=== PATIENT | female | born 2000 | race Caucasian/White ===

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

== ENCOUNTER 2021-08-13 07:41 | Outpatient (CLI) | payer OTHER, SELFPAY ==
[2021-08-13 13:31] LABS: Chlamydia Trachomatis by PCR Negative (Negative); Neisserai gonorrhoeae by PCR Negative (Negative); Probe Check PASS; Sample Adequacy Control PASS; Specimen Processing Control PASS
== END 2021-08-13 23:59 | disposition home or self-care (01) ==
LOC: LABSPEC 08-14 07:42
PROVIDERS: PCP Family Medicine; Visit Provider Nurse Practitioner Women's Health
DX: Z11.3 Encounter for screening for infections with a predominantly sexual mode of transmission (principal)
CPT/HCPCS: 87491; 87591

== ENCOUNTER → 2021-09-17 | Outpatient (CLI) | payer OTHER, SELFPAY | END | disposition home or self-care (01) | LOC: LABSPEC 16:07 | PROVIDERS: PCP Family Medicine; Visit Provider Nurse Practitioner Women's Health | DX: N76.0 Acute vaginitis (principal) | CPT/HCPCS: 87070; 87205 ==

== ENCOUNTER → 2022-06-23 | Outpatient (CLI) | payer OTHER, SELFPAY ==
[2022-06-23 11:06] LABS: Thyroid Stim Hormone (TSH) 1.58 uIU/mL (0.358-3.74)
[2022-06-27 09:46] LABS: Testosterone Free 2.9 pg/mL (0.0-4.2)
== END | disposition home or self-care (01) ==
LOC: PAVLAB 10:31
PROVIDERS: PCP Family Medicine; Referring Provider Nurse Practitioner Women's Health; Visit Provider Nurse Practitioner Women's Health
DX: L68.0 Hirsutism (principal)
CPT/HCPCS: 36415; 82627; 84402; 84443; 82626

== ENCOUNTER → 2024-05-08 | Outpatient (CLI) | payer OTHER, SELFPAY ==
[2024-05-09 22:06] LABS: Chlamydia By Nucleic Acid AMP Negative (Negative); Gonococcus By Nucleic Acid AMP Negative (Negative)
[2024-05-15 11:34] LABS: HPV Reflexed? NOT INDICATED
== END | disposition home or self-care (01) ==
LOC: BWCLAB 10:38
PROVIDERS: PCP Family Medicine; Referring Provider Obstetrics & Gynecology; Visit Provider Obstetrics & Gynecology
DX: O99.719 Diseases of the skin and subcutaneous tissue complicating pregnancy, unspecified trimester (principal); L68.0 Hirsutism; Z12.4 Encounter for screening for malignant neoplasm of cervix; Z3A.00 Weeks of gestation of pregnancy not specified
CPT/HCPCS: 87086; 87491; 87591; 88175; G0145

== ENCOUNTER 2024-05-23 10:49 | Emergency (ER) | payer OTHER, SELFPAY ==
[2024-05-23 10:49] VITALS: BP 122/78; PULSE 95; RESP 14; TEMP 36.2; O2SAT 98; BMI 24.7
--- NOTE | 2024-05-23 11:23 | EDS_ITS ---
HPI HPI - Female History of Present Illness Chief Complaint: Vag Bleeding Pain Pain: Positive for Pelvic Pain Onset: Today Context: Gradual Onset Timing: Continuous Quality: Positive for Cramping Location: Suprapubic Worsened by: - (Nothing) Relieved by: Tylenol Bleeding Issue: Negative for Vaginal bleeding, Passing clots or Passing tissue Associated Symptoms Associated Symptoms: Negative for Dysuria, Frequency or Hematuria Test: Positive P: 0 Narrative Narrative: Patient presents with pelvic cramping that began today. Patient states she had an outpatient ultrasound yesterday by Dr. Church and could not see any movement or heart rate. Patient states she started having some lower abdominal cramping today. Patient states she took Tylenol which seemed to help. Patient states she is approximately 9 weeks . Patient is 1 para 0. Patient denies any vaginal bleeding or discharge. Patient admits to some nausea but denies any vomiting. Patient denies any urinary complaints. PFSH PFSH Medical History Seasonal allergies Menorrhagia with regular cycle Anxiety Home Medications ?Medication ?Instructions ?Recorded ?Last Taken ?Type multivitamin no.47-iron fum 27 cap PO 05/02/24 Unknown History mg-folate no.1 1 mg-dha 300 mg capsule (PNV-DHA) Allergy/AdvReac Type Severity Reaction Status Date / Time No Known Allergies Allergy Verified 05/23/24 14:36 Family History Grandfather Heart disease Leukemia Father Heart disease Grandmother Cancer, Onset Age: 62 Maternal- Skin cancer Mother Breast cancer, Onset Age: 46 genetic Surgical History History of oral surgery Social History adopted: No household members: significant other current occupational status: employed 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- [employer] pets and animals: Yes (Avoid litterbox) pets and animals: cat(s) history of recent travel: No sexually active: Yes Smoking Status: Never smoker alcohol intake: never substance use type: does not use diet: gluten free well-balanced diet: daily or most days caffeine: No eating out: rarely or never during the past year weight has: remained stable what type of physical activity do you participate in: walking frequency: 1-2 times per week duration: 30-45 minutes/day maryanne/confucianism: None seatbelt use: always do you feel safe at home: Yes 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 ROS ROS ED Constitutional Constitutional ED: Denies chills or fever(s) Eyes Eyes: Denies blurry vision or change in vision ENT ENT ED: Denies rhinorrhea or sore throat Cardiovascular Cardiovascular: Denies chest pain or palpitations Respiratory/Chest Respiratory/Chest: Denies cough or dyspnea Gastrointestinal Gastrointestinal: Reports abdominal pain and nausea; Denies vomiting Genitourinary Genitourinary ED: Denies dysuria or hematuria Musculoskeletal Musculoskeletal: Denies back pain or neck pain Integumentary Denies abscess or rash Neurologic Neurologic: Denies headache(s) or weakness Allergic/Immunologic Allergic/Immunologic ED: Denies mouth swelling or urticaria EXAM Physical Exam Const Vital Signs: 05/23/24 10:49 05/23/24 12:49 Temperature 97.2 F L Temperature Source Temporal Pulse Rate 95 Respiratory Rate 14 Blood Pressure 122/78 H 117/57 L Blood Pressure Mean 92 77 Pulse Ox 98 Oxygen Delivery Method Room Air Positive well nourished and well developed General Appearance ED: well developed and NAD HEENT Reports moist mucous membranes Neck supple and no JVD Resp normal respiratory effort and clear to auscultation bilaterally Cardio regular rate and regular rhythm GI non-tender and non-distended Palpation: tender suprapubic; Negative for guarding Neuro oriented x3, CN's II-XII intact bilaterally and no sensory deficits noted Sensorium / Orientation: alert Motor Exam: strength 5/5 throughout Psych mental status grossly normal MDM MDM MDM Narrative Medical decision making narrative: Differential diagnosis includes threatened miscarriage, incomplete miscarriage, ovarian cyst, urinary tract infection, and viral gastroenteritis. CBC will be obtained to assess for leukocytosis and anemia. Basic metabolic profile will be obtained to assess for electrolyte abnormality and renal function. Urinalysis will be obtained to assess for urinary tract infection and hematuria. Serum quantitative hCG will be obtained to assess for level. Type and Rh will be obtained to assess for blood type. Pelvic ultrasound will be obtained to assess for demise. Lab Data Attestation: I reviewed the patient's lab results. Lab results narrative: CBC was reviewed. There is a mild leukocytosis of 11.4. The remainder is within normal limits. Basic metabolic profile was reviewed and was within normal limits. Quantitative hCG was reviewed [place] [id number]. Urinalysis was reviewed. There is no evidence of urinary tract infection or hematuria. Patient's blood type was reviewed and was A positive. Labs: Laboratory Results - last 24 hr 05/23/24 05/23/24 11:45 12:47 WBC 11.4 H RBC 4.42 Hgb 13.4 Hct 39.3 MCV 88.9 MCH 30.3 MCHC 34.1 RDW Std Deviation 41.9 RDW Coeff of Lisandro 12.9 Plt Count 315 MPV 10.6 Immature Gran % (Auto) 0.800 Neut % (Auto) 78.0 H Lymph % (Auto) 12.4 L Wetzel % (Auto) 7.7 Eos % (Auto) 0.7 Baso % (Auto) 0.4 Absolute Neuts (auto) 8.9 H Absolute Lymphs (auto) 1.41 Nucleated RBC % 0 Sodium 138 Potassium 3.7 Chloride 106 Carbon Dioxide 25.0 Anion Gap 7 BUN 5 L Creatinine 0.57 Estim Creat Clear Calc 133.68 Est GFR (MDRD) Af Amer 171 Est GFR (MDRD) Non-Af 141 BUN/Creatinine Ratio 8.8 L Glucose 86 Calcium 9.4 HCG, Quant 66629 H Urine Color Yellow Urine Clarity Clear Urine pH 8.0 Ur Specific [place] 1.010 Urine Protein Negative Urine Glucose (UA) Normal Urine Ketones 5 H Urine Occult Blood 10 H Urine Nitrite Negative Urine Bilirubin Negative Urine Urobilinogen Normal Ur Leukocyte Esterase 100 H Urine RBC 0-5 SEEN Urine WBC 0-5 SEEN Ur Squamous Epith Cells 0-5 SEEN Urine Bacteria 0 SEEN Urine Mucus 0 SEEN Blood Type A POSITIVE Radiography Diagnostic Testing: Pelvic ultrasound was obtained. There is a intrauterine gestational sac containing a pole and yolk sac. There is no heart rate noted. [place]-rump length measures 8 weeks and 0 days. Findings are suggestive of demise. This was interpreted by the radiologist and was also independently reviewed by myself. Treatment and Re-Evaluation Narrative: Patient was given IV fluids. Patient was advised of her findings. Case was discussed with Dr. Church. She was in to evaluate the patient. Patient would prefer to go home. Patient was instructed to get plenty of rest. Patient was instructed to drink plenty of fluids. Patient was instructed to follow-up with Dr. Church in 3 to 5 days. Patient was instructed to return if worse in any way. Patient understood and was agreeable with the plan. All questions were answered. Discharge Plan Triage Chief Complaint: Vag Bleeding ED Provider: James Kerr Dx/Rx/DC Orders Clinical Impression: Incomplete miscarriage Instructions: ED MISCARRIAGE Incomplete Prescriptions: No Action PNV-DHA 27 mg iron-1 mg -300 mg capsule PO Primary Care Provider: Víctor Pete Referrals: Víctor Pete MD [Primary Care Provider] - Zuleyka Delgadillo DO [Med Staff - Active Staff] - 3-5 Days Print Language: Slovak Disposition Disposition: Home, Self Care
--- NOTE | 2024-05-23 11:27 | US_ITS ---
STUDY: FIRST TRIMESTER OBSTETRICAL ULTRASOUND REASON FOR EXAM: Female, 23 years old Pelvic pain LMP: 03/19/2024 TECHNIQUE: Transabdominal and Transvaginal TECHNICAL QUALITY: Adequate. PRIOR ULTRASOUND: None. FINDINGS: There is a normal-appearing intrauterine gestational sac. The mean sac diameter (MSD) measures 2.73 cm, indicating an estimated gestational age (EGA) of 7 weeks, 5 days. The gestational sac shape is within normal limits. There is a visualized yolk sac. The yolk sac measures 0.29 cm. The placenta is non-visualized. There is visualization of an embryo with NO cardiac activity, consistent with intrauterine demise. The crown-rump length (CRL) measures 1.65 cm, indicating an estimated gestational age (EGA) of 8 weeks, 0 days. The uterus measures 9.6 x 8.3 x 6.0 cm. There is no demonstrated uterine fibroid. The cervix is closed. The right ovary measures 2.1 x 1.6 x 2.1 cm. There is no right ovarian cyst. There is no visualized right adnexal mass or complex lesion. The left ovary measures 3.5 x 2.0 x 1.6 cm. There is no left ovarian cyst. There is no visualized left adnexal mass or complex lesion. There is minimal fluid in the cul de sac. US/Transvaginal w/Preg US IMPRESSION: There is a normal-appearing intrauterine gestational sac containing a pole, and yolk sac. However, there is no heart rate identified. [place]-rump length measures 1.65 cm for EGA is 8 weeks 0 days and a heart rate could be identified at this point. Findings are suggestive of demise. Follow-up ultrasound recommended to assure no retained POC No suspicious adnexal mass Small amount of free fluid in the cul-de-sac Electronically Signed: Mason Johnson MD at 13:04 EST ,
[2024-05-23] MEDS: 0.9% Normal Saline (1000mL) 1,000 ML 999 ML IV (12:00)
[2024-05-23 12:07] LABS: Absolute Lymphocyte Count 1.41 X10^3/uL (0.83-4.51); Absolute Neutrophil Count 8.9 X10^3/uL (2.0-7.7); Basophil# 0.05 X10^3/uL; Basophil% 0.4 % (0-1); Eosinophil# 0.08 X10^3/uL; Eosinophils% 0.7 % (0-5); Hematocrit 39.3 % (37-47); Hemoglobin 13.4 g/dL (12.0-15.0); Lymphocyte # 1.41 X10^3/ul (0.83-4.51); Lymphocyte % 12.4 % (19-41); Mean Corp Hgb Conc 34.1 g/dL (32-36); Mean Corpuscular Hgb 30.3 pg (27.0-32.0); Mean Corpuscular Volume 88.9 fL (81-99); Mean Platelet Vol. 10.6 fl (6.2-12.0); Monocyte# 0.88 X10^3/uL; Monocyte% 7.7 % (0-10); NRBC Flagged by Analyzer 0 % (0-5); Neutrophil # 8.86 X10^3/uL (2.7-7.7); Platelet Count 315 K/mm3 (150-450); RBC Distribution Width CV 12.9 % (11.6-14.6); RBC Distribution Width SD 41.9 fl (35.1-43.9); Red Blood Count 4.42 M/mm3 (4.2-5.4); White Blood Count 11.4 K/mm3 (4.4-11.0)
[2024-05-23 12:30] LABS: Anion Gap 7 (5-15); BUN 5 mg/dL (7-18); BUN/Creat Ratio 8.8 RATIO (10-20); Calcium,Total 9.4 mg/dL (8.5-10.1); Chloride 106 mmol/L (98-107); Creatinine, Serum 0.57 mg/dL (0.55-1.02); EST Glomerular Filtration Rate 141 mL/min (>60); Est Glom Filt Rate - Afr Amer 171 mL/min (>60); Estimated Creatinine Clearance 133.68 ml/min; Glucose 86 mg/dL (74-106); Potassium 3.7 mmol/L (3.5-5.1); Sodium Level 138 mmol/L (136-145)
[2024-05-23 12:42] LABS: hCG Titer Quant., Serum 63743 mIU/mL (1-3)
[2024-05-23 12:49] VITALS: BP 117/57
[2024-05-23 12:52] LABS: Bacteria 0 SEEN /hpf (None Seen); Mucous, Urine 0 SEEN /hpf (<or=2+)
[2024-05-23 12:57] LABS: Color, Urine Yellow (Yellow); Glucose, Dipstick Normal (Normal); Ketone-Dipstick 5 mg/dl (Negative); Leukocyte Esterase-Dipstick 100 /ul (Negative); Nitrite-Dipstick Negative (Negative); Occult Blood-Urine 10 /ul (Negative); Protein-Dipstick Negative (Negative); Urine Bilirubin Dipstick Negative (Negative); Urine Clarity Clear (Clear); Urine Urobilinogen Normal (Normal)
[2024-05-23 13:09] LABS: Red Blood Cells-Urine 0-5 SEEN /hpf (0-5); Squamous Epithelial Cells - UA 0-5 SEEN /hpf (5-10)
[2024-05-23 13:10] LABS: White Blood Cells 0-5 SEEN /hpf (0-5)
[2024-05-23 14:00] VITALS: BP 101/64; PULSE 83; RESP 16; O2SAT 98
== END 2024-05-23 15:24 | disposition home or self-care (01) ==
PROVIDERS: Emergency Provider Emergency Medicine; PCP Family Medicine; Visit Provider Emergency Medicine
DX: O03.4 Incomplete spontaneous abortion without complication (principal)
CPT/HCPCS: 76817; 80048; 81001; 84702; 85025; 86900; 86901; 96360; 99283

== ENCOUNTER 2024-05-25 10:31 | Day surgery (SDC) | payer OTHER, SELFPAY ==
[2024-05-25] VITALS (10 sets, daily range): BP systolic 93–114; BP diastolic 58–69; PULSE 81–108; RESP 16–18; TEMP 36.3–37.1; O2SAT 100; BMI 24.8
[2024-05-25] MEDS: Doxycycline 100 MG CAPSULE PO (11:36)
[2024-05-25 11:43] LABS: Hematocrit 37.8 % (37-47); Hemoglobin 12.8 g/dL (12.0-15.0); Mean Corp Hgb Conc 33.9 g/dL (32-36); Mean Corpuscular Hgb 30.5 pg (27.0-32.0); Mean Corpuscular Volume 90.2 fL (81-99); Mean Platelet Vol. 10.8 fl (6.2-12.0); Platelet Count 278 K/mm3 (150-450); RBC Distribution Width SD 42.3 fl (35.1-43.9); Red Blood Count 4.19 M/mm3 (4.2-5.4); White Blood Count 7.5 K/mm3 (4.4-11.0)
--- NOTE | 2024-05-25 12:02 | PCM.PRE.AN2 ---
ASA Classification* ASA Classification ASA Classification: 1 Assessment & Plan Anesthesia* Anesthesia Assessment Anesthesia Assessment: Discussed sedation and/or anesthesia options, risks, benefits, and alternatives with patient/parents/legal guardian/POA. Questions invited. The patient/parents/legal guardian/POA seems to understand and agrees to proceed with anesthesia plan. Reviewed the physical assessment, medical history, allergy history and patient home medications list prior to surgery/procedure/anesthetic and documented any changes. Performed airway and anesthesia risk assessments. Anesthesia Type Anesthesia Type: MAC History Source History Obtained from:: Patient and Chart Anesthesia Focused Assessment* Temperature: 98.7 F Pulse Rate: 108 Blood Pressure: 114/69 Respiratory Rate: 18 Pulse Ox: 100 Oxygen Delivery Method: Room Air Airway Assessment Mouth opens: >3 cm Mallampati Score: I Teeth Condition: Lower (Patient has a permanent retainer) and Upper (Patient has a permanent retainer) Neck Range of motion (ROM): Full ROM Focused Labs Anesthesia Preop lab: CBC WBC 7.5 K/mm3 (4.4-11.0) 05/25/24 11:20 RBC 4.19 M/mm3 (4.2-5.4) L 05/25/24 11:20 Hgb 12.8 g/dL (12.0-15.0) 05/25/24 11:20 Hct 37.8 % (37-47) 05/25/24 11:20 Plt Count 278 K/mm3 (150-450) 05/25/24 11:20 CHEMISTRY Potassium 3.7 mmol/L (3.5-5.1) 05/23/24 11:45 Sodium 138 mmol/L (136-145) 05/23/24 11:45 BUN 5 mg/dL (7-18) L 05/23/24 11:45 Creatinine 0.57 mg/dL (0.55-1.02) 05/23/24 11:45 Glucose 86 mg/dL (74-106) 05/23/24 11:45 TSH 1.58 uIU/mL (0.358-3.74) 06/23/22 10:35 COAG PT 14.5 SECONDS (11.7-14.9) 04/07/19 13:23 HCG, Quant 36693 mIU/mL (1-3) H 05/23/24 11:45 Pre-Assessment Diagnosis/Proposed Procedure Planned Operative Procedure(s): SUCTION DIALATION AND CURETTAGE Anesthesia History 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 When Was Last Pacemaker Check QUESTION #4 FULL TEXT: You/Your Family Experience fever (hyperthermia) with Anesthesia Last Oral Intake Last Oral intake: Last Oral Intake NPO since 21:30 05/25/24 11:32 Meds taken in AM with sips of No 05/25/24 11:32 water? Meds patient instructed to take am of surgery PONV PONV - fire equipment operator: PONV - fire equipment operator Female Yes 05/25/24 11:29 HX of Motion Sickness No 05/25/24 11:29 HX of N/V After Surgery No 05/25/24 11:29 Non-Smoker Yes 05/25/24 11:29 Duration of Surgery greater No 05/25/24 11:29 than 60 minutes Number of Risk Factors 2 05/25/24 11:29 PONV Score Moderate Risk 05/25/24 11:29 Height & Weight Height & Weight: Anesthesia: Height & Weight Height 5 ft 4 in 05/25/24 11:32 Weight: 65.7 kg 05/25/24 11:32 Body Mass Index (BMI) 24.8 05/25/24 11:32 Respiratory Assessment Respiratory Assessment - fire equipment operator: Respiratory Tract Infection Hx - fire equipment operator Hx Respiratory Tract Infection No 05/25/24 11:29 STOP Sleep Apnea STOP Sleep Apnea - fire equipment operator: STOP Sleep Apnea - fire equipment operator Hx Hypertension No 05/25/24 11:29 Hx Sleep Apnea No 05/25/24 11:29 CPAP BIPAP Do you snore loudly (louder No 05/25/24 11:29 than talking or can be heard Do you often feel tired/ No 05/25/24 11:29 fatigued/ sleepy during daytime? Has anyone observed you stop No 05/25/24 11:29 breathing during sleep? STOP Results Negative 05/25/24 11:29 QUESTION #5 FULL TEXT : Do you snore loudly (louder than talking or can be heard through closed doors)? Tobacco Use History Tobacco Use History - fire equipment operator: Tobacco Use History - fire equipment operator Tobacco Use Smoking Status Never smoker 05/25/24 11:29 Hx Tobacco Use No 05/25/24 11:29 Years Smoking Packs Smoked per Day Smoking Cessation Date was within the last 15 years Hx Smoking Cessation Date Hx Smoking Cessation Counseling Hematologic Medial History Hematologic Hx - fire equipment operator: Hematologic Medical Hx - hospice art therapist Hx of Blood Transfusion No 05/25/24 11:29 Hx of Transfusion in last 3 No 05/25/24 11:29 Months Date of Last Transfusion (if within last 3 months) Ever experience any problems No 05/25/24 11:29 with transfusion(s)? Specify any problems Hx of Preganancy in last 3 Yes 05/25/24 11:29 Months Nurse Filling Out Transfusion [id number] 05/25/24 11:29 & Questions: Date: 05/25/24 05/25/24 11:29 Time: 11:31 05/25/24 11:29 Patient unable to answer at this time (ie. confused, unrespo /Reproduction History /Reproductive History - fire equipment operator: /Reproductive Hx- fire equipment operator Hx Now Yes: HERE FOR SUCTION D&C 05/25/24 11:29 Gestational Age (in weeks): EDC: Hx Hx Para Hx Section SAB No 05/25/24 11:29 PFSH Medical History Seasonal allergies Menorrhagia with regular cycle Anxiety Home Medications ?Medication ?Instructions ?Recorded ?Last Taken ?Type multivitamin no.47-iron fum 27 1 cap PO 05/02/24 Unknown History mg-folate no.1 1 mg-dha 300 mg capsule (PNV-DHA) Allergy/AdvReac Type Severity Reaction Status Date / Time No Known Allergies Allergy Verified 05/25/24 11:26 Family History Grandfather Heart disease Leukemia Father Heart disease Grandmother Cancer, Onset Age: 62 Maternal- Skin cancer Mother Breast cancer, Onset Age: 46 genetic Surgical History History of oral surgery Social History adopted: No household members: significant other current occupational status: employed 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- [employer] pets and animals: Yes (Avoid litterbox) pets and animals: cat(s) history of recent travel: No sexually active: Yes Smoking Status: Never smoker alcohol intake: never substance use type: does not use diet: gluten free well-balanced diet: daily or most days caffeine: No eating out: rarely or never during the past year weight has: remained stable what type of physical activity do you participate in: walking frequency: 1-2 times per week duration: 30-45 minutes/day maryanne/mandaen: None seatbelt use: always do you feel safe at home: Yes 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
--- NOTE | 2024-05-25 12:30 | POC_PTH ---
PATIENT: RENEE SONG [place] [facility] [id number] AGE/SX: 23/F ROOM: RE05/25/[address]: Dr. Zuleyka Delgadillo DO : 2000 BED: DIS: 05/25/2024 SPEC #: [id number] RECD: 05/25/24 16:46 STATUS: ANAY HE #: [id number] JAZZY: 05/25/24 12:[address]: Zuleyka Delgadillo DEPT: SURGICAL PATHOLOGY RECD BY: Jacki Feng ENTERED: 05/26/24 09:42 SP TYPE: PROD CONC OTHR DR: Dr. Víctor Pete MD Tissues: Product of conception, NOS Procedures: Surgery Specimen Level IV HEADER OPERATION: D&C, suction PRE-OP DIAGNOSIS: Incomplete miscarriage TISSUE SUBMITTED: Products of conception MICROSCOPIC DIAGNOSIS Products of conception, dilation and curettage: [place], gestational endometrium and immature chorionic villi (products of conception), clinically incomplete miscarriage. LINA: 05/29/2024 MICROSCOPIC DESCRIPTION Slides are reviewed. GROSS DESCRIPTION Received in fixative is one container labeled with the patient's name and designated Products of conception. The specimen consists of multiple irregular fragments of pink soft tissue mixed with blood clot that in aggregate measure 7.0 x 7.0 x 2.0 cm. No tissue is identified. Candy Wrapping Machine Operator sections are submitted in three cassettes. LINA. 05/26/2024 TC:5 CPT:03175
--- NOTE | 2024-05-25 12:49 | HP.PCM_ITS ---
History and Physical Date of Admission: 05/25/24 Intake Vital Signs 05/08/2409:18 05/22/2411:44 05/22/2411:47 Height 5 ft 4 in 5 ft 4 in 5 ft 4 in Weight: 143 lb 4 oz BMI 24.5 BP 117/76 Intake Visit Reasons: 9 wk ob Buffer Nickel Required: No Is patient in pain?: No Allergies No Known Allergies Allergy (Verified 05/22/24 11:44) Medications ?Medication ?Instructions ?Recorded ?Confirmed ?Type multivitamin no.47-iron fum 27 cap PO 05/02/24 05/22/24 History mg-folate no.1 1 mg-dha 300 mg capsule (PNV-DHA) Last Menstrual Period: 03/19/24 Zika: Zika virus screening: Negative : No PFSH PFSH Medical History Seasonal allergies Menorrhagia with regular cycle Anxiety Surgical History History of oral surgery Family History Grandfather Heart disease LeukemiaFather Heart diseaseGrandmother Cancer, Onset Age: 62 Maternal- Skin cancerMother Breast cancer, Onset Age: 46 genetic Social History adopted: No household members: significant other current occupational status: employed 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 pets and animals: Yes (Avoid litterbox) pets and animals: cat(s) history of recent travel: No sexually active: Yes Smoking Status: Never smoker alcohol intake: never substance use type: does not use diet: gluten free well-balanced diet: daily or most days caffeine: No eating out: rarely or never during the past year weight has: remained stable what type of physical activity do you participate in: walking frequency: 1-2 times per week duration: 30-45 minutes/day maryanne/orthodoxy: None seatbelt use: always do you feel safe at home: Yes additional social history: 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 OB Visit NICHOL Calculator Estimated Delivery Date Method Current WG Current Estimate 12/24/24 LMP (Certain) 9w 1d Other Estimates 12/28/24 Ultrasound #1 8w 4d Initial Weight: Not Recorded Date -?-?-?-?-?-?-?-?-?-?-?-?- EGA Weight BP Urine Prot -?-?-?-?-?-?-?-?-?-?-?-?- Glucose FHR FuHt Pres Dilation -?-?-?-?-?-?--?-?-?-?-?-?- Effaced St Visit Note 05/08/24-?-?-?-?-?-?-?-?-?-?-?-?- 7w 1d 143 lb 4 oz 118/78 -?-?-?-?-?-?-?-?-?-?-?-?- 150 -?-?-?-?-?-?-?-?-?-?-?-?- SM- CRL 6-7 mm very early recommend repeat scan for dating to confirm NICHOL 05/22/24-?-?-?-?-?-?-?-?-?-?-?-?- 9w 1d 143 lb 4 oz 117/76 Negative -?-?-?-?-?-?-?-?-?-?-?-?- Negative -?-?-?-?-?-?-?-?-?-?-?-?- JV- CRL is measuring 8 weeks 5 days but only a slight flicker of heart beat and unable to get it to form a pulse wave. sending for formal scan. ROS: no chest pain, shortness of breath, fevers,chills, nausea, vomiting, or diarrhea, no suicidal ideations. Exam: general: A&C x , nad abdomen: soft, non-distended skin: no rashes or lesions psych: normal affect, appropriate for loss extremities: no edema or calf tenderness ACOG First Trimester First Trimester: Desire for , Alcohol, Tobacco Cessation, Illicit/Recreational Drug/Substance Use, Intimate Partner Violence, Barriers to care, Unstable Housing, Communication Barriers, Environmental/Work Hazards, Anticipated Course of Care, Toxoplasmosis Precations, Use of Any medications, Sexual activity, Exercise, Dental Care, Sauna/Hot tub use, Seat Belt use, Childbirth classes/Hospital facilities, Travel, Indications for Ultrasound and Screening for Aneuploidy; Discussed Results POC Urinalysis 2 Dip (Clinic) Office Urine Glucose Negative Last Edit by Candy Merritt on 05/22/24 11:55 Office Urine Protein Negative Last Edit by Candy Merritt on 05/22/24 11:55 Coding Level of Care Code OB Routine Diagnoses Family history of neural tube defect Z82.79 FH: breast cancer in first degree relative Z80.3 Supervision of normal first Z34.00 9 weeks gestation of Z3A.09 Weeks of gestation: 9 weeks Assessment and Plan Assessment and Plan (1) Family history of neural tube defect: Status: Acute (2) FH: breast cancer in first degree relative: Status: Acute Comment: Mother , had genetic testing will obtain results (3) Supervision of normal first : Status: Acute Comment: , NICHOL 12/24/24, Rich Perez (4) : Status: Acute Qualifiers: Weeks of gestation: 9 weeks Qualified Code(s): Z3A.09 - 9 weeks ges tation of Comment: discussed genetic & carrier testing- Undecided Orders: Orders 4. incomplete - documented on ultrasound x 2 and quants x 2. After discussing the patient's diagnosis and treatment plan options, patient wishes to proceed with surgical management. I have discussed with the patient the risks, benefits, and alternatives of the procedure which include but are not limited to risks of anesthesia, bleeding, infection, possible damage to bowel, bladder, or surrounding vasculature which could lead to additional surgery to evaluate any complications. Patient agrees to procedure and wishes to proceed. ACOG/uptodate references given for additional information regarding procedure. plan hysteroscopy D&C. patient declines anora testing. POC Urinalysis 2 Dip (Clinic) Today Pelvic w/ Transvaginal Today O20.0 - Threatened
--- NOTE | 2024-05-25 12:53 | DCINST_ITS ---
Discharge Instructions Diet Discharge Diet: No restrictions DC O2, CPAP, BIPAP needs Home O2 Discharge instructions: No Dressing / Incision Discharge Activity: Return to Normal Activity, May Shower and May Take a Tub Bath (after 1 week) May resume sexual activity in: 1-2 weeks Weight Bearing Status: Weight bearing as tolerated Lifting Restrictions: none Dressing / Incision Call your doctor if you observe: Fever of 101 or Higher, Using more than 1 pad per hour, Shortness of breath and Uncontrolled pain Follow Up Care Please Follow Up With: Zuleyka Delgadillo DO When: Call [phone] to schedule appointment. Test Results: Test results from this visit will be discussed in further detail at your follow- up appointment, if applicable. Discharge Plan Admission Primary Reason for Your Visit: dilation and curettage Attending Provider: Zuleyka Delgadillo Primary Care Provider: Víctor Pete Instructions Print Language: Korean Discharge Orders/Prescriptions Prescriptions: New ibuprofen 800 mg tablet 800 mg PO Q8H PRN (Reason: pain) Qty: 30 0RF oxycodone-acetaminophen [Percocet] 5-325 mg tablet 1 tab PO Q4H PRN (Reason: pain) 7 Days Qty: 20 0RF Rx Instructions: 1-2 tabs q 4 hrs as needed for pain No Action PNV-DHA 27 mg iron-1 mg -300 mg capsule 1 cap PO Referrals / Follow Up: Víctor Pete MD [Primary Care Provider] - Disposition Disposition (needs filled in before D/C Order can be placed): Home, Self Care
[2024-05-25] MEDS: Lidocaine 1% (30 ml sdv) 30 ML Vial (13:22)
--- NOTE | 2024-05-25 13:31 | PCM.POST.ANE ---
Anesthesia: Postop Eval I Current Vital Signs Temperature: 97.6 F Pulse Rate: 86 Blood Pressure: 100/65 Respiratory Rate: 16 Pulse Ox: 100 Oxygen Delivery Method: Room Air Assessment Airway patent: Yes Spontaneous unlabored respirations: Yes Mental status: Awake and Calm nausea: No Vomiting: No Anesthesia Complication: No Fluid Hydration Crystalloid volume administer (ml): 400 Total IV fluid infused: 400 Progress Note Anesthesia document: Postop Eval 1 completed: Yes
--- NOTE | 2024-05-25 13:40 | PCM.OPRPT ---
Problems Associated Problem List Diagnoses (1) Incomplete miscarriage: Multi Select Codes Urinary/Genital Urinary/Genital CPT Codes: 47343 Surg Trtmt missed Ab 1TM Operative Report (Standard) Operative Information Date of Procedure: 05/25/24 Pre-Operative Diagnosis: 8 week miscarriage Post-Operative Diagnosis: 8 week miscarriage Surgery/Procedure Performed: suction dilation and curettage ballistics tester: No Type of Anesthesia: MAC and Topical Anesth RN Documented Start/Stop Times: Operation Date: 05/25/24 12:30 Case Time Into Pre-Op 05/25/24 10:39 Out of Pre-Op 05/25/24 12:41 Anesthesia Start 05/25/24 12:58 Into Room 05/25/24 12:58 Procedure Start 05/25/24 13:15 Procedure End 05/25/24 13:21 Anesthesia End 05/25/24 13:29 Out of Room 05/25/24 13:29 Into Recovery 05/25/24 13:31 Into Phase II Recovery 05/25/24 14:08 Out of Recovery 05/25/24 14:08 Out of Phase II 05/25/24 15:21 Procedure Start Time: 13:15 Procedure Stop Time: 13:21 Select all DRAINS/GRAFTS/IMPLANTS that apply: None Estimated Blood Loss: 30cc Fluids Replaced: 1 liter Specimen collected: Yes Description of specimen(s) removed: products of conception Description of surgery: Patient was taken to the operating room and placed under MAC local anesthesia. She was prepped and draped in the normal sterile fashion the dorsal lithotomy position. Bladder was drained of clear urine and anterior lip of the cervix was grasped and the uterus sounded to 10cm. Cervix was progressively dilated to allow passage of a 9 suction curette. Progressive passes were made removing the retained products of conception without complication. Sharp curettage confirmed complete removal of the retained products. This procedure was performed under ultrasound guidance to confirm removal of all products of conception. All instruments were removed from the vagina and excellent hemostasis was noted and the patient was taken to recovery in stable condition. Surgical Findings: 8 week IUP, no heart tones. Normal cervix and vagina. Complications Complications: No Admit VTE Documentation VTE Present on Admission: No VTE Mechan Device Prophylaxis: SCD's VTE Pharm Prophylaxis ordered?: No
[2024-05-25] MEDS: HYDROcodone Bitartrate/Apap 5/325 Tablet PO (14:28)
--- NOTE | 2024-05-25 15:09 | POSTOPAN2_ITS ---
Anesthesia Postop Eval I Sum Postop Eval Completion status Anesthesia document: Postop Eval 1 completed: Yes Anesthesia Postop Eval I Summary Anesthesia Postop Eval I Summary: Anesthesia Postop Eval I: Assessment Summary Airway patent Yes 05/25/24 13:32 [email or web address] Spontaneous unlabored Yes 05/25/24 13:32 [email or web address] respirations Mental status Awake,Calm 05/25/24 13:32 [email or web address] nausea No 05/25/24 13:32 [email or web address] Vomiting No 05/25/24 13:32 [email or web address] Anesthesia Postop Eval I: Fluid Summary Crystalloid volume administer 400 05/25/24 13:32 [email or web address] (ml) Colloids volume administered ( ml) Blood Product volume administered (ml) Total IV fluid infused 400 05/25/24 13:32 [email or web address] Anesthesia Postop Eval I: Summary Notes Anesthesia Complication No 05/25/24 13:32 [email or web address] Anesthesia Complication Comment: Post-operative progress note Anesthesia: Postop Eval II Evaluation Mental status: Awake and Calm Pain Level: 1 nausea: No Vomiting: No Complications Anesthesia Complication: No
--- NOTE | 2024-05-25 15:09 | PCM.POSTANE2 ---
Anesthesia Postop Eval I Sum Postop Eval Completion status Anesthesia document: Postop Eval 1 completed: Yes Anesthesia Postop Eval I Summary Anesthesia Postop Eval I Summary: Anesthesia Postop Eval I: Assessment Summary Airway patent Yes 05/25/24 13:32 [email or web address] Spontaneous unlabored Yes 05/25/24 13:32 MOLDING PRESS [email or web address] respirations Mental status Awake,Calm 05/25/24 13:32 MOLDING PRESS [email or web address].[email or web address] nausea No 05/25/24 13:32 MOLDING PRESS [email or web address].[email or web address] Vomiting No 05/25/24 13:32 MOLDING PRESS [email or web address] Anesthesia Postop Eval I: Fluid Summary Crystalloid volume administer 400 05/25/24 13:32 MOLDING PRESS [email or web address] (ml) Colloids volume administered ( ml) Blood Product volume administered (ml) Total IV fluid infused 400 05/25/24 13:32 MOLDING PRESS [email or web address] Anesthesia Postop Eval I: Summary Notes Anesthesia Complication No 05/25/24 13:32 MOLDING [email or web address] Anesthesia Complication Comment: Post-operative progress note Anesthesia: Postop Eval II Evaluation Mental status: Awake and Calm Pain Level: 1 nausea: No Vomiting: No Complications Anesthesia Complication: No
== END 2024-05-25 15:21 | disposition home or self-care (01) ==
LOC: SDC 10:32 → AC 10:34
PROVIDERS: PCP Family Medicine; Referring Provider Obstetrics & Gynecology; Visit Provider Obstetrics & Gynecology
PROC: (CPT 59812; principal; 2024-05-25 12:15)
DX: O03.4 Incomplete spontaneous abortion without complication (principal)
CPT/HCPCS: 59812; 01965; 85027; 86850; 86900; 86901; 87086; 88305; A4216; J2405

== ENCOUNTER 2024-06-15 15:13 | Outpatient (CLI) | payer OTHER, SELFPAY ==
[2024-06-15 17:23] LABS: hCG Titer Quant., Serum 31 mIU/mL (1-3)
== END 2024-06-15 23:59 | disposition home or self-care (01) ==
LOC: BWCLAB 15:13
PROVIDERS: PCP Family Medicine; Referring Provider Obstetrics & Gynecology; Visit Provider Obstetrics & Gynecology
DX: Z09 Encounter for follow-up examination after completed treatment for conditions other than malignant neoplasm (principal); Z98.890 Other specified postprocedural states
CPT/HCPCS: 36415; 84702

== ENCOUNTER → 2024-06-22 | Outpatient (CLI) | payer OTHER, SELFPAY ==
[2024-06-22 10:44] LABS: hCG Titer Quant., Serum 11 mIU/mL (1-3)
== END | disposition home or self-care (01) ==
LOC: LAB 09:24
PROVIDERS: PCP Family Medicine; Referring Provider Obstetrics & Gynecology; Visit Provider Obstetrics & Gynecology
DX: Z98.890 Other specified postprocedural states (principal)
CPT/HCPCS: 36415; 84702

== ENCOUNTER → 2024-06-29 | Outpatient (CLI) | payer OTHER, SELFPAY ==
[2024-06-29 22:03] LABS: hCG Titer Quant., Serum 5 mIU/mL (1-3)
== END | disposition home or self-care (01) ==
PROVIDERS: PCP Family Medicine; Referring Provider Nurse Practitioner Women's Health; Visit Provider Nurse Practitioner Women's Health
DX: Z09 Encounter for follow-up examination after completed treatment for conditions other than malignant neoplasm (principal); Z98.890 Other specified postprocedural states
CPT/HCPCS: 36415; 84702

== ENCOUNTER → 2024-07-05 | Outpatient (CLI) | payer OTHER, SELFPAY ==
[2024-07-05 10:59] LABS: hCG Titer Quant., Serum 3 mIU/mL (1-3)
== END | disposition home or self-care (01) ==
PROVIDERS: PCP Family Medicine; Referring Provider Nurse Practitioner Women's Health; Visit Provider Nurse Practitioner Women's Health
DX: Z98.890 Other specified postprocedural states (principal)
CPT/HCPCS: 36415; 84702

== ENCOUNTER 2024-07-14 17:57 | Emergency (ER) | payer OTHER, SELFPAY ==
[2024-07-14 17:57] VITALS: BP 133/92; PULSE 82; RESP 16; TEMP 36.8; O2SAT 100; BMI 24.0
[2024-07-14 18:40] LABS: Absolute Lymphocyte Count 1.51 X10^3/uL (0.83-4.51); Absolute Neutrophil Count 4.1 X10^3/uL (2.0-7.7); Basophil# 0.06 X10^3/uL; Basophil% 0.9 % (0-1); Eosinophil# 0.16 X10^3/uL; Eosinophils% 2.5 % (0-5); Hematocrit 35.8 % (37-47); Hemoglobin 12.1 g/dL (12.0-15.0); Lymphocyte # 1.51 X10^3/ul (0.83-4.51); Lymphocyte % 23.1 % (19-41); Mean Corp Hgb Conc 33.8 g/dL (32-36); Mean Corpuscular Hgb 30.3 pg (27.0-32.0); Mean Corpuscular Volume 89.5 fL (81-99); Mean Platelet Vol. 10.3 fl (6.2-12.0); Monocyte# 0.65 X10^3/uL; NRBC Flagged by Analyzer 0 % (0-5); Neutrophil # 4.12 X10^3/uL (2.7-7.7); Platelet Count 348 K/mm3 (150-450); RBC Distribution Width CV 12.7 % (11.6-14.6); RBC Distribution Width SD 41.6 fl (35.1-43.9); White Blood Count 6.5 K/mm3 (4.4-11.0)
[2024-07-14 18:52] LABS: Internal QC Validated? YES +Cl - CLEAR BKGD; Pregnancy, Serum, hCG Quali. NEGATIVE Negative
[2024-07-14 19:01] LABS: ALB/GLOB Ratio 1.3 RATIO (0.9-2.4); AST(SGOT) 13 U/L (15-37); Alanine Aminotransfer ALT/SGPT 20 U/L (13-56); Albumin, Serum 4.2 g/dL (3.2-5.0); Alkaline Phosphatase 42 U/L (45-117); Anion Gap 5 (5-15); BUN 7 mg/dL (7-18); BUN/Creat Ratio 9.9 RATIO (10-20); Calcium,Total 9.3 mg/dL (8.5-10.1); Chloride 109 mmol/L (98-107); EST Glomerular Filtration Rate 110 mL/min (>60); Est Glom Filt Rate - Afr Amer 133 mL/min (>60); Estimated Creatinine Clearance 108.86 ml/min; Globulin 3.3 g/dL (2.2-4.2); Glucose 90 mg/dL (74-106); Potassium 3.6 mmol/L (3.5-5.1); Protein, Total 7.5 g/dL (6.4-8.2); Sodium Level 139 mmol/L (136-145)
[2024-07-14 19:33] LABS: Bacteria 0 SEEN /hpf (None Seen); Mucous, Urine 0 SEEN /hpf (<or=2+)
[2024-07-14 19:34] LABS: Glucose, Dipstick Normal (Normal); Ketone-Dipstick Negative (Negative); Leukocyte Esterase-Dipstick 25 /ul (Negative); Nitrite-Dipstick Negative (Negative); Occult Blood-Urine 250 /ul (Negative); Protein-Dipstick 100 mg/dl (Negative); Specific Gravity, Urine 1.015 (1.002-1.030); Urine Bilirubin Dipstick Negative (Negative); Urine Clarity Sl. Cloudy (Clear); Urine Urobilinogen Normal (Normal)
[2024-07-14 19:41] LABS: Color, Urine SEE COMMENT BELOW (Yellow)
[2024-07-14 19:57] LABS: Red Blood Cells-Urine > 100 SEEN /hpf (0-5)
[2024-07-14 19:58] LABS: Squamous Epithelial Cells - UA 0-5 SEEN /hpf (5-10); White Blood Cells 5-10 SEEN /hpf (0-5)
[2024-07-14 20:40] VITALS: BP 105/88; PULSE 88; RESP 18; O2SAT 98
[2024-07-14 20:50] VITALS: BP 116/78; BP 132/97; BP 143/98; PULSE 82; PULSE 88; PULSE 97
--- NOTE | 2024-07-14 21:35 | ED.VIS.FEGU ---
HPI HPI - Female History of Present Illness Chief Complaint: Vag Bleeding Detail of Chief Complaint: Vaginal bleeding started 4 days ago Informant: patient Pain Pain: Negative for Pelvic Pain, Vulvar Pain or Vaginal Pain Bleeding Issue: Positive for Vaginal bleeding; Negative for Passing clots or Passing tissue Onset: Days (Started 4 days ago heavier than last several hours) Timing: Continuous Current pads/hr: 2 Maximum Severity: Heavy Maximum pads/hr: 3 Associated Symptoms Associated Symptoms: Negative for Dysuria, Frequency, Urgency, Hematuria or Missed Period Last known menstrual period: February 2024. Test: - (Unknown) Sexually: Positive for Active Control: No control Narrative Narrative: Patient is a 23-year-old female. She recently had a miscarriage. She has been sexually active since the miscarriage in April. She does not use any form of control. She denies headache, visual, ocular auditory symptoms. She denies cardiac respiratory symptoms. She denies abdominal pain. She presents because of increased bleeding. She does report lightheadedness with standing. Prior similar symptoms: No Recent Illness/Hospitalization: Yes PFSH PFSH Medical History Seasonal allergies Menorrhagia with regular cycle Anxiety Home Medications ?Medication ?Instructions ?Recorded ?Last Taken ?Type multivitamin no.47-iron fum 27 1 cap PO 05/02/24 Unknown History mg-folate no.1 1 mg-dha 300 mg capsule (PNV-DHA) ibuprofen 800 mg tablet 800 mg PO Q8H PRN pain #30 tabs 05/25/24 Unknown Rx oxycodone-acetaminophen 5 mg-325 1 tab PO Q4H PRN pain 7 days #20 05/25/24 Unknown Rx mg tablet (Percocet) tabs misoprostol 200 mcg tablet 400 mcg (2 x 200 mcg) PO ONCE #2 06/01/24 Unknown Rx (Cytotec) tabs medroxyprogesterone 10 mg tablet 10 mg PO UD #42 tabs 07/14/24 Unknown Rx (Provera) Allergy/AdvReac Type Severity Reaction Status Date / Time No Known Allergies Allergy Verified 07/14/24 18:00 Family History Grandfather Heart disease Leukemia Father Heart disease Grandmother Cancer, Onset Age: 62 Maternal- Skin cancer Mother Breast cancer, Onset Age: 46 genetic Surgical History H/O dilation and curettage History of oral surgery Social History adopted: No household members: significant other current occupational status: employed 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 pets and animals: Yes (Avoid litterbox) pets and animals: cat(s) history of recent travel: No sexually active: Yes Smoking Status: Never smoker alcohol intake: never substance use type: does not use diet: gluten free well-balanced diet: daily or most days caffeine: No eating out: rarely or never during the past year weight has: remained stable what type of physical activity do you participate in: walking frequency: 1-2 times per week duration: 30-45 minutes/day maryanne/confucianism: None seatbelt use: always do you feel safe at home: Yes 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 [facility] ED Constitutional Constitutional ED: Denies chills, fever(s) or subjective Eyes Eyes: Denies blurry vision or change in vision Cardiovascular Cardiovascular: Denies chest pain or palpitations Respiratory/Chest Respiratory/Chest: Denies cough, dyspnea or dyspnea on exertion Gastrointestinal Gastrointestinal: Denies abdominal pain, nausea or vomiting Genitourinary Genitourinary ED: Denies dysuria, hematuria or urinary frequency Neurologic Neurologic: Denies paresthesias or weakness Hematologic/Lymphatic Hematologic/Lymphatic: Denies easy bleeding or easy bruising EXAM Physical Exam Const Vital Signs: 07/14/24 17:57 07/14/24 20:40 07/14/24 20:50 Temperature 98.2 F Temperature Source Oral Pulse Rate 82 88 Pulse Rate [Lying] 88 Pulse Rate [Sitting (for 1 minute prior to obtaining)] 82 Pulse Rate [Standing (for 1 minute prior to obtaining)] 97 Respiratory Rate 16 18 Blood Pressure 133/92 H 105/88 H Blood Pressure [Lying] 116/78 Blood Pressure [Sitting (for 1 minute prior to obtaining)] 132/97 H Blood Pressure [Standing (for 1 minute prior to obtaining)] 143/98 H Blood Pressure Mean 105 93 Blood Pressure Mean [Lying] 90 Blood Pressure Mean [Sitting (for 1 minute prior to obtaining)] 108 Blood Pressure Mean [Standing (for 1 minute prior to obtaining)] 113 Pulse Ox 100 98 Oxygen Delivery Method Room Air Room Air 07/14/24 22:00 07/14/24 22:54 Temperature 98.4 F Temperature Source Pulse Rate 90 88 Pulse Rate [Lying] Pulse Rate [Sitting (for 1 minute prior to obtaining)] Pulse Rate [Standing (for 1 minute prior to obtaining)] Respiratory Rate 13 18 Blood Pressure 106/73 109/78 Blood Pressure [Lying] Blood Pressure [Sitting (for 1 minute prior to obtaining)] Blood Pressure [Standing (for 1 minute prior to obtaining)] Blood Pressure Mean 84 88 Blood Pressure Mean [Lying] Blood Pressure Mean [Sitting (for 1 minute prior to obtaining)] Blood Pressure Mean [Standing (for 1 minute prior to obtaining)] Pulse Ox 100 98 Oxygen Delivery Method Room Air Positive well nourished and well developed Constitutional Narrative: Vital signs noted. Orthostatics are positive. General Appearance ED: well developed, NAD and pallor; Negative for odor of alcohol detected HEENT Reports moist mucous membranes Negative for trauma or tenderness Eyes PERRL and EOMs intact bilaterally General Eye ED: Negative for pale conjunctiva or scleral icterus Neck no lymphadenopathy, supple and no JVD Resp normal respiratory effort and clear to auscultation bilaterally Cardio regular rate, regular rhythm, S1 normal heart sound, no murmurs and no JVD GI normal to inspection, nondistended, normoactive bowel sounds, soft to palpation and non-distended; Negative for non-tender Auscultation: hypoactive bowel sounds Palpation: tender suprapubic Back/Spine no CVA tenderness Extremity normal to inspection and full ROM Neuro oriented x3 and CN's II-XII intact bilaterally Sensorium / Orientation: alert Psych mental status grossly normal Skin no rashes or lesions noted and no wounds General Skin Exam: pallor; Negative for jaundice MDM MDM MDM Narrative Medical decision making narrative: Will obtain CBC to assess H&H. Orthostatic vital signs because of lightheadedness. Also test and she is sexually active with no form of control. Patient's repeat blood pressure was low at 105. Orthostatics were ordered. Orthostatics were positive. She received 1 L of normal saline. Will repeat H&H and need to perform pelvic exam. Patient had a D&C performed by Dr. Zuleyka Church on May 25, 2024. She had follow-up with Dr. Church on June 01 and June 07. Lab Data Attestation: I reviewed the patient's lab results. Lab results narrative: H&H is at patient's baseline. White count is normal. Electrolyte panel is normal. UA is remarkable for RBCs. This is probably due to the fact she is vaginally bleeding. Will repeat H&H and she is orthostatic. Labs: Laboratory Results - last 24 hr 07/14/24 07/14/24 07/14/24 18:30 18:32 21:55 WBC 6.5 RBC 4.00 L Hgb 12.1 11.1 L Hct 35.8 L 33.1 L MCV 89.5 MCH 30.3 MCHC 33.8 RDW Std Deviation 41.6 RDW Coeff of Lisandro 12.7 Plt Count 348 MPV 10.3 Immature Gran % (Auto) 0.500 Neut % (Auto) 63.0 Lymph % (Auto) 23.1 Sibley % (Auto) 10.0 Eos % (Auto) 2.5 Baso % (Auto) 0.9 Absolute Neuts (auto) 4.1 Absolute Lymphs (auto) 1.51 Nucleated RBC % 0 Sodium 139 Potassium 3.6 Chloride 109 H Carbon Dioxide 26.0 Anion Gap 5 BUN 7 Creatinine 0.70 Estim Creat Clear Calc 108.86 Est GFR (MDRD) Af Amer 133 Est GFR (MDRD) Non-Af 110 BUN/Creatinine Ratio 9.9 L Glucose 90 Calcium 9.3 Total Bilirubin 0.40 AST 13 L ALT 20 Alkaline Phosphatase 42 L Total Protein 7.5 Albumin 4.2 Globulin 3.3 Albumin/Globulin Ratio 1.3 Serum , Qual NEGATIVE Urine Color SEE COMMENT BELOW Urine Clarity Sl. Cloudy Urine pH 8.0 Ur Specific [place] 1.015 Urine Protein 100 H Urine Glucose (UA) Normal Urine Ketones Negative Urine Occult Blood 250 H Urine Nitrite Negative Urine Bilirubin Negative Urine Urobilinogen Normal Ur Leukocyte Esterase 25 H Urine RBC > 100 SEEN Urine WBC 5-10 SEEN Ur Squamous Epith Cells 0-5 SEEN Urine Bacteria 0 SEEN Urine Mucus 0 SEEN Management Discussion w/another healthcare provider: Technical Specialist Cytology (Spoke with Dr. Yobani Maldonado on-call for Dr. Church. The medication he requested is not available. Provera was substituted. She received 10 mg of Provera in the emergency department and will receive a prescription for 4210 mg tablets of Provera.) Discharge Plan Triage Chief Complaint: Vag Bleeding ED Provider: Agustín Viramontes Dx/Rx/DC Orders Clinical Impression: Abnormal vaginal bleeding, Orthostatic hypotension, Anemia due to blood loss Instructions: ED Dysfunctional Uterine Bleeding Prescriptions: New medroxyprogesterone [Provera] 10 mg tablet 10 mg PO UD Qty: 42 0RF No Action PNV-DHA 27 mg iron-1 mg -300 mg capsule 1 cap PO misoprostol [Cytotec] 200 mcg tablet 400 mcg PO ONCE Qty: 2 0RF ibuprofen 800 mg tablet 800 mg PO Q8H PRN (Reason: pain) Qty: 30 0RF oxycodone-acetaminophen [Percocet] 5-325 mg tablet 1 tab PO Q4H PRN (Reason: pain) 7 Days Qty: 20 0RF Rx Instructions: 1-2 tabs q 4 hrs as needed for pain Primary Care Provider: Víctor Pete Referrals: Víctor Pete MD [Primary Care Provider] - Zuleyka Delgadillo DO [Med Staff - Active Staff] - As soon as possible Activity Restrictions/Additional Instructions: Take 1 pill every 2 hours until your bleeding slows down. You are to take no more than 6 tablets in 24 hours. Next day take 1 tablet every 4 hours with no more than 6 tablets. The following day take 1 tablet every [address] Church's office on Wednesday Print Language: Botswanan Disposition Disposition: Home, Self Care
[2024-07-14 22:00] VITALS: BP 106/73; PULSE 90; RESP 13; O2SAT 100
[2024-07-14 22:07] LABS: Hematocrit 33.1 % (37-47); Hemoglobin 11.1 g/dL (12.0-15.0)
[2024-07-14] MEDS: 0.9% Normal Saline (1000mL) 1,000 ML 999 ML IV (22:15)
[2024-07-14] MEDS: MEDROXYPROGESTERONE ACETATE 10 MG TABLET PO (22:40)
[2024-07-14 22:54] VITALS: BP 109/78; PULSE 88; RESP 18; TEMP 36.9; O2SAT 98
[2024-07-14] MEDS: MEDROXYPROGESTERONE ACETATE 10 MG TABLET 50 MG PO (23:52)
== END 2024-07-14 23:39 | disposition home or self-care (01) ==
PROVIDERS: Emergency Provider Emergency Medicine; PCP Family Medicine; Visit Provider Emergency Medicine
DX: N93.9 Abnormal uterine and vaginal bleeding, unspecified (principal); D50.0 Iron deficiency anemia secondary to blood loss (chronic); I95.1 Orthostatic hypotension
CPT/HCPCS: 80053; 81001; 84703; 85014; 85018; 85025; 96360; 96361; 99284; A4216

== ENCOUNTER → 2024-07-18 | Outpatient (CLI) | payer OTHER, SELFPAY ==
[2024-07-18 14:06] LABS: Absolute Lymphocyte Count 1.22 X10^3/uL (0.83-4.51); Absolute Neutrophil Count 2.7 X10^3/uL (2.0-7.7); Basophil# 0.04 X10^3/uL; Basophil% 0.9 % (0-1); Eosinophil# 0.19 X10^3/uL; Eosinophils% 4.1 % (0-5); Hematocrit 33.4 % (37-47); Hemoglobin 11.1 g/dL (12.0-15.0); Lymphocyte # 1.22 X10^3/ul (0.83-4.51); Lymphocyte % 26.5 % (19-41); Mean Corp Hgb Conc 33.2 g/dL (32-36); Mean Corpuscular Hgb 30.1 pg (27.0-32.0); Mean Corpuscular Volume 90.5 fL (81-99); Mean Platelet Vol. 10.6 fl (6.2-12.0); Monocyte# 0.46 X10^3/uL; NRBC Flagged by Analyzer 0 % (0-5); Neutrophil # 2.68 X10^3/uL (2.7-7.7); Neutrophil % 58.3 % (47-70); Platelet Count 306 K/mm3 (150-450); RBC Distribution Width CV 12.5 % (11.6-14.6); RBC Distribution Width SD 41.3 fl (35.1-43.9); Red Blood Count 3.69 M/mm3 (4.2-5.4); White Blood Count 4.6 K/mm3 (4.4-11.0)
[2024-07-18 20:33] LABS: Estradiol 42.3 pg/mL; Follicle Stimulating Hormone 7.2 mIU/mL
[2024-07-19 07:00] LABS: hCG Titer Quant., Serum 1 mIU/mL (<9 non-preg)
== END | disposition home or self-care (01) ==
LOC: LAB 13:39
PROVIDERS: PCP Family Medicine; Referring Provider Obstetrics & Gynecology; Visit Provider Obstetrics & Gynecology
DX: N93.8 Other specified abnormal uterine and vaginal bleeding (principal)
CPT/HCPCS: 36415; 82670; 83001; 84443; 84702; 85025

== ENCOUNTER → 2024-07-18 | Outpatient (CLI) | payer OTHER, SELFPAY ==
--- NOTE | 2024-07-18 16:40 | US_ITS ---
PROCEDURE: PELVIC W/ TRANSVAGINAL REASON FOR EXAM: 23-year-old female, dysfunctional uterine bleeding. History of D and C approximately 1 month ago, persistent heavy bleeding. TECHNIQUE: Transvaginal pelvic ultrasound COMPARISON: None. FINDINGS: Measurements: Uterus: 7.9 x 5.7 x 4.1 cm with a volume of 97.5 mL Endometrial Thickness: 0.7 cm Right Ovary: 3.0 x 1.6 x 1.7 cm with a volume of 4.2 mL. Left Ovary: 3.6 x 1.7 x 1.5 cm with a volume of 4.7 mL. Uterus: Retroverted. Normal contour and myometrial echotexture. Endometrium: Heterogeneous, with scattered anechoic areas. Additional tiny hyperechoic focus measuring 1.3 x 0.9 x 0.3 cm demonstrating hypervascularity is visualized within the endometrium. Right ovary: Normal size and echotexture. Left ovary: Normal size and echotexture. Other adnexal findings: None. Cul-de-sac: No free intraperitoneal fluid identified. No tenderness. US/Pelvic w/ Transvaginal IMPRESSION: Normal transvaginal pelvic ultrasound. Low index of suspicion for retained pro ducts of conception. Reading Location: [id number]
== END | disposition home or self-care (01) ==
LOC: US 16:37
PROVIDERS: PCP Family Medicine; Referring Provider Obstetrics & Gynecology; Visit Provider Obstetrics & Gynecology
DX: N93.8 Other specified abnormal uterine and vaginal bleeding (principal); D50.0 Iron deficiency anemia secondary to blood loss (chronic)
CPT/HCPCS: 76830; 76856

== ENCOUNTER 2024-08-08 12:54 | Day surgery (SDC) | payer OTHER, SELFPAY ==
[2024-08-08] VITALS (9 sets, daily range): BP systolic 98–119; BP diastolic 62–80; PULSE 83–106; RESP 16–20; TEMP 36.1–36.6; O2SAT 100; BMI 23.1
--- NOTE | 2024-08-08 07:25 | HP.PCM_ITS ---
History and Physical Date of Admission: 08/08/24 Intake Vital Signs 07/17/2513:23 07/19/2509:49 Height 5 ft 4 in 5 ft 4 in Weight: 138 lb 4 oz BMI 23.7 BP 122/77 H Intake Visit Reasons: fu abnormal bleeding Senior Project Manager Required: No Is patient in pain?: Yes (increased cramping) Allergies No Known Allergies Allergy (Verified 07/19/24 10:52) Medications ?Medication ?Instructions ?Recorded ?Confirmed ?Type multivitamin no.47-iron fum 27 1 cap PO 05/02/24 07/19/24 History mg-folate no.1 1 mg-dha 300 mg capsule (PNV-DHA) medroxyprogesterone 10 mg tablet 10 mg PO UD #42 tabs 07/17/24 07/19/24 R x (Provera) tranexamic acid 650 mg tablet 1,300 mg (2 x 650 mg) PO TID 5 07/17/24 07/19/24 Rx days #30 tabs PFSH Medical History Seasonal allergies Menorrhagia with regular cycle Anxiety Surgical History H/O dilation and curettage History of oral surgery Family History Grandfather Heart disease LeukemiaFather Heart diseaseGrandmother Cancer, Onset Age: 62 Maternal- Skin cancerMother Breast cancer, Onset Age: 46 genetic Social History adopted: No household members: significant other current occupational status: employed 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 [employer] pets and animals: Yes (Avoid litterbox) pets and animals: cat(s) history of recent travel: No sexually active: Yes Smoking Status: Never smoker alcohol intake: never substance use type: does not use diet: gluten free well-balanced diet: daily or most days caffeine: No eating out: rarely or never during the past year weight has: remained stable what type of physical activity do you participate in: walking frequency: 1-2 times per week duration: 30-45 minutes/day maryanne/voodoo: None seatbelt use: always do you feel safe at home: Yes additional social history: 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 she had the d and c the beginning of may and then had bleeding at the end of the month and then it restarted a few weeks later and hasn't stopped since. she was seen in the ER and did a trial of provera which initially slowed but then the bleeding persisted through. she is changing a pad 3 times daily at this point. she had an ultrasound and bloodwork yesterday showing a negative hcg, nl tsh and fsh estradiol, persistent anemia and then suspicion of area of hypervacularity 1cm possible endomterial polyp. History 1 Elective abortions Hx Para 0 Spontaneous abortions 1 Hx # Term Pregnancies Ectopic pregnancies Hx # Pregnancies Multiple births # of living children Past Pregnancies Del. Date Name GA/Weeks Outcome Route Bth Weight Gen Labor Lgth Anesthesia Del [facility] Provider FOB 05/25/24 9 spontaneous ROS Const Constitutional: Reports system reviewed and no additional complaints, except as documented GI GI: Reports system reviewed and no additional complaints, except as documented : Reports as per HPI Exam Const General: cooperative, healthy appearing, comfortable, no acute distress and well developed Orientation: alert HENMT Head: normal to inspection and normocephalic Ears: hearing grossly normal bilaterally and external ears normal Nose: external nose normal and nares normal Face and sinus: normal facial exam Neck Neck: normal visual inspection, no lymphadenopathy and trachea midline Thyroid: thyroid normal Resp Effort & Inspection: normal respiratory effort Musc Other: gross motor intact no deficits, full bilateral strength Skin General: no rashes or lesions noted Neuro Motor: muscle tone normal throughout Coding Level of Care Code Off vis,est,level 4 Diagnoses Dysfunctional uterine bleeding N93.8 Anemia due to blood loss D50.0 Assessment and Plan Assessment and Plan (1) Dysfunctional uterine bleeding: Status: Acute Comment: suspect endoemtrial polyp, recommend d and c hysteroscopy symphion. tx and provera ordered in meantime (2) Anemia due to blood loss: Status: Acute Plan Problem list updated and treatment plans were reviewed with the patient and relevant educational handouts given. See problem list details for specific plan information. After discussing the patient's diagnosis and treatment plan options, patient wishes to proceed with surgical management. I have discussed with the patient the risks, benefits, and alternatives of the procedure which include but are not limited to risks of anesthesia, bleeding, infection, possible damage to bowel, bladder, or surrounding vasculature which could lead to additional surgery to evaluate any complications. Patient agrees to procedure and wishes to proceed. ACOG/uptodate references given for additional information regarding procedure.
[2024-08-08 13:36] LABS: Internal QC Validated? YES +Cl - CLEAR BKGD; Pregnancy, Urine Negative Negative; Record Kit Lot#,Urine Preg 899023
[2024-08-08 13:56] LABS: Hematocrit 35.3 % (37-47); Hemoglobin 11.8 g/dL (12.0-15.0); Mean Corp Hgb Conc 33.4 g/dL (32-36); Mean Corpuscular Hgb 29.7 pg (27.0-32.0); Mean Corpuscular Volume 88.9 fL (81-99); Platelet Count 296 K/mm3 (150-450); RBC Distribution Width SD 39.4 fl (35.1-43.9); Red Blood Count 3.97 M/mm3 (4.2-5.4); White Blood Count 6.4 K/mm3 (4.4-11.0)
--- NOTE | 2024-08-08 14:00 | PRE.ANES_ITS ---
ASA Classification* ASA Classification ASA Classification: 1 Assessment & Plan Anesthesia* Anesthesia Assessment Anesthesia Assessment: Discussed sedation and/or anesthesia options, risks, benefits, and alternatives with patient/parents/legal guardian/POA. Questions invited. The patient/parents/legal guardian/POA seems to understand and agrees to proceed with anesthesia plan. Reviewed the physical assessment, medical history, allergy history and patient home medications list prior to surgery/procedure/anesthetic and documented any changes. Performed airway and anesthesia risk assessments. Anesthesia Type Anesthesia Type: MAC History Source History Obtained from:: Patient and Chart Anesthesia Focused Assessment* Temperature: 97.8 F Pulse Rate: 85 Blood Pressure: 101/63 Respiratory Rate: 16 Pulse Ox: 100 Oxygen Delivery Method: Room Air Airway Assessment Mouth opens: >3 cm Mallampati Score: I Teeth Condition: Intact Neck Range of motion (ROM): Full ROM Focused Labs Anesthesia Preop lab: CBC WBC 6.4 K/mm3 (4.4-11.0) 08/08/24 13:35 08/08/24 RBC 3.97 M/mm3 (4.2-5.4) L 08/08/24 13:35 08/08/24 Hgb 11.8 g/dL (12.0-15.0) L 08/08/24 13:35 5 Hct 35.3 % (37-47) L 08/08/24 13:35 08/08/24 Plt Count 296 K/mm3 (150-450) 08/08/24 13:35 08/08/24 CHEMISTRY Potassium 3.6 mmol/L (3.5-5.1) 07/14/24 18:30 07/14/24 Sodium 139 mmol/L (136-145) 07/14/24 18:30 07/14/24 Phosphorus 3.7 mg/dL (2.5-4.9) 06/22/24 09:32 06/22/24 BUN 7 mg/dL (7-18) 07/14/24 18:30 07/14/24 Creatinine 0.70 mg/dL (0.55-1.02) 07/14/24 18:30 07/14/24 Glucose 90 mg/dL (74-106) 07/14/24 18:30 07/14/24 TSH 1.490 uIU/mL (0.300-4.200) 07/18/24 13:47 /10/15 COAG PT 14.5 SECONDS (11.7-14.9) 04/07/19 13:23 HCG, Quant 1 mIU/mL (<9 non-preg) 07/18/24 13:47 07/18/24 Urine Test Negative Negative 08/08/24 13:15 08/08/24 Tst Clinic Negative 07/17/24 14:44 07/17/24 Pre-Assessment Diagnosis/Proposed Procedure Planned Operative Procedure(s): Hysteroscopy,D&C Symphion Anesthesia History Anesthesia History - certified pedorthotist: Anesthesia History - certified pedorthotist Hx Hospitalization No 07/27/24 10:12 Any Problems With Anesthesia No 07/27/24 10:12 Cholinesterase deficiency No 07/27/24 10:12 You/Your Family Experience No 07/27/24 10:12 fever (hyperthermia) with Relationship Recent Exposure to Contagious No 08/08/24 13:45 Disease Does patient have nerve No 07/27/24 10:12 stimulator Patient instructed to have device shut off --Does patient have Pacemaker No 08/08/24 13:45 or ICD? When Was Last Pacemaker Check QUESTION #4 FULL TEXT: You/Your Family Experience fever (hyperthermia) with Anesthesia Last Oral Intake Last Oral intake: Last Oral Intake NPO since 16:00 08/08/24 13:45 Meds taken in AM with sips of No 08/08/24 13:45 water? Meds patient instructed to take am of surgery PONV PONV - certified pedorthotist: PONV - certified pedorthotist Female Yes 07/27/24 10:12 HX of Motion Sickness No 07/27/24 10:12 HX of N/V After Surgery No 07/27/24 10:12 Non-Smoker Yes 07/27/24 10:12 Duration of Surgery greater No 07/27/24 10:12 than 60 minutes Number of Risk Factors 2 07/27/24 10:12 PONV Score Moderate Risk 07/27/24 10:12 Height & Weight Height & Weight: Anesthesia: Height & Weight Height 5 ft 4 in 08/08/24 13:45 Weight: 61.2 kg 08/08/24 13:45 Body Mass Index (BMI) 23.1 08/08/24 13:45 Respiratory Assessment Respiratory Assessment - certified pedorthotist: Respiratory Tract Infection Hx - certified pedorthotist Hx Respiratory Tract Infection No 07/27/24 10:12 STOP Sleep Apnea STOP Sleep Apnea - certified pedorthotist: STOP Sleep Apnea - certified pedorthotist Hx Hypertension No 07/27/24 10:12 Hx Sleep Apnea No 07/27/24 10:12 CPAP BIPAP Do you snore loudly (louder No 07/27/24 10:12 than talking or can be heard Do you often feel tired/ No 07/27/24 10:12 fatigued/ sleepy during daytime? Has anyone observed you stop No 07/27/24 10:12 breathing during sleep? STOP Results Negative 07/27/24 10:12 QUESTION #5 FULL TEXT : Do you snore loudly (louder than talking or can be heard through closed doors)? Tobacco Use History Tobacco Use History - certified pedorthotist: Tobacco Use History - certified pedorthotist Tobacco Use Smoking Status Never smoker 07/27/24 10:12 Hx Tobacco Use No 07/27/24 10:12 Years Smoking Packs Smoked per Day Smoking Cessation Date was within the last 15 years Hx Smoking Cessation Date Hx Smoking Cessation Counseling Hematologic Medial History Hematologic Hx - certified pedorthotist: Hematologic Medical Hx - churn driller Hx of Blood Transfusion No 07/27/24 10:12 Hx of Transfusion in last 3 No 07/27/24 10:12 Months Date of Last Transfusion (if within last 3 months) Ever experience any problems No 07/27/24 10:12 with transfusion(s)? Specify any problems Hx of Preganancy in last 3 Yes 07/27/24 10:12 Months Nurse Filling Out Transfusion VCHRISTIN 07/27/24 10:12 & Questions: Date: 07/27/24 07/27/24 10:12 Time: 10:13 07/27/24 10:12 Patient unable to answer at this time (ie. confused, unrespo /Reproduction History /Reproductive History - certified pedorthotist: /Reproductive Hx- certified pedorthotist Hx Now No 07/27/24 10:12 Gestational Age (in weeks): EDC: Hx Hx Para Hx Section SAB No 07/27/24 10:12 [facility] Medical History (Updated 07/27/24 @ 10:12 by Faith Roberson) Anemia Seasonal allergies Menorrhagia with regular cycle Anxiety Home Medications ?Medication ?Instructions ?Recorded ?Last Taken ?Type multivitamin no.47-iron fum 27 1 cap PO DAILY 05/02/24 08/06/24 History mg-folate no.1 1 mg-dha 300 mg capsule (PNV-DHA) Allergy/AdvReac Type Severity Reaction Status Date / Time No Known Allergies Allergy Verified 08/08/24 13:44 Family History Grandfather Heart disease Leukemia Father Heart disease Grandmother Cancer, Onset Age: 62 Maternal- Skin cancer Mother Breast cancer, Onset Age: 46 genetic Surgical History (Updated 07/27/24 @ 10:12 by Faith Roberson) H/O dilation and curettage History of oral surgery Social History adopted: No household members: significant other current occupational status: employed 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 pets and animals: Yes (Avoid litterbox) pets and animals: cat(s) history of recent travel: No sexually active: Yes Smoking Status: Never smoker alcohol intake: never substance use type: does not use diet: gluten free well-balanced diet: daily or most days caffeine: No eating out: rarely or never during the past year weight has: remained stable what type of physical activity do you participate in: walking frequency: 1-2 times per week duration: 30-45 minutes/day maryanne/jehovah's witness: None seatbelt use: always do you feel safe at home: Yes additional social history: 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 Physical Exam Const alert, oriented x3 and average body habitus Resp normal respiratory effort, normal air movement and clear to auscultation bilaterally Cardio regular rate, regular rhythm, no murmurs and diaphoretic
--- NOTE | 2024-08-08 14:25 | EMB_PTH ---
PATIENT: RENEE SONG LOC: [facility] [place] U#:[id number] AGE/SX: 23/F ROOM: RE08/08/[address]: Dr. Santa Reyes MD : 2000 BED: DIS: 08/08/2024 SPEC #: [id number] RECD: 08/09/24 10:25 STATUS: ANAY REMichaela #: [id number] JAZZY: 08/08/24 14:[address]: Santa Reyes DEPT: SURGICAL PATHOLOGY RECD BY: Earnest Cross ENTERED: 08/09/24 10:25 SP TYPE: ENDOM BX/C OT DR: Dr. Víctor Pete MD Tissues: A - Endometrium, NOS Procedures: Surgery Specimen Level IV HEADER OPERATION: Hysteroscopy, D&C PRE-OP DIAGNOSIS: Dysfunctional uterine bleeding TISSUE SUBMITTED: A- Endometrial curettings MICROSCOPIC DIAGNOSIS Endocervical curettage: EndometritisSecretory endometrium with areas of inactivity Yesenia Clemente MD, 08/14/2024 MICROSCOPIC DESCRIPTION Slides are reviewed. GROSS DESCRIPTION A. Received in fixative is one container labeled with the patient's name and designated Endometrial curettings. The specimen consists of multiple fragments of dark brown tissue measuring in aggregate 2.5 x 2.3 x 0.3 cm. The specimen is totally submitted in two cassettes. 08/09/2024 CPT:[id number]
[2024-08-08] MEDS: Lidocaine 1% (20 ml mdv) 20 ML Vial (18:22)
--- NOTE | 2024-08-08 18:53 | PCM.POST.ANE ---
Anesthesia: Postop Eval I Current Vital Signs Temperature: 97 F Pulse Rate: 87 Blood Pressure: 112/69 Respiratory Rate: 20 Pulse Ox: 100 Assessment Airway patent: Yes Spontaneous unlabored respirations: Yes nausea: No Vomiting: No Anesthesia Complication: No Fluid Hydration Crystalloid volume administer (ml): 10 Total IV fluid infused: 10 Progress Note Anesthesia document: Postop Eval 1 completed: Yes
--- NOTE | 2024-08-08 18:54 | OP.PCM_ITS ---
Problems Associated Problem List Diagnoses (1) Dysfunctional uterine bleeding: Multi Select Codes Urinary/Genital Urinary/Genital CPT Codes: 99805 Hysteroscopy,EMC, Polypectomy Operative Report (Standard) Operative Information Date of Procedure: 08/08/24 Pre-Operative Diagnosis: see problem list comments Post-Operative Diagnosis: same Surgery/Procedure Performed: dilation and curettage hysteroscopy cardiac cath technologist: No Type of Anesthesia: IV Sedation and Local RN Documented Start/Stop Times: Operation Date: 08/08/24 14:25 Case Time Into Pre-Op 08/08/24 13:02 Anesthesia Start 08/08/24 18:08 Into Room 08/08/24 18:08 Procedure Start 08/08/24 18:22 Procedure End 08/08/24 18:42 Anesthesia End 08/08/24 18:51 Out of Room 08/08/24 18:51 Procedure Start Time: 18:22 Procedure Stop Time: 18:42 Select all DRAINS/GRAFTS/IMPLANTS that apply: None Estimated Blood Loss: 25 Specimen collected: Yes Description of specimen(s) removed: endometrial curretings Description of surgery: Patient was prepped and draped in a normal sterile fashion under MAC anesthesia. A weighted speculum was placed in the vagina and the anterior lip of the cervix was grasped with a single-tooth tenaculum. A paracervical block was placed with 1% lidocaine. Cervix was progressively dilated to allow passage of a 7 mm hysteroscope. The lining was fully visualized and noted to have a thickened polypoid lining . Uterine sounded to 9 cm. Curettage was performed and significant amount of tissue removed , sent to pathology. All instruments were removed from the vagina and excellent hemostasis was noted. Patient was awoken and taken to recovery in stable condition. Surgical Findings: thickened polypoid endometrial lining Complications Complications: No
--- NOTE | 2024-08-08 18:56 | PCM.DC ---
Discharge Instructions Diet Discharge Diet: No restrictions DC O2, CPAP, BIPAP needs Home O2 Discharge instructions: No Dressing / Incision Discharge Activity: Return to Normal Activity, May Shower and May Take a Tub Bath (after 1 week) May resume sexual activity in: 1-2 weeks Weight Bearing Status: Weight bearing as tolerated Lifting Restrictions: none Dressing / Incision Call your doctor if you observe: Fever of 101 or Higher, Using more than 1 pad per hour, Shortness of breath and Uncontrolled pain Follow Up Care Please Follow Up With: Santa Reyes MD When: Call [phone] to schedule appointment. Test Results: Test results from this visit will be discussed in further detail at your follow-up appointment, if applicable. Discharge Plan Admission Attending Provider: Santa Reyes Primary Care Provider: Víctor Pete Instructions Print Language: Bulgarian Discharge Orders/Prescriptions Prescriptions: No Action PNV-DHA 27 mg iron-1 mg -300 mg capsule 1 cap PO DAILY Referrals / Follow Up: Víctor Pete MD [Primary Care Provider] - Disposition Disposition (needs filled in before D/C Order can be placed): Home, Self Care
--- NOTE | 2024-08-08 20:57 | POSTOPAN2_ITS ---
Anesthesia Postop Eval I Sum Postop Eval Completion status Anesthesia document: Postop Eval 1 completed: Yes Anesthesia Postop Eval I Summary Anesthesia Postop Eval I Summary: Anesthesia Postop Eval I: Assessment Summary Airway patent Yes 08/08/24 18:54 COMMUNITY HEALTH DIRECTOR.CSIR Spontaneous unlabored Yes 08/08/24 18:54 COMMUNITY HEALTH DIRECTOR.CSIR respirations Mental status nausea No 08/08/24 18:54 COMMUNITY HEALTH DIRECTOR.CSIR Vomiting No 08/08/24 18:54 COMMUNITY HEALTH DIRECTOR.CSIR Anesthesia Postop Eval I: Fluid Summary Crystalloid volume administer 10 08/08/24 18:54 COMMUNITY HEALTH DIRECTOR.CSIR (ml) Colloids volume administered ( ml) Blood Product volume administered (ml) Total IV fluid infused 10 08/08/24 18:54 COMMUNITY HEALTH DIRECTOR.CSIR Anesthesia Postop Eval I: Summary Notes Anesthesia Complication No 08/08/24 18:54 COMMUNITY HEALTH DIRECTOR.CSIR Anesthesia Complication Comment: Post-operative progress note Anesthesia: Postop Eval II Evaluation Mental status: Awake Pain Level: 0 nausea: No Vomiting: No Complications Anesthesia Complication: No
--- NOTE | 2024-08-08 20:57 | PCM.POSTANE2 ---
Anesthesia Postop Eval I Sum Postop Eval Completion status Anesthesia document: Postop Eval 1 completed: Yes Anesthesia Postop Eval I Summary Anesthesia Postop Eval I Summary: Anesthesia Postop Eval I: Assessment Summary Airway patent Yes 08/08/24 18:54 GUT CARRIER.CSIR Spontaneous unlabored Yes 08/08/24 18:54 GUT CARRIER.CSIR respirations Mental status nausea No 08/08/24 18:54 GUT CARRIER.CSIR Vomiting No 08/08/24 18:54 GUT CARRIER.CSIR Anesthesia Postop Eval I: Fluid Summary Crystalloid volume administer 10 08/08/24 18:54 GUT CARRIER.CSIR (ml) Colloids volume administered ( ml) Blood Product volume administered (ml) Total IV fluid infused 10 08/08/24 18:54 GUT CARRIER.CSIR Anesthesia Postop Eval I: Summary Notes Anesthesia Complication No 08/08/24 18:54 GUT CARRIER.CSIR Anesthesia Complication Comment: Post-operative progress note Anesthesia: Postop Eval II Evaluation Mental status: Awake Pain Level: 0 nausea: No Vomiting: No Complications Anesthesia Complication: No
== END 2024-08-08 20:02 | disposition home or self-care (01) ==
LOC: SDC 12:59 → AC 13:00
PROVIDERS: Anesthesiology; PCP Family Medicine; Referring Provider Obstetrics & Gynecology; Visit Provider Obstetrics & Gynecology
PROC: 0UB98ZZ Excision of Uterus, Via Natural or Artificial Opening Endoscopic (ICD-10-PCS; CPT 58558; principal; 2024-08-08 14:10)
DX: N93.8 Other specified abnormal uterine and vaginal bleeding (principal); D62 Acute posthemorrhagic anemia
CPT/HCPCS: 58558; 00952; 81025; 85027; 86850; 86900; 86901; 88305; A4216; J2405

== ENCOUNTER 2024-08-14 12:52 | Emergency (ER) | payer OTHER, SELFPAY ==
[2024-08-14] VITALS (12 sets, daily range): BP systolic 103–122; BP diastolic 69–80; PULSE 99–125; RESP 18–29; TEMP 36.6–39.6; O2SAT 98–100; BMI 23.7
[2024-08-14 13:26] LABS: Absolute Lymphocyte Count 0.54 X10^3/uL (0.83-4.51); Absolute Neutrophil Count 5.3 X10^3/uL (2.0-7.7); Basophil# 0.02 X10^3/uL; Basophil% 0.3 % (0-1); Hematocrit 33.5 % (37-47); Hemoglobin 11.2 g/dL (12.0-15.0); Lymphocyte # 0.54 X10^3/ul (0.83-4.51); Lymphocyte % 8.3 % (19-41); Mean Corp Hgb Conc 33.4 g/dL (32-36); Mean Corpuscular Hgb 29.8 pg (27.0-32.0); Mean Corpuscular Volume 89.1 fL (81-99); Mean Platelet Vol. 10.4 fl (6.2-12.0); Monocyte# 0.69 X10^3/uL; Monocyte% 10.6 % (0-10); NRBC Flagged by Analyzer 0 % (0-5); Neutrophil # 5.27 X10^3/uL (2.7-7.7); Neutrophil % 80.5 % (47-70); POSITIVE DIFFERENTIAL YES; Platelet Count 268 K/mm3 (150-450); RBC Distribution Width CV 12.2 % (11.6-14.6); RBC Distribution Width SD 39.6 fl (35.1-43.9); Red Blood Count 3.76 M/mm3 (4.2-5.4); White Blood Count 6.5 K/mm3 (4.4-11.0)
[2024-08-14 13:34] LABS: Internal QC Validated? YES +Cl - CLEAR BKGD; Pregnancy, Serum, hCG Quali. NEGATIVE Negative
--- NOTE | 2024-08-14 13:42 | US_ITS ---
EXAM: US Pelvis Transabdominal and Transvaginal, Complete CLINICAL INDICATION: PAIN, RECENT D C TECHNIQUE: Real-time complete transabdominal and transvaginal pelvic ultrasound with image documentation. Transvaginal imaging was used for better evaluation of the endometrium and adnexa. COMPARISON: No relevant prior studies available. FINDINGS: UTERUS/CERVIX: Apparent hyperechoic complex endometrium. Retained product of conception can not be excluded. No myometrial mass. The uterus measures 7.6 x 6.1 x 4.1 cm. RIGHT OVARY: Unremarkable. Normal blood flow. The right ovary measures 2.7 x 2.6 x 1.5 cm. LEFT OVARY: Unremarkable. Normal blood flow. The left ovary measures 4.0 x 2.4 x 1.6 cm. FREE FLUID: No free fluid. BLADDER: Unremarkable as visualized. Wall is normal thickness for degree of distention. VASCULATURE: Apparent increased vascularities concerning for pelvic congestion syndrome. Clinical correlation is recommended. US/Transvaginal Non- IMPRESSION: 1. Apparent hyperechoic complex endometrium. Retained product of conception c an not be excluded. 2. 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 Clinical correlation is recommended. Reading Location: [facility]
--- NOTE | 2024-08-14 13:42 | EX.ED.DYSGE1 ---
HPI History of Present Illness Chief Complaint: General Illness Narrative Narrative: Chief complaint and HPI: Fever, low back pain, vaginal bleeding. 23-year-old female presents for evaluation of fever, low back pain, and vaginal bleeding. History taken by patient as well as medical record. Patient states in April she had a D&C for a miscarriage. She states that 6 days ago she had a another D&C with Dr. Wade Morrell for a uterine polyp. Patient states for the past several days she has had high-grade fevers, low back pain, and vaginal bleeding. She states that she has been taking Tylenol for her fever. She states she called the [facility] office and was told to present to the emergency department. Triage note states that she is having abdominal pain. Patient denies abdominal pain. She denies URI symptoms, cough, shortness of breath, chest pain, emesis, diarrhea, constipation, dysuria. She denies any vaginal discharge. She does endorse some nausea. On chart review, patient had surgery on 08/08 for dysfunctional uterine bleeding. The lining was noted to have a thickened polypoid lining and D&C was performed. Review of systems: See HPI Medications: As listed on the chart Allergies: As listed on the chart PFSH: Per chart Vital signs: As listed on the chart. Reviewed. Physical exam: Gen: A&O x3, NAD Head: Normocephalic, atraumatic Eyes: No sclera icterus, conjunctiva clear ENT: Moist mucous membranes Neck: Trachea midline, No JVD CV: Tachycardic, regular rhythm, no murmurs, no peripheral edema Resp: Lungs CTA BL, no w/r/c GI: Abd soft, non-distended, non-tender, no r/r/g : No CVA tenderness Pelvic: Normal external genitalia. No lesions, masses, or rashes appreciated. No vaginal discharge. Mild vaginal bleeding from the cervix with closed cervical os. Cervix is non-friable. No cervical motion tenderness appreciated. No sign of PID on examination. Musc: Full ROM, no deformity Skin: Warm, dry Neuro: Alert, oriented, grossly intact, sensation intact Psych: Cooperative, appropriate mood and affect [facility] Medical History Anemia Seasonal allergies Menorrhagia with regular cycle Anxiety Home Medications ?Medication ?Instructions ?Recorded ?Last Taken ?Type multivitamin no.47-iron fum 27 1 cap PO DAILY 05/02/24 08/06/24 History mg-folate no.1 1 mg-dha 300 mg capsule (PNV-DHA) acetaminophen 500 mg tablet 1,000 mg PO Q8H PRN PRN fever or 08/14/24 Unknown History (Acetaminophen Extra Strength) pain doxycycline monohydrate 100 mg 100 mg PO BID 7 days #14 caps 08/14/24 Unknown Rx capsule ibuprofen 200 mg tablet 600 mg PO Q6H PRN fever or pain 08/14/24 Unknown History Allergy/AdvReac Type Severity Reaction Status Date / Time No Known Allergies Allergy Verified 08/14/24 12:53 Family History Grandfather Heart disease Leukemia Father Heart disease Grandmother Cancer, Onset Age: 62 Maternal- Skin cancer Mother Breast cancer, Onset Age: 46 genetic Surgical History H/O dilation and curettage History of oral surgery Social History adopted: No household members: significant other current occupational status: employed 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 [employer] pets and animals: Yes (Avoid litterbox) pets and animals: cat(s) history of recent travel: No sexually active: Yes Smoking Status: Never smoker alcohol intake: never substance use type: does not use diet: gluten free well-balanced diet: daily or most days caffeine: No eating out: rarely or never during the past year weight has: remained stable what type of physical activity do you participate in: walking frequency: 1-2 times per week duration: 30-45 minutes/day maryanne/pentecostalism: None seatbelt use: always do you feel safe at home: Yes 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 Physical Exam Const Vital Signs: 08/14/24 12:53 08/14/24 12:59 08/14/24 14:05 Temperature 98.1 F 98.1 F 98 F Temperature Source Oral Temporal Oral Pulse Rate 99 99 103 H Respiratory Rate 18 18 18 Respiratory Effort Respiratory Pattern Blood Pressure 116/75 116/75 116/74 Blood Pressure Mean 88 88 88 Pulse Ox 100 100 99 Oxygen Delivery Method Room Air Room Air Room Air 08/14/24 14:20 08/14/24 15:00 08/14/24 16:00 Temperature 98.1 F 100.2 F H Temperature Source Oral Oral Pulse Rate 118 H 122 H Respiratory Rate 29 H 18 Respiratory Effort Normal Non-Labored Respiratory Pattern Normal Blood Pressure 119/80 122/71 H Blood Pressure Mean 93 88 Pulse Ox 98 99 Oxygen Delivery Method Room Air Room Air 08/14/24 16:02 08/14/24 16:56 08/14/24 17:34 Temperature 102.1 F H 103.2 F H 103 F H Temperature Source Axillary Oral Oral Pulse Rate 125 H Respiratory Rate 18 Respiratory Effort Respiratory Pattern Blood Pressure 109/74 Blood Pressure Mean 85 Pulse Ox 100 Oxygen Delivery Method Room Air 08/14/24 17:55 08/14/24 18:06 08/14/24 18:23 Temperature 101.6 F H 101.6 F H 100.5 F H Temperature Source Oral Temporal Oral Pulse Rate 113 H Respiratory Rate 18 Respiratory Effort Respiratory Pattern Blood Pressure 106/69 Blood Pressure Mean 81 Pulse Ox 99 Oxygen Delivery Method Room Air 08/14/24 18:43 Temperature 100.5 F H Temperature Source Pulse Rate 110 H Respiratory Rate 18 Respiratory Effort Respiratory Pattern Blood Pressure 103/69 Blood Pressure Mean 80 Pulse Ox 100 Oxygen Delivery Method MDM MDM MDM Narrative Medical decision making narrative: 23-year-old female presents for evaluation of fever, low back pain, and vaginal bleeding. Patient had a D&C performed on 08/08 with [facility]. On presentation, vitals are stable other than some mild tachycardia. She is afebrile. Differential diagnosis includes but is not limited to endometritis, UTI, pyelonephritis. NS bolus, Zofran, morphine ordered for pain. Laboratory workup ordered including vaginal ultrasound. Pelvic exam was unremarkable except for for some mild vaginal bleeding. Shortly after patient's workup was ordered, nursing approached me asking if the patient told me about her tonsils. She did not. I went back into the room and spoke with the patient. Patient states that she has a history of tonsillitis. She states that she saw ENT in the past but not recently. She states a couple days ago she noticed white patches on the back of her throat. She states that she went to urgent care and was tested for influenza and COVID which was negative. She states she tested for strep which was negative as well. She currently is denying a sore throat. She is tolerating secretions and eating and drinking well. Again denies any URI symptoms. Denies any neck pain. On examination, patient's tonsils are +2. She has tonsillar exudates. Uvula midline. No peritonsillar abscess. Tolerating secretions. Normal phonation. No Román angina. No meningismus. Full range of motion. Mild anterior lymphadenopathy. Tympanic membranes clear bilaterally. Differential includes strep pharyngitis, tonsillitis, mono therefore strep PCR and monotest added. CBC without leukocytosis. Patient has baseline anemia. CMP relatively unremarkable. Lactic acid unremarkable. Lipase unremarkable. Serum negative. UA positive for ketones and blood but negative for UTI. Strep PCR negative. Parker spot negative. Transvaginal ultrasound shows apparent hyperechoic complex endometrium. Retained products of conception cannot be excluded. Patient was never for this D&C. Apparent increased vascularity is concerning for pelvic congestion syndrome. [facility] was consulted and I talked to Dr. Bolanos. Recommendations were to start doxycycline 100 mg twice daily x 1 week for possible endometritis. Patient's fever also may be secondary to tonsillitis which doxycycline will cover. They will workup the concern for possible pelvic congestion syndrome outpatient. On reevaluation, patient is tachycardic into the 120s and even the 130s. Temperature 102.1 ?F. Patient was ordered Tylenol. Patient not yet due for Tylenol therefore this was canceled and Motrin ordered. On reexamination, patient is still tachycardic into the 120s/130s. Her temperature is increased to 103.2 ?F. Will give NS bolus and reassess. On reevaluation, patient's temperature remains 103 ?F. Still tachycardic into the 120s/130s. I suspect her tachycardia is secondary to her fever as she denies pain. She states her back pain has improved. She is not hypoxic or short of breath. She is not yet due for Tylenol. Patient states she had a negative COVID/influenza at the urgent care. She is denying any URI type symptoms except for fever and tonsillitis. Will repeat COVID/influenza/RSV especially since mother now states that her herself and another family member recently had URI type symptoms. This was not originally relayed to me. I suspect patient's fever is secondary to tonsillitis however given that her fever is not improving and her main complaint was back pain and vaginal bleeding [facility] was recontacted and patient was discussed. They will evaluate the patient. Patient has no concerning signs for peritonsillar abscess or retropharyngeal abscess. She is not even endorsing a sore throat. No signs of PIH or uterine perforation per [facility]. Suspect possible endometritis but again they agree cannot rule out tonsillitis as a cause. Shortly after [facility] evaluated the patient her fever broke and improved to 100.5 ?F. Tachycardia improving. Patient was able to tolerate p.o. intake. Given improvement in her vital signs, patient is stable to discharge home. [facility] agrees. Patient will be discharged home on doxycycline x 1 week. She did receive her first dose here in the emergency department. Strict return precautions. Monitor temperature at home. Tylenol and Motrin as needed for fever. Follow-up with [facility] as well as PCP and ENT given recurrent tonsillitis. She confirmed understanding of the plan. Impression: 1. Fever 2. Possible endometritis 3. Tonsillitis 4. Vaginal bleeding status post recent D&C Lab Data Labs: Laboratory Results - last 24 hr 08/14/24 08/14/24 08/14/24 13:19 13:19 14:01 WBC 6.5 RBC 3.76 L Hgb 11.2 L Hct 33.5 L MCV 89.1 MCH 29.8 MCHC 33.4 RDW Std Deviation 39.6 RDW Coeff of Lisandro 12.2 Plt Count 268 MPV 10.4 Immature Gran % (Auto) 0.300 Neut % (Auto) 80.5 H Lymph % (Auto) 8.3 L Parker % (Auto) 10.6 H Eos % (Auto) 0.0 Baso % (Auto) 0.3 Absolute Neuts (auto) 5.3 Absolute Lymphs (auto) 0.54 L Nucleated RBC % 0 Sodium 139 Potassium 4.1 Chloride 105 Carbon Dioxide 23.3 Anion Gap 11 BUN 7 Creatinine 0.64 L Estim Creat Clear Calc 119.06 Est GFR (MDRD) Non-Af 128 BUN/Creatinine Ratio 11.2 Glucose 113 H Lactic Acid 1.2 Calcium 9.5 Total Bilirubin 0.37 AST 21 ALT 10 Alkaline Phosphatase 50 Total Protein 6.9 Albumin 4.2 Globulin 2.7 Albumin/Globulin Ratio 1.5 Lipase 15 15 Serum , Qual NEGATIVE Urine Color Urine Clarity Urine pH Ur Specific [place] Urine Protein Urine Glucose (UA) Urine Ketones Urine Occult Blood Urine Nitrite Urine Bilirubin Urine Urobilinogen Ur Leukocyte Esterase Urine RBC Urine WBC Ur Squamous Epith Cells Urine Bacteria Urine Mucus Monoscreen 08/14/24 08/14/24 14:23 14:55 WBC RBC Hgb Hct MCV MCH MCHC RDW Std Deviation RDW Coeff of Lisandro Plt Count MPV Immature Gran % (Auto) Neut % (Auto) Lymph % (Auto) Parker % (Auto) Eos % (Auto) Baso % (Auto) Absolute Neuts (auto) Absolute Lymphs (auto) Nucleated RBC % Sodium Potassium Chloride Carbon Dioxide Anion Gap BUN Creatinine Estim Creat Clear Calc Est GFR (MDRD) Non-Af BUN/Creatinine Ratio Glucose Lactic Acid Calcium Total Bilirubin AST ALT Alkaline Phosphatase Total Protein Albumin Globulin Albumin/Globulin Ratio Lipase Serum , Qual Urine Color Yellow Urine Clarity Clear Urine pH 6.5 Ur Specific [place] 1.010 Urine Protein 30 H Urine Glucose (UA) Normal Urine Ketones 15 H Urine Occult Blood 150 H Urine Nitrite Negative Urine Bilirubin Negative Urine Urobilinogen Normal Ur Leukocyte Esterase Negative Urine RBC 0 SEEN Urine WBC 0 SEEN Ur Squamous Epith Cells 0 SEEN Urine Bacteria 0 SEEN Urine Mucus 0 SEEN Monoscreen Negative Radiography Diagnostic Testing: Clinical Impression(s) from Imaging Studies Transvaginal US 08/14/24 13:42 IMPRESSION: 1. Apparent hyperechoic complex endometrium. Retained product of conception can not be excluded. 2. 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 Clinical correlation is recommended. Reading Location: [facility] Discharge Plan Triage Chief Complaint: General Illness ED Provider: Milton Mariscal Dx/Rx/DC Orders Clinical Impression: Tonsillitis, Fever, Vaginal bleeding Instructions: Tonsillitis in Adults, ED Fever Control (Adult) Prescriptions: New doxycycline monohydrate 100 mg capsule 100 mg PO BID 7 Days Qty: 14 0RF No Action PNV-DHA 27 mg iron-1 mg -300 mg capsule 1 cap PO DAILY acetaminophen [Acetaminophen Extra Strength] 500 mg tablet 1,000 mg PO Q8H PRN PRN (Reason: fever or pain) ibuprofen 200 mg tablet 600 mg PO Q6H PRN (Reason: fever or pain) Primary Care Provider: Víctor Pete Referrals: Víctor Pete MD [Primary Care Provider] - 3-5 Days Monty Reich MD [Med Staff - Active Staff] - 3-5 Days Santa Reyes MD [Med Staff - Active Staff] - 3-5 Days Activity Restrictions/Additional Instructions: Follow-up with [facility], PCP, ENT. Return back to the ED if symptoms change or worsen. Monitor your temperature at home. Take all of your antibiotics. Tylenol dosing as of 1000 mg every 6 hours, ibuprofen dosing is 800 mg or 600 mg every 4 hours. Print Language: Divehi Disposition Disposition: Home, Self Care Discharge Date/Time: 08/14/24 19:17
[2024-08-14 13:55] LABS: Lipase 15 U/L (13-75)
[2024-08-14 14:06] LABS: ALB/GLOB Ratio 1.5 RATIO (0.9-2.4); AST(SGOT) 21 U/L (<=31); Alanine Aminotransfer ALT/SGPT 10 U/L (<=34); Albumin, Serum 4.2 g/dL (3.5-5.0); Alkaline Phosphatase 50 U/L (35-104); Anion Gap 11 (5-15); BUN 7 mg/dL (4-19); BUN/Creat Ratio 11.2 RATIO (10-20); Calcium,Total 9.5 mg/dL (7.6-11.0); Carbon Dioxide 23.3 mmol/L (21.0-32.0); Chloride 105 mmol/L (98-108); Creatinine, Serum 0.64 mg/dL (0.70-1.20); EST Glomerular Filtration Rate 128 (>60); Estimated Creatinine Clearance 119.06 ml/min (50-250); Globulin 2.7 g/dL (2.2-4.2); Glucose 113 mg/dL (70-99); Potassium 4.1 mmol/L (3.3-5.1); Protein, Total 6.9 g/dL (5.9-8.4); Sodium Level 139 mmol/L (133-145); Total Bilirubin 0.37 mg/dL (0.00-1.30)
[2024-08-14] MEDS: 0.9% Normal Saline (1000mL) 1,000 ML 999 ML IV ×2 (14:14→16:50)
[2024-08-14] MEDS: Ondansetron 4 MG/2 ML Vial IV ×2 (14:15→16:16)
[2024-08-14] MEDS: Morphine 4 MG/ML Syringe IV (14:15)
[2024-08-14 14:27] LABS: Bacteria 0 SEEN /hpf (None Seen); Mucous, Urine 0 SEEN /hpf (<or=2+); Squamous Epithelial Cells - UA 0 SEEN /hpf (5-10); White Blood Cells 0 SEEN /hpf (0-5)
[2024-08-14 14:30] LABS: Color, Urine Yellow (Yellow); Glucose, Dipstick Normal (Normal); Ketone-Dipstick 15 mg/dl (Negative); Leukocyte Esterase-Dipstick Negative /ul (Negative); Nitrite-Dipstick Negative (Negative); Occult Blood-Urine 150 /ul (Negative); Protein-Dipstick 30 mg/dl (Negative); Urine Bilirubin Dipstick Negative (Negative); Urine Clarity Clear (Clear); Urine Urobilinogen Normal (Normal); Urine pH 6.5 (5.0 - 8.0)
[2024-08-14 14:36] LABS: Red Blood Cells-Urine 0 SEEN /hpf (0-5)
[2024-08-14 14:50] LABS: Lactic Acid 1.2 mmol/L (0.0-2.0)
[2024-08-14 15:32] LABS: Internal QC Validated? YES +Cl - CLEAR BKGD; Monotest Negative (Negative)
[2024-08-14 15:34] LABS: Record Kit Lot#, Mono 13241430
[2024-08-14] MEDS: Doxycycline 100 MG CAPSULE PO (16:08)
[2024-08-14] MEDS: Ibuprofen 600 MG Tablet PO (16:17)
[2024-08-14 17:06] LABS: Lipase 15 U/L (13-75)
--- NOTE | 2024-08-14 18:18 | CON.PCM.OB_ITS ---
Assessment & Plan (1) Status post dilation and curettage: (2) Fever of unknown origin: PLAN: Plan no signs of PIH or uterine perforation. Suspect possible endometritis, however with sore throat and fever and sick contacts (mom in room was sick with temps upwards of 103 late last week) viral illness should be considered fever now 101 and pulse is improved. OK to dc with doxycycline and follow up in office in a week. HPI Consult Data Date of Consult: 08/14/24 HPI Narrative HPI Narrative: RENEE SONG, is a 23 y/o who presents to [facility] with low back pain and fever. She is 6 days status post a dilation and curettage with Dr. daniels for abnormal uterine bleeding. In april she also had a D&C for a miscarriage. She was found to have a temperature of 103 and tachycardia. She was given 2 liters of fluids, tylenol, and was found to be negative for flu, covid, and strep. She denies heavy vaginal bleeding or vaginal odor since her D&C. Ultrasound shows some thickened endometrial tissue and pelvic congestion syndrome. The report reads retained producs of conception can not be ruled out however she was not at the time of her D&C. [facility] Medical History Anemia Seasonal allergies Menorrhagia with regular cycle Anxiety Home Medications ?Medication ?Instructions ?Recorded ?Last Taken ?Type multivitamin no.47-iron fum 27 1 cap PO DAILY 05/02/24 08/06/24 History mg-folate no.1 1 mg-dha 300 mg capsule (PNV-DHA) acetaminophen 500 mg tablet 1,000 mg PO Q8H PRN PRN fe payal or 08/14/24 Unknown History (Acetaminophen Extra Strength) pain ibuprofen 200 mg tablet 600 mg PO Q6H PRN fever or p ain 08/14/24 Unknown History Allergy/AdvReac Type Severity Reaction Status Date / Time No Known Allergies Allergy Verified 08/14/24 12:53 Family History Grandfather Heart disease Leukemia Father Heart disease Grandmother Cancer, Onset Age: 62 Maternal- Skin cancer Mother Breast cancer, Onset Age: 46 genetic Surgical History H/O dilation and curettage History of oral surgery Social History adopted: No household members: significant other current occupational status: employed 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 pets and animals: Yes (Avoid litterbox) pets and animals: cat(s) history of recent travel: No sexually active: Yes Smoking Status: Never smoker alcohol intake: never substance use type: does not use diet: gluten free well-balanced diet: daily or most days caffeine: No eating out: rarely or never during the past year weight has: remained stable what type of physical activity do you participate in: walking frequency: 1-2 times per week duration: 30-45 minutes/day maryanne/baptism: None seatbelt use: always do you feel safe at home: Yes 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 Vital Signs Vital Signs Vital Signs: 08/14/24 12:53 08/14/24 12:59 08/14/24 14:05 Temperature 98.1 F 98.1 F 98 F Temperature Source Oral Temporal Oral Pulse Rate 99 99 103 H Respiratory Rate 18 18 18 Respiratory Effort Respiratory Pattern Blood Pressure 116/75 116/75 116/74 Blood Pressure Mean 88 88 88 Pulse Ox 100 100 99 Oxygen Delivery Method Room Air Room Air Room Air 08/14/24 14:20 08/14/24 15:00 08/14/24 16:00 Temperature 98.1 F 100.2 F H Temperature Source Oral Oral Pulse Rate 118 H 122 H Respiratory Rate 29 H 18 Respiratory Effort Normal Non-Labored Respiratory Pattern Normal Blood Pressure 119/80 122/71 H Blood Pressure Mean 93 88 Pulse Ox 98 99 Oxygen Delivery Method Room Air Room Air 08/14/24 16:02 08/14/24 16:56 08/14/24 17:34 Temperature 102.1 F H 103.2 F H 103 F H Temperature Source Axillary Oral Oral Pulse Rate 125 H Respiratory Rate 18 Respiratory Effort Respiratory Pattern Blood Pressure 109/74 Blood Pressure Mean 85 Pulse Ox 100 Oxygen Delivery Method Room Air 08/14/24 17:55 08/14/24 18:06 Temperature 101.6 F H 101.6 F H Temperature Source Oral Temporal Pulse Rate 113 H Respiratory Rate 18 Respiratory Effort Respiratory Pattern Blood Pressure 106/69 Blood Pressure Mean 81 Pulse Ox 99 Oxygen Delivery Method Room Air Weight Weight: 138 lb 4.8 oz Body Mass Index (BMI) 23.7 ROS Constitutional Constitutional: Reports as per HPI, fatigue, fever(s) and malaise; Denies weakness Eyes Eyes: Denies change in vision ENT HEENT: Reports headache(s), neck pain and sore throat; Denies dizziness, loss taste/smell, nasal congestion or nasal discharge Cardiovascular Cardiovascular: Denies chest pain, dyspnea, lightheadedness, palpitations or syncope Respiratory/Chest Respiratory/Chest: Denies chest congestion, cough, dyspnea, hemoptysis, wheezing, breast mass, breast pain or nipple discharge Gastrointestinal Gastrointestinal: Denies abdominal pain, anorexia, bloating, constipation, cramping, diarrhea, heartburn, nausea or vomiting Genitourinary Genitourinary: Denies dysuria, flank pain, genital lesions, hematuria, urinary frequency, urinary hesitancy, urinary incontinence or urinary urgency Musculoskeletal Musculoskeletal: Reports back pain; Denies difficulty walking Integumentary Integumentary: Denies rash Neurologic Neurologic: Denies dizziness Physical Exam Const alert, oriented x3 and no apparent distress HEENT normocephalic Eyes PERRL Neck full ROM General: trachea midline and lymphadenopathy anterior cervical Resp normal respiratory effort and no retractions GI normal to inspection, nondistended, normoactive bowel sounds, soft to palpation, non-tender, non-distended and no masses Narrative: no external uterine tenderness on exam. pelvic exam deferred due to lack of symptoms Extremity normal to inspection Psych affect normal Lab / Micro Data 08/14/24 13:19 08/14/24 13:19 Labs: Laboratory Results - last 24 hr 08/14/24 13:19: WBC 6.5, RBC 3.76 L, Hgb 11.2 L, Hct 33.5 L, MCV 89.1, MCH 29.8, MCHC 33.4, RDW Std Deviation 39.6, RDW Coeff of Lisandro 12.2, Plt Count 268, MPV 10.4, Immature Gran % (Auto) 0.300, Neut % (Auto) 80.5 H, Lymph % (Auto) 8.3 L, [place] % (Auto) 10.6 H, Eos % (Auto) 0.0, Baso % (Auto) 0.3, Absolute Neuts (auto) 5.3, Absolute Lymphs (auto) 0.54 L, Nucleated RBC % 0, Sodium 139, Potassium 4.1, Chloride 105, Carbon Dioxide 23.3, Anion Gap 11, BUN 7, Creatinine 0.64 L, Estim Creat Clear Calc 119.06, Est GFR (MDRD) Non-Af 128, BUN/Creatinine Ratio 11.2, Glucose 113 H, Calcium 9.5, Total Bilirubin 0.37, AST 21, ALT 10, Alkaline Phosphatase 50, Total Protein 6.9, Albumin 4.2, Globulin 2.7, Albumin/Globulin Ratio 1.5, Lipase 15 08/14/24 13:19: Lipase 15, Serum , Qual NEGATIVE 08/14/24 14:01: Lactic Acid 1.2 08/14/24 14:23: Urine Color Yellow, Urine Clarity Clear, Urine pH 6.5, Ur Specific [place] 1.010, Urine Protein 30 H, Urine Glucose (UA) Normal, Urine Ketones 15 H, Urine Occult Blood 150 H, Urine Nitrite Negative, Urine Bilirubin Negative, Urine Urobilinogen Normal, Ur Leukocyte Esterase Negative, Urine RBC 0 SEEN, Urine WBC 0 SEEN, Ur Squamous Epith Cells 0 SEEN, Urine Bacteria 0 SEEN, Urine Mucus 0 SEEN 08/14/24 14:55: Monoscreen Negative Micro: Microbiology 08/14/24 14:55 Mucosa - Throat Streptococcus pyogenes (PCR) - Final Imaging Radiology Impression Transvaginal US 08/14/24 13:42 IMPRESSION: 1. Apparent hyperechoic complex endometrium. Retained product of conception can not be excluded. 2. 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 Clinical correlation is recommended. Reading Location: [facility] Charges/Coding Multi Select Codes Visit Charges Office Visit/Consults: 49836 ED Visit; Low/Mod Severity
== END 2024-08-14 19:17 | disposition home or self-care (01) ==
PROVIDERS: Emergency Provider Surgery; PCP Family Medicine; Visit Provider Surgery
DX: J03.90 Acute tonsillitis, unspecified (principal); N93.8 Other specified abnormal uterine and vaginal bleeding
CPT/HCPCS: 36415; 76830; 80053; 81001; 83605; 83690; 84703; 85025; 86308; 87631; 87651; 96361; 96374; 96375; 96376; 99284; A4216; J2405

== ENCOUNTER 2024-08-16 14:49 | Emergency (ER) | payer OTHER, SELFPAY ==
[2024-08-16] VITALS (15 sets, daily range): BP systolic 101–116; BP diastolic 64–76; PULSE 88–131; RESP 0–27; TEMP 36.8–38.2; O2SAT 98–100; BMI 24.0
--- NOTE | 2024-08-16 15:08 | EKG12_ITS ---
Test Reason : Blood Pressure : */* mmHG Vent. Rate : 101 BPM Atrial Rate : 101 BPM P-R Int : 126 ms QRS Dur : 78 ms QT Int : 312 ms P-R-T Axes : 31 59 7 degrees QTcB Int : 404 ms Sinus tachycardia Otherwise normal ECG Confirmed by ANANTH KHAN, BENJAMIN ([id number]), tape editor ALEC BATRES ([id number]) on 08/17/2024 8:04:36 AM Referred By: Rashad Collier Confirmed By: BENJAMIN WADSWORTH MD
--- NOTE | 2024-08-16 15:08 | RAD_ITS ---
PROCEDURE: CHEST PA AND LATERAL 08/16/2024 REASON FOR EXAM: FEVER TECHNIQUE: Frontal and lateral views of the chest. COMPARISON: None FINDINGS: Hardware: None Heart: The heart size is normal. Mediastinum: The mediastinal contour is unremarkable. Lungs: No focal consolidation. No pneumothorax. No pleural effusion. Bones: The bones are unremarkable. RAD/Chest PA and Lateral IMPRESSION: NO ACUTE FINDINGS. Reading Location: [facility]
--- NOTE | 2024-08-16 15:14 | EX.ED.DYSGE1 ---
HPI History of Present Illness Chief Complaint: Fever Narrative Narrative: Patient is a 23-year-old female with past medical history anxiety, anemia who presents to the emergency department the chief complaint of high fevers. Patient states that back in May she had a D&C for a miscarriage and then again recently she had been taken back to the operating room for a another D&C. She states that she was placed on doxycycline recently and has been taking that as well for concern of white spots on the back of her throat. She states that despite rotating Tylenol and ibuprofen [id number] she is still running high fevers. Patient overall has no other complaints at this point time. Patient denies any sick contacts. Patient denies any history of smoking, alcohol use, drug use. PFSH PFS Medical History Anemia Seasonal allergies Menorrhagia with regular cycle Anxiety Home Medications ?Medication ?Instructions ?Recorded ?Last Taken ?Type multivitamin no.47-iron fum 27 1 cap PO DAILY 05/02/24 08/15/24 History mg-folate no.1 1 mg-dha 300 mg capsule (PNV-DHA) acetaminophen 500 mg tablet 1,000 mg PO Q6H PRN fever or pain 08/14/24 08/16/24 History (Acetaminophen Extra Strength) doxycycline monohydrate 100 mg 100 mg PO BID 7 days #14 caps 08/14/24 08/16/24 Rx capsule ibuprofen 200 mg tablet 600 mg PO Q6H PRN fever or pain 08/14/24 08/16/24 History Allergy/AdvReac Type Severity Reaction Status Date / Time No Known Allergies Allergy Verified 08/14/24 12:53 Family History Grandfather Heart disease Leukemia Father Heart disease Grandmother Cancer, Onset Age: 62 Maternal- Skin cancer Mother Breast cancer, Onset Age: 46 genetic Surgical History H/O dilation and curettage History of oral surgery Social History adopted: No household members: significant other current occupational status: employed current occupation: [employer]- [employer] pets and animals: Yes (Avoid litterbox) pets and animals: cat(s) history of recent travel: No sexually active: Yes Smoking Status: Never smoker alcohol intake: never substance use type: does not use diet: gluten free well-balanced diet: daily or most days caffeine: No eating out: rarely or never during the past year weight has: remained stable what type of physical activity do you participate in: walking frequency: 1-2 times per week duration: 30-45 minutes/day maryanne/mosque: None seatbelt use: always do you feel safe at home: Yes 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 ROS ROS ED ROS Narrative Constitutional: Complains of fever as noted above denies headache, lightness, dizziness Eyes: She has resolved blurry vision Cardiovascular: Chest pain or palpitations Respiratory: Denies coughing wheezing shortness of breath Abdomen: Denies abdominal pain nausea vomit diarrhea : Denies urinary symptoms denies vaginal discharge denies any possibility of retained tampons Neurological: Denies numbness, weakness, tingling Skin: Denies rashes or lesions EXAM Physical Exam Narrative Exam Narrative: General: Patient is a 23-year-old female who presented to the emerged part with chief complaint of elevated fever despite rotating Tylenol and I Profen [id number] as well as on doxycycline Head: Atraumatic, normocephalic Eyes, ears, nose, throat: PERRL bilateral, EOMI bilateral, no conjunctival injection noted, uvula midline, patient does have some white dots on her tonsils posteriorly however no concern for peritonsillar abscess Neck: Soft, supple, trachea midline Cardiovascular: Regular rate and rhythm no murmurs gallops rubs noted Respiratory: Clear to auscultation bilaterally Abdomen: Soft, nondistended, nontender to palpation Musculoskeletal: No tenderness palpation the midline of the cervical, thoracolumbar spines Extremities: +5/5 strength noted the bilateral upper and lower extremities Neurological: Patient follow commands and that she was at [facility] year is 2024. Sensation grossly intact NIH of 0 GCS 15 Skin: Warm, dry, intact no rashes or lesions noted no petechia no purpura noted Const Vital Signs: 08/16/24 14:49 08/16/24 14:49 08/16/24 14:49 Temperature 100.8 F H Temperature Source Oral Pulse Rate 131 H 120 H Respiratory Rate 20 H Respiratory Effort Normal Non-Labored Respiratory Pattern Normal Blood Pressure 116/76 Blood Pressure Mean 89 Pulse Ox 98 Oxygen Delivery Method Room Air 08/16/24 15:37 08/16/24 15:37 08/16/24 16:00 Temperature 99.3 F H 98.7 F Temperature Source Oral Oral Pulse Rate 100 100 Respiratory Rate 19 H 19 H Respiratory Effort Respiratory Pattern Blood Pressure 107/71 107/67 Blood Pressure Mean 83 80 Pulse Ox 100 100 Oxygen Delivery Method Room Air Room Air Room Air 08/16/24 17:00 Temperature 98.3 F Temperature Source Oral Pulse Rate 91 Respiratory Rate 20 H Respiratory Effort Respiratory Pattern Blood Pressure 103/72 Blood Pressure Mean 82 Pulse Ox 100 Oxygen Delivery Method Room Air MDM MDM MDM Narrative Medical decision making narrative: Patient is a 23-year-old female who presented to the emerged part with chief complaint of being febrile despite rotating Tylenol and ibuprofen [id number] every 3 hours while on doxycycline with recent repeat D&C. On the differential diagnose includes but not limited to retained foreign body in the vagina however she denies any tampon use since her original D&C just using pads, peritonsillar abscess, retropharyngeal abscess although clinically have low suspicion for these, intra-abdominal abscess. Once workup is obtained reviewed she will be reevaluated. Patient be given 30 cc/kg bolus of IV fluids these were ordered at 1510. Patient CBC was reviewed and showed no evidence leukocytosis white blood count 4.7, hemoglobin 10.1, platelet count was noted be 277. Patient's INR 1.1, PT of 14.4. Patient sodium normal 137, potassium 3.5, creatinine normal at 0.57. Patient lactic acid was normal at 1.1, AST and ALT were 31 and 13 respectively. Patient's troponin was noted to be less than 6, EKG reviewed and showed sinus tachycardia the rate of 101 bpm with a MI interval of 126. Patient's urinalysis showed 150 occult blood, negative nitrites negative leukocyte esterase 0-5 white cells with 1+ bacteria drug screen is pending. Patient's chest x-ray today reviewed by myself by radiology showed no acute cardiopulmonary processes. Patient's CT soft tissue neck showed acute pharyngitis involving the lingual tonsils with mild narrowing of the oropharyngeal airway. No significant adenopathy noted. Patient's CT abdomen pelvis IV contrast showed no acute processes in the abdomen or pelvis findings consistent with pelvic congestion syndrome. I did add on a full respiratory panel at this point in time. Patient is nontoxic in appearance. I called and spoke with on-call WELDING ROB[employer] OPERATOR Dr. Church who states that from her standpoint she does not believe that this is related to her D&C and I agree as she has no abdominal pain whatsoever on exam. Her vital signs after treating her fever have normalized her heart rate improved to a rate of 91 bpm 100% on room air. Discussed results with the patient and mother at bedside. Mother now notes that she has presented 2 times in the past with very similar symptoms with viral pharyngitis and they state they have not followed up with the ears nose and throat. I advised them that I have low suspicion that her blood cultures will be positive however I notified them that if this is the case they will be called to return for IV antibiotics at this point time. At this point, I have very low suspicion for pulmonary embolism as she has no shortness of breath with exertion no history of blood clots either. She was encouraged to follow-up with her primary care physician in the outpatient setting as well as the ears nose and throat team. She is advised to continue supportive care with rotating Tylenol and ibuprofen [id number] and notified her that hopefully in approximately the next 3 to 4 days her symptoms will resolve. I notified her that sometimes viruses cause high fevers for a significant amount of time. She is agreeable this plan as well as mother at bedside all question concerns answered she was discharged home in stable condition. Lab Data Labs: Laboratory Results - last 24 hr 08/16/24 08/16/24 08/16/24 15:22 15:23 15:49 WBC 4.7 RBC 3.40 L Hgb 10.1 L Hct 30.1 L MCV 88.5 MCH 29.7 MCHC 33.6 RDW Std Deviation 39.3 RDW Coeff of Lisandro 12.2 Plt Count 277 MPV 10.4 Immature Gran % (Auto) 0.600 Neut % (Auto) 76.3 H Lymph % (Auto) 10.1 L [place] % (Auto) 12.4 H Eos % (Auto) 0.2 Baso % (Auto) 0.4 Absolute Neuts (auto) 3.6 Absolute Lymphs (auto) 0.47 L Nucleated RBC % 0 PT 14.4 INR 1.1 APTT 37.6 H Sodium 137 Potassium 3.5 Chloride 105 Carbon Dioxide 20.2 L Anion Gap 12 BUN 6 Creatinine 0.57 L Estim Creat Clear Calc 133.68 Est GFR (MDRD) Non-Af 132 BUN/Creatinine Ratio 10.1 Glucose 98 Lactic Acid 1.1 Calcium 8.9 Total Bilirubin 0.30 AST 31 ALT 13 Alkaline Phosphatase 58 Troponin T High Sens < 6 Total Protein 6.8 Albumin 3.8 Globulin 3.0 Albumin/Globulin Ratio 1.2 Urine Color Yellow Urine Clarity Clear Urine pH 7.0 Ur Specific [place] 1.010 Urine Protein 15 H Urine Glucose (UA) Normal Urine Ketones 15 H Urine Occult Blood 150 H Urine Nitrite Negative Urine Bilirubin Negative Urine Urobilinogen Normal Ur Leukocyte Esterase Negative Urine RBC 5-10 SEEN Urine WBC 0-5 SEEN Ur Squamous Epith Cells 0-5 SEEN Urine Bacteria 1+ Urine Mucus 0 SEEN Radiography Diagnostic Testing: Clinical Impression(s) from Imaging Studies Chest X-Ray 08/16/24 15:08 IMPRESSION: NO ACUTE FINDINGS. Reading Location: [facility] Abdomen/Pelvis CT 08/16/24 15:50 IMPRESSION: No acute process in the abdomen or pelvis. Findings concerning for pelvic congestion syndrome. Reading Location: [facility] Soft Tissue Neck CT 08/16/24 15:50 IMPRESSION: Acute pharyngitis involving the lingual tonsils with mild narrowing of the oropharyngeal airway. No significant adenopathy. Reading Location: [facility] Discharge Plan Triage Chief Complaint: Fever ED Provider: Rashad Collier Dx/Rx/DC Orders Clinical Impression: Fever, Acute viral pharyngitis Prescriptions: No Action PNV-DHA 27 mg iron-1 mg -300 mg capsule 1 cap PO DAILY acetaminophen [Acetaminophen Extra Strength] 500 mg tablet 1,000 mg PO Q6H PRN (Reason: fever or pain) Patient Comments: PT STATES SHE TAKES EVERY 3 HOURS. doxycycline monohydrate 100 mg capsule 100 mg PO BID 7 Days Qty: 14 0RF ibuprofen 200 mg tablet 600 mg PO Q6H PRN (Reason: fever or pain) Patient Comments: PT STATES SHE TAKES EVERY 3 HOURS. Primary Care Provider: Víctor Pete Referrals: Víctor Pete MD [Primary Care Provider] - Activity Restrictions/Additional Instructions: Follow-up on your respiratory panel with your family doctor. If your blood cultures are positive you will be called to return to the hospital for IV antibiotics however at this point time once again I have low suspicion for this as your blood work is normal here in the emergency department with normal CAT scans. Continue to rotate Tylenol and ibuprofen [id number] for fever control and continue supportive care. Return with any other concerns. Print Language: Tristanian Disposition Disposition: Home, Self Care
[2024-08-16] MEDS: Acetaminophen 500 MG Tablet 1000 MG PO (15:39)
[2024-08-16] MEDS: 0.9% Normal Saline (1000mL) 1,000 ML 999 ML IV ×2 (15:39→16:30)
[2024-08-16 15:43] LABS: Absolute Lymphocyte Count 0.47 X10^3/uL (0.83-4.51); Absolute Neutrophil Count 3.6 X10^3/uL (2.0-7.7); Basophil# 0.02 X10^3/uL; Basophil% 0.4 % (0-1); Eosinophil# 0.01 X10^3/uL; Eosinophils% 0.2 % (0-5); Hematocrit 30.1 % (37-47); Hemoglobin 10.1 g/dL (12.0-15.0); Lymphocyte # 0.47 X10^3/ul (0.83-4.51); Lymphocyte % 10.1 % (19-41); Mean Corp Hgb Conc 33.6 g/dL (32-36); Mean Corpuscular Hgb 29.7 pg (27.0-32.0); Mean Corpuscular Volume 88.5 fL (81-99); Mean Platelet Vol. 10.4 fl (6.2-12.0); Monocyte# 0.58 X10^3/uL; Monocyte% 12.4 % (0-10); NRBC Flagged by Analyzer 0 % (0-5); Neutrophil # 3.55 X10^3/uL (2.7-7.7); Neutrophil % 76.3 % (47-70); POSITIVE DIFFERENTIAL YES; Platelet Count 277 K/mm3 (150-450); RBC Distribution Width CV 12.2 % (11.6-14.6); RBC Distribution Width SD 39.3 fl (35.1-43.9); White Blood Count 4.7 K/mm3 (4.4-11.0)
[2024-08-16 15:48] LABS: International Normalized Ratio 1.1; Prothrombin Time (Protime)PT. 14.4 SECONDS (11.7-14.9)
[2024-08-16 15:49] LABS: Partial Thromboplast Time 37.6 Seconds (24.1-36.2)
--- NOTE | 2024-08-16 15:50 | CT_ITS ---
EXAM: CT soft tissue neck with IV contrast CLINICAL HISTORY: Fever COMPARISON: None TECHNIQUE: CT soft tissue of the neck with contrast. Sagittal and coronal reformats were completed. 100 cc IV Isovue 370 was administered. FINDINGS: Lymph nodes: No cervical lymphadenopathy by size, number or morphologic criteria. Small nonspecific lymph nodes are scattered throughout the neck. Aerodigestive tract: Edematous enlargement and striated enhancement of lingual tonsils, concerning for acute pharyngitis. No evidence of a tonsillar or peritonsillar abscess. There is mild narrowing of the oropharyngeal airway. Otherwise, the oral cavity is partially obscured by artifact from dental amalgam. The nasal cavities, naso-oropharynx, pharyngeal mucosal space, laryngeal structures and infraglottic trachea are within normal limits. Major salivary glands: Within normal limits. Thyroid gland: Within normal limits. Carotid space: Patent bilateral extracranial carotid and jugular systems. Intracranial contents: Imaged portions within normal limits. Paranasal sinuses, middle ears, mastoids: Clear. Orbits: Within normal limits. Bones: No suspicious osseous lesions in the imaged calvarium, skull base and spine. Normal cervicothoracic alignment. No significant spondylotic changes. Temporomandibular joints are maintained. Lungs: Imaged lungs are clear. CT/Soft Tissue Neck WITH Contrast IMPRESSION: Acute pharyngitis involving the lingual tonsils with mild narrowing of the orop haryngeal airway. No significant adenopathy. Reading [facility]
--- NOTE | 2024-08-16 15:50 | CT_ITS ---
EXAM: ABDOMEN/PELVIS W IV CONT ONLY CLINICAL HISTORY: HIGH FEVER, UNKNOWN ETIOLOGY COMPARISON: None. TECHNIQUE: Helical CT images of the abdomen and pelvis were performed utilizing routine protocol with IV contrastintravenous contrast material. Multiplanar reformations were obtained. IV Isovue 370 was administered. Dose reduction techniques were used including intermediate exposure control (AEC),iterative reconstruction technique, and/or mA and/or KV dose adjustments based on patient's size. FINDINGS: Lung bases: Liver: within normal limits. Bile ducts: No intrahepatic or extrahepatic bile duct dilation. Gallbladder: No calcified gallstones. No gallbladder wall thickening or pericholecystic fluid. Spleen: Within normal limits. Pancreas: Within normal limits Adrenal glands: Within normal limits Kidneys/Ureters: Symmetric bilateral renal enhancement. No hydronephrosis or renal calculi. No hydroureter. Bladder: Within normal limits Reproductive: Multiple dilated serpiginous vascular structures in the periuterine region. There is also variceal dilatation of the left ovarian vein. Findings concerning for pelvic congestion syndrome. Lymph nodes: No enlarged lymph nodes Bowel: Stomach is unremarkable. No bowel dilation or wall thickening. Moderate colonic stool. Appendix is not visualized. Peritoneum: No free air, ascites, or fluid collection. Retroperitoneum: Within normal limits. Abdominal wall: Within normal limits. Bones: No significant multilevel spondylosis. Maintained vertebral body heights. CT/Abdomen/Pelvis W IV Cont ONLY IMPRESSION: No acute process in the abdomen or pelvis. Findings concerning for pelvic congestion syndrome. Reading [facility]
[2024-08-16 15:56] LABS: Mucous, Urine 0 SEEN /hpf (<or=2+)
[2024-08-16 16:01] LABS: Color, Urine Yellow (Yellow); Glucose, Dipstick Normal (Normal); Ketone-Dipstick 15 mg/dl (Negative); Leukocyte Esterase-Dipstick Negative /ul (Negative); Nitrite-Dipstick Negative (Negative); Occult Blood-Urine 150 /ul (Negative); Protein-Dipstick 15 mg/dl (Negative); Urine Bilirubin Dipstick Negative (Negative); Urine Clarity Clear (Clear); Urine Urobilinogen Normal (Normal)
[2024-08-16 16:22] LABS: Troponin T High Sensitivity < 6 ng/L (<=14)
[2024-08-16 16:23] LABS: Lactic Acid 1.1 mmol/L (0.0-2.0)
[2024-08-16 16:27] LABS: ALB/GLOB Ratio 1.2 RATIO (0.9-2.4); AST(SGOT) 31 U/L (<=31); Alanine Aminotransfer ALT/SGPT 13 U/L (<=34); Albumin, Serum 3.8 g/dL (3.5-5.0); Alkaline Phosphatase 58 U/L (35-104); Anion Gap 12 (5-15); BUN 6 mg/dL (4-19); BUN/Creat Ratio 10.1 RATIO (10-20); Calcium,Total 8.9 mg/dL (7.6-11.0); Carbon Dioxide 20.2 mmol/L (21.0-32.0); Chloride 105 mmol/L (98-108); Creatinine, Serum 0.57 mg/dL (0.70-1.20); EST Glomerular Filtration Rate 132 (>60); Estimated Creatinine Clearance 133.68 ml/min (50-250); Glucose 98 mg/dL (70-99); Potassium 3.5 mmol/L (3.3-5.1); Protein, Total 6.8 g/dL (5.9-8.4); Sodium Level 137 mmol/L (133-145)
[2024-08-16 16:49] LABS: Bacteria 1+ /hpf (None Seen); Red Blood Cells-Urine 5-10 SEEN /hpf (0-5); Squamous Epithelial Cells - UA 0-5 SEEN /hpf (5-10); White Blood Cells 0-5 SEEN /hpf (0-5)
[2024-08-16 17:31] LABS: Amphetamine Urine NEGATIVE (<1000 ng/mL); Barbiturate Urine NEGATIVE (< 200 ng/mL); Benzodiazepine Urine NEGATIVE (< 200 ng/mL); Buprenorphine Urine NEGATIVE (< 200 ng/mL); Cocaine Urine NEGATIVE (< 300 ng/mL); Fentanyl, Urine NEGATIVE; Methadone Urine NEGATIVE (< 300 ng/mL); Opiates Urine NEGATIVE (< 300 ng/mL); Oxycodone, Urine NEGATIVE (< 100 ng/mL); PCP Urine NEGATIVE (< 25 ng/mL); THC Urine NEGATIVE (< 50 ng/mL)
== END 2024-08-16 17:33 | disposition home or self-care (01) ==
PROVIDERS: Emergency Provider Emergency Medicine; PCP Family Medicine; Referring Provider Emergency Medicine; Visit Provider Emergency Medicine
DX: J02.9 Acute pharyngitis, unspecified (principal)
CPT/HCPCS: 70491; 71046; 74177; 80053; 80307; 81001; 83605; 84484; 85025; 85610; 85730; 87040; 87086; 87633; 93005; 96360; 96361; 99285; Q9967

== ENCOUNTER 2024-11-25 22:44 | Emergency (ER) | payer OTHER, SELFPAY ==
[2024-11-25 22:44] VITALS: BP 113/77; PULSE 115; RESP 20; TEMP 36.6; O2SAT 100; BMI 21.3
[2024-11-25] MEDS: 0.9% Normal Saline (1000mL) 1,000 ML 1000 ML IV (23:29)
[2024-11-25] MEDS: Famotidine 200 MG/20 ML MDV 20 MG in 0.9% Normal Saline (Pres. free 8 ML 300 MG IV (23:34)
[2024-11-25 23:40] LABS: Hematocrit 32.4 % (37-47); Hemoglobin 10.4 g/dL (12.0-15.0); Immature Granulocytes Count 0.030 X10^3/uL (0.0-0.0); Mean Corp Hgb Conc 32.1 g/dL (32-36); Mean Corpuscular Volume 82.9 fL (81-99); Mean Platelet Vol. 11.1 fl (6.2-12.0); NRBC Flagged by Analyzer 0 % (0-5); POSITIVE DIFFERENTIAL YES; Platelet Count 312 K/mm3 (150-450); RBC Distribution Width CV 14.3 % (11.6-14.6); RBC Distribution Width SD 42.7 fl (35.1-43.9); Red Blood Count 3.91 M/mm3 (4.2-5.4); White Blood Count 6.3 K/mm3 (4.4-11.0)
[2024-11-26] LABS: AST(SGOT) 19 U/L (<=31); Alanine Aminotransfer ALT/SGPT 10 U/L (<=34); Albumin, Serum 4.2 g/dL (3.5-5.0); Alkaline Phosphatase 47 U/L (35-104); Anion Gap 13 (5-15); BUN 12 mg/dL (4-19); BUN/Creat Ratio 16.6 RATIO (10-20); Calcium,Total 8.7 mg/dL (7.6-11.0); Carbon Dioxide 19.7 mmol/L (21.0-32.0); Chloride 104 mmol/L (98-108); Estimated Creatinine Clearance 104.94 ml/min (50-250); Globulin 2.3 g/dL (2.2-4.2); Glucose 82 mg/dL (70-99); Lipase 11 U/L (13-75); Potassium 3.8 mmol/L (3.3-5.1)
[2024-11-26 00:05] LABS: Red Blood Cells-Urine 0 SEEN /hpf (0-5)
[2024-11-26 00:13] LABS: Color, Urine Yellow (Yellow); Glucose, Dipstick Normal (Normal); Leukocyte Esterase-Dipstick 25 /ul (Negative); Nitrite-Dipstick Negative (Negative); Occult Blood-Urine Negative /ul (Negative); Protein-Dipstick 30 mg/dl (Negative); Specific Gravity, Urine 1.025 (1.002-1.030); Urine Bilirubin Dipstick Negative (Negative)
[2024-11-26 00:26] LABS: Ketone-Dipstick 150 mg/dl (Negative)
[2024-11-26 00:34] LABS: Mucous, Urine 1+ /hpf (<or=2+); Squamous Epithelial Cells - UA 5-10 SEEN /hpf (5-10)
[2024-11-26 00:35] LABS: Internal QC Validated? YES +Cl - CLEAR BKGD; Pregnancy, Urine Negative Negative; Record Kit Lot#,Urine Preg 0000947241
[2024-11-26 01:00] VITALS: BP 104/72; PULSE 86; RESP 18; TEMP 36.8; O2SAT 99
== END 2024-11-26 01:53 | disposition home or self-care (01) ==
PROVIDERS: Emergency Provider Emergency Medicine; PCP Family Medicine; Visit Provider Emergency Medicine
DX: R11.2 Nausea with vomiting, unspecified (principal); E86.0 Dehydration
CPT/HCPCS: 80053; 81001; 81025; 83690; 85025; 93005; 96361; 96374; 96375; 99284; A4216; J2405

== ENCOUNTER → 2024-12-04 | Outpatient (CLI) | payer OTHER, SELFPAY | END | disposition home or self-care (01) | PROVIDERS: PCP Family Medicine; Referring Provider Nurse Practitioner Family; Visit Provider Nurse Practitioner Family | DX: Z31.9 Encounter for procreative management, unspecified (principal) | CPT/HCPCS: 36415 ==

== ENCOUNTER → 2024-12-22 | Outpatient (CLI) | payer OTHER, SELFPAY ==
--- OUTSIDE RECORDS SUMMARY | 2024-12-22 07:23 | XMS RPT_ITS | CCD ---
Author Organization [facility] CliniSyvt Care Team Providers Care Folder Gluer Operator Name Role Phone Dr. Amrit Pete Primary Care Provider Dr. Amrit Pete Referring Provider Bashir [facility] [employer]ES [employer] ASSISTANTS TEACHER, HOSPITAL AIDES AND ASSISTANTS TEACHER-C Margarita Attending Provider DAVIS KEYS DO Admitting Unavailable JUAN PETE MD Referring Unavailab JUAN Michelle MD Consulting Unavailab DAVIS Olvera DO Attending Unavailable DAVIS KEYS DO Primary Care Unavailable PROVIDER, UNKNOWN Consulting Unavailable Yanci KHAN, Juan Martinez Primary Care Provider JUAN PETE Primary Care Unavailevelina e JUAN PETE Primary Care Unavailevelina Pete MD, Dr. Renee Primary Care Provider Dr. Juan Pete MD Referring Provider Eric KHAN, Dr. Pratt Attending Provider Dr. Santa Daniels MD Referring Provider Dr. Zuleyka Delgadillo DO Attending Provider Dr. James Kerr DO Attending Provider Dr. James Kerr DO Emergency Provider Dr. Zuleyka Delgadillo DO Referring Provider Dr. Zuleyka Delgadillo DO Other Provider Assessment, Health Risk Attending Provider Unava ilable Assessment, Health Risk Referring Provider Unava ilable Health, Employee Attending Provider Bashir [facility]PITAL A[employer]ES AND ASSISTANTS TEACHER-CMargarita Attending Provider Bashir [facility] A[employer]ES AND ASSISTANTS TEACHER-CMargarita Referring Provider Wander KHAN, Dr. Randolph Attending Provider Wander KHAN, Dr. Randolph Emergency Provider Eric KHAN, Dr. Pratt [facility] Rose Emergency Provider Nando CONWAY, Dr. Solorzano Referring Provider Nando CONWAY, Dr. Solorzano Emergency Provider Yanci KHAN, Dr. Renee Primary Care Provider Bryn KHAN, Dr. Pope Attending Provider Bryn KHAN, Dr. Pope Referring Provider Eric KHAN, Dr. Pratt Attending Provider Eric KHAN, Dr. Pratt [facility]erring [facility], Dr. Gardiner Attending Provider [facility], Dr. Solorzano Attending Provider Yanci KHAN, Dr. Renee Referring Provider Jennifer HOSPITAL A[employer]ES AND ASSISTANTS TEACHER-C, Joanna Attending Provider Dr. Marck Galeana DO Emergency Provider Yanci KHAN, Dr. Renee Primary Care Provider Eric KHAN, Dr. Pratt Attending Provider Dr. Marck Galeana DO Attending Provider Jennifer HOSPITAL A[employer]ES AND ASSISTANTS TEACHER-CJoanna Referring Provider Bashir H[facility]PITAL [employer]ES AND ASSISTANTS TEACHER, Margarita Attending Unavailable Juan Pete Primary Care Unavailable Bashir HOSPITAL A[employer]ES AND ASSISTANTS TEACHER, Margarita Referring Unavailable Juan Pete Primary Care Unavailable Zuleyka Delgadillo Referring Unavailabl e Zuleyka Delgadillo Attending Unavailabl e Juan Pete Referring Unavailable Yanci, Juan Primary Care Unavailable Vande Zuleyka Corral Attending Unavailabl e Broe Zuleyka Corral Attending Unavailabl e [place], [place] Primary Care Unavailable Zuleyka Delgadillo Referring Unavailabl e [place], [place] Primary Care Unavailable Santa Daniels Attending Unavailable Santa Daniels Referring Unavailable [place]available Santa Daniels Referring Unavailable Santa Daniels Attending Unavailable Assessment, Health Risk Attending Unavaila ble Assessment, Health Risk Referring Unavaila ble [facility], [place] Primary Care Unavailable [place], [place] Primary Care Unavailable Santa Daniels Attending Unavailable Santa Daniels Referring Unavailable [place] Referring Unavailable [place], [place] Primary Care Unavailable VandZuleyka Olmstead Attending Unavailabl e [place], [place] Primary Care Unavailable Santa Daniels Attending Unavailable Santa Daniels Referring Unavailable [place], [place] Primary Care Unavailable Joanna Rodriguez Attending Unavailable Joanna Rodriguez Referring Unavailable [facility] Primary Care Unavailable Marck Galeana Attending Unavailable Rashad Collier Attending Unavailable CollierRashad davis Referring Unavailable [facility], [place] Primary Care Unavailable [facility], [place] Primary Care Unavailable Milton Mariscal Attending Unavailabl e [facility], [place] Primary Care Unavailable Agustín Viramontes Attending Unavailable [facility], [place] Primary Care Unavailable James Kerr Attending Unavailable [place], [place] Referring Unavailable [place], [place] Primary Care Unavailable Santa Daniels Attending Unavailable [place], [place] Referring Unavailable [facility], [place] Primary Care Unavailable VandZuleyka Olmstead Attending Unavailabl e [place], [place] Primary Care Unavailable [place], Christopher Referring Unavailable Santa Daniels Attending Unavailable [place], Christopher Referring Unavailable [place], [place] Primary Care Unavailable Santa Daniels Attending Unavailable Zuleyka Delgadillo Attending Unavailabl e [place], [place] Primary Care Unavailable Vande Zuleyka Corral Referring Unavailabl e [place], Christopher Referring Unavailable [place] Unavailable Zuleyka Delgadillo Attending Unavailabl e [place], [place] Primary Care Unavailable Vande Zuleyka Corral Referring Unavailabl e Vande Shayna, Zuleyka Attending Unavailabl [facility] Unavailable Ariana Corral, Zuleyka Attending Unavailabl e [facility] Unavailable Santa Daniels Attending Unavailable Santa Daniels Referring Unavailable Santa Daniels Consulting [facility] Referring Unavailable [facility] Unavailable Santa Dnaiels Attending [facility]available [facility] Unavailable Niko Clemente Attending Unavailable Niko Clemente Referring Unavailable [facility] Unavailable Ariana Corral, Zuleyka Referring Unavailabl e Vande Velde, Zuleyka Consulting Unavailabl e Vande Viralde, Zuleyka Attending [facility] Referring Unavailable [facility] Unavailable Robby Olivier Attending Unavailable [facility] Referring Unavailable [facility] Unavailable Joanna Rodriguez Attending Unavailable Bashir HOSPITAL A[employer]ES AND ASSISTANTS TEACHER, Margarita Attending Unavailable Bashir H[facility]PITAL [employer]ES [employer] ASSISTANTS TEACHER, Margarita Referring Unavailable [facility] Unavailable Medications Current Medications Medication Drug Class(es) Dates Sig (Normalized) Sig (Original) Multivit 24-Liao-Fmndsn 1-Dha (Pnv-Dha) 27 mg iron-1 mg -300 mg capsule (8 sources) Start: 05-02-2024 Multivit 39-Djxi-Hgskjx 1-Dha (Pnv-Dha) 27 mg iron-1 mg -300 mg capsule Active 1 NMA PO DAILY May 02, 2024 1:00am ondansetron 4 mg disintegrating oral tablet (2 sources) Serotonin-3 Receptor Antagonist Start: 11-26-2024 take 1 tablet by mouth every eight hours as needed for nausea Ondansetron 4 mg tablet,disintegra ting Active 4 mg PO EVERY 8 HOURS NEEDED as needed for Nausea 10 0 November 26, 2024 12:00am predniSONE 20 mg oral tablet (1 source) Start: 06-05-2024 End: 06-09-2024 take 2 tablets by mouth once daily at mealtime predniSONE (DELTASONE) 20 mg tablet Take 2 tablets by mouth once daily for 4 days. Take daily with food. 8 tablet 06/05/2024 06/09/2024 Active Completed/Discontinued Medications Medication Drug Class(es) Dates Sig (Normalized) Sig (Original) acetaminophen 500 mg oral tablet (10 sources) Start: 08-14-2024 End: 11-22-2024 take 2 tablets by mouth every six hours as needed for pain Acetaminophen (Acetaminophen Extra Strength) 500 mg tablet Discontinued 1000 mg PO EVERY 6 HOURS as needed for fever or pain August 14, 2024 12:00am November 22, 2024 2:21pm Start: 08-14-2024 take 2 tablets by mo uth every eight hours as needed for pain Acetaminophen (Acetaminophen Extra Strength) 500 mg tablet Active 1000 mg PO EVERY 8 HOURS NEEDED as needed for fever or pain August 14, 2024 12:00am Start: 08-14-2024 End: 08-14-2024 take 1 tablet by mouth every four hours as needed Acetaminophen (Tylenol) 325 mg tablet Discontinued 325 mg PO Q4H as needed August 14, 2024 12:00am August 14, 2024 5:37pm acetaminophen 325 mg / oxyCODONE hydrochloride 5 mg oral tablet (8 sources) Opioid Agonist Start: 05-25-2024 End: 07-17-2024 take 1-2 tablets by mouth every four hours as needed for pain Oxycodone-Acetaminophen (Percocet) 5-325 mg tablet Discontinued 1 {tbl} PO Q4H as needed for pain 20 7 0 May 25, 2024 July 17, 2024 3:30pm Status post dilation and curettage Other specified postprocedural states 1-2 tabs q 4 hrs as needed for pain Control (10 sources) Start: 02-04-2019 End: 08-13-2021 take 1 tablet by mouth once daily Control Discontinued 1 TABLET PO DAILY February 04, 2019 2:43pm August 13, 2021 9:57am Start: 02-04-2019 End: 08-13-2021 Control Discontinued 1 {tbl} PO DAILY February 04, 2019 12:00am August 13, 2021 9:57am Start: 02-04-2019 End: 08-13-2021 take 1 tablet by mouth once daily Control Discontinued 1 TABLET PO DAILY February 03, 2019 11:00pm August 13, 2021 8:57am doxycycline monohydrate 100 mg oral capsule (5 sources) Tetracycline-class Drug Start: 08-14-2024 End: 08-23-2024 take 1 capsule by mouth twice daily Doxycycline Monohydrate 100 mg capsule Discontinued 100 mg PO TWICE A DAY 14 7 0 August 14, 2024 12:00am August 23, 2024 9:07am Levonorgestrel-Et hinyl Estrad (19 sources) Progestin, Estrogen, Progestin-containing Intrauterine Device Start: 09-17-2021 End: 06-23-2022 Levonorgestrel-Et hinyl Estrad (Altavera (28)) 0.15-0.03 mg tablet Discontinued 1 {tbl} PO DAILY 84 4 September 17, 2021 1:26pm June 23, 2022 11:18am Start: 09-17-2021 End: 06-23-2022 Levonorgestrel-Ethinyl Estra d (Altavera (28)) 0.15-0.03 mg tablet Discontinued 1 {tbl} PO DAILY 84 September 17, 2021 1:26pm June 23, 2022 11:18am Start: 09-17-2021 End: 06-23-2022 Levonorgestrel-Ethinyl Estra d (Altavera (28)) 0.15-0.03 mg tablet Discontinued 1 TABLET PO DAILY 84 September 17, 2021 12:26pm June 23, 2022 10:18am Start: 08-13-2021 Levonorgestrel -Ethinyl Estrad (Altavera (28)) 0.15-0.03 mg tablet Active 1 TABLET PO DAILY 84 August 13, 2021 10:14am Start: 08-13-2021 End: 09-17-2021 Levonorgestrel-Ethinyl Estra d (Altavera (28)) 0.15-0.03 mg tablet Discontinued 1 {tbl} PO DAILY 84 August 13, 2021 12:00am September 17, 2021 1:27pm Start: 08-13-2021 End: 09-17-2021 Levonorgestrel-Ethinyl Estra d (Altavera (28)) 0.15-0.03 mg tablet Discontinued 1 {tbl} PO DAILY 84 August 13, 2021 12:00am September 17, 2021 1:27pm Start: 08-13-2021 End: 09-17-2021 Levonorgestrel-Ethinyl Estra d (Altavera (28)) 0.15-0.03 mg tablet Discontinued 1 TABLET PO DAILY 84 August 12, 2021 11:00pm September 17, 2021 12:27pm ibuprofen 200 mg oral tablet (13 sources) Nonsteroidal Anti-inflammatory Drug Start: 08-14-2024 End: 11-22-2024 take 3 tablets by mouth every six hours as needed for pain Ibuprofen 200 mg tablet Discontinued 600 mg PO EVERY 6 HOURS as needed for fever or pain August 14, 2024 12:00am November 22, 2024 2:21pm Start: 05-25-2024 End: 07-17-2024 take 1 tablet by mouth every eight hours as needed for pain Ibuprofen 800 mg tablet Discontinued 800 mg PO Q8H as needed for pain 30 0 May 25, 2024 1:00am July 17, 2024 3:30pm medroxyPROGESTERone acetate 10 mg oral tablet (16 sources) Progestin Start: 07-14-2024 End: 07-27-2024 Medroxyprogesterone (Provera) 10 mg tablet Discontinued 10 mg PO DIRECTED 42 0 July 17, 2024 4:05pm July 27, 2024 11:08am miSOPROStol 0.2 mg oral tablet (8 sources) Prostaglandin E1 Analog Start: 06-01-2024 End: 07-17-2024 take 1 tablet by mouth once Misoprostol (Cytotec) 200 mcg tablet Discontinued 400 ug PO ONCE 2 0 June 01, 2024 1:00am July 17, 2024 3:30pm tranexamic acid 650 mg oral tablet (17 sources) Antifibrinolytic Agent Start: 07-17-2024 End: 07-22-2024 take 2 tablets by mouth three times daily Tranexamic Acid 650 mg tablet Discontinued 1300 mg PO THREE TIMES A DAY 30 5 0 July 17, 2024 1:00am July 21, 2024 1:00am July 22, 2024 1:23am Start: 06-23-2022 End: 05-02-2024 Tranexamic Acid (Lysteda) 65 0 mg tablet Discontinued 1300 mg PO THREE TIMES A DAY 60 2 June 23, 2022 1:00am May 02, 2024 9:21am Problems Active Problems Problem Classification Problem Date Documented Da te Episodic/Chronic Acute and chronic tonsillitis (6 sources) Tonsillitis; Translations: [Acute tonsillitis, unspecified] 04-19-2024 Episodic Anxiety disorders (12 sources) Anxiety; Translations: [Anxiety disorder, unspecified] Chronic Comment on above: resolved with stoppi ng OCP Contraceptive and procreative management (7 sources) Patient encounter status; Translations: [Encounter for procreative management, unspecified] Onset: 12-07-2024 11-22-2024 Episodic Deficiency and other anemia (13 sources) Anemia due to blood loss; 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 Lymphadenitis (1 source) Cervical lymphadenopathy; Translations: [Localized enlarged lymph nodes] 06-05-2024 Episodic Menstrual disorders (20 sources) Menorrhagia; Translations: [Excessive and frequent menstruation with regular cycle] Onset: 11-02-2024 06-23-2022 Chronic Comment on above: lysteda Nausea and vomiting (1 source) Nausea with vomiting, unspecified; Translations: [Nausea with vomiting, unspecified] Onset: 12-01-2024 Episodic Other circulatory disease (8 sources) Orthostatic hypotension; Translations: [Orthostatic hypotension] 07-22-2024 Episodic Other female genital disorders (20 sources) Abnormal uterine bleeding; Translations: [Other specified abnormal uterine and vaginal bleeding] 07-19-2024 Chronic Comment on above: suspect endoemtrial polyp, recommend d and c hysteroscopy symphion. tx and provera ordered in meantime s/p d and c. 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, dyssynchrony, s/p doxycycline Other female genital disorders (8 sources) Abnormal vaginal bleeding; Translations: [Abnormal uterine and vaginal bleeding, unspecified] 07-22-2024 Chronic Other female genital disorders (5 sources) Vaginal bleeding; Translations: [Abnormal uterine and vaginal bleeding, unspecified] 08-14-2024 Chronic Other female genital disorders (1 source) Other specified abnormal uterine and vaginal bleeding; Translations: [Other specified abnormal uterine and vaginal bleeding] Onset: 11-02-2024 Chronic Other female genital disorders (1 source) Abnormal uterine and vaginal bleeding, unspecified; Translations: [Abnormal uterine and vaginal bleeding, unspecified] Onset: 07-27-2024 Chronic Other screening for suspected conditions (not mental disorders or infectious disease) (8 sources) Cancer cervix screening status; Translations: [Encounter for screening for malignant neoplasm of cervix] 05-08-2024 Episodic Other skin disorders (9 sources) Hirsutism; Translations: [Hirsutism] 06-23-2022 Episodic Other skin disorders (1 source) Hirsutism; Translations: [Hirsutism] 06-23-2022 Episodic Other upper respiratory disease (8 sources) Seasonal allergy; Translations: [Other seasonal allergic rhinitis] 05-02-2024 Chronic Other upper respiratory infections (5 sources) Sore throat symptom; Translations: [Acute pharyngitis, unspecified] 06-05-2024 Episodic Residual codes; unclassified (13 sources) Family history of neurological disorder; Translations: [Family history of other congenital malformations, deformations and chromosomal abnormalities] 05-08-2024 Episodic Residual codes; unclassified (18 sources) Family history of malignant neoplasm of breast in first degree relative; Translations: [Family history of malignant neoplasm of breast] 05-08-2024 Episodic Comment on above: Mother , had genetic testing will obtain results Past or Other Problems Problem Classification Problem Date Documented Date Episodic/Chronic Fever of unknown origin (16 sources) Fever; Translations: [Fever, unspecified] Onset: 08-21-2024 08-14-2024 Episodic Hemorrhage during ; abruptio placenta; placenta previa (10 sources) Threatened miscarriage; Translations: [Threatened ] Onset: 05-25-2024 05-22-2024 Episodic Other aftercare (1 source) Encounter for follow-up examination after completed treatment for conditions other than malignant neoplasm; Translations: [Encounter for follow-up examination after completed treatment for conditions other than malignant neoplasm] Onset: 07-13-2024 Episodic Other and delivery including normal (20 sources) Normal ; Translations: [Encounter for supervision of normal first , unspecified trimester] Onset: 06-08-2024 06-26-2024 Episodic Comment on above: , NICHOL 12/24/24Carissa discussed genetic & carrier testing- Undecided Residual codes; unclassified (2 sources) Other specified postprocedural states; Translations: [Other specified postprocedural states] Onset: 07-19-2024 Episodic Residual codes; unclassified (1 source) Family history of other congenital malformations, deformations and chromosomal abnormalities; Translations: [Family history of other congenital malformations, deformations and chromosomal abnormalities] Onset: 05-23-2024 Episodic Residual codes; unclassified (1 source) Family history of malignant neoplasm of breast; Translations: [Family history of malignant neoplasm of breast] Onset: 05-23-2024 Episodic Residual codes; unclassified (1 source) 9 weeks gestation of ; Translations: [9 weeks gestation of ] Onset: 05-23-2024 Episodic Spontaneous (14 sources) Incomplete miscarriage; Translations: [Incomplete spontaneous without complication] Onset: 06-20-2024 05-31-2024 Episodic Results Test Name Value Interpretation Reference Range Facility L900.0111on 12-04-2024 REPROSOURCE SEE SCANNED REPORT Normal [facility] Comment on above: Order Comment: Comme nts: day 3 labs Performed By: #### L 900.0111 ####[facility] [id number] [place], [address] No Panel InformationOrdered By: Joanna Rodriguez on 12-04-2024 Miscellaneous Test Comment SEE SCANNED REPORT [facility] Bilirubin Test strip Ql (U)O rdered By: Marck Galeana on 11-26-2024 Bilirubin Ql (U) Negative Negative [facility] Comprehensive Metabolic Prof ilon 11-26-2024 ALK PHOS 47 U/L Normal 35-104 [facility] Comment on above: Performed By: #### L 100.0100, L501.2450, L500.4050 ####[facility] [id number] [place], [address] BUN/CRE 16.6 RATIO Normal 10-20 [facility] Comment on above: Performed By: #### L 100.0100, L501.2450, L500.4050 ####[facility] [id number] [place], [address] ECRCL 104.94 ml/min Normal 50-250 [facility] Comment on above: Performed By: #### L 100.0100, L501.2450, L500.4050 ####[facility] [id number] [place], [address] GAP 13 Normal 5-15 [facility] Comment on above: Performed By: #### L 100.0100, L501.2450, L500.4050 ####[facility] [id number] [place], [address] Potassium [Moles/Vol] 3.8 mmol/L Normal 3.3-5.1 [facility] Comment on above: Performed By: #### L 100.0100, L501.2450, L500.4050 ####[facility] [id number] [place], [address] T PROT 6.5 g/dL Normal 5.9-8.4 [facility] Comment on above: Performed By: #### L 100.0100, L501.2450, L500.4050 ####[facility] [id number] [place], [address] Ketones Test strip Ql (U)Ord ered By: Marck Galeana on 11-26-2024 Ketones Ql (U) 150 mg/dl Abnormal Negative [facility] Comment on above: CRITICAL VALUE *HCRI TICAL VALUE CALLED TO [id number] No[address] Rankin.RESULTS READ BACK BY SAME. Microscopic analysis of urin e for red blood cells (RBC)Ordered By: Marck Galeana on 11-26-2024 Microscopic analysis of urine for red blood cells (RBC) 0 SEEN /hpf 0-5 [facility] Mucus LM Ql (Urine sed)Order ed By: Marck Galeana on 11-26-2024 Mucus Ql (Urine sed) 1+ /hpf [facility] Nitrite Test strip Ql (U)Ord ered By: Marck Galeana on 11-26-2024 Nitrite Ql (U) Negative Negative [facility] ,Urineon 11-26-2024 Beta HCG ( test) Ql (U) Negative Normal [facility] Comment on above: Result Comment: Very dilute urine specimens, as indicated by a low specificgravity, may not contain enrollment eligibility representative levels of hCG.If is still suspected, a first morning urinespecimen should be collected 48 hours later and tested. Performed By: #### L 400.7600, L400.0001 ####[facility] [id number] [place], [address] Protein Test strip Ql (U)Ord ered By: Marck Galeana on 11-26-2024 Protein Ql (U) 30 mg/dl High Negative [facility] Squamous epithelial cells de tection in urine sediment by light microscopyOrdered By: Marck Galeana on 11-26-2024 Epithelial cells.squamous LM Ql (Urine sed) 5-10 SEEN /hpf 5-10 [facility] Urinalysis, Completeon 11-26 BACTERIA 1+ /hpf Normal None Seen [facility] Comment on above: Order Comment: CLEAN CATCH Performed By: #### L 400.7600, L400.0001 ####[facility] [id number] [place], [address] EPI,SQUAMOUS 5-10 SEEN Normal 5-10 [facility] Comment on above: Order Comment: CLEAN CATCH Performed By: #### L 400.7600, L400.0001 ####[facility] [address] [place], [address] Mucus Ql (Urine sed) 1+ /hpf Normal [facility] Comment on above: Order Comment: CLEAN CATCH Performed By: #### L 400.7600, L400.0001 ####[facility] [id number] [place], [address] WBC 0-5 SEEN Normal 0-5 [facility] Comment on above: Order Comment: CLEAN CATCH Performed By: #### L 400.7600, L400.0001 ####[facility] [id number] [place], [address] RBC 0 SEEN Normal 0-5 [facility] Comment on above: Order Comment: CLEAN CATCH Performed By: #### L 400.7600, L400.0001 ####[facility] [id number] [place], [address] Urine clarityOrdered By: Kalyan Galeana on 11-26-2024 Clarity (U) Clear Clear [facility] Urine color determinationOrd ered By: Marck Galeana on 11-26-2024 Color (U) Yellow Yellow [facility] Urine glucose detectionOrder ed By: Marck Galeana on 11-26-2024 Glucose Ql (U) Normal mg/dl Normal [facility] Urine leukocyte esterase det ection by dipstickOrdered By: Marck Galeana on 11-26-2024 Leukocyte esterase Test strip Ql (U) 25 /ul High Negative [facility] Urine pHOrdered By: Marck mercedes on 11-26-2024 pH (U) 6.0 [pH] 5.0 - 8.0 [facility] Urine testOrdered By: Marck Galeana on 11-26-2024 HCG ( test) Ql (U) Negative [facility] Comment on above: Very dilute urine sp ecimens, as indicated by a low specificgravity, may not contain enrollment eligibility representative levels of hCG. If is still suspected, a first morning urinespecimen should be collected 48 hours later and tested. Urine sediment bacteria coun t by microscopy (number/high power field)Ordered By: Marck Galeana on 11-26-2024 Bacteria LM.HPF (Urine sed) [#/Area] 1 /[HPF] None Seen [facility] Urine specific gravity measu rementOrdered By: Marck Galeana on 11-26-2024 Specific gravity (U) [Rel density] 1.025 1.002-1.030 [facility] Urine urobilinogen measureme ntOrdered By: Marck Galeana on 11-26-2024 Urobilinogen Ql (U) Normal mg/dl Normal [facility] White blood cell countOrdere d By: Marck Galeana on 11-26-2024 White blood cell count 0-5 SEEN /hpf 0-5 [facility] 12 Lead EKGon 11-25-[address] [facility] Absolute lymphocyte countOrd ered By: Marck Galeana on 11-25-2024 Lymphocytes Auto (Unsp spec) [#/Vol] 0.52 10*3/uL Low 0.83-4.51 [facility] Absolute neutrophil countOrd ered By: Marck Galeana on 11-25-2024 Neutrophils (Bld) [#/Vol] 5.2 10*3/uL 2.0-7.7 [facility] Anion gap in Serum or Plasma Ordered By: Marck Galeana on 11-25-2024 Anion gap [Moles/Vol] 13 mmol/L 5-15 [facility] Automated lymphocyte count a s percentage of total leukocytesOrdered By: Marck Galeana on 11-25-2024 Lymphocytes/100 WBC Auto (Unsp spec) 8.3 % Low 19-41 [facility] BUN/creatinine ratioOrdered By: Marck Galeana on 11-25-2024 Urea nitrogen/Creatinine [Mass ratio] 16.6 mg/mg 10-20 [facility] Basophil percentageOrdered B y: Marck Galeana on 11-25-2024 Basophils/100 WBC (Bld) 0.2 % 0-1 [facility] Bilirubin, totalOrdered By: Marck Galeana on 11-25-2024 Bilirubin [Mass/Vol] 0.64 mg/dL Normal 0.00-1.30 [facility] Comment on above: Performed By: #### L 100.0100, L501.2450, L500.4050 ####[facility] [address] [place], [address] CBC W/Diff, Automatedon Absolute Lymph 0.52 X10 3/uL Low 0.83-4.51 [facility] Comment on above: Performed By: #### L 100.0100, L501.2450, L500.4050 ####[facility] [address] [place], [address] Absolute Neut 5.2 X10 3/uL Normal 2.0-7.7 [facility] Comment on above: Performed By: #### L 100.0100, L501.2450, L500.4050 ####[facility] [address] [place], [address] Basophils/100 WBC (Bld) 0.2 % Normal 0-1 [facility] Comment on above: Performed By: #### L 100.0100, L501.2450, L500.4050 ####[facility] [address] [place], [address] Eosinophils/100 WBC (Bld) 0.2 % Normal 0-5 [facility] Comment on above: Performed By: #### L 100.0100, L501.2450, L500.4050 ####[facility] [address] [place], [address] Erythrocyte distribution width (RBC) [Ratio] 14.3 % Normal 11.6-14.6 [facility] Comment on above: Performed By: #### L 100.0100, L501.2450, L500.4050 ####[facility] [address] [place], [address] Hematocrit (Bld) [Volume fraction] 32.4 % Low 37-47 [facility] Comment on above: Performed By: #### L 100.0100, L501.2450, L500.4050 ####[facility] [address] [place], [address] Hemoglobin (Bld) [Mass/Vol] 10.4 g/dL Low 12.0-15.0 [facility] Comment on above: Performed By: #### L 100.0100, L501.2450, L500.4050 ####[facility] [address] [place], [address] IG% 0.500 Normal 0.0-0.9 [facility] Comment on above: Result Comment: IG% - Immature Granulocytes (promyelocytes, myelocytes andmetamyelocytes) > 1% indicates that a LEFT SHIFT is Present. Performed By: #### L 100.0100, L501.2450, L500.4050 ####[facility] [address] [place], [address] Lymphocytes/100 WBC (Bld) 8.3 % Low 19-41 [facility] Comment on above: Performed By: #### L 100.0100, L501.2450, L500.4050 ####[facility] [address] [place], [address] MCH (RBC) [Entitic mass] 26.6 pg Low 27.0-32.0 [facility] Comment on above: Performed By: #### L 100.0100, L501.2450, L500.4050 ####[facility] [address] [place], [address] MCHC (RBC) [Mass/Vol] 32.1 g/dL Normal 32-36 [facility] Comment on above: Performed By: #### L 100.0100, L501.2450, L500.4050 ####[facility] [address] [place], [address] MCV (RBC) [Entitic vol] 82.9 fL Normal 81-99 [facility] Comment on above: Performed By: #### L 100.0100, L501.2450, L500.4050 ####[facility] [address] [place], [address] Monocytes/100 WBC (Bld) 7.8 % Normal 0-10 [facility] Comment on above: Performed By: #### L 100.0100, L501.2450, L500.4050 ####[facility] [address] [place], [address] Neutrophils/100 WBC (Bld) 83.0 % High 47-70 [facility] Comment on above: Performed By: #### L 100.0100, L501.2450, L500.4050 ####[facility] [address] [place], [address] Nucleated RBC (Bld) [#/Vol] 0 10*3/uL Normal 0-5 [facility] Comment on above: Performed By: #### L 100.0100, L501.2450, L500.4050 ####[facility] [address] [place], [address] Platelet mean volume (Bld) [Entitic vol] 11.1 fL Normal 6.2-12.0 [facility] Comment on above: Performed By: #### L 100.0100, L501.2450, L500.4050 ####[facility] [address] [place], [address] Platelets (Bld) [#/Vol] 312 10*3/uL Normal 150-450 [facility] Comment on above: Performed By: #### L 100.0100, L501.2450, L500.4050 ####[facility] [address] [place], [address] RBC (Bld) [#/Vol] 3.91 10*6/uL Low 4.2-5.4 [facility] Comment on above: Performed By: #### L 100.0100, L501.2450, L500.4050 ####[facility] [address] [place], [address] RDW SD 42.7 fl Normal 35.1-43.9 [facility] Comment on above: Performed By: #### L 100.0100, L501.2450, L500.4050 ####[facility] [address] [place], [address] WBC (Bld) [#/Vol] 6.3 10*3/uL Normal 4.4-11.0 [facility] Comment on above: Performed By: #### L 100.0100, L501.2450, L500.4050 ####[facility] [address] [place], [address] Carbon dioxide, total [Moles /volume] in Central venous bloodOrdered By: Marck Galeana on 11-25-2024 CO2 [Moles/Vol] 19.7 mmol/L Low 21.0-32.0 [facility] Comment on above: Performed By: #### L 100.0100, L501.2450, L500.4050 ####[facility] [address] [place], [address] Chloride assayOrdered By: Yoan Galeana on 11-25-2024 Chloride [Moles/Vol] 104 mmol/L Normal 98-108 [facility] Comment on above: Performed By: #### L 100.0100, L501.2450, L500.4050 ####[facility] [address] [place], [address] Comprehensive Metabolic Prof ilOrdered By: Marck Galeana on 11-25-2024 AST [Catalytic activity/Vol] 19 U/L Normal <=31 [facility] Comment on above: Performed By: #### L 100.0100, L501.2450, L500.4050 ####[facility] [address] [place], [address] Emergency Department Summary on 11-25-2024 [address] [facility] Eosinophil percentageOrdered By: Marck Galeana on 11-25-2024 Eosinophils/100 WBC (Bld) 0.2 % 0-5 [facility] Erythrocyte distribution wid th ratioOrdered By: Marck Galeana on 11-25-2024 Erythrocyte distribution width (RBC) [Ratio] 14.3 % 11.6-14.6 [facility] Erythrocyte distribution wid th standard deviationOrdered By: Marck Galeana on 11-25-2024 Erythrocyte distribution width (RBC) [Ratio] 42.7 fl 35.1-43.9 [facility] Glomerular filtration rate ( GFR) estimation/1.73 sq m using serum, plasma, or whole bOrdered By: Marck Galeana on 11-25-2024 GFR/1.73 sq M.predicted among non-blacks MDRD (S/P/Bld) [Vol rate/Area] 121 mL/min/{1.73_m2} Normal >60 [facility] Comment on above: mL/min/1.73m2 CKD-EP I Creatinine Equation (2020) Result Comment: mL/m in/1.73m2 CKD-EPI Creatinine Equation (2020) Performed By: #### L 100.0100, L501.2450, L500.4050 ####[facility] [address] [place], [address] Hematocrit Auto (Bld) [Volum e fraction]Ordered By: Marck Galeana on 11-25-2024 Hematocrit (Bld) [Volume fraction] 32.4 % Low 37-47 [facility] Hemoglobin measurementOrdere d By: Marck Galeana on 11-25-2024 Hemoglobin (Bld) [Mass/Vol] 10.4 g/dL Low 12.0-15.0 [facility] Immature granulocytes/100 WB C Auto (Bld)Ordered By: Marck Galeana on 11-25-2024 Immature granulocytes/100 WBC (Bld) 0.500 % 0.0-0.9 [facility] Comment on above: IG% - Immature Granu locytes (promyelocytes, myelocytes and metamyelocytes) > 1% indicates that a LEFT SHIFT is Present. Lipase measurementOrdered By : Marck Galeana on 11-25-2024 Lipase [Catalytic activity/Vol] 11 U/L Low 13-75 [facility] Comment on above: Please note:LIPASE r evised reference range effective 22. New Lipase methodology. Expected to produce lower values than the previous assay method. NEW Reference Range: 13 - 75 U/L Result Comment: Shira stanley note:LIPASE revised reference range effective 22.New Lipase methodology. Expected to produce lower valuesthan the previous assay method.NEW Reference Range: 13 - 75 U/L Performed By: #### L 100.0100, L501.2450, L500.4050 ####[facility] [address] [place], [address] MCV (mean corpuscular volume ) determinationOrdered By: Marck Galeana on 11-25-2024 MCV (RBC) [Entitic vol] 82.9 fL 81-99 [facility] Mean corpuscular hemoglobin (MCH) determinationOrdered By: Marck Galeana on 11-25-2024 MCH (RBC) [Entitic mass] 26.6 pg Low 27.0-32.0 [facility] Mean corpuscular hemoglobin concentration (MCHC) determinationOrdered By: Marck Galeana on 11-25-2024 MCHC (RBC) [Mass/Vol] 32.1 g/dL 32-36 [facility] Mean platelet volume determi nationOrdered By: Marck Galeana on 11-25-2024 Platelet mean volume (Bld) [Entitic vol] 11.1 fL 6.2-12.0 [facility] Monocyte percentageOrdered B y: Marck Galeana on 11-25-2024 Monocytes/100 WBC (Bld) 7.8 % 0-10 [facility] Neutrophil percentageOrdered By: Marck Galeana on 11-25-2024 Neutrophils/100 WBC (Bld) 83.0 % High 47-70 [facility] Nucleated red blood cell per centageOrdered By: Marck Galeana on 11-25-2024 Nucleated RBC/100 WBC (Bld) [Ratio] 0 % 0-5 [facility] Platelet countOrdered By: danial Galeana on 11-25-2024 Platelets (Bld) [#/Vol] 312 10*3/uL 150-450 [facility] Potassium measurement (mass/ volume)Ordered By: Marck Galeana on 11-25-2024 Potassium (Unsp spec) [Mass/Vol] 3.8 mmol/L 3.3-5.1 [facility] RBC Auto (Bld) [#/Vol]Ordere d By: Marck Galeana on 11-25-2024 RBC (Bld) [#/Vol] 3.91 10*6/uL Low 4.2-5.4 [facility] Serum creatinine measurement (mass/volume)Ordered By: Marck Galeana on 11-25-2024 Creatinine [Mass/Vol] 0.72 mg/dL Normal 0.70-1.20 [facility] Comment on above: Performed By: #### L 100.0100, L501.2450, L500.4050 ####[facility] [address] [place], [address] Serum globulin measurementOr dered By: Marck Galeana on 11-25-2024 Globulin (S) [Mass/Vol] 2.3 g/dL Normal 2.2-4.2 [facility] Comment on above: Performed By: #### L 100.0100, L501.2450, L500.4050 ####[facility] [address] [place], [address] Serum glucose measurement (m ass/volume)Ordered By: Marck Galeana on 11-25-2024 Glucose [Mass/Vol] 82 mg/dL Normal 70-99 [facility] Comment on above: Performed By: #### L 100.0100, L501.2450, L500.4050 ####[facility] [address] [place], [address] Serum or plasma alanine melo otransferase (ALT) measurementOrdered By: Marck Galeana on 11-25-2024 ALT [Catalytic activity/Vol] 10 U/L Normal <=34 [facility] Comment on above: Performed By: #### L 100.0100, L501.2450, L500.4050 ####[facility] [address] [place], [address] Serum or plasma albumin roseanne urement (mass/volume)Ordered By: Marck Galeana on 11-25-2024 Albumin [Mass/Vol] 4.2 g/dL Normal 3.5-5.0 [facility] Comment on above: Performed By: #### L 100.0100, L501.2450, L500.4050 ####[facility] [address] [place], [address] Serum or plasma albumin/glob ulin mass ratioOrdered By: Marck Galeana on 11-25-2024 Albumin/Globulin [Mass ratio] 1.8 {ratio} Normal 0.9-2.4 [facility] Comment on above: Performed By: #### L 100.0100, L501.2450, L500.4050 ####[facility] [address] [place], [address] Serum or plasma alkaline anahi sphatase measurementOrdered By: Marck Galeana on 11-25-2024 ALP [Catalytic activity/Vol] 47 U/L 35-104 [facility] Serum or plasma calcium roseanne urement (mass/volume)Ordered By: Marck Galeana on 11-25-2024 Calcium [Mass/Vol] 8.7 mg/dL Normal 7.6-11.0 [facility] Comment on above: Performed By: #### L 100.0100, L501.2450, L500.4050 ####[facility] [address] [place], [address] Serum or plasma urea nitroge n measurement (mass/volume)Ordered By: Marck Galeana on 11-25-2024 Urea nitrogen [Mass/Vol] 12 mg/dL Normal 4-19 [facility] Comment on above: Performed By: #### L 100.0100, L501.2450, L500.4050 ####[facility] [address] [place], [address] Sodium levelOrdered By: Gwen Galeana on 11-25-2024 Sodium [Moles/Vol] 137 mmol/L Normal 133-145 [facility] Comment on above: Performed By: #### L 100.0100, L501.2450, L500.4050 ####[facility] [address] [place], [place], [id number] Total proteinOrdered By: Robert plaza Lissett on 11-25-2024 Protein [Mass/Vol] 6.5 g/dL 5.9-8.4 [facility] White blood cell (WBC) count Ordered By: Marck Galeana on 11-25-2024 WBC (Bld) [#/Vol] 6.3 10*3/uL 4.4-11.0 [facility] Assessor Office Visit Reporton 11-22-2024 Assessor Office Visit Report Normal [facility] Assessor Office Visit Reporton 08-23-2024 Assessor Office Visit Report Normal [facility] Culture, Blood (WB)on 2024 CUB Blood cultures x2, from two different sites No growth in [address] [facility] Comment on above: Performed By: #### L 100.0100, L503.6005, L300.4310, M200.1000, L501.4021, L300.3900, L500.4050 ####[facility] [address] [place], [place], [id number] Urine Cultureon 08-17-2024 URC Culture exhibits no growth. Normal [facility] Comment on above: Performed By: #### M 100.2200 ####[facility] [address] [place], [place], [id number] 12 Lead EKGon 08-16-[address] [facility] Abdomen/Pelvis W IV Cont ONL Yon 08-16-2024 Abdomen/Pelvis W IV Cont ONLY Normal [facility] Absolute lymphocyte countOrd ered By: Rashad Collier on 08-16-2024 Lymphocytes Auto (Unsp spec) [#/Vol] 0.47 10*3/uL Low 0.83-4.51 [facility] Absolute neutrophil countOrd ered By: Rashad Collier on 03-26-2025 Neutrophils (Bld) [#/Vol] 3.6 10*3/uL 2.0-7.7 [facility] Activated partial thrombopla stin time (aPTT) in platelet poor plasma by coagulation aOrdered By: Rashad Coliler on 08-16-2024 aPTT Coag (PPP) [Time] 37.6 s High 24.1-36.2 [facility] Amphetamine detection with 1 000 ng/mL as cutoffOrdered By: Rashad Collier on 08-16-2024 Amphetamines Screen method >1000 ng/mL Ql (U) Negative < 200 ng/mL [facility] Amphetamines Screen method > 1000 ng/mL Ql (U)Ordered By: Rashad Collier on 08-16-2024 Amphetamines Ql (U) Negative <1000 ng/mL [facility] Urine Barbiturates Screen Negative < 200 ng/m L [facility] Anion gap in Serum or Plasma Ordered By: Rashad Collier on 08-16-2024 Anion gap [Moles/Vol] 12 mmol/L 5-15 [facility] Automated lymphocyte count a s percentage of total leukocytesOrdered By: Rashad Coliler on 08-16-2024 Lymphocytes/100 WBC Auto (Unsp spec) 10.1 % Low 19-41 [facility] BUN/creatinine ratioOrdered By: Rashad Collier on 08-16-2024 Urea nitrogen/Creatinine [Mass ratio] 10.1 mg/mg 10-20 [facility] Basophil percentageOrdered B y: Rashad Collier on 08-16-2024 Basophils/100 WBC (Bld) 0.4 % 0-1 [facility] Bilirubin Test strip Ql (U)O rdered By: Rashad Collier on 08-16-2024 Bilirubin Ql (U) Negative Negative [facility] Bilirubin, totalOrdered By: Rashad Collier on 08-16-2024 Bilirubin [Mass/Vol] 0.30 mg/dL 0.00-1.30 [facility] Blood cultureOrdered By: Corrie Collier on 08-16-2024 Bacteria identified Cx Nom (Bld) No growth in [address] [facility] Bacteria identified Cx Nom (Bld) No growth in [address] [facility] CBC W/Diff, Automatedon 07-23 Absolute Lymph 0.47 X10 3/uL Low 0.83-4.51 [facility] Comment on above: Performed By: #### L 100.0100, L503.6005, L300.4310, M200.1000, L501.4021, L300.3900, L500.4050 ####[facility] [address] [place], [address] Absolute Neut 3.6 X10 3/uL Normal 2.0-7.7 [facility] Comment on above: Performed By: #### L 100.0100, L503.6005, L300.4310, M200.1000, L501.4021, L300.3900, L500.4050 ####[facility] [address] [place], [address] Basophils/100 WBC (Bld) 0.4 % Normal 0-1 [facility] Comment on above: Performed By: #### L 100.0100, L503.6005, L300.4310, M200.1000, L501.4021, L300.3900, L500.4050 ####[facility] [address] [place], [address] Eosinophils/100 WBC (Bld) 0.2 % Normal 0-5 [facility] Comment on above: Performed By: #### L 100.0100, L503.6005, L300.4310, M200.1000, L501.4021, L300.3900, L500.4050 ####[facility] [address] [place], [address] Erythrocyte distribution width (RBC) [Ratio] 12.2 % Normal 11.6-14.6 [facility] Comment on above: Performed By: #### L 100.0100, L503.6005, L300.4310, M200.1000, L501.4021, L300.3900, L500.4050 ####[facility] [address] [place], [address] Hematocrit (Bld) [Volume fraction] 30.1 % Low 37-47 [facility] Comment on above: Performed By: #### L 100.0100, L503.6005, L300.4310, M200.1000, L501.4021, L300.3900, L500.4050 ####[facility] [address] [place], [address] Hemoglobin (Bld) [Mass/Vol] 10.1 g/dL Low 12.0-15.0 [facility] Comment on above: Performed By: #### L 100.0100, L503.6005, L300.4310, M200.1000, L501.4021, L300.3900, L500.4050 ####[facility] [address] [place], [address] IG% 0.600 Normal 0.0-0.9 [facility] Comment on above: Result Comment: IG% - Immature Granulocytes (promyelocytes, myelocytes andmetamyelocytes) > 1% indicates that a LEFT SHIFT is Present. Performed By: #### L 100.0100, L503.6005, L300.4310, M200.1000, L501.4021, L300.3900, L500.4050 ####[facility] [address] [place], [address] Lymphocytes/100 WBC (Bld) 10.1 % Low 19-41 [facility] Comment on above: Performed By: #### L 100.0100, L503.6005, L300.4310, M200.1000, L501.4021, L300.3900, L500.4050 ####[facility] [address] [place], [address] MCH (RBC) [Entitic mass] 29.7 pg Normal 27.0-32.0 [facility] Comment on above: Performed By: #### L 100.0100, L503.6005, L300.4310, M200.1000, L501.4021, L300.3900, L500.4050 ####[facility] [address] [place], [address] MCHC (RBC) [Mass/Vol] 33.6 g/dL Normal 32-36 [facility] Comment on above: Performed By: #### L 100.0100, L503.6005, L300.4310, M200.1000, L501.4021, L300.3900, L500.4050 ####[facility] [address] [place], [address] MCV (RBC) [Entitic vol] 88.5 fL Normal 81-99 [facility] Comment on above: Performed By: #### L 100.0100, L503.6005, L300.4310, M200.1000, L501.4021, L300.3900, L500.4050 ####[facility] [address] [place], [address] Monocytes/100 WBC (Bld) 12.4 % High 0-10 [facility] Comment on above: Performed By: #### L 100.0100, L503.6005, L300.4310, M200.1000, L501.4021, L300.3900, L500.4050 ####[facility] [address] [place], [address] Neutrophils/100 WBC (Bld) 76.3 % High 47-70 [facility] Comment on above: Performed By: #### L 100.0100, L503.6005, L300.4310, M200.1000, L501.4021, L300.3900, L500.4050 ####[facility] [address] [place], [address] Nucleated RBC (Bld) [#/Vol] 0 10*3/uL Normal 0-5 [facility] Comment on above: Performed By: #### L 100.0100, L503.6005, L300.4310, M200.1000, L501.4021, L300.3900, L500.4050 ####[facility] [address] [place], [address] Platelet mean volume (Bld) [Entitic vol] 10.4 fL Normal 6.2-12.0 [facility] Comment on above: Performed By: #### L 100.0100, L503.6005, L300.4310, M200.1000, L501.4021, L300.3900, L500.4050 ####[facility] [address] [place], [address] Platelets (Bld) [#/Vol] 277 10*3/uL Normal 150-450 [facility] Comment on above: Performed By: #### L 100.0100, L503.6005, L300.4310, M200.1000, L501.4021, L300.3900, L500.4050 ####[facility] [address] [place], [address] RBC (Bld) [#/Vol] 3.40 10*6/uL Low 4.2-5.4 [facility] Comment on above: Performed By: #### L 100.0100, L503.6005, L300.4310, M200.1000, L501.4021, L300.3900, L500.4050 ####[facility] [address] [place], [address] RDW SD 39.3 fl Normal 35.1-43.9 [facility] Comment on above: Performed By: #### L 100.0100, L503.6005, L300.4310, M200.1000, L501.4021, L300.3900, L500.4050 ####[facility] [address] [place], [address] WBC (Bld) [#/Vol] 4.7 10*3/uL Normal 4.4-11.0 [facility] Comment on above: Performed By: #### L 100.0100, L503.6005, L300.4310, M200.1000, L501.4021, L300.3900, L500.4050 ####[facility] [address] [place], [address] Carbon dioxide, total [Moles /volume] in Central venous bloodOrdered By: Rashad Collier on 08-16-2024 CO2 [Moles/Vol] 20.2 mmol/L Low 21.0-32.0 [facility] Chest PA and Lateralon 08-16 Chest PA and Lateral Normal [facility] Chloride assayOrdered By: Dylon Collier on 08-16-2024 Chloride [Moles/Vol] 105 mmol/L 98-108 [facility] Comprehensive Metabolic Prof ilon 08-16-2024 Albumin [Mass/Vol] 3.8 g/dL Normal 3.5-5.0 [facility] Comment on above: Performed By: #### L 100.0100, L503.6005, L300.4310, M200.1000, L501.4021, L300.3900, L500.4050 ####[facility] [address] [place], [address] Albumin/Globulin [Mass ratio] 1.2 {ratio} Normal 0.9-2.4 [facility] Comment on above: Performed By: #### L 100.0100, L503.6005, L300.4310, M200.1000, L501.4021, L300.3900, L500.4050 ####[facility] [id number] [place], [address] ALK PHOS 58 U/L Normal 35-104 [facility] Comment on above: Performed By: #### L 100.0100, L503.6005, L300.4310, M200.1000, L501.4021, L300.3900, L500.4050 ####[facility] [id number] [place], [address] ALT [Catalytic activity/Vol] 13 U/L Normal <=34 [facility] Comment on above: Performed By: #### L 100.0100, L503.6005, L300.4310, M200.1000, L501.4021, L300.3900, L500.4050 ####[facility] [address] [place], [address] AST [Catalytic activity/Vol] 31 U/L Normal <=31 [facility] Comment on above: Result Comment: Hemo lysis present, Results??could be affected.?? Performed By: #### L 100.0100, L503.6005, L300.4310, M200.1000, L501.4021, L300.3900, L500.4050 ####[facility] [id number] [place], [address] Bilirubin [Mass/Vol] 0.30 mg/dL Normal 0.00-1.30 [facility] Comment on above: Performed By: #### L 100.0100, L503.6005, L300.4310, M200.1000, L501.4021, L300.3900, L500.4050 ####[facility] [id number] [place], [address] BUN/CRE 10.1 RATIO Normal 10-20 [facility] Comment on above: Performed By: #### L 100.0100, L503.6005, L300.4310, M200.1000, L501.4021, L300.3900, L500.4050 ####[facility] [address] [place], [address] Calcium [Mass/Vol] 8.9 mg/dL Normal 7.6-11.0 [facility] Comment on above: Performed By: #### L 100.0100, L503.6005, L300.4310, M200.1000, L501.4021, L300.3900, L500.4050 ####[facility] [address] [place], [address] Chloride [Moles/Vol] 105 mmol/L Normal 98-108 [facility] Comment on above: Performed By: #### L 100.0100, L503.6005, L300.4310, M200.1000, L501.4021, L300.3900, L500.4050 ####[facility] [address] [place], [address] CO2 [Moles/Vol] 20.2 mmol/L Low 21.0-32.0 [facility] Comment on above: Performed By: #### L 100.0100, L503.6005, L300.4310, M200.1000, L501.4021, L300.3900, L500.4050 ####[facility] [address] [place], [address] Creatinine [Mass/Vol] 0.57 mg/dL Low 0.70-1.20 [facility] Comment on above: Performed By: #### L 100.0100, L503.6005, L300.4310, M200.1000, L501.4021, L300.3900, L500.4050 ####[facility] [address] [place], [address] ECRCL 133.68 ml/min Normal 50-250 [facility] Comment on above: Performed By: #### L 100.0100, L503.6005, L300.4310, M200.1000, L501.4021, L300.3900, L500.4050 ####[facility] [address] [place], [address] GAP 12 Normal 5-15 [facility] Comment on above: Performed By: #### L 100.0100, L503.6005, L300.4310, M200.1000, L501.4021, L300.3900, L500.4050 ####[facility] [address] [place], [address] GFR/1.73 sq M.predicted among non-blacks MDRD (S/P/Bld) [Vol rate/Area] 132 mL/min/{1.73_m2} Normal >60 [facility] Comment on above: Result Comment: mL/m in/1.73m2 CKD-EPI Creatinine Equation (2020) Performed By: #### L 100.0100, L503.6005, L300.4310, M200.1000, L501.4021, L300.3900, L500.4050 ####[facility] [address] [place], [address] Globulin (S) [Mass/Vol] 3.0 g/dL Normal 2.2-4.2 [facility] Comment on above: Performed By: #### L 100.0100, L503.6005, L300.4310, M200.1000, L501.4021, L300.3900, L500.4050 ####[facility] [address] [place], [address] Glucose [Mass/Vol] 98 mg/dL Normal 70-99 [facility] Comment on above: Performed By: #### L 100.0100, L503.6005, L300.4310, M200.1000, L501.4021, L300.3900, L500.4050 ####[facility] [address] [place], [address] Potassium [Moles/Vol] 3.5 mmol/L Normal 3.3-5.1 [facility] Comment on above: Result Comment: Hemo lysis present, Results??could be affected.?? Performed By: #### L 100.0100, L503.6005, L300.4310, M200.1000, L501.4021, L300.3900, L500.4050 ####[facility] [address] [place], [address] Sodium [Moles/Vol] 137 mmol/L Normal 133-145 [facility] Comment on above: Performed By: #### L 100.0100, L503.6005, L300.4310, M200.1000, L501.4021, L300.3900, L500.4050 ####[facility] [address] [place], [address] T PROT 6.8 g/dL Normal 5.9-8.4 [facility] Comment on above: Performed By: #### L 100.0100, L503.6005, L300.4310, M200.1000, L501.4021, L300.3900, L500.4050 ####[facility] [address] [place], [address] Urea nitrogen [Mass/Vol] 6 mg/dL Normal 4-19 [facility] Comment on above: Performed By: #### L 100.0100, L503.6005, L300.4310, M200.1000, L501.4021, L300.3900, L500.4050 ####[facility] [address] [place], [address] Emergency Department Summary on 08-16-2024 [address] [facility] Eosinophil percentageOrdered By: Rashad Collier on 08-16-2024 Eosinophils/100 WBC (Bld) 0.2 % 0-5 [facility] Epithelial cells.squamous LM Ql (Urine sed)Ordered By: Rashad Collier on 08-16-2024 Epithelial cells.squamous LM.HPF (Urine sed) [#/Area] 0 /[HPF] 5-10 [facility] Erythrocyte distribution wid th ratioOrdered By: Rashad Collier on 08-16-2024 Erythrocyte distribution width (RBC) [Ratio] 12.2 % 11.6-14.6 [facility] Erythrocyte distribution wid th standard deviationOrdered By: Rashad Collier on 08-16-2024 Erythrocyte distribution width (RBC) [Entitic vol] 39.3 fL 35.1-43.9 [facility] Erythrocyte distribution width (RBC) [Ratio] 39.3 fl 35.1-43.9 [facility] Estimation of creatinine jessica aranceOrdered By: Rashad Collier on 08-16-2024 Estimated Creatinine Clearance Calc 133.68 ml/min 50-250 [facility] GFR/1.73 sq M.predicted radha g non-blacks MDRD (S/P/Bld) [Vol rate/Area]Ordered By: Rashad Collier on 08-16-2024 Estimated GFR (MDRD) Non-Af Amer [address] >60 [facility] Comment on above: mL/min/1.73m2 CKD-EP I Creatinine Equation (2020) Glomerular filtration rate ( GFR) estimation/1.73 sq m using serum, plasma, or whole bOrdered By: Rashad Collier on 08-16-2024 GFR/1.73 sq M.predicted among non-blacks MDRD (S/P/Bld) [Vol rate/Area] 132 mL/min/{1.73_m2} >60 [facility] Comment on above: mL/min/1.73m2 CKD-EP I Creatinine Equation (2020) Glucose Ql (U)Ordered By: Dylon Collier on 08-16-2024 Urine Glucose (UA) Normal mg/dl Normal [facility] Hematocrit Auto (Bld) [Volum e fraction]Ordered By: Rashad Collier on 08-16-2024 Hematocrit (Bld) [Volume fraction] 30.1 % Low 37-47 [facility] Hemoglobin measurementOrdere d By: Rashad Collier on 08-16-2024 Hemoglobin (Bld) [Mass/Vol] 10.1 g/dL Low 12.0-15.0 [facility] Immature granulocytes/100 WB C Auto (Bld)Ordered By: Rashad Collier on 08-16-2024 Immature granulocytes/100 WBC (Bld) 0.600 % 0.0-0.9 [facility] Comment on above: IG% - Immature Granu locytes (promyelocytes, myelocytes and metamyelocytes) > 1% indicates that a LEFT SHIFT is Present. International normalized rat io (INR) calculationOrdered By: Rashad Collier on 08-16-2024 INR Coag (Bld) [Relative time] 1.1 {INR} [facility] Ketones Test strip Ql (U)Ord ered By: Rashad Morrisoner on 08-16-2024 Ketones Ql (U) 15 mg/dl High Negative [facility] L499.0042on 08-16-2024 Trop T High Sen Normal <=14 [facility] Comment on above: Result Comment: DISC HARGED FROM ED Performed By: #### L 499.0042 ####[facility] [address] [place], [address] L499.0043on 08-16-2024 Trop T High Sen Normal <=14 [facility] Comment on above: Result Comment: Canc elled via OM: Order cancelled - Patient discharged Performed By: #### L 499.0043 ####[facility] [address] [place], [address] L501.4021on 08-16-2024 Trop T High Sen < 6 Normal <=14 [facility] Comment on above: Performed By: #### L 100.0100, L503.6005, L300.4310, M200.1000, L501.4021, L300.3900, L500.4050 ####[facility] [address] [place], [place], [id number] Laboratory - Chemistry and C hemistry - challengeOrdered By: Rashadlucas Collier on 08-16-2024 AST [Catalytic activity/Vol] 31 U/L <32 [facility] Comment on above: Hemolysis present, R esults could be affected. Lactic Acidon 08-16-2024 Lactate [Moles/Vol] 1.1 mmol/L Normal 0.0-2.0 [facility] Comment on above: Order Comment: Y Performed By: #### L 100.0100, L503.6005, L300.4310, M200.1000, L501.4021, L300.3900, L500.4050 ####[facility] [address] [place], [place], [id number] Lactic acid measurementOrder ed By: Rashad Collier on 08-16-2024 Lactate [Moles/Vol] 1.1 mmol/L 0.0-2.0 [facility] Lymphocytes Auto (Unsp spec) [#/Vol]Ordered By: Rashad Collier on 08-16-2024 Lymphocytes (Bld) [#/Vol] 0.47 10*3/uL Low 0.83-4.[address] [facility] Lymphocytes/100 WBC Auto (Un sp spec)Ordered By: Rashad Collier on 08-16-2024 Lymphocytes/100 WBC (Bld) 10.1 % Low 19-41 [facility] MCV (mean corpuscular volume ) determinationOrdered By: Rashad Collier on 08-16-2024 MCV (RBC) [Entitic vol] 88.5 fL 81-99 [facility] Mean corpuscular hemoglobin (MCH) determinationOrdered By: Rashad Collier on 08-16-2024 MCH (RBC) [Entitic mass] 29.7 pg 27.0-32.0 [facility] Mean corpuscular hemoglobin concentration (MCHC) determinationOrdered By: Rashad Collier on 08-16-2024 MCHC (RBC) [Mass/Vol] 33.6 g/dL 32-36 [facility] Mean platelet volume determi nationOrdered By: Rashad Collier on 08-16-2024 Platelet mean volume (Bld) [Entitic vol] 10.4 fL 6.2-12.0 [facility] Methadone, urineOrdered By: Rashad Collier on 08-16-2024 Urine Methadone Screen Negative < 300 ng/mL [facility] Microscopic analysis of urin e for red blood cells (RBC)Ordered By: Rashad Collier on 08-16-2024 Microscopic analysis of urine for red blood cells (RBC) 5-10 SEEN /hpf 0-5 [facility] Urine RBC 5-10 SEEN /hpf 0-5 [facility] Monocyte percentageOrdered B y: Rashad Collier on 08-16-2024 Monocytes/100 WBC (Bld) 12.4 % High 0-10 [facility] Mucus LM Ql (Urine sed)Order ed By: Rashad Collier on 08-16-2024 Mucus Ql (Urine sed) 0 SEEN /hpf [facility] Neutrophil percentageOrdered By: Rashad Collier on 08-16-2024 Neutrophils/100 WBC (Bld) 76.3 % High 47-70 [facility] Nitrite Test strip Ql (U)Ord ered By: Rashad Collier on 08-16-2024 Nitrite Ql (U) Negative Negative [facility] No Panel InformationOrdered By: Rashad Collier on 08-16-2024 Urine Buprenorphine Qualitative Negative < 200 ng/mL [facility] Urine Oxycodone Screen Negative < 100 ng/mL [facility] Troponin T High Sensitivity < 6 ng/L <14 [facility] Nucleated red blood cell per centageOrdered By: Rashad Collier on 08-16-2024 Nucleated RBC/100 WBC (Bld) [Ratio] 0 % 0-5 [facility] Partial Thromboplast Timeon 08-16-2024 aPTT Coag (Bld) [Time] 37.6 s High 24.1-36.2 [facility] Comment on above: Performed By: #### L 100.0100, L503.6005, L300.4310, M200.1000, L501.4021, L300.3900, L500.4050 ####[facility] [address] [place], [address] Platelet countOrdered By: Dylon Collier on 08-16-2024 Platelets (Bld) [#/Vol] 277 10*3/uL 150-450 [facility] Potassium (Unsp spec) [Mass/ Vol]Ordered By: Rashad Collier on 08-16-2024 Potassium [Moles/Vol] 3.5 mmol/L 3.3-5.1 [facility] Comment on above: Hemolysis present, R esults could be affected. Potassium measurement (mass/ volume)Ordered By: Rashad Collier on 08-16-2024 Potassium (Unsp spec) [Mass/Vol] 3.5 mmol/L 3.3-5.1 [facility] Comment on above: Hemolysis present, R esults could be affected. Protein Test strip Ql (U)Ord ered By: Rashad Collier on 08-16-2024 Protein Ql (U) 15 mg/dl High Negative [facility] Prothrombin Time w/INRon INR Coag (PPP) [Relative time] 1.1 {INR} Normal [facility] Comment on above: Performed By: #### L 100.0100, L503.6005, L300.4310, M200.1000, L501.4021, L300.3900, L500.4050 ####[facility] [address] [place], [place], [phone] PT Coag (PPP) [Time] 14.4 s Normal 11.7-14.9 [facility] Comment on above: Performed By: #### L 100.0100, L503.6005, L300.4310, M200.1000, L501.4021, L300.3900, L500.4050 ####[facility] [address] [place], [place], [id number] Prothrombin timeOrdered By: Rashad Collier on 08-16-2024 PT Coag (PPP) [Time] 14.4 s 11.7-14.9 [facility] Quantitative urine opiates m easurementOrdered By: Rashad Collier on 08-16-2024 Opiates Ql (U) Negative < 300 ng/mL [facility] RBC Auto (Bld) [#/Vol]Ordere d By: Rashad Collier on 08-16-2024 RBC (Bld) [#/Vol] 3.40 10*6/uL Low 4.2-5.4 [facility] RESPIRATORY PANEL MOLECULARo n 08-16-[address] [facility] Comment on above: Performed By: #### M 100.638 ####[facility] [address] [place], [address] Respiratory pathogens detect ion panel by molecular detection methodOrdered By: Rashad Collier on 08-16-2024 Respiratory pathogens DNA and RNA panel JIMBO+probe (Resp) [facility] Screening urine fentanyl serafin surementOrdered By: Rashad Collier on 08-16-2024 fentaNYL Screen Ql (U) Negative [facility] Serum creatinine measurement (mass/volume)Ordered By: Rashad Collier on 08-16-2024 Creatinine [Mass/Vol] 0.57 mg/dL Low 0.70-1.20 [facility] Serum globulin measurementOr dered By: Rashad Collier on 08-16-2024 Globulin (S) [Mass/Vol] 3.0 g/dL 2.2-4.2 [facility] Serum glucose measurement (m ass/volume)Ordered By: Rashad Collier on 08-16-2024 Glucose [Mass/Vol] 98 mg/dL 70-99 [facility] Serum or plasma alanine melo otransferase (ALT) measurementOrdered By: Rashad Collier on 08-16-2024 ALT [Catalytic activity/Vol] 13 U/L <35 [facility] Serum or plasma albumin roseanne urement (mass/volume)Ordered By: Rashad Collier on 08-16-2024 Albumin [Mass/Vol] 3.8 g/dL 3.5-5.0 [facility] Serum or plasma albumin/glob ulin mass ratioOrdered By: Rashad Collier on 08-16-2024 Albumin/Globulin [Mass ratio] 1.2 {ratio} 0.9-2.4 [facility] Serum or plasma alkaline anahi sphatase measurementOrdered By: Rashad Collier on 08-16-2024 ALP [Catalytic activity/Vol] 58 U/L 35-104 [facility] Serum or plasma calcium roseanne urement (mass/volume)Ordered By: Rashad Collier on 08-16-2024 Calcium [Mass/Vol] 8.9 mg/dL 7.6-11.0 [facility] Serum or plasma urea nitroge n measurement (mass/volume)Ordered By: Rashad Collier on 08-16-2024 Urea nitrogen [Mass/Vol] 6 mg/dL 4-19 [facility] Sodium levelOrdered By: Corrieglen lopez Nando on 08-16-2024 Sodium [Moles/Vol] 137 mmol/L 133-145 [facility] Soft Tissue Neck WITH Contra ston 08-16-2024 Soft Tissue Neck WITH Contrast Normal [facility] Squamous epithelial cells de tection in urine sediment by light microscopyOrdered By: Rashad Collier on 08-16-2024 Epithelial cells.squamous LM Ql (Urine sed) 0-5 SEEN /hpf 5-10 [facility] Total proteinOrdered By: Corrie Collier on 08-16-2024 Protein [Mass/Vol] 6.8 g/dL 5.9-8.4 [facility] Urinalysis, Completeon 08-16 BACTERIA 1+ /hpf Normal None Seen [facility] Comment on above: Order Comment: CLEAN CATCH Performed By: #### L 400.0001 ####[facility] [address] [facility] [address] EPI,SQUAMOUS 0-5 SEEN Normal 5-10 [facility] Comment on above: Order Comment: CLEAN CATCH Performed By: #### L 400.0001 ####[facility] [address] [facility] [address] RBC 5-10 SEEN Normal 0-5 [facility] Comment on above: Order Comment: CLEAN CATCH Performed By: #### L 400.0001 ####[facility] [address] [facility] [address] WBC 0-5 SEEN Normal 0-5 [facility] Comment on above: Order Comment: CLEAN CATCH Performed By: #### L 400.0001 ####[facility] [address] [place], [address] Mucus Ql (Urine sed) 0 SEEN Normal [facility] Comment on above: Order Comment: CLEAN CATCH Performed By: #### L 400.0001 ####[facility] [address] [place], [address] Urine Drug Screen (VISTA)on 08-16-2024 AMPHETAMINES Negative Normal <1000 ng/mL [facility] Comment on above: Performed By: #### L 505.5000 ####[facility] [address] [place], [address] BARBITIURATES Negative Normal < 200 ng/mL [facility] Comment on above: Performed By: #### L 505.5000 ####[facility] [address] [facility] [address] BENZODIAZIPINE Negative Normal < 200 ng/mL [facility] Comment on above: Performed By: #### L 505.5000 ####[facility] [address] [facility] [address] BUP Ur Drug Scr Negative Normal < 200 ng/mL [facility] Comment on above: Performed By: #### L 505.5000 ####[facility] [address] [facility] [address] COCAINE Negative Normal < 300 ng/mL [facility] Comment on above: Performed By: #### L 505.5000 ####[facility] [address] [place], [address] [facility] Comment on above: Performed By: #### L 505.5000 ####[facility] [address] [place], [address] METHADONE Negative Normal < 300 ng/mL [facility] Comment on above: Performed By: #### L 505.5000 ####[facility] [address] [place] [address] OPIATES Negative Normal < 300 ng/mL [facility] Comment on above: Performed By: #### L 505.5000 ####[facility] [address] [facility] [address] OXYCODONE Negative Normal < 100 ng/mL [facility] Comment on above: Performed By: #### L 505.5000 ####[facility] [address] [place], [place], [id number] PCP Negative Normal < 25 ng/mL [facility] Comment on above: Performed By: #### L 505.5000 ####[facility] [address] [place], [place], [id number] THC Negative Normal < 50 ng/mL [facility] Comment on above: Performed By: #### L 505.5000 ####[facility] [address] [place], [place], [id number] Urine benzodiazepine levelOr dered By: Rashad Collier on 08-16-2024 Benzodiazepines Ql (U) Negative < 200 ng/mL [facility] Urine blood detectionOrdered By: Rashad Collier on 08-16-2024 Urine Occult Blood 150 /ul High Negative [facility] Urine clarityOrdered By: Corrie Collier on 08-16-2024 Clarity (U) Clear Clear [facility] Urine cocaine levelOrdered B y: Rashad Collier on 08-16-2024 Cocaine Ql (U) Negative < 300 ng/mL [facility] Urine color determinationOrd ered By: Rashad Collier on 08-16-2024 Color (U) Yellow Yellow [facility] Urine cultureOrdered By: Corrie Collier on 08-16-2024 Bacteria identified Cx Nom (U) Culture exhibits no growth. [facility] Urine mohtd-5-zpqlmsorxnhxcb abinol (THC) measurementOrdered By: Rashad Collier on 08-16-2024 Cannabinoids Screen Ql (U) Negative < 50 ng/mL [facility] Urine glucose detectionOrder ed By: Rashad Collier on 08-16-2024 Glucose Ql (U) Normal mg/dl Normal [facility] Urine leukocyte esterase det ection by dipstickOrdered By: Rashad Collier on 08-16-2024 Leukocyte esterase Test strip Ql (U) Negative Negative [facility] Urine pHOrdered By: Rashad francisco on 08-16-2024 pH (U) 7.0 [pH] 5.0 - 8.0 [facility] Urine phencyclidine (PCP) de tectionOrdered By: Rashad Collier on 08-16-2024 Phencyclidine Ql (U) Negative < 25 ng/mL [facility] Urine sediment bacteria coun t by microscopy (number/high power field)Ordered By: Rashad Collier on 08-16-2024 Bacteria LM.HPF (Urine sed) [#/Area] 1 /[HPF] None Seen [facility] Urine specific gravity measu rementOrdered By: Rashad Collier on 08-16-2024 Specific gravity (U) [Rel density] 1.010 1.002-1.030 [facility] Urine urobilinogen measureme ntOrdered By: Rashad Collier on 08-16-2024 Urobilinogen Ql (U) Normal mg/dl Normal [facility] Urobilinogen Ql (U)Ordered B y: Rashad Collier on 08-16-2024 Urine Urobilinogen Normal mg/dl Normal [facility] White blood cell (WBC) count Ordered By: Rashad Collier on 08-16-2024 WBC (Bld) [#/Vol] 4.7 10*3/uL 4.4-11.0 [facility] White blood cell countOrdere d By: Rashad Collier on 08-16-2024 Urine WBC 0-5 SEEN /hpf 0-5 [facility] White blood cell count 0-5 SEEN /hpf 0-5 [facility] aPTT Coag (PPP) [Time]Ordere d By: Rashad Collier on 08-16-2024 aPTT Coag (Bld) [Time] 37.6 s High 24.1-36.2 [facility] fentaNYL Screen Ql (U)Ordere d By: Rashad Collier on 08-16-2024 Urine Fentanyl Screen Negative [facility] Absolute lymphocyte countOrd ered By: Milton Mariscal on 08-14-2024 Lymphocytes Auto (Unsp spec) [#/Vol] 0.54 10*3/uL Low 0.83-4.51 [facility] Absolute neutrophil countOrd ered By: Milton Mariscal on 08-14-2024 Neutrophils (Bld) [#/Vol] 5.3 10*3/uL 2.0-7.7 [facility] Anion gap in Serum or Plasma Ordered By: Milton Mariscal on 08-14-2024 Anion gap [Moles/Vol] 11 mmol/L 5-15 [facility] Automated lymphocyte count a s percentage of total leukocytesOrdered By: Milton Mariscal on 08-14-2024 Lymphocytes/100 WBC Auto (Unsp spec) 8.3 % Low 19-41 [facility] BUN/creatinine ratioOrdered By: Van Buren Loida on 08-14-2024 Urea nitrogen/Creatinine [Mass ratio] 11.2 mg/mg 10-20 [facility] Basophil percentageOrdered B y: Milton Mariscal on 08-14-2024 Basophils/100 WBC (Bld) 0.3 % 0-1 [facility] Beta HCG ( test) Ql Ordered By: Milton Mariscal on 08-14-2024 Serum Test, Qualitative Negative [facility] Bilirubin Test strip Ql (U)O rdered By: Milton Mariscal on 08-14-2024 Bilirubin Ql (U) Negative Negative [facility] Bilirubin, totalOrdered By: Miltonrocky Mariscal on 08-14-2024 Bilirubin [Mass/Vol] 0.37 mg/dL 0.00-1.30 [facility] CBC W/Diff, Automatedon 07-23 Absolute Neut Normal 2.0-7.7 [facility] Comment on above: Result Comment: Alexsander lira via OM: Ordered Performed By: #### L 100.0100, L503.6005, L700.6800 ####[facility] [address] [place], [place], [id number] HCT Normal 37-47 [facility] Comment on above: Result Comment: Alexsander lira via OM: Ordered Performed By: #### L 100.0100, L503.6005, L700.6800 ####[facility] [address] [place], [address] HGB Normal 12.0-15.0 [facility] Comment on above: Result Comment: Canc elled via OM: MD Ordered Performed By: #### L 100.0100, L503.6005, L700.6800 ####[facility] [address] [place], [address] MCH Normal 27.0-32.0 [facility] Comment on above: Result Comment: Canc elled via OM: MD Ordered Performed By: #### L 100.0100, L503.6005, L700.6800 ####[facility] [address] [place], [address] MCHC Normal 32-36 [facility] Comment on above: Result Comment: Canc elled via OM: MD Ordered Performed By: #### L 100.0100, L503.6005, L700.6800 ####[facility] [address] [place], [address] MCV Normal 81-99 [facility] Comment on above: Result Comment: Canc elled via OM: MD Ordered Performed By: #### L 100.0100, L503.6005, L700.6800 ####[facility] [address] [place], [address] NEUT% Normal 47-70 [facility] Comment on above: Result Comment: Canc elled via OM: MD Ordered Performed By: #### L 100.0100, L503.6005, L700.6800 ####[facility] [address] [place], [address] PLT Normal 150-450 [facility] Comment on above: Result Comment: Canc elled via OM: MD Ordered Performed By: #### L 100.0100, L503.6005, L700.6800 ####[facility] [address] [place], [address] RBC Normal 4.2-5.4 [facility] Comment on above: Result Comment: Canc elled via OM: MD Ordered Performed By: #### L 100.0100, L503.6005, L700.6800 ####[facility] [address] [place], [address] RDW CV Normal 11.6-14.6 [facility] Comment on above: Result Comment: Canc elled via OM: MD Ordered Performed By: #### L 100.0100, L503.6005, L700.6800 ####[facility] [address] [place], [address] RDW SD Normal 35.1-43.9 [facility] [facility] Comment on above: Result Comment: Canc elled via OM: MD Ordered Performed By: #### L 100.0100, L503.6005, L700.6800 ####[facility] [address] [place], [address] WBC Normal 4.4-11.0 [facility] Comment on above: Result Comment: Canc elled via OM: MD Ordered Performed By: #### L 100.0100, L503.6005, L700.6800 ####[facility] [address] [place], [address] Absolute Lymph 0.54 X10 3/uL Low 0.83-4.51 [facility] Comment on above: Performed By: #### L 500.4050, L501.2450, L700.6800, L100.0100 ####[facility] [address] [place], [address] Absolute Neut 5.3 X10 3/uL Normal 2.0-7.7 [facility] Comment on above: Performed By: #### L 500.4050, L501.2450, L700.6800, L100.0100 ####[facility] [address] [place], [address] Basophils/100 WBC (Bld) 0.3 % Normal 0-1 [facility] Comment on above: Performed By: #### L 500.4050, L501.2450, L700.6800, L100.0100 ####[facility] [address] [place], [address] Eosinophils/100 WBC (Bld) 0.0 % Normal 0-5 [facility] Comment on above: Performed By: #### L 500.4050, L501.2450, L700.6800, L100.0100 ####[facility] [address] [place], [address] Erythrocyte distribution width (RBC) [Ratio] 12.2 % Normal 11.6-14.6 [facility] Comment on above: Performed By: #### L 500.4050, L501.2450, L700.6800, L100.0100 ####[facility] [address] [place], [address] Hematocrit (Bld) [Volume fraction] 33.5 % Low 37-47 [facility] Comment on above: Performed By: #### L 500.4050, L501.2450, L700.6800, L100.0100 ####[facility] [address] [place], [address] Hemoglobin (Bld) [Mass/Vol] 11.2 g/dL Low 12.0-15.0 [facility] Comment on above: Performed By: #### L 500.4050, L501.2450, L700.6800, L100.0100 ####[facility] [address] [place], [address] IG% 0.300 Normal 0.0-0.9 [facility] Comment on above: Result Comment: IG% - Immature Granulocytes (promyelocytes, myelocytes andmetamyelocytes) > 1% indicates that a LEFT SHIFT is Present. Performed By: #### L 500.4050, L501.2450, L700.6800, L100.0100 ####[facility] [address] [place], [address] Lymphocytes/100 WBC (Bld) 8.3 % Low 19-41 [facility] Comment on above: Performed By: #### L 500.4050, L501.2450, L700.6800, L100.0100 ####[facility] [address] [place], [address] MCH (RBC) [Entitic mass] 29.8 pg Normal 27.0-32.0 [facility] Comment on above: Performed By: #### L 500.4050, L501.2450, L700.6800, L100.0100 ####[facility] [address] [place], [address] MCHC (RBC) [Mass/Vol] 33.4 g/dL Normal 32-36 [facility] Comment on above: Performed By: #### L 500.4050, L501.2450, L700.6800, L100.0100 ####[facility] [address] [place], [address] MCV (RBC) [Entitic vol] 89.1 fL Normal 81-99 [facility] Comment on above: Performed By: #### L 500.4050, L501.2450, L700.6800, L100.0100 ####[facility] [address] [place], [address] Monocytes/100 WBC (Bld) 10.6 % High 0-10 [facility] Comment on above: Performed By: #### L 500.4050, L501.2450, L700.6800, L100.0100 ####[facility] [address] [place], [address] Neutrophils/100 WBC (Bld) 80.5 % High 47-70 [facility] Comment on above: Performed By: #### L 500.4050, L501.2450, L700.6800, L100.0100 ####[facility] [address] [place], [address] Nucleated RBC (Bld) [#/Vol] 0 10*3/uL Normal 0-5 [facility] Comment on above: Performed By: #### L 500.4050, L501.2450, L700.6800, L100.0100 ####[facility] [address] [place], [address] Platelet mean volume (Bld) [Entitic vol] 10.4 fL Normal 6.2-12.0 [facility] Comment on above: Performed By: #### L 500.4050, L501.2450, L700.6800, L100.0100 ####[facility] [address] [place], [address] Platelets (Bld) [#/Vol] 268 10*3/uL Normal 150-450 [facility] Comment on above: Performed By: #### L 500.4050, L501.2450, L700.6800, L100.0100 ####[facility] [address] [place], [address] RBC (Bld) [#/Vol] 3.76 10*6/uL Low 4.2-5.4 [facility] Comment on above: Performed By: #### L 500.4050, L501.2450, L700.6800, L100.0100 ####[facility] [address] [place], [address] RDW SD 39.6 fl Normal 35.1-43.9 [facility] Comment on above: Performed By: #### L 500.4050, L501.2450, L700.6800, L100.0100 ####[facility] [address] [place], [address] WBC (Bld) [#/Vol] 6.5 10*3/uL Normal 4.4-11.0 [facility] Comment on above: Performed By: #### L 500.4050, L501.2450, L700.6800, L100.0100 ####[facility] [address] [place], [address] Carbon dioxide, total [Moles /volume] in Central venous bloodOrdered By: Milton Mariscal on 08-14-2024 CO2 [Moles/Vol] 23.3 mmol/L 21.0-32.0 [facility] Chloride assayOrdered By: Glenn Mariscal on 08-14-2024 Chloride [Moles/Vol] 105 mmol/L 98-108 [facility] Comprehensive Metabolic Prof ilon 08-14-2024 Albumin [Mass/Vol] 4.2 g/dL Normal 3.5-5.0 [facility] Comment on above: Performed By: #### L 500.4050, L501.2450, L700.6800, L100.0100 ####[facility] [address] [place], [address] Albumin/Globulin [Mass ratio] 1.5 {ratio} Normal 0.9-2.4 [facility] Comment on above: Performed By: #### L 500.4050, L501.2450, L700.6800, L100.0100 ####[facility] [address] [place], [address] ALK PHOS 50 U/L Normal 35-104 [facility] Comment on above: Performed By: #### L 500.4050, L501.2450, L700.6800, L100.0100 ####[facility] [address] [place], [address] ALT [Catalytic activity/Vol] 10 U/L Normal <=34 [facility] Comment on above: Performed By: #### L 500.4050, L501.2450, L700.6800, L100.0100 ####[facility] [address] [place], [address] AST [Catalytic activity/Vol] 21 U/L Normal <=31 [facility] Comment on above: Performed By: #### L 500.4050, L501.2450, L700.6800, L100.0100 ####[facility] [address] [place], [address] Bilirubin [Mass/Vol] 0.37 mg/dL Normal 0.00-1.30 [facility] Comment on above: Performed By: #### L 500.4050, L501.2450, L700.6800, L100.0100 ####[facility] [address] [place], [address] BUN/CRE 11.2 RATIO Normal 10-20 [facility] Comment on above: Performed By: #### L 500.4050, L501.2450, L700.6800, L100.0100 ####[facility] [address] [place], [address] Calcium [Mass/Vol] 9.5 mg/dL Normal 7.6-11.0 [facility] Comment on above: Performed By: #### L 500.4050, L501.2450, L700.6800, L100.0100 ####[facility] [address] [place], [address] Chloride [Moles/Vol] 105 mmol/L Normal 98-108 [facility] Comment on above: Performed By: #### L 500.4050, L501.2450, L700.6800, L100.0100 ####[facility] [address] [place], [address] CO2 [Moles/Vol] 23.3 mmol/L Normal 21.0-32.0 [facility] Comment on above: Performed By: #### L 500.4050, L501.2450, L700.6800, L100.0100 ####[facility] [address] [place], [address] Creatinine [Mass/Vol] 0.64 mg/dL Low 0.70-1.20 [facility] Comment on above: Performed By: #### L 500.4050, L501.2450, L700.6800, L100.0100 ####[facility] [address] [place], [address] ECRCL 119.06 ml/min Normal 50-250 [facility] Comment on above: Performed By: #### L 500.4050, L501.2450, L700.6800, L100.0100 ####[facility] [address] [place], [address] GAP 11 Normal 5-15 [facility] Comment on above: Performed By: #### L 500.4050, L501.2450, L700.6800, L100.0100 ####[facility] [address] [place], [address] GFR/1.73 sq M.predicted among non-blacks MDRD (S/P/Bld) [Vol rate/Area] 128 mL/min/{1.73_m2} Normal >60 [facility] Comment on above: Result Comment: mL/m in/1.73m2 CKD-EPI Creatinine Equation (2020) Performed By: #### L 500.4050, L501.2450, L700.6800, L100.0100 ####[facility] [address] [place], [address] Globulin (S) [Mass/Vol] 2.7 g/dL Normal 2.2-4.2 [facility] Comment on above: Performed By: #### L 500.4050, L501.2450, L700.6800, L100.0100 ####[facility] [address] [place], [address] Glucose [Mass/Vol] 113 mg/dL High 70-99 [facility] Comment on above: Performed By: #### L 500.4050, L501.2450, L700.6800, L100.0100 ####[facility] [address] [place], [address] Potassium [Moles/Vol] 4.1 mmol/L Normal 3.3-5.1 [facility] Comment on above: Performed By: #### L 500.4050, L501.2450, L700.6800, L100.0100 ####[facility] [address] [place], [address] Sodium [Moles/Vol] 139 mmol/L Normal 133-145 [facility] Comment on above: Performed By: #### L 500.4050, L501.2450, L700.6800, L100.0100 ####[facility] [address] [place], [address] T PROT 6.9 g/dL Normal 5.9-8.4 [facility] Comment on above: Performed By: #### L 500.4050, L501.2450, L700.6800, L100.0100 ####[facility] [address] [place], [address] Urea nitrogen [Mass/Vol] 7 mg/dL Normal 4-19 [facility] Comment on above: Performed By: #### L 500.4050, L501.2450, L700.6800, L100.0100 ####[facility] [address] [place], [address] Consultation - OB/GYNon 07-23 Consultation - COMPUTER NETWORK AND SYSTEMS ENGINEER Normal [facility] Emergency Department Summary on 08-14-[address] [facility] Eosinophil percentageOrdered By: Milton Mariscal on 08-14-2024 Eosinophils/100 WBC (Bld) 0.0 % 0-5 [facility] Epithelial cells.squamous LM Ql (Urine sed)Ordered By: Milton Mariscal on 08-14-2024 Epithelial cells.squamous LM.HPF (Urine sed) [#/Area] 0 /[HPF] 5-10 [facility] Erythrocyte distribution wid th ratioOrdered By: Milton Mariscal on 08-14-2024 Erythrocyte distribution width (RBC) [Ratio] 12.2 % 11.6-14.6 [facility] Erythrocyte distribution wid th standard deviationOrdered By: Milton Lozada on 08-14-2024 Erythrocyte distribution width (RBC) [Entitic vol] 39.6 fL 35.1-43.9 [facility] Erythrocyte distribution width (RBC) [Ratio] 39.6 fl 35.1-43.9 [facility] Estimation of creatinine jessica aranceOrdered By: Milton Mariscal on 08-14-2024 Estimated Creatinine Clearance Calc 119.06 ml/min 50-250 [facility] GFR/1.73 sq M.predicted radha g non-blacks MDRD (S/P/Bld) [Vol rate/Area]Ordered By: Milton Mariscal on 08-14-2024 Estimated GFR (MDRD) Non-Af Amer [address] >60 [facility] Comment on above: mL/min/1.73m2 CKD-EP I Creatinine Equation (2020) Glomerular filtration rate ( GFR) estimation/1.73 sq m using serum, plasma, or whole bOrdered By: Milton Mariscal on 08-14-2024 GFR/1.73 sq M.predicted among non-blacks MDRD (S/P/Bld) [Vol rate/Area] 128 mL/min/{1.73_m2} >60 [facility] Comment on above: mL/min/1.73m2 CKD-EP I Creatinine Equation (2020) Glucose Ql (U)Ordered By: Glenn Mariscal on 08-14-2024 Urine Glucose (UA) Normal mg/dl Normal [facility] Hematocrit Auto (Bld) [Volum e fraction]Ordered By: Milton Mariscal on 08-14-2024 Hematocrit (Bld) [Volume fraction] 33.5 % Low 37-47 [facility] Hemoglobin measurementOrdere d By: Milton Mariscal on 08-14-2024 Hemoglobin (Bld) [Mass/Vol] 11.2 g/dL Low 12.0-15.0 [facility] Heterophile Ab Ql (S)Ordered By: Milton Mariscal on 08-14-[address] [facility] Immature granulocytes/100 WB C Auto (Bld)Ordered By: Milton Mariscal on 08-14-2024 Immature granulocytes/100 WBC (Bld) 0.300 % 0.0-0.9 [facility] Comment on above: IG% - Immature Granu locytes (promyelocytes, myelocytes and metamyelocytes) > 1% indicates that a LEFT SHIFT is Present. Influenza virus A and B and SARS-CoV-2 (COVID-19) and Respiratory syncytial virus RNAOrdered By: Milton Mariscal on 08-14-2024 SARS-CoV-2 (COVID-19) RNA JIMBO+probe Ql (Unsp spec) [facility] Ketones Test strip Ql (U)Ord ered By: Milton Mariscal on 08-14-2024 Ketones Ql (U) 15 mg/dl High Negative [facility] Laboratory - Chemistry and C hemistry - challengeOrdered By: Milton Mariscal on 08-14-2024 AST [Catalytic activity/Vol] 21 U/L <32 [facility] Lactic Acidon 08-14-2024 Lactate [Moles/Vol] 1.2 mmol/L Normal 0.0-2.0 [facility] Comment on above: Order Comment: Y Performed By: #### L 100.0100, L503.6005, L700.6800 ####[facility] [address] [place], [place], [address] Lactic acid measurementOrder ed By: [facility] on 08-14-2024 Lactate [Moles/Vol] 1.2 mmol/L 0.0-2.0 [facility] Lipaseon 08-14-2024 Lipase [Catalytic activity/Vol] 15 U/L Normal 13-75 [facility] Comment on above: Result Comment: Plea se note:LIPASE revised reference range effective 22.New Lipase methodology. Expected to produce lower valuesthan the previous assay method.NEW Reference Range: 13 - 75 U/L Performed By: #### L 501.2450 ####[facility] [address] [place], [place], [address] Lipase [Catalytic activity/Vol] 15 U/L Normal 13-75 [facility] Comment on above: Result Comment: Plea se note:LIPASE revised reference range effective 22.New Lipase methodology. Expected to produce lower valuesthan the previous assay method.NEW Reference Range: 13 - 75 U/L Performed By: #### L 500.4050, L501.2450, L700.6800, L100.0100 ####[facility] [address] [place], [address] Lipase measurementOrdered By : Milton NolenNeville on 08-14-2024 Lipase [Catalytic activity/Vol] 15 U/L 13-75 [facility] Comment on above: Please note:LIPASE r evised reference range effective 22. New Lipase methodology. Expected to produce lower values than the previous assay method. NEW Reference Range: 13 - 75 U/L Lymphocytes Auto (Unsp spec) [#/Vol]Ordered By: Milton Mariscal on 08-14-2024 Lymphocytes (Bld) [#/Vol] 0.54 10*3/uL Low 0.83-4.[address] [facility] Lymphocytes/100 WBC Auto (Un sp spec)Ordered By: Milton Mariscal on 08-14-2024 Lymphocytes/100 WBC (Bld) 8.3 % Low 19-41 [facility] M100.677on 08-14-[address] [facility] Comment on above: Performed By: #### M 100.677 ####[facility] [address] [place], [place], [address] M100.678on 08-14-2024 M100.678 Pending SARS-CoV-2 (COVID 19) Negative INFLUENZA A Negative INFLUENZA B Negative RSV PCR Negative Normal [facility] Comment on above: Performed By: #### M 100.678 ####[facility] [address] [facility] [place], [place], [address] MCV (mean corpuscular volume ) determinationOrdered By: Milton Mariscal on 08-14-2024 MCV (RBC) [Entitic vol] 89.1 fL 81-99 [facility] Mean corpuscular hemoglobin (MCH) determinationOrdered By: Milton Mariscal on 08-14-2024 MCH (RBC) [Entitic mass] 29.8 pg 27.0-32.0 [facility] Mean corpuscular hemoglobin concentration (MCHC) determinationOrdered By: Milton Mariscal on 08-14-2024 MCHC (RBC) [Mass/Vol] 33.4 g/dL 32-36 [facility] Mean platelet volume determi nationOrdered By: Milton Mariscal on 08-14-2024 Platelet mean volume (Bld) [Entitic vol] 10.4 fL 6.2-12.0 [facility] Microscopic analysis of urin e for red blood cells (RBC)Ordered By: Milton Mariscal on 08-14-2024 Microscopic analysis of urine for red blood cells (RBC) 0 SEEN /hpf 0-5 [facility] Urine RBC 0 SEEN /hpf 0-5 [facility] Monocyte percentageOrdered B y: Milton Mariscal on 08-14-2024 Monocytes/100 WBC (Bld) 10.6 % High 0-10 [facility] Monoteston 08-14-2024 Monocytes (Bld) [#/Vol] Negative Normal Negative [facility] Comment on above: Performed By: #### L 700.5500 ####[facility] [address] [place], [place], [id number] Mucus LM Ql (Urine sed)Order ed By: Milton Mariscal on 08-14-2024 Mucus Ql (Urine sed) 0 SEEN /hpf [facility] Neutrophil percentageOrdered By: Milton Mariscal on 08-14-2024 Neutrophils/100 WBC (Bld) 80.5 % High 47-70 [facility] Nitrite Test strip Ql (U)Ord ered By: Milton Mariscal on 08-14-2024 Nitrite Ql (U) Negative Negative [facility] Nucleated red blood cell per centageOrdered By: Milton Mariscal on 08-14-2024 Nucleated RBC/100 WBC (Bld) [Ratio] 0 % 0-5 [facility] Platelet countOrdered By: Glenn Mariscal on 08-14-2024 Platelets (Bld) [#/Vol] 268 10*3/uL 150-450 [facility] Potassium (Unsp spec) [Mass/ Vol]Ordered By: Milton Mariscal on 08-14-2024 Potassium [Moles/Vol] 4.1 mmol/L 3.3-5.1 [facility] Potassium measurement (mass/ volume)Ordered By: Milton Mariscal on 08-14-2024 Potassium (Unsp spec) [Mass/Vol] 4.1 mmol/L 3.3-5.1 [facility] [place] [facility] ,Serum,hCG Quali.on 08-14-2024 HCG, SERUM QUAL Normal [facility] Comment on above: Result Comment: Canc elled via OM: MD Ordered Performed By: #### L 100.0100, L503.6005, L700.6800 ####[facility] [address] [place], [address] INTERNAL QC OK? Normal [facility] Comment on above: Result Comment: Canc elled via OM: MD Ordered Performed By: #### L 100.0100, L503.6005, L700.6800 ####[facility] [address] [place], [address] RECORD KIT LOT# Normal [facility] Comment on above: Result Comment: Canc elled via OM: MD Ordered Performed By: #### L 100.0100, L503.6005, L700.6800 ####[facility] [address] [place], [address] HCG, SERUM QUAL Negative Normal [facility] Comment on above: Performed By: #### L 500.4050, L501.2450, L700.6800, L100.0100 ####[facility] [address] [place], [address] Protein Test strip Ql (U)Ord ered By: Milton Mariscal on 08-14-2024 Protein Ql (U) 30 mg/dl High Negative [facility] RBC Auto (Bld) [#/Vol]Ordere d By: Milton Mariscal on 08-14-2024 RBC (Bld) [#/Vol] 3.76 10*6/uL Low 4.2-5.4 [facility] S. pyogenes rRNA Probe Ql (T hroat)Ordered By: Milton Mariscal on 08-14-2024 Streptococcus pyogenes (PCR) [facility] Serum beta-hCG test, qualita tiveOrdered By: Milton Mariscal on 08-14-2024 Beta HCG ( test) Ql Negative [facility] Serum creatinine measurement (mass/volume)Ordered By: Milton Mariscal on 08-14-2024 Creatinine [Mass/Vol] 0.64 mg/dL Low 0.70-1.20 [facility] Serum globulin measurementOr dered By: Milton Mariscal on 08-14-2024 Globulin (S) [Mass/Vol] 2.7 g/dL 2.2-4.2 [facility] Serum glucose measurement (m ass/volume)Ordered By: Milton Mariscal on 08-14-2024 Glucose [Mass/Vol] 113 mg/dL High 70-99 [facility] Serum heterophile antibody d etectionOrdered By: Milton Mariscal on 08-14-2024 Heterophile Ab Ql (S) Negative Negative [facility] Serum or plasma alanine melo otransferase (ALT) measurementOrdered By: Milton Mariscal on 08-14-2024 ALT [Catalytic activity/Vol] 10 U/L <35 [facility] Serum or plasma albumin roseanne urement (mass/volume)Ordered By: Milton Lozada on 08-14-2024 Albumin [Mass/Vol] 4.2 g/dL 3.5-5.0 [facility] Serum or plasma albumin/glob ulin mass ratioOrdered By: Milton Mariscal on 08-14-2024 Albumin/Globulin [Mass ratio] 1.5 {ratio} 0.9-2.4 [facility] Serum or plasma alkaline anahi sphatase measurementOrdered By: Milton Mariscal on 08-14-2024 ALP [Catalytic activity/Vol] 50 U/L 35-104 [facility] Serum or plasma calcium roseanne urement (mass/volume)Ordered By: Milton Lozada on 08-14-2024 Calcium [Mass/Vol] 9.5 mg/dL 7.6-11.0 [facility] Serum or plasma urea nitroge n measurement (mass/volume)Ordered By: Milton Mariscal on 08-14-2024 Urea nitrogen [Mass/Vol] 7 mg/dL 4-19 [facility] Sodium levelOrdered By: Kelton Mariscal on 08-14-2024 Sodium [Moles/Vol] 139 mmol/L 133-145 [facility] Squamous epithelial cells de tection in urine sediment by light microscopyOrdered By: Milton Mariscal on 08-14-2024 Epithelial cells.squamous LM Ql (Urine sed) 0 SEEN /hpf 5-10 [facility] Streptococcus pyogenes rRNA detection in throat by DNA probeOrdered By: Milton Mariscal on 08-14-2024 S. pyogenes rRNA Probe Ql (Throat) [facility] Total proteinOrdered By: Arcadio Mariscal on 08-14-2024 Protein [Mass/Vol] 6.9 g/dL 5.9-8.4 [facility] Transvaginal Non-on 08-14-2024 Transvaginal Non- Normal [facility] Urinalysis, Completeon 08-14 RBC 0 SEEN Normal 0-5 [facility] Comment on above: Order Comment: CLEAN CATCH Performed By: #### L 400.0001 ####[facility] [address] [place], [address] BACTERIA 0 SEEN Normal None Seen [facility] Comment on above: Order Comment: CLEAN CATCH Performed By: #### L 400.0001 ####[facility] [address] [place], [address] EPI,SQUAMOUS 0 SEEN Normal 5-10 [facility] Comment on above: Order Comment: CLEAN CATCH Performed By: #### L 400.0001 ####[facility] [address] [place], [address] Mucus Ql (Urine sed) 0 SEEN Normal [facility] Comment on above: Order Comment: CLEAN CATCH Performed By: #### L 400.0001 ####[facility] [address] [place], [address] WBC 0 SEEN Normal 0-5 [facility] Comment on above: Order Comment: CLEAN CATCH Performed By: #### L 400.0001 ####[facility] [address] [place], [address] Urine blood detectionOrdered By: Milton Mariscal on 08-14-2024 Urine Occult Blood 150 /ul High Negative [facility] Urine clarityOrdered By: Arcadio Mariscal on 08-14-2024 Clarity (U) Clear Clear [facility] Urine color determinationOrd ered By: Milton Mariscal on 08-14-2024 Color (U) Yellow Yellow [facility] Urine glucose detectionOrder ed By: Milton Mariscal on 08-14-2024 Glucose Ql (U) Normal mg/dl Normal [facility] Urine leukocyte esterase det ection by dipstickOrdered By: Milton Mariscal on 08-14-2024 Leukocyte esterase Test strip Ql (U) Negative Negative [facility] Urine pHOrdered By: Milton Lechuga on 08-14-2024 pH (U) 6.5 [pH] 5.0 - 8.0 [facility] Urine sediment bacteria coun t by microscopy (number/high power field)Ordered By: Milton Mariscal on 08-14-2024 Bacteria LM.HPF (Urine sed) [#/Area] 0 /[HPF] None Seen [facility] Urine specific gravity measu rementOrdered By: Milton Mariscal on 08-14-2024 Specific gravity (U) [Rel density] 1.010 1.002-1.030 [facility] Urine urobilinogen measureme ntOrdered By: Milton Mariscal on 08-14-2024 Urobilinogen Ql (U) Normal mg/dl Normal [facility] Urobilinogen Ql (U)Ordered B y: Milton Mariscal on 08-14-2024 Urine Urobilinogen Normal mg/dl Normal [facility] [facility] White blood cell (WBC) count Ordered By: Milton Mariscal on 08-14-2024 WBC (Bld) [#/Vol] 6.5 10*3/uL 4.4-11.0 [facility] White blood cell countOrdere d By: Milton Mariscal on 08-14-2024 Urine WBC 0 SEEN /hpf 0-5 [facility] White blood cell count 0 SEEN /hpf 0-5 [facility] CBC-Complete Blood Cnt No Di ffon 08-08-2024 Erythrocyte distribution width (RBC) [Ratio] 12.0 % Normal 11.6-14.6 [facility] Comment on above: Performed By: #### L 100.0500, BTSPAT ####[facility] [address] [place], [address] Hematocrit (Bld) [Volume fraction] 35.3 % Low 37-47 [facility] Comment on above: Performed By: #### L 100.0500, BTSPAT ####[facility] [address] [place], [address] Hemoglobin (Bld) [Mass/Vol] 11.8 g/dL Low 12.0-15.0 [facility] Comment on above: Performed By: #### L 100.0500, BTSPAT ####[facility] [address] [place], [address] MCH (RBC) [Entitic mass] 29.7 pg Normal 27.0-32.0 [facility] Comment on above: Performed By: #### L 100.0500, BTSPAT ####[facility] [address] [place], [address] MCHC (RBC) [Mass/Vol] 33.4 g/dL Normal 32-36 [facility] Comment on above: Performed By: #### L 100.0500, BTSPAT ####[facility] [address] [place], [address] MCV (RBC) [Entitic vol] 88.9 fL Normal 81-99 [facility] Comment on above: Performed By: #### L 100.0500, BTSPAT ####[facility] [address] [place], [address] Platelet mean volume (Bld) [Entitic vol] 11.0 fL Normal 6.2-12.0 [facility] Comment on above: Performed By: #### L 100.0500, BTSPAT ####[facility] [address] [place], [address] Platelets (Bld) [#/Vol] 296 10*3/uL Normal 150-450 [facility] Comment on above: Performed By: #### L 100.0500, BTSPAT ####[facility] [address] [place], [address] RBC (Bld) [#/Vol] 3.97 10*6/uL Low 4.2-5.4 [facility] Comment on above: Performed By: #### L 100.0500, BTSPAT ####[facility] [address] [place], [address] RDW SD 39.4 fl Normal 35.1-43.9 [facility] Comment on above: Performed By: #### L 100.0500, BTSPAT ####[facility] [address] [place], [address] WBC (Bld) [#/Vol] 6.4 10*3/uL Normal 4.4-11.0 [facility] Comment on above: Performed By: #### L 100.0500, BTSPAT ####[facility] [address] [place], [address] Discharge Instructionon 07-22 Discharge Instruction Normal [facility] Erythrocyte distribution wid th ratioOrdered By: Santa Daniels on 08-08-2024 Erythrocyte distribution width (RBC) [Ratio] 12.0 % 11.6-14.6 [facility] Erythrocyte distribution wid th standard deviationOrdered By: Santa Daniels on 08-08-2024 Erythrocyte distribution width (RBC) [Entitic vol] 39.4 fL 35.1-43.9 [facility] Erythrocyte distribution width (RBC) [Ratio] 39.4 fl 35.1-43.9 [facility] Hematocrit Auto (Bld) [Volum e fraction]Ordered By: Santa Daniels on 08-08-2024 Hematocrit (Bld) [Volume fraction] 35.3 % Low 37-47 [facility] Hemoglobin measurementOrdere d By: Santa Daniels on 08-08-2024 Hemoglobin (Bld) [Mass/Vol] 11.8 g/dL Low 12.0-15.0 [facility] MCV (mean corpuscular volume ) determinationOrdered By: Santa Daniels on 08-08-2024 MCV (RBC) [Entitic vol] 88.9 fL 81-99 [facility] MR/POSTOP.ANEon 08-08-2024 MR/POSTOP.ANE Normal [facility] MR/[id number] 08-08-2024 MR/POSTOPAN2 Normal [facility] Mean corpuscular hemoglobin (MCH) determinationOrdered By: Santa Daniels on 08-08-2024 MCH (RBC) [Entitic mass] 29.7 pg 27.0-32.0 [facility] Mean corpuscular hemoglobin concentration (MCHC) determinationOrdered By: Santa Daniels on 08-08-2024 MCHC (RBC) [Mass/Vol] 33.4 g/dL 32-36 [facility] Mean platelet volume determi nationOrdered By: Santa Daniels on 08-08-2024 Platelet mean volume (Bld) [Entitic vol] 11.0 fL 6.2-12.0 [facility] Operative Reporton Operative Report Normal [facility] Platelet countOrdered By: Dima Daniels on 08-08-2024 Platelets (Bld) [#/Vol] 296 10*3/uL 150-450 [facility] ,Urineon 08-08-2024 Beta HCG ( test) Ql (U) Negative Normal [facility] Comment on above: Result Comment: Very dilute urine specimens, as indicated by a low specificgravity, may not contain enrollment eligibility representative levels of hCG.If is still suspected, a first morning urinespecimen should be collected 48 hours later and tested. Performed By: #### L 400.7600 ####[facility] [address] [place], [place], [id number] RBC Auto (Bld) [#/Vol]Ordere d By: Santa Daniels on 08-08-2024 RBC (Bld) [#/Vol] 3.97 10*6/uL Low 4.2-5.4 [facility] Surgery Specimen Level Richar 08-08-2024 Surgery Specimen Level IV Normal [facility] Comment on above: Performed By: #### P SUIV ####[facility] [address] [place], [place], [id number] Type AND Screen - PAT ONLYon 08-08-2024 Ab SCREEN GEL Negative Normal [facility] Comment on above: Order Comment: Surge ry Date: 08/08/24Reason for Laboratory Test [id number] C Performed By: #### L 100.0500, BTSPAT ####[facility] [address] [facility] [address] [place], [place], [address] Urine testOrdered By: Al Darden on 08-08-2024 HCG ( test) Ql (U) Negative [facility] Comment on above: Very dilute urine sp ecimens, as indicated by a low specificgravity, may not contain enrollment eligibility representative levels of hCG. If is still suspected, a first morning urinespecimen should be collected 48 hours later and tested. White blood cell (WBC) count Ordered By: Santa Daniels on 08-08-2024 WBC (Bld) [#/Vol] 6.4 10*3/uL 4.4-11.0 [facility] Assessor Office Visit Reporton 07-19-2024 Assessor Office Visit Report Normal [facility] hCG Titer Quant., Serumon HCG QUANT. 1 mIU/mL Normal <9 non-preg [facility] Comment on above: Result Comment: Gest ational Age0.2-1 Week: 5-50 mIU/mL1-2 Weeks: 50-500 mIU/mL2-3 Weeks: 100-5000 mIU/mL3-4 Weeks: 500-10,000 mIU/mL4-5 Weeks:1000-50,000 mIU/mL5-6 Weeks: 10,000-100,000 mIU/mL6-8 Weeks: 15,000-200,000 mIU/mL2-3 Months:10,000-100,000 mIU/mL Performed By: #### L 501.9520, L100.0100, L700.8000, L3100.5125, L3300.1750 ####[facility] [address] [place], [address] Absolute neutrophil countOrd ered By: Santa Daniels on 07-18-2024 Neutrophils (Bld) [#/Vol] 2.7 10*3/uL 2.0-7.7 [facility] Basophil percentageOrdered B y: Santa Daniels on 07-18-2024 Basophils/100 WBC (Bld) 0.9 % 0-1 [facility] CBC W/Diff, Automatedon 06-25 Absolute Lymph 1.22 X10 3/uL Normal 0.83-4.51 [facility] Comment on above: Performed By: #### L 501.9520, L100.0100, L700.8000, L3100.5125, L3300.1750 ####[facility] [address] [place], [address] Absolute Neut 2.7 X10 3/uL Normal 2.0-7.7 [facility] Comment on above: Performed By: #### L 501.9520, L100.0100, L700.8000, L3100.5125, L3300.1750 ####[facility] [address] [place], [address] Basophils/100 WBC (Bld) 0.9 % Normal 0-1 [facility] Comment on above: Performed By: #### L 501.9520, L100.0100, L700.8000, L3100.5125, L3300.1750 ####[facility] [address] [place], [address] Eosinophils/100 WBC (Bld) 4.1 % Normal 0-5 [facility] Comment on above: Performed By: #### L 501.9520, L100.0100, L700.8000, L3100.5125, L3300.1750 ####[facility] [address] [place], [address] Erythrocyte distribution width (RBC) [Ratio] 12.5 % Normal 11.6-14.6 [facility] Comment on above: Performed By: #### L 501.9520, L100.0100, L700.8000, L3100.5125, L3300.1750 ####[facility] [address] [place], [address] Hematocrit (Bld) [Volume fraction] 33.4 % Low 37-47 [facility] Comment on above: Performed By: #### L 501.9520, L100.0100, L700.8000, L3100.5125, L3300.1750 ####[facility] [address] [place], [address] Hemoglobin (Bld) [Mass/Vol] 11.1 g/dL Low 12.0-15.0 [facility] Comment on above: Performed By: #### L 501.9520, L100.0100, L700.8000, L3100.5125, L3300.1750 ####[facility] [address] [place], [address] IG% 0.200 Normal 0.0-0.9 [facility] Comment on above: Result Comment: IG% - Immature Granulocytes (promyelocytes, myelocytes andmetamyelocytes) > 1% indicates that a LEFT SHIFT is Present. Performed By: #### L 501.9520, L100.0100, L700.8000, L3100.5125, L3300.1750 ####[facility] [address] [place], [address] Lymphocytes/100 WBC (Bld) 26.5 % Normal 19-41 [facility] Comment on above: Performed By: #### L 501.9520, L100.0100, L700.8000, L3100.5125, L3300.1750 ####[facility] [address] [place], [address] MCH (RBC) [Entitic mass] 30.1 pg Normal 27.0-32.0 [facility] Comment on above: Performed By: #### L 501.9520, L100.0100, L700.8000, L3100.5125, L3300.1750 ####[facility] [address] [place], [address] MCHC (RBC) [Mass/Vol] 33.2 g/dL Normal 32-36 [facility] Comment on above: Performed By: #### L 501.9520, L100.0100, L700.8000, L3100.5125, L3300.1750 ####[facility] [address] [place], [address] MCV (RBC) [Entitic vol] 90.5 fL Normal 81-99 [facility] Comment on above: Performed By: #### L 501.9520, L100.0100, L700.8000, L3100.5125, L3300.1750 ####[facility] [address] [place], [address] Monocytes/100 WBC (Bld) 10.0 % Normal 0-10 [facility] Comment on above: Performed By: #### L 501.9520, L100.0100, L700.8000, L3100.5125, L3300.1750 ####[facility] [address] [place], [address] Neutrophils/100 WBC (Bld) 58.3 % Normal 47-70 [facility] Comment on above: Performed By: #### L 501.9520, L100.0100, L700.8000, L3100.5125, L3300.1750 ####[facility] [address] [place], [address] Nucleated RBC (Bld) [#/Vol] 0 10*3/uL Normal 0-5 [facility] Comment on above: Performed By: #### L 501.9520, L100.0100, L700.8000, L3100.5125, L3300.1750 ####[facility] [address] [place], [address] Platelet mean volume (Bld) [Entitic vol] 10.6 fL Normal 6.2-12.0 [facility] Comment on above: Performed By: #### L 501.9520, L100.0100, L700.8000, L3100.5125, L3300.1750 ####[facility] [address] [place], [address] Platelets (Bld) [#/Vol] 306 10*3/uL Normal 150-450 [facility] Comment on above: Performed By: #### L 501.9520, L100.0100, L700.8000, L3100.5125, L3300.1750 ####[facility] [address] [place], [address] RBC (Bld) [#/Vol] 3.69 10*6/uL Low 4.2-5.4 [facility] Comment on above: Performed By: #### L 501.9520, L100.0100, L700.8000, L3100.5125, L3300.1750 ####[facility] [address] [place], [address] RDW SD 41.3 fl Normal 35.1-43.9 [facility] Comment on above: Performed By: #### L 501.9520, L100.0100, L700.8000, L3100.5125, L3300.1750 ####[facility] [address] [place], [address] WBC (Bld) [#/Vol] 4.6 10*3/uL Normal 4.4-11.0 [facility] Comment on above: Performed By: #### L 501.9520, L100.0100, L700.8000, L3100.5125, L3300.1750 ####[facility] [address] [place], [address] E2 post dose follitropin [Ma ss/Vol]Ordered By: Santa Daniels on 07-18-2024 Estradiol (E2) Level 42.3 pg/mL [facility] Comment on above: FEMALES ADULT FEMALE : Premenopausal: 15-350 pg/mL(E2 levels vary widely through the menstrual cycle) Postmenopausal: <10 pg/mL BRYANT STAGES MEAN AGE REFERENCE RANGES Stage I(>14 days and prepubertal) 7.1 years Undetectable-20 pg/mLL Stage II 10.5 years Undetectable-24 pg/mL Stage III 11.6 years Undetectable-60 pg/mL Stage IV 12.3 years 15-85 pg/mL Stage V 14.5 years 15-350 pg/mL Puberty onset (transition from Bryant stage I to Bryant stage II) occurs for girls at a median age of 10.5 (/- 2) years. There is evidence that it may occur up to 1 year earlier in obese girls and in girls.Progression through Bryant stages is variable. Bryant stage V (adult) should be reached by age 18. Eosinophil percentageOrdered By: Santa Daniels on 07-18-2024 Eosinophils/100 WBC (Bld) 4.1 % 0-5 [facility] Erythrocyte distribution wid th ratioOrdered By: Santa Daniels on 07-18-2024 Erythrocyte distribution width (RBC) [Ratio] 12.5 % 11.6-14.6 [facility] Erythrocyte distribution wid th standard deviationOrdered By: Santa Daniels on 07-18-2024 Erythrocyte distribution width (RBC) [Entitic vol] 41.3 fL 35.1-43.9 [facility] Estradiolon 07-18-2024 ESTRADIOL 42.3 pg/mL Normal [facility] Comment on above: Result Comment: FEMA LES ADULT FEMALE: Premenopausal: 15-350 pg/mL(E2 levels vary widely through the menstrual cycle) Postmenopausal: <10 pg/mL BRYANT STAGES MEAN AGE REFERENCE RANGES Stage I(>14 days and prepubertal) 7.1 years Undetectable-20 pg/mLL Stage II 10.5 years Undetectable-24 pg/mL Stage III 11.6 years Undetectable-60 pg/mL Stage IV 12.3 years 15-85 pg/mL Stage V 14.5 years 15-350 pg/mLPuberty onset (transition from Bryant stage I to Tannerstage II) occurs for girls at a median age of 10.5 (/- 2)years. There is evidence that it may occur up to 1 yearearlier in obese girls and in girls.Progression through Bryant stages is variable. Bryant stageV (adult) should be reached by age 18. Performed By: #### L 501.9520, L100.0100, L700.8000, L3100.5125, L3300.1750 ####[facility] [address] [place], [place], [address] Follicle Stimulating Hormone on 07-18-2024 FSH 7.2 mIU/mL Normal [facility] Comment on above: Result Comment: FEMA LE:Follicular: 1.4 - 18.1 mIU/mLMidcycle: 3.4 - 33.4 mIU/mLLuteal: 1.5 - 9.1 mIU/mLPost Menopause: 23.0 - 116.3 mIU/mLMALE: 1.4 - 18.1 mIU/mL NORMAL REFERENCE RANGES FEMALE FOLLICULAR 2.3 - 12.6 mIU/mL MID-CYCLE PEAK 5.2 - 17.5 mIU/mL LUTEAL 1.7 - 12.9 mIU/mL POST-MENOPAUSAL ON MHT 5.9 - 72.8 mIU/mL NOT ON MHT 12.7 - 132.2 mlU/mL MALE 0.7 - 10.8 mIU/mL Performed By: #### L 501.9520, L100.0100, L700.8000, L3100.6217, L3300.1201 ####[facility] [address] [place], [address] Follicle stimulating hormone (FSH) levelOrdered By: Santa Daniels on 07-18-2024 Follicle Stimulating Hormone 7.2 mIU/mL [facility] Comment on above: FEMALE:Follicular: 1 .4 - 18.1 mIU/mLMidcycle: 3.4 - 33.4 mIU/mLLuteal: 1.5 - 9.1 mIU/mLPost Menopause: 23.0 - 116.3 mIU/mLMALE: 1.4 - 18.1 mIU/mL NORMAL REFERENCE RANGES FEMALE FOLLICULAR 2.3 - 12.6 mIU/mL MID-CYCLE PEAK 5.2 - 17.5 mIU/mL LUTEAL 1.7 - 12.9 mIU/mL POST-MENOPAUSAL ON MHT 5.9 - 72.8 mIU/mL NOT ON MHT 12.7 - 132.2 mlU/mL MALE 0.7 - 10.8 mIU/mL HCG ( test) QlOrder ed By: Santa Daniels on 07-18-2024 Human Chorionic Gonadotropin, Quant 1 mIU/mL <9 [facility] Comment on above: Gestational Age0.2-1 Week: 5-50 mIU/mL1-2 Weeks: 50-500 mIU/mL2-3 Weeks: 100-5000 mIU/mL3-4 Weeks: 500-10,000 mIU/mL4-5 Weeks:1000-50,000 mIU/mL5-6 Weeks: 10,000-100,000 mIU/mL6-8 Weeks: 15,000-200,000 mIU/mL2-3 Months:10,000-100,000 mIU/mL Hematocrit Auto (Bld) [Volum e fraction]Ordered By: Santa Daniels on 07-18-2024 Hematocrit (Bld) [Volume fraction] 33.4 % Low 37-47 [facility] Hemoglobin measurementOrdere d By: Santa Daniels on 07-18-2024 Hemoglobin (Bld) [Mass/Vol] 11.1 g/dL Low 12.0-15.0 [facility] Immature granulocytes/100 WB C Auto (Bld)Ordered By: Santa Daniels on 07-18-2024 Immature granulocytes/100 WBC (Bld) 0.200 % 0.0-0.9 [facility] Comment on above: IG% - Immature Granu locytes (promyelocytes, myelocytes and metamyelocytes) > 1% indicates that a LEFT SHIFT is Present. Lymphocytes Auto (Unsp spec) [#/Vol]Ordered By: Santa Daniels on 07-18-2024 Lymphocytes (Bld) [#/Vol] 1.22 10*3/uL 0.83-4.[address] [facility] Lymphocytes/100 WBC Auto (Un sp spec)Ordered By: Santa Daniels on 07-18-2024 Lymphocytes/100 WBC (Bld) 26.5 % 19-41 [facility] MCV (mean corpuscular volume ) determinationOrdered By: Santa Daniels on 07-18-2024 MCV (RBC) [Entitic vol] 90.5 fL 81-99 [facility] Mean corpuscular hemoglobin (MCH) determinationOrdered By: Santa Daniels on 07-18-2024 MCH (RBC) [Entitic mass] 30.1 pg 27.0-32.0 [facility] Mean corpuscular hemoglobin concentration (MCHC) determinationOrdered By: Santa Daniels on 07-18-2024 MCHC (RBC) [Mass/Vol] 33.2 g/dL 32-36 [facility] Mean platelet volume determi nationOrdered By: Santa Daniels on 07-18-2024 Platelet mean volume (Bld) [Entitic vol] 10.6 fL 6.2-12.0 [facility] Monocyte percentageOrdered B y: Santa Daniels on 07-18-2024 Monocytes/100 WBC (Bld) 10.0 % 0-10 [facility] Neutrophil percentageOrdered By: Santa Daniels on 07-18-2024 Neutrophils/100 WBC (Bld) 58.3 % 47-70 [facility] Nucleated red blood cell per centageOrdered By: Santa Daniels on 07-18-2024 Nucleated RBC/100 WBC (Bld) [Ratio] 0 % 0-5 [facility] Pelvic w/ Transvaginalon Pelvic w/ Transvaginal Normal [facility] Platelet countOrdered By: Dima Daniels on 07-18-2024 Platelets (Bld) [#/Vol] 306 10*3/uL 150-450 [facility] RBC Auto (Bld) [#/Vol]Ordere d By: Santa Daniels on 07-18-2024 RBC (Bld) [#/Vol] 3.69 10*6/uL Low 4.2-5.4 [facility] TSH DL <= 0.005 mIU/L QnOrde red By: Santa Daniels on 07-18-2024 Thyroid Stimulating Hormone (TSH) 1.490 uIU/mL 0.300-4.200 [facility] Thyroid Stim Hormone (TSH)on 07-18-2024 TSH 1.490 uIU/mL Normal 0.300-4.200 [facility] Comment on above: Performed By: #### L 501.9520, L100.0100, L700.8000, L3100.5125, L3300.1750 ####[facility] [address] [place], [place], [id number] White blood cell (WBC) count Ordered By: Santa Daniels on 07-18-2024 WBC (Bld) [#/Vol] 4.6 10*3/uL 4.4-11.0 [facility] Laboratory - Chemistry and C hemistry - challengeOrdered By: Zuleyka Corral on 07-17-2024 HCG ( test) Ql (U) Negative [facility] Assessor Office Visit Reporton 07-17-2024 Assessor Office Visit Report Normal [facility] Absolute neutrophil countOrd ered By: ED PROVIDER on 07-14-2024 Neutrophils (Bld) [#/Vol] 4.1 10*3/uL 2.0-7.7 [facility] Albumin to globulin ratioOrd ered By: ED PROVIDER on 07-14-2024 Albumin/Globulin [Mass ratio] 1.3 {ratio} 0.9-2.4 [facility] Basophil percentageOrdered B y: ED PROVIDER on 07-14-2024 Basophils/100 WBC (Bld) 0.9 % 0-1 [facility] Beta HCG ( test) Ql Ordered By: ED PROVIDER on 07-14-2024 Serum Test, Qualitative Negative [facility] Bilirubin Test strip Ql (U)O rdered By: ED PROVIDER on 07-14-2024 Bilirubin Ql (U) Negative Negative [facility] Bilirubin, totalOrdered By: ED PROVIDER on 07-14-2024 Bilirubin [Mass/Vol] 0.40 mg/dL 0.20-1.00 [facility] Comment on above: For patients on eltr ombopag therapy, use of Dimension [place] TBIL is not recommended. Blood urea nitrogen (BUN)/cr eatinine ratioOrdered By: ED PROVIDER on 07-14-2024 Urea nitrogen/Creatinine [Mass ratio] 9.9 mg/mg Low 10-20 [facility] CBC W/Diff, Automatedon 06-25 Absolute Lymph 1.51 X10 3/uL Normal 0.83-4.51 [facility] Comment on above: Performed By: #### L 500.4050, L100.0100, L700.6800 ####[facility] [address] [place], [address] Absolute Neut 4.1 X10 3/uL Normal 2.0-7.7 [facility] Comment on above: Performed By: #### L 500.4050, L100.0100, L700.6800 ####[facility] [address] [place], [address] Basophils/100 WBC (Bld) 0.9 % Normal 0-1 [facility] Comment on above: Performed By: #### L 500.4050, L100.0100, L700.6800 ####[facility] [address] [place], [address] Eosinophils/100 WBC (Bld) 2.5 % Normal 0-5 [facility] Comment on above: Performed By: #### L 500.4050, L100.0100, L700.6800 ####[facility] [address] [place], [address] Erythrocyte distribution width (RBC) [Ratio] 12.7 % Normal 11.6-14.6 [facility] Comment on above: Performed By: #### L 500.4050, L100.0100, L700.6800 ####[facility] [address] [place], [address] Hematocrit (Bld) [Volume fraction] 35.8 % Low 37-47 [facility] Comment on above: Performed By: #### L 500.4050, L100.0100, L700.6800 ####[facility] [address] [place], [address] Hemoglobin (Bld) [Mass/Vol] 12.1 g/dL Normal 12.0-15.0 [facility] Comment on above: Performed By: #### L 500.4050, L100.0100, L700.6800 ####[facility] [address] [place], [address] IG% 0.500 Normal 0.0-0.9 [facility] Comment on above: Result Comment: IG% - Immature Granulocytes (promyelocytes, myelocytes andmetamyelocytes) > 1% indicates that a LEFT SHIFT is Present. Performed By: #### L 500.4050, L100.0100, L700.6800 ####[facility] [address] [place], [address] Lymphocytes/100 WBC (Bld) 23.1 % Normal 19-41 [facility] Comment on above: Performed By: #### L 500.4050, L100.0100, L700.6800 ####[facility] [address] [place], [address] MCH (RBC) [Entitic mass] 30.3 pg Normal 27.0-32.0 [facility] Comment on above: Performed By: #### L 500.4050, L100.0100, L700.6800 ####[facility] [address] [place], [address] MCHC (RBC) [Mass/Vol] 33.8 g/dL Normal 32-36 [facility] Comment on above: Performed By: #### L 500.4050, L100.0100, L700.6800 ####[facility] [address] [place], [address] MCV (RBC) [Entitic vol] 89.5 fL Normal 81-99 [facility] Comment on above: Performed By: #### L 500.4050, L100.0100, L700.6800 ####[facility] [id number] [place], [address] Monocytes/100 WBC (Bld) 10.0 % Normal 0-10 [facility] Comment on above: Performed By: #### L 500.4050, L100.0100, L700.6800 ####[facility] [id number] [place], [address] Neutrophils/100 WBC (Bld) 63.0 % Normal 47-70 [facility] Comment on above: Performed By: #### L 500.4050, L100.0100, L700.6800 ####[facility] [id number] [place], [address] Nucleated RBC (Bld) [#/Vol] 0 10*3/uL Normal 0-5 [facility] Comment on above: Performed By: #### L 500.4050, L100.0100, L700.6800 ####[facility] [id number] [place], [address] Platelet mean volume (Bld) [Entitic vol] 10.3 fL Normal 6.2-12.0 [facility] Comment on above: Performed By: #### L 500.4050, L100.0100, L700.6800 ####[facility] [id number] [place], [address] Platelets (Bld) [#/Vol] 348 10*3/uL Normal 150-450 [facility] Comment on above: Performed By: #### L 500.4050, L100.0100, L700.6800 ####[facility] [id number] [place], [address] RBC (Bld) [#/Vol] 4.00 10*6/uL Low 4.2-5.4 [facility] Comment on above: Performed By: #### L 500.4050, L100.0100, L700.6800 ####[facility] [address] [place], [address] RDW SD 41.6 fl Normal 35.1-43.9 [facility] Comment on above: Performed By: #### L 500.4050, L100.0100, L700.6800 ####[facility] [address] [place], [address] WBC (Bld) [#/Vol] 6.5 10*3/uL Normal 4.4-11.0 [facility] Comment on above: Performed By: #### L 500.4050, L100.0100, L700.6800 ####[facility] [address] [place], [address] Carbon dioxide measurementOr dered By: ED PROVIDER on 07-14-2024 CO2 [Moles/Vol] 26.0 mmol/L 21.0-32.0 [facility] Chloride measurementOrdered By: ED PROVIDER on 07-14-2024 Chloride [Moles/Vol] 109 mmol/L High 98-107 [facility] Comprehensive Metabolic Prof ilon 07-14-2024 Albumin [Mass/Vol] 4.2 g/dL Normal 3.2-5.0 [facility] Comment on above: Performed By: #### L 500.4050, L100.0100, L700.6800 ####[facility] [address] [place], [address] Albumin/Globulin [Mass ratio] 1.3 {ratio} Normal 0.9-2.4 [facility] Comment on above: Performed By: #### L 500.4050, L100.0100, L700.6800 ####[facility] [address] [place], [address] ALK P 42 U/L Low 45-117 [facility] Comment on above: Performed By: #### L 500.4050, L100.0100, L700.6800 ####[facility] [address] [place], [address] ALT [Catalytic activity/Vol] 20 U/L Normal 13-56 [facility] Comment on above: Performed By: #### L 500.4050, L100.0100, L700.6800 ####[facility] [address] [place], [address] AST [Catalytic activity/Vol] 13 U/L Low 15-37 [facility] Comment on above: Performed By: #### L 500.4050, L100.0100, L700.6800 ####[facility] [address] [place], [address] Bilirubin [Mass/Vol] 0.40 mg/dL Normal 0.20-1.00 [facility] Comment on above: Result Comment: For patients on eltrombopag therapy, use of Dimension [place] TBIL is not recommended. Performed By: #### L 500.4050, L100.0100, L700.6800 ####[facility] [address] [place], [address] BUN/CRE 9.9 RATIO Low 10-20 [facility] Comment on above: Performed By: #### L 500.4050, L100.0100, L700.6800 ####[facility] [address] [place], [address] CA,Total 9.3 mg/dL Normal 8.5-10.1 [facility] Comment on above: Performed By: #### L 500.4050, L100.0100, L700.6800 ####[facility] [address] [place], [address] Chloride [Moles/Vol] 109 mmol/L High 98-107 [facility] Comment on above: Performed By: #### L 500.4050, L100.0100, L700.6800 ####[facility] [address] [place], [address] CO2 [Moles/Vol] 26.0 mmol/L Normal 21.0-32.0 [facility] Comment on above: Performed By: #### L 500.4050, L100.0100, L700.6800 ####[facility] [address] [place], [address] Creatinine [Mass/Vol] 0.70 mg/dL Normal 0.55-1.02 [facility] Comment on above: Result Comment: The validity of the calculated GFR GFRAA in patients over70 years has not been determined. Clinical correlation isessential. Performed By: #### L 500.4050, L100.0100, L700.6800 ####[facility] [address] [place], [address] ECRCL 108.86 ml/min Normal [facility] Comment on above: Performed By: #### L 500.4050, L100.0100, L700.6800 ####[facility] [address] [place], [address] EST GFR - AA 133 mL/min Normal >60 [facility] Comment on above: Result Comment: Afri can Liberian GFR Calc Performed By: #### L 500.4050, L100.0100, L700.6800 ####[facility] [address] [place], [address] GAP 5 Normal 5-15 [facility] Comment on above: Performed By: #### L 500.4050, L100.0100, L700.6800 ####[facility] [address] [place], [address] GFR/1.73 sq M.predicted among non-blacks MDRD (S/P/Bld) [Vol rate/Area] 110 mL/min/{1.73_m2} Normal >60 [facility] Comment on above: Result Comment: Non- GFR Calc Performed By: #### L 500.4050, L100.0100, L700.6800 ####[facility] [address] [place], [address] Globulin (S) [Mass/Vol] 3.3 g/dL Normal 2.2-4.2 [facility] Comment on above: Performed By: #### L 500.4050, L100.0100, L700.6800 ####[facility] [address] [place], [address] Glucose [Mass/Vol] 90 mg/dL Normal 74-106 [facility] Comment on above: Performed By: #### L 500.4050, L100.0100, L700.6800 ####[facility] [address] [place], [address] Potassium [Moles/Vol] 3.6 mmol/L Normal 3.5-5.1 [facility] Comment on above: Performed By: #### L 500.4050, L100.0100, L700.6800 ####[facility] [address] [place], [address] Sodium [Moles/Vol] 139 mmol/L Normal 136-145 [facility] Comment on above: Performed By: #### L 500.4050, L100.0100, L700.6800 ####[facility] [address] [place], [address] T PROT 7.5 g/dL Normal 6.4-8.2 [facility] Comment on above: Performed By: #### L 500.4050, L100.0100, L700.6800 ####[facility] [address] [place], [address] Urea nitrogen [Mass/Vol] 7 mg/dL Normal 7-18 [facility] Comment on above: Performed By: #### L 500.4050, L100.0100, L700.6800 ####[facility] [address] [place], [address] Emergency Department Summary on 07-14-20[address] [facility] Eosinophil percentageOrdered By: ED PROVIDER on 07-14-2024 Eosinophils/100 WBC (Bld) 2.5 % 0-5 [facility] Epithelial cells.squamous LM Ql (Urine sed)Ordered By: ED PROVIDER on 07-14-2024 Epithelial cells.squamous LM.HPF (Urine sed) [#/Area] 0 /[HPF] 5-10 [facility] Erythrocyte distribution wid th ratioOrdered By: ED PROVIDER on 07-14-2024 Erythrocyte distribution width (RBC) [Ratio] 12.7 % 11.6-14.6 [facility] Erythrocyte distribution wid th standard deviationOrdered By: ED PROVIDER on 07-14-2024 Erythrocyte distribution width (RBC) [Entitic vol] 41.6 fL 35.1-43.9 [facility] Estimated glomerular filtrat ion rate (GFR) AmericanOrdered By: ED PROVIDER on 07-14-2024 Estimated GFR (MDRD) Amer 133 mL/min >60 [facility] Comment on above: GFR Calc Estimation of creatinine jessica aranceOrdered By: ED PROVIDER on 07-14-2024 Estimated Creatinine Clearance Calc 108.86 ml/min [facility] Glomerular filtration rate ( GFR) estimationOrdered By: ED PROVIDER on 07-14-2024 Estimated GFR (MDRD) Non-Af Amer 110 mL/min >60 [facility] Comment on above: Non- GFR Calc Glucose Ql (U)Ordered By: ED PROVIDER on 07-14-2024 Urine Glucose (UA) Normal mg/dl Normal [facility] Glucose measurementOrdered B y: ED PROVIDER on 07-14-2024 Glucose [Mass/Vol] 90 mg/dL 74-106 [facility] HH, Hemoglobin AND Hematocri ton 07-14-2024 Hematocrit (Bld) [Volume fraction] 33.1 % Low 37-47 [facility] Comment on above: Performed By: #### L 100.0600 ####[facility] [address] [place], [address] Hemoglobin (Bld) [Mass/Vol] 11.1 g/dL Low 12.0-15.0 [facility] Comment on above: Performed By: #### L 100.0600 ####[facility] [address] [place], [address] HCT Normal 37-47 [facility] Comment on above: Result Comment: Alexsander lira via OM: Ordered Performed By: #### L 700.6800, L100.0600 ####[facility] [address] [place], [address] HGB Normal 12.0-15.0 [facility] Comment on above: Result Comment: Canheather elled via OM: MD Ordered Performed By: #### L 700.6800, L100.0600 ####[facility] [address] [place], [address] Hematocrit Auto (Bld) [Volum e fraction]Ordered By: Agustín Viramontes on 07-14-2024 Hematocrit (Bld) [Volume fraction] 33.1 % Low 37-47 [facility] Hemoglobin measurementOrdere d By: Agustín Viramontes on 07-14-2024 Hemoglobin (Bld) [Mass/Vol] 11.1 g/dL Low 12.0-15.0 [facility] Immature granulocytes/100 WB C Auto (Bld)Ordered By: ED PROVIDER on 07-14-2024 Immature granulocytes/100 WBC (Bld) 0.500 % 0.0-0.9 [facility] Comment on above: IG% - Immature Granu locytes (promyelocytes, myelocytes and metamyelocytes) > 1% indicates that a LEFT SHIFT is Present. Ketones Test strip Ql (U)Ord ered By: ED PROVIDER on 07-14-2024 Ketones Ql (U) Negative Negative [facility] Laboratory - Chemistry and C hemistry - challengeOrdered By: ED PROVIDER on 07-14-2024 AST [Catalytic activity/Vol] 13 U/L Low 15-37 [facility] Lymphocytes Auto (Unsp spec) [#/Vol]Ordered By: ED PROVIDER on 07-14-2024 Lymphocytes (Bld) [#/Vol] 1.51 10*3/uL 0.83-4.[address] [facility] Lymphocytes/100 WBC Auto (Un sp spec)Ordered By: ED PROVIDER on 07-14-2024 Lymphocytes/100 WBC (Bld) 23.1 % 19-41 [facility] MCV (mean corpuscular volume ) determinationOrdered By: ED PROVIDER on 07-14-2024 MCV (RBC) [Entitic vol] 89.5 fL 81-99 [facility] Mean corpuscular hemoglobin (MCH) determinationOrdered By: ED PROVIDER on 07-14-2024 MCH (RBC) [Entitic mass] 30.3 pg 27.0-32.0 [facility] Mean corpuscular hemoglobin concentration (MCHC) determinationOrdered By: ED PROVIDER on 07-14-2024 MCHC (RBC) [Mass/Vol] 33.8 g/dL 32-36 [facility] Mean platelet volume determi nationOrdered By: ED PROVIDER on 07-14-2024 Platelet mean volume (Bld) [Entitic vol] 10.3 fL 6.2-12.0 [facility] Microscopic analysis of urin e for red blood cells (RBC)Ordered By: ED PROVIDER on 07-14-2024 Urine RBC > 100 SEEN /hpf 0-5 [facility] Monocyte percentageOrdered B y: ED PROVIDER on 07-14-2024 Monocytes/100 WBC (Bld) 10.0 % 0-10 [facility] Mucus LM Ql (Urine sed)Order ed By: ED PROVIDER on 07-14-2024 Mucus Ql (Urine sed) 0 SEEN /hpf [facility] Neutrophil percentageOrdered By: ED PROVIDER on 07-14-2024 Neutrophils/100 WBC (Bld) 63.0 % 47-70 [facility] Nitrite Test strip Ql (U)Ord ered By: ED PROVIDER on 07-14-2024 Nitrite Ql (U) Negative Negative [facility] Nucleated red blood cell per centageOrdered By: ED PROVIDER on 07-14-2024 Nucleated RBC/100 WBC (Bld) [Ratio] 0 % 0-5 [facility] Platelet countOrdered By: ED PROVIDER on 07-14-2024 Platelets (Bld) [#/Vol] 348 10*3/uL 150-450 [facility] Potassium measurementOrdered By: ED PROVIDER on 07-14-2024 Potassium [Moles/Vol] 3.6 mmol/L 3.5-5.1 [facility] ,Serum,hCG Quali.on 07-14-2024 HCG, SERUM QUAL Normal [facility] Comment on above: Result Comment: Canc elled via OM: Ordered Performed By: #### L 700.6800, L100.0600 ####[facility] [address] [place], [place], [id number] INTERNAL QC OK? Normal [facility] Comment on above: Result Comment: Canc elled via OM: MD Ordered Performed By: #### L 700.6800, L100.0600 ####[facility] [address] [place], [address] RECORD KIT LOT# Normal [facility] Comment on above: Result Comment: Canc elled via OM: MD Ordered Performed By: #### L 700.6800, L100.0600 ####[facility] [address] [place], [address] HCG, SERUM QUAL Negative Normal [facility] Comment on above: Performed By: #### L 500.4050, L100.0100, L700.6800 ####[facility] [address] [place], [address] Protein Test strip Ql (U)Ord ered By: ED PROVIDER on 07-14-2024 Protein Ql (U) 100 mg/dl High Negative [facility] RBC Auto (Bld) [#/Vol]Ordere d By: ED PROVIDER on 07-14-2024 RBC (Bld) [#/Vol] 4.00 10*6/uL Low 4.2-5.4 [facility] Serum anion gap measurementO rdered By: ED PROVIDER on 07-14-2024 Anion gap [Moles/Vol] 5 mmol/L 5-15 [facility] Serum globulin measurementOr dered By: ED PROVIDER on 07-14-2024 Globulin (S) [Mass/Vol] 3.3 g/dL 2.2-4.2 [facility] Serum or plasma alanine melo otransferase (ALT) measurementOrdered By: ED PROVIDER on 07-14-2024 ALT [Catalytic activity/Vol] 20 U/L 13-56 [facility] Serum or plasma albumin roseanne urement (mass/volume)Ordered By: ED PROVIDER on 07-14-2024 Albumin [Mass/Vol] 4.2 g/dL 3.2-5.0 [facility] Serum or plasma alkaline anahi sphatase measurementOrdered By: ED PROVIDER on 07-14-2024 ALP [Catalytic activity/Vol] 42 U/L Low 45-117 [facility] Serum or plasma calcium roseanne urement (mass/volume)Ordered By: ED PROVIDER on 07-14-2024 Calcium [Mass/Vol] 9.3 mg/dL 8.5-10.1 [facility] Serum or plasma creatinine m easurement (mass/volume)Ordered By: ED PROVIDER on 07-14-2024 Creatinine [Mass/Vol] 0.70 mg/dL 0.55-1.02 [facility] Comment on above: The validity of the calculated GFR & GFRAA in patients over 70 years has not been determined. Clinical correlation is essential. Serum or plasma urea nitroge n measurement (mass/volume)Ordered By: ED PROVIDER on 07-14-2024 Urea nitrogen [Mass/Vol] 7 mg/dL 7-18 [facility] Sodium levelOrdered By: ED P ROVIDER on 07-14-2024 Sodium [Moles/Vol] 139 mmol/L 136-145 [facility] Total proteinOrdered By: ED PROVIDER on 07-14-2024 Protein [Mass/Vol] 7.5 g/dL 6.4-8.2 [facility] Urinalysis, Completeon 07-14 EPI,SQUAMOUS 0-5 SEEN Normal 5-10 [facility] Comment on above: Order Comment: CLEAN CATCH Performed By: #### L 400.0001 ####[facility] [address] [facility] [address] WBC 5-10 SEEN Normal 0-5 [facility] Comment on above: Order Comment: CLEAN CATCH Performed By: #### L 400.0001 ####[facility] [address] [facility] [address] RBC > 100 SEEN Normal 0-5 [facility] Comment on above: Order Comment: CLEAN CATCH Performed By: #### L 400.0001 ####[facility] [address] [place], [address] BACTERIA 0 SEEN Normal None Seen [facility] Comment on above: Order Comment: CLEAN CATCH Performed By: #### L 400.0001 ####[facility] [address] [place], [address] Mucus Ql (Urine sed) 0 SEEN Normal [facility] Comment on above: Order Comment: CLEAN CATCH Performed By: #### L 400.0001 ####[facility] [address] [place], [address] Urine blood detectionOrdered By: ED PROVIDER on 07-14-2024 Urine Occult Blood 250 /ul High Negative [facility] Urine clarityOrdered By: ED PROVIDER on 07-14-2024 Clarity (U) Sl. Cloudy Clear [facility] Urine color determinationOrd ered By: ED PROVIDER on 07-14-2024 Color (U) SEE COMMENT BELOW Yellow [facility] Comment on above: Visual Urine Color: PINK Urine leukocyte esterase det ection by dipstickOrdered By: ED PROVIDER on 07-14-2024 Leukocyte esterase Test strip Ql (U) 25 /ul High Negative [facility] Urine pHOrdered By: ED PROVI LUCIANO on 07-14-2024 pH (U) 8.0 [pH] 5.0 - 8.0 [facility] Urine sediment bacteria coun t by microscopy (number/high power field)Ordered By: ED PROVIDER on 07-14-2024 Bacteria LM.HPF (Urine sed) [#/Area] 0 /[HPF] None Seen [facility] Urine specific gravity measu rementOrdered By: ED PROVIDER on 07-14-2024 Specific gravity (U) [Rel density] 1.015 1.002-1.030 [facility] Urobilinogen Ql (U)Ordered B y: ED PROVIDER on 07-14-2024 Urine Urobilinogen Normal mg/dl Normal [facility] White blood cell (WBC) count Ordered By: ED PROVIDER on 07-14-2024 WBC (Bld) [#/Vol] 6.5 10*3/uL 4.4-11.0 [facility] White blood cell countOrdere d By: ED PROVIDER on 07-14-2024 Urine WBC 5-10 SEEN /hpf 0-5 [facility] HCG ( test) QlOrder ed By: Margarita Camejo on 07-05-2024 Human Chorionic Gonadotropin, Quant 3 mIU/mL <4 [facility] Comment on above: hCG levels with Gest ational AgeGestational Age hCG mIU/mL (IU/L)0.2 - 1 week 5 - 501-2 weeks 50 - 5002-3 weeks 100 - 51810-2 weeks 500 - 965210-3 weeks 1000 - 650319-6 weeks 82754 - 100,0006-8 weeks 24271 - 200,0002-3 months 96777 - 100,000 hCG Titer Quant., Serumon HCG QUANT. 3 mIU/mL Normal 1-3 [facility] Comment on above: Result Comment: hCG levels with Gestational AgeGestational Age hCG mIU/mL (IU/L)0.2 - 1 week 5 - 501-2 weeks 50 - 5002-3 weeks 100 - 23010-5 weeks 500 - 264686-8 weeks 1000 - 748264-8 weeks 94832 - 100,0006-8 weeks 33255 - 200,0002-3 months 97840 - 100,000 Performed By: #### L 700.8000 ####[facility] [address] [place], [address] HCG ( test) QlOrder ed By: Margarita Camejo on 06-29-2024 Human Chorionic Gonadotropin, Quant 5 mIU/mL High <4 [facility] hCG Titer Quant., Serumon HCG QUANT. 5 mIU/mL High 1-3 [facility] Comment on above: Performed By: #### L 700.8000 ####[facility] [address] [facility] [place], [place], [id number] Absolute neutrophil countOrd ered By: HEALTH ASSESSMENT on 06-22-2024 Neutrophils (Bld) [#/Vol] 3.6 10*3/uL 2.0-7.7 [facility] Absolute nucleated red blood cell countOrdered By: HEALTH ASSESSMENT on 06-22-2024 Nucleated RBC (Bld) [#/Vol] 0.00 10*3/uL 0-5 [facility] Albumin to globulin ratioOrd ered By: HEALTH ASSESSMENT on 06-22-2024 Albumin/Globulin [Mass ratio] 1.2 {ratio} 0.9-2.4 [facility] Band form neutrophils/100 WB C (Bld)Ordered By: HEALTH ASSESSMENT on 06-22-2024 Neutrophils/100 WBC (Bld) 68.4 % 47-70 [facility] Bilirubin Test strip Ql (U)O rdered By: HEALTH ASSESSMENT on 06-22-2024 Bilirubin Ql (U) Negative Negative [facility] Bilirubin directOrdered By: HEALTH ASSESSMENT on 06-22-2024 Bilirubin.direct [Mass/Vol] 0.12 mg/dL 0.00-0.30 [facility] Bilirubin, totalOrdered By: HEALTH ASSESSMENT on 06-22-2024 Bilirubin [Mass/Vol] 0.50 mg/dL 0.20-1.00 [facility] Comment on above: For patients on eltr ombopag therapy, use of Dimension [place] TBIL is not recommended. Blood urea nitrogen (BUN)/cr eatinine ratioOrdered By: HEALTH ASSESSMENT on 06-22-2024 Urea nitrogen/Creatinine [Mass ratio] 10.1 mg/mg 10-20 [facility] CBC, Employeeon 06-22-2024 Absolute Lymph 0.86 X10 3/uL Normal 0.83-4.51 [facility] Comment on above: Performed By: #### L 100.0200, L500.2900, L400.0100 ####[facility] [address] [place], [address] Absolute Neut 3.6 X10 3/uL Normal 2.0-7.7 [facility] Comment on above: Performed By: #### L 100.0200, L500.2900, L400.0100 ####[facility] [address] [place], [address] Basophils/100 WBC (Bld) 0.8 % Normal 0-1 [facility] Comment on above: Performed By: #### L 100.0200, L500.2900, L400.0100 ####[facility] [address] [place], [address] Eosinophils/100 WBC (Bld) 4.8 % Normal 0-5 [facility] Comment on above: Performed By: #### L 100.0200, L500.2900, L400.0100 ####[facility] [address] [place], [address] Erythrocyte distribution width (RBC) [Ratio] 12.8 % Normal 11.6-14.6 [facility] Comment on above: Performed By: #### L 100.0200, L500.2900, L400.0100 ####[facility] [address] [place], [address] Hematocrit (Bld) [Volume fraction] 37.8 % Normal 37-47 [facility] Comment on above: Performed By: #### L 100.0200, L500.2900, L400.0100 ####[facility] [address] [place], [address] Hemoglobin (Bld) [Mass/Vol] 12.3 g/dL Normal 12.0-15.0 [facility] Comment on above: Performed By: #### L 100.0200, L500.2900, L400.0100 ####[facility] [address] [place], [address] Lymphocytes/100 WBC (Bld) 16.4 % Low 19-41 [facility] Comment on above: Performed By: #### L 100.0200, L500.2900, L400.0100 ####[facility] [address] [place], [address] MCH (RBC) [Entitic mass] 29.3 pg Normal 27.0-32.0 [facility] Comment on above: Performed By: #### L 100.0200, L500.2900, L400.0100 ####[facility] [address] [place], [address] MCHC (RBC) [Mass/Vol] 32.5 g/dL Normal 32-36 [facility] Comment on above: Performed By: #### L 100.0200, L500.2900, L400.0100 ####[facility] [address] [place], [address] MCV (RBC) [Entitic vol] 90.0 fL Normal 81-99 [facility] Comment on above: Performed By: #### L 100.0200, L500.2900, L400.0100 ####[facility] [address] [place], [address] Monocytes/100 WBC (Bld) 9.0 % Normal 0-10 [facility] Comment on above: Performed By: #### L 100.0200, L500.2900, L400.0100 ####[facility] [address] [place], [address] Neutrophils/100 WBC (Bld) 68.4 % Normal 47-70 [facility] Comment on above: Performed By: #### L 100.0200, L500.2900, L400.0100 ####[facility] [address] [place], [address] NRBC # 0.00 10 3/uL Normal 0-5 [facility] Comment on above: Performed By: #### L 100.0200, L500.2900, L400.0100 ####[facility] [address] [place], [address] Nucleated RBC (Bld) [#/Vol] 0 10*3/uL Normal 0-5 [facility] Comment on above: Performed By: #### L 100.0200, L500.2900, L400.0100 ####[facility] [address] [place], [address] Platelet mean volume (Bld) [Entitic vol] 10.3 fL Normal 6.2-12.0 [facility] Comment on above: Performed By: #### L 100.0200, L500.2900, L400.0100 ####[facility] [address] [place], [address] Platelets (Bld) [#/Vol] 323 10*3/uL Normal 150-450 [facility] Comment on above: Performed By: #### L 100.0200, L500.2900, L400.0100 ####[facility] [address] [place], [address] RBC (Bld) [#/Vol] 4.20 10*6/uL Normal 4.2-5.4 [facility] Comment on above: Performed By: #### L 100.0200, L500.2900, L400.0100 ####[facility] [address] [place], [address] RDW SD 41.7 fl Normal 35.1-43.9 [facility] Comment on above: Performed By: #### L 100.0200, L500.2900, L400.0100 ####[facility] [address] [place], [address] WBC (Bld) [#/Vol] 5.3 10*3/uL Normal 4.4-11.0 [facility] Comment on above: Performed By: #### L 100.0200, L500.2900, L400.0100 ####[facility] [address] [place], [address] Carbon dioxide measurementOr dered By: HEALTH ASSESSMENT on 06-22-2024 CO2 [Moles/Vol] 26.0 mmol/L 21.0-32.0 [facility] Chloride measurementOrdered By: HEALTH ASSESSMENT on 06-22-2024 Chloride [Moles/Vol] 106 mmol/L 98-107 [facility] Cholesterol/HDL ratioOrdered By: HEALTH ASSESSMENT on 06-22-2024 Cholesterol.total/Cholest tray in HDL [Mass ratio] 3.90 {ratio} [facility] Employee Profileon [id number] 5 Albumin [Mass/Vol] 3.9 g/dL Normal 3.2-5.0 [facility] Comment on above: Performed By: #### L 100.0200, L500.2900, L400.0100 ####[facility] [id number] [place], [address] Albumin/Globulin [Mass ratio] 1.2 {ratio} Normal 0.9-2.4 [facility] Comment on above: Performed By: #### L 100.0200, L500.2900, L400.0100 ####[facility] [id number] [place], [address] ALK P 47 U/L Normal 45-117 [facility] Comment on above: Performed By: #### L 100.0200, L500.2900, L400.0100 ####[facility] [address] [place], [address] ALT [Catalytic activity/Vol] 117 U/L High 13-56 [facility] Comment on above: Performed By: #### L 100.0200, L500.2900, L400.0100 ####[facility] [address] [place], [address] AST [Catalytic activity/Vol] 16 U/L Normal 15-37 [facility] Comment on above: Performed By: #### L 100.0200, L500.2900, L400.0100 ####[facility] [address] [place], [address] Bilirubin [Mass/Vol] 0.50 mg/dL Normal 0.20-1.00 [facility] Comment on above: Result Comment: For patients on eltrombopag therapy, use of Dimension [place] TBIL is not recommended. Performed By: #### L 100.0200, L500.2900, L400.0100 ####[facility] [address] [place], [address] Bilirubin.direct [Mass/Vol] 0.12 mg/dL Normal 0.00-0.30 [facility] Comment on above: Performed By: #### L 100.0200, L500.2900, L400.0100 ####[facility] [address] [place], [address] BUN/CRE 10.1 RATIO Normal 10-20 [facility] Comment on above: Performed By: #### L 100.0200, L500.2900, L400.0100 ####[facility] [address] [place], [address] CA,Total 9.7 mg/dL Normal 8.5-10.1 [facility] Comment on above: Performed By: #### L 100.0200, L500.2900, L400.0100 ####[facility] [address] [place], [address] Chloride [Moles/Vol] 106 mmol/L Normal 98-107 [facility] Comment on above: Performed By: #### L 100.0200, L500.2900, L400.0100 ####[facility] [address] [place], [address] CHOL:HDL 3.[address] [facility] Comment on above: Performed By: #### L 100.0200, L500.2900, L400.0100 ####[facility] [address] [place], [address] Cholesterol [Mass/Vol] 185 mg/dL Normal 200 [facility] Comment on above: Result Comment: <200 mg/dL Desirable 200-240 mg/dL Borderline >240 mg/dL High Risk Performed By: #### L 100.0200, L500.2900, L400.0100 ####[facility] [address] [place], [address] Cholesterol in HDL [Mass/Vol] 47 mg/dL Normal [facility] Comment on above: Result Comment: The drugs N-Acetylcysteine and Metamizole may falselydepress this assay. Reference Range HDL <40 mg/dL Low HDL Cholesterol HDL >or= 60 mg/dL High HDL Cholesterol Performed By: #### L 100.0200, L500.2900, L400.0100 ####[facility] [address] [place], [address] Cholesterol in LDL [Mass/Vol] 125 mg/dL Normal 0-130 [facility] Comment on above: Performed By: #### L 100.0200, L500.2900, L400.0100 ####[facility] [address] [place], [address] Cholesterol in VLDL [Mass/Vol] 13 mg/dL Normal 5-40 [facility] Comment on above: Performed By: #### L 100.0200, L500.2900, L400.0100 ####[facility] [address] [place], [address] CO2 [Moles/Vol] 26.0 mmol/L Normal 21.0-32.0 [facility] Comment on above: Performed By: #### L 100.0200, L500.2900, L400.0100 ####[facility] [address] [place], [address] Creatinine [Mass/Vol] 0.79 mg/dL Normal 0.55-1.02 [facility] Comment on above: Result Comment: The validity of the calculated GFR GFRAA in patients over70 years has not been determined. Clinical correlation isessential. Performed By: #### L 100.0200, L500.2900, L400.0100 ####[facility] [address] [place], [address] EST GFR - AA 116 mL/min Normal >60 [facility] Comment on above: Result Comment: Afri can Liberian GFR Calc Performed By: #### L 100.0200, L500.2900, L400.0100 ####[facility] [address] [place], [address] GAP 7 Normal 5-15 [facility] Comment on above: Performed By: #### L 100.0200, L500.2900, L400.0100 ####[facility] [address] [place], [address] GFR/1.73 sq M.predicted among non-blacks MDRD (S/P/Bld) [Vol rate/Area] 96 mL/min/{1.73_m2} Normal >60 [facility] Comment on above: Result Comment: Non- GFR Calc Performed By: #### L 100.0200, L500.2900, L400.0100 ####[facility] [address] [place], [address] Globulin (S) [Mass/Vol] 3.2 g/dL Normal 2.2-4.2 [facility] Comment on above: Performed By: #### L 100.0200, L500.2900, L400.0100 ####[facility] [address] [place], [address] Glucose [Mass/Vol] 98 mg/dL Normal 74-106 [facility] Comment on above: Performed By: #### L 100.0200, L500.2900, L400.0100 ####[facility] [address] [place], [address] LDH 150 U/L Normal 84-246 [facility] Comment on above: Performed By: #### L 100.0200, L500.2900, L400.0100 ####[facility] [address] [place], [address] Phosphate [Mass/Vol] 3.7 mg/dL Normal 2.5-4.9 [facility] Comment on above: Performed By: #### L 100.0200, L500.2900, L400.0100 ####[facility] [address] [place], [address] Potassium [Moles/Vol] 3.9 mmol/L Normal 3.5-5.1 [facility] Comment on above: Performed By: #### L 100.0200, L500.2900, L400.0100 ####[facility] [address] [place], [address] Sodium [Moles/Vol] 139 mmol/L Normal 136-145 [facility] Comment on above: Performed By: #### L 100.0200, L500.2900, L400.0100 ####[facility] [address] [place], [address] T PROT 7.1 g/dL Normal 6.4-8.2 [facility] Comment on above: Performed By: #### L 100.0200, L500.2900, L400.0100 ####[facility] [address] [place], [address] Triglyceride [Mass/Vol] 64 mg/dL Normal [facility] Comment on above: Result Comment: The drugs N-Acetylcysteine and Metamizole may falselydepress this assay.Serum Triglycerides Reference Interval Normal <150 mg/dL Borderline high 150 - 199 mg/dL High 200 - 499 mg/dL Very High > or = 500 mg/dL Performed By: #### L 100.0200, L500.2900, L400.0100 ####[facility] [address] [place], [address] Urea nitrogen [Mass/Vol] 8 mg/dL Normal 7-18 [facility] Comment on above: Performed By: #### L 100.0200, L500.2900, L400.0100 ####[facility] [address] [place], [place], [id number] URIC 3.5 mg/dL Normal 2.6-6.0 [facility] Comment on above: Result Comment: The drugs N-Acetylcysteine and Metamizole may falselydepress this assay. Performed By: #### L 100.0200, L500.2900, L400.0100 ####[facility] [address] [place], [place], [id number] Erythrocyte distribution wid th ratioOrdered By: HEALTH ASSESSMENT on 06-22-2024 Erythrocyte distribution width (RBC) [Ratio] 12.8 % 11.6-14.6 [facility] Erythrocyte distribution wid th standard deviationOrdered By: HEALTH ASSESSMENT on 06-22-2024 Erythrocyte distribution width (RBC) [Entitic vol] 41.7 fL 35.1-43.9 [facility] Estimated glomerular filtrat ion rate (GFR) AmericanOrdered By: HEALTH ASSESSMENT on 06-22-2024 Estimated GFR (MDRD) Amer 116 mL/min >60 [facility] Comment on above: GFR Calc Glomerular filtration rate ( GFR) estimationOrdered By: HEALTH ASSESSMENT on 06-22-2024 Estimated GFR (MDRD) Non-Af Amer 96 mL/min >60 [facility] Comment on above: Non- GFR Calc Glucose Ql (U)Ordered By: HE ALTH ASSESSMENT on 06-22-2024 Urine Glucose (UA) Normal mg/dl Normal [facility] Glucose measurementOrdered B y: HEALTH ASSESSMENT on 06-22-2024 Glucose [Mass/Vol] 98 mg/dL 74-106 [facility] HCG ( test) QlOrder ed By: Zuleyka Corral on 06-22-2024 Human Chorionic Gonadotropin, Quant 11 mIU/mL High <4 [facility] Comment on above: hCG levels with Gest ational AgeGestational Age hCG mIU/mL (IU/L)0.2 - 1 week 5 - 501-2 weeks 50 - 5002-3 weeks 100 - 12758-3 weeks 500 - 909491-6 weeks 1000 - 728398-2 weeks 71742 - 100,0006-8 weeks 92357 - 200,0002-3 months 98950 - 100,000 Hematocrit Auto (Bld) [Volum e fraction]Ordered By: HEALTH ASSESSMENT on 06-22-2024 Hematocrit (Bld) [Volume fraction] 37.8 % 37-47 [facility] Hemoglobin measurementOrdere d By: HEALTH ASSESSMENT on 06-22-2024 Hemoglobin (Bld) [Mass/Vol] 12.3 g/dL 12.0-15.0 [facility] Hepatitis B Surf AB - EMPon 06-22-2024 HEP B Surf Ab Reactive Normal [facility] Comment on above: Result Comment: Non Reactive: Inconsistent with immunity less than <10 mIU/mL Reactive: Consistent with immunity greater than or equal to 10 mIU/mL Performed By: #### L 3100.0539 ####[facility] [address] [place], [address] High density lipoprotein (HD L) measurementOrdered By: HEALTH ASSESSMENT on 06-22-2024 Cholesterol in HDL [Mass/Vol] 47 mg/dL >40 [facility] Comment on above: The drugs N-Acetylcy steine and Metamizole may falsely depress this assay. Reference Range HDL <40 mg/dL Low HDL Cholesterol HDL >or= 60 mg/dL High HDL Cholesterol Ketones Test strip Ql (U)Ord ered By: HEALTH ASSESSMENT on 06-22-2024 Ketones Ql (U) Negative Negative [facility] Laboratory - Chemistry and C hemistry - challengeOrdered By: HEALTH ASSESSMENT on 06-22-2024 AST [Catalytic activity/Vol] 16 U/L 15-37 [facility] Lactate dehydrogenase (LDH) measurementOrdered By: HEALTH ASSESSMENT on 06-22-2024 LDH [Catalytic activity/Vol] 150 U/L 84-246 [facility] Low density lipoprotein (LDL ) cholesterol measurementOrdered By: HEALTH ASSESSMENT on 06-22-2024 Cholesterol in LDL [Mass/Vol] 125 mg/dL 0-130 [facility] Lymphocytes Auto (Unsp spec) [#/Vol]Ordered By: HEALTH ASSESSMENT on 06-22-2024 Lymphocytes (Bld) [#/Vol] 0.86 10*3/uL 0.83-4.[address] [facility] MCV (mean corpuscular volume ) determinationOrdered By: HEALTH ASSESSMENT on 06-22-2024 MCV (RBC) [Entitic vol] 90.0 fL 81-99 [facility] Mean corpuscular hemoglobin (MCH) determinationOrdered By: HEALTH ASSESSMENT on 06-22-2024 MCH (RBC) [Entitic mass] 29.3 pg 27.0-32.0 [facility] Mean corpuscular hemoglobin concentration (MCHC) determinationOrdered By: HEALTH ASSESSMENT on 06-22-2024 MCHC (RBC) [Mass/Vol] 32.5 g/dL 32-36 [facility] Mean platelet volume determi nationOrdered By: HEALTH ASSESSMENT on 06-22-2024 Platelet mean volume (Bld) [Entitic vol] 10.3 fL 6.2-12.0 [facility] Nitrite Test strip Ql (U)Ord ered By: HEALTH ASSESSMENT on 06-22-2024 Nitrite Ql (U) Negative Negative [facility] No Panel InformationOrdered By: EMPLOYEE HEALTH on 06-22-2024 Hepatitis B Surface Antibody Reactive [facility] Comment on above: Non Reactive: Incons istent with immunity less than <10 mIU/mL Reactive: Consistent with immunity greater than or equal to 10 mIU/mL Nucleated red blood cell per centageOrdered By: HEALTH ASSESSMENT on 06-22-2024 Nucleated RBC/100 WBC (Bld) [Ratio] 0 % 0-5 [facility] Phosphorus measurementOrdere d By: HEALTH ASSESSMENT on 06-22-2024 Phosphorus Level 3.7 mg/dL 2.5-4.9 [facility] Platelet countOrdered By: HE ALTH ASSESSMENT on 06-22-2024 Platelets (Bld) [#/Vol] 323 10*3/uL 150-450 [facility] Potassium measurementOrdered By: HEALTH ASSESSMENT on 06-22-2024 Potassium [Moles/Vol] 3.9 mmol/L 3.5-5.1 [facility] Protein Test strip Ql (U)Ord ered By: HEALTH ASSESSMENT on 06-22-2024 Protein Ql (U) Negative Negative [facility] RBC Auto (Bld) [#/Vol]Ordere d By: HEALTH ASSESSMENT on 06-22-2024 RBC (Bld) [#/Vol] 4.20 10*6/uL 4.2-5.4 [facility] Serum anion gap measurementO rdered By: HEALTH ASSESSMENT on 06-22-2024 Anion gap [Moles/Vol] 7 mmol/L 5-15 [facility] Serum globulin measurementOr dered By: HEALTH ASSESSMENT on 06-22-2024 Globulin (S) [Mass/Vol] 3.2 g/dL 2.2-4.2 [facility] Serum or plasma alanine melo otransferase (ALT) measurementOrdered By: HEALTH ASSESSMENT on 06-22-2024 ALT [Catalytic activity/Vol] 117 U/L High 13-56 [facility] Serum or plasma albumin roseanne urement (mass/volume)Ordered By: HEALTH ASSESSMENT on 06-22-2024 Albumin [Mass/Vol] 3.9 g/dL 3.2-5.0 [facility] Serum or plasma alkaline anahi sphatase measurementOrdered By: HEALTH ASSESSMENT on 06-22-2024 ALP [Catalytic activity/Vol] 47 U/L 45-117 [facility] Serum or plasma calcium roseanne urement (mass/volume)Ordered By: HEALTH ASSESSMENT on 06-22-2024 Calcium [Mass/Vol] 9.7 mg/dL 8.5-10.1 [facility] Serum or plasma cholesterol measurement (mass/volume)Ordered By: HEALTH ASSESSMENT on 06-22-2024 Cholesterol [Mass/Vol] 185 mg/dL <200 [facility] Comment on above: <200 mg/dL Desirable 200-240 mg/dL Borderline >240 mg/dL High Risk Serum or plasma creatinine m easurement (mass/volume)Ordered By: HEALTH ASSESSMENT on 06-22-2024 Creatinine [Mass/Vol] 0.79 mg/dL 0.55-1.02 [facility] Comment on above: The validity of the calculated GFR & GFRAA in patients over 70 years has not been determined. Clinical correlation is essential. Serum or plasma urea nitroge n measurement (mass/volume)Ordered By: HEALTH ASSESSMENT on 06-22-2024 Urea nitrogen [Mass/Vol] 8 mg/dL 7-18 [facility] Serum or plasma uric acid me asurement (mass/volume)Ordered By: HEALTH ASSESSMENT on 06-22-2024 Urate [Mass/Vol] 3.5 mg/dL 2.6-6.0 [facility] Comment on above: The drugs N-Acetylcy steine and Metamizole may falsely depress this assay. Sodium levelOrdered By: HEAL ASSESSMENT on 06-22-2024 Sodium [Moles/Vol] 139 mmol/L 136-145 [facility] Total proteinOrdered By: HEDavid LTH ASSESSMENT on 06-22-2024 Protein [Mass/Vol] 7.1 g/dL 6.4-8.2 [facility] Triglycerides measurementOrd ered By: HEALTH ASSESSMENT on 06-22-2024 Triglyceride [Mass/Vol] 64 mg/dL <199 [facility] Comment on above: The drugs N-Acetylcy steine and Metamizole may falsely depress this assay.Serum Triglycerides Reference Interval Normal <150 mg/dL Borderline high 150 - 199 mg/dL High 200 - 499 mg/dL Very High > or = 500 mg/dL Urinalysis, Employeeon 06-22 BILIRUBIN URINE Negative Normal Negative [facility] Comment on above: Order Comment: Urine , Random Performed By: #### L 100.0200, L500.2900, L400.0100 ####[facility] [address] [place], [address] Clarity (U) Clear Normal Clear [facility] Comment on above: Order Comment: Urine , Random Performed By: #### L 100.0200, L500.2900, L400.0100 ####[facility] [address] [place], [address] Color (U) Yellow Normal Yellow [facility] Comment on above: Order Comment: Urine , Random Performed By: #### L 100.0200, L500.2900, L400.0100 ####[facility] [address] [place], [address] GLUCOSE, UR Normal Normal Normal [facility] Comment on above: Order Comment: Urine , Random Performed By: #### L 100.0200, L500.2900, L400.0100 ####[facility] [address] [place], [address] KETONE UR Negative Normal Negative [facility] Comment on above: Order Comment: Urine , Random Performed By: #### L 100.0200, L500.2900, L400.0100 ####[facility] [address] [place], [address] LEUK ESTERASE 25 /ul Abnormal Negative [facility] Comment on above: Order Comment: Urine , Random Performed By: #### L 100.0200, L500.2900, L400.0100 ####[facility] [address] [place], [address] Nitrite Ql (U) Negative Normal Negative [facility] Comment on above: Order Comment: Urine , Random Performed By: #### L 100.0200, L500.2900, L400.0100 ####[facility] [address] [place], [address] OCCULT BLOOD-UR 250 /ul Abnormal Negative [facility] Comment on above: Order Comment: Urine , Random Performed By: #### L 100.0200, L500.2900, L400.0100 ####[facility] [address] [place], [address] pH UR 6.5 Normal 5.0 - 8.0 [facility] Comment on above: Order Comment: Urine , Random Performed By: #### L 100.0200, L500.2900, L400.0100 ####[facility] [address] [place], [address] PROT DIPSTX Negative Normal Negative [facility] Comment on above: Order Comment: Urine , Random Performed By: #### L 100.0200, L500.2900, L400.0100 ####[facility] [address] [place], [address] SP.GR. DIPSTX 1.010 Normal 1.002-1.030 [facility] Comment on above: Order Comment: Urine , Random Performed By: #### L 100.0200, L500.2900, L400.0100 ####[facility] [address] [place], [place], [address] UROBILI Normal Normal Normal [facility] Comment on above: Order Comment: Urine , Random Performed By: #### L 100.0200, L500.2900, L400.0100 ####[facility] [address] [place], [address] Urine blood detectionOrdered By: HEALTH ASSESSMENT on 06-22-2024 Urine Occult Blood 250 /ul High Negative [facility] Urine clarityOrdered By: A [facility] ASSESSMENT on 06-22-2024 Clarity (U) Clear Clear [facility] Urine color determinationOrd ered By: HEALTH ASSESSMENT on 06-22-2024 Color (U) Yellow Yellow [facility] Urine leukocyte esterase det ection by dipstickOrdered By: HEALTH ASSESSMENT on 06-22-2024 Leukocyte esterase Test strip Ql (U) 25 /ul High Negative [facility] Urine pHOrdered By: HEALTH A SSESSMENT on 06-22-2024 pH (U) 6.5 [pH] 5.0 - 8.0 [facility] Urine specific gravity measu rementOrdered By: HEALTH ASSESSMENT on 06-22-2024 Specific gravity (U) [Rel density] 1.010 1.002-1.030 [facility] Urobilinogen Ql (U)Ordered B y: HEALTH ASSESSMENT on 06-22-2024 Urine Urobilinogen Normal mg/dl Normal [facility] Very low density lipoprotein (VLDL) cholesterol measurementOrdered By: HEALTH ASSESSMENT on 06-22-2024 VLDL Cholesterol 13 mg/dL 5-40 [facility] White blood cell (WBC) count Ordered By: HEALTH ASSESSMENT on 06-22-2024 WBC (Bld) [#/Vol] 5.3 10*3/uL 4.4-11.0 [facility] hCG Titer Quant., Serumon HCG QUANT. 11 mIU/mL High 1-3 [facility] Comment on above: Order Comment: repea t 1 week Result Comment: hCG levels with Gestational AgeGestational Age hCG mIU/mL (IU/L)0.2 - 1 week 5 - 501-2 weeks 50 - 5002-3 weeks 100 - 67306-3 weeks 500 - 908301-5 weeks 1000 - 857028-7 weeks 55850 - 100,0006-8 weeks 05141 - 200,0002-3 months 46349 - 100,000 Performed By: #### L 700.8000 ####[facility] [address] [place], [address] HCG ( test) QlOrder ed By: Zuleyka Corral on 06-15-2024 Human Chorionic Gonadotropin, Quant 31 mIU/mL High <4 [facility] Comment on above: hCG levels with Gest ational AgeGestational Age hCG mIU/mL (IU/L)0.2 - 1 week 5 - 501-2 weeks 50 - 5002-3 weeks 100 - 11415-0 weeks 500 - 889591-3 weeks 1000 - 860334-6 weeks 83728 - 100,0006-8 weeks 74364 - 200,0002-3 months 52851 - 100,000 hCG Titer Quant., Serumon HCG QUANT. 31 mIU/mL High 1-3 [facility] Comment on above: Result Comment: hCG levels with Gestational AgeGestational Age hCG mIU/mL (IU/L)0.2 - 1 week 5 - 501-2 weeks 50 - 5002-3 weeks 100 - 36050-6 weeks 500 - 977057-6 weeks 1000 - 701673-4 weeks 46761 - 100,0006-8 weeks 63875 - 200,0002-3 months 73965 - 100,000 Performed By: #### L 700.8000 ####[facility] [address] [place], [place], [id number] Assessor Office Visit Reporton 06-07-2024 Assessor Office Visit Report Normal [facility] CNOVon 06-05-2024 CNOV Office Visit (UCWSTR ) SMITA HUIZAR ([id number]) 2 F Date Time Provider Department 06/05/24 3:00 PM RBENDA PAULINO [facility] During your visit today, we recorded the following information about you: Temperature Pulse Respiration Blood pressure 99 degrees 99/minute 18/minute 118/78 Weight 65.5 kg Brenda Paulino PA 06/05/2024 2:13 PM Signed This note was created using dondeEsta™riter. Subjective Smita Huizar is a 23 year old female. HPI 23-year-old female presents for sore throat, fever since yesterday. Patient states she started getting sore throat yesterday. Her tonsils are swollen. She had a fever yesterday. She took Tylenol which did not really help with symptoms. No cough or congestion. Still able to eat and drink, but painful to swallow. No known exposure to strep. Not or breast-feeding. History reviewed. No pertinent past medical history. No past surgical history on file. ALLERGIES Patient has no known allergies. MEDICATIONS No prescriptions on file. No family history on file. Social History Tobacco Use Smoking status: Never Smokeless tobacco: Never Review of Systems Constitutional: Positive for fever. Negative for chills. HENT: Positive for sore throat. Negative for congestion and ear pain. Respiratory: Negative for cough and shortness of breath. Cardiovascular: Negative for chest pain. Gastrointestinal: Negative for diarrhea and vomiting. Objective BP 118/78 Pulse 99 Temp 37.2 ?C (99 ?F) (Tympanic) Resp 18 Wt 65.5 kg (144 lb 6.4 oz) SpO2 100% Physical Exam Vitals and nursing note reviewed. Constitutional: General: She is not in acute distress. Appearance: Normal appearance. She is not toxic-appearing. HENT: Right Ear: Tympanic membrane and ear canal normal. Left Ear: Tympanic membrane and ear canal normal. Nose: Nose normal. Mouth/Throat: Mouth: Mucous membranes are moist. Pharynx: Uvula midline. Posterior oropharyngeal erythema present. Tonsils: Tonsillar exudate present. 2+ on the right. 2+ on the left. Eyes: Conjunctiva/sclera: Conjunctivae normal. Cardiovascular: Rate and Rhythm: Normal rate and regular rhythm. Pulmonary: Effort: Pulmonary effort is normal. Breath sounds: Normal breath sounds. Lymphadenopathy: Cervical: Cervical adenopathy present. Right cervical: Superficial cervical adenopathy present. Left cervical: Superficial cervical adenopathy present. Skin: General: Skin is warm and dry. Neurological: Mental Status: She is alert. Assessment and Plan ASSESSMENT/PLAN: 1. Sore throat - ICD9: 462, ICD10: J02.9 (primary diagnosis) - suspect viral - Group A strep molecular testing negative - Discussed supportive care treatment with fluids, rest and analgesia. - The patient may also use warm salt water gargles, throat lozenges and/or OTC throat spray as needed. - STREP A MOLECULAR (POC) - MONOTEST, INFECTIOUS MONO-to be completed in 1 week if symptoms persistent -Rx for prednisone to help with throat inflammation/pain 2. Lymphadenopathy, cervical - ICD9: 785.6, ICD10: R59.0 - MONOTEST, INFECTIOUS MONO Diagnosis and treatment plan were discussed and questions were answered to the patient's satisfaction. Pt acknowledged understanding of concepts and follow up plan. Specific signs and symptoms that would indicate the need for higher level of care were discussed in detail warranting prompt ER evaluation. 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 #:[id number] MONOTEST, INFECTIOUS MONO [SQMONOLX] Order #: [id number] FUTURE predniSONE (DELTASONE) 20 mg tabletTake 2 tablets by mouth once daily for 4 days. Take daily with food.Disp: 8 tabletRfl: 0 Prescriptions as of 06/05/2024 - predniSONE (DELTASONE) 20 mg tablet Take 2 tablets by mouth once daily for 4 days. Take daily with food. Problem List As Of Date: 06/05/2024 (None) Prescriptions ordered this encounter Disp Refills Start End PREDNISONE 20 MG TABLET 8 ta* 0 06/05/2024 06/09/2024 Route: ORAL Sig: Take 2 tablets by mouth once daily for 4 days. Take daily with food. Encounter Status:Closed by BRENDA PAULINO on 06/05/24 Normal [facility] STREP A MOLECULAR (POC)on Procedural Control Valid [facility] Strep A (POCT) Negative Negative [facility] Assessor Office Visit Reporton 06-01-2024 Assessor Office Visit Report Normal [facility] Urine Cultureon 05-26-2024 URC Culture exhibits no growth. Normal [facility] Comment on above: Performed By: #### M 100.2200 ####[facility] [address] [place], [place], [id number]) CBC-Complete Blood Cnt No Di ffon 05-25-2024 Erythrocyte distribution width (RBC) [Ratio] 13.0 % Normal 11.6-14.6 [facility] Comment on above: Performed By: #### L 100.0500 ####[facility] [address] [place], [address] Hematocrit (Bld) [Volume fraction] 37.8 % Normal 37-47 [facility] Comment on above: Performed By: #### L 100.0500 ####[facility] [address] [place], [address] Hemoglobin (Bld) [Mass/Vol] 12.8 g/dL Normal 12.0-15.0 [facility] Comment on above: Performed By: #### L 100.0500 ####[facility] [address] [place], [address] MCH (RBC) [Entitic mass] 30.5 pg Normal 27.0-32.0 [facility] Comment on above: Performed By: #### L 100.0500 ####[facility] [address] [place], [address] MCHC (RBC) [Mass/Vol] 33.9 g/dL Normal 32-36 [facility] Comment on above: Performed By: #### L 100.0500 ####[facility] [address] [place], [address] MCV (RBC) [Entitic vol] 90.2 fL Normal 81-99 [facility] Comment on above: Performed By: #### L 100.0500 ####[facility] [address] [place], [address] Platelet mean volume (Bld) [Entitic vol] 10.8 fL Normal 6.2-12.0 [facility] Comment on above: Performed By: #### L 100.0500 ####[facility] [address] [place], [address] Platelets (Bld) [#/Vol] 278 10*3/uL Normal 150-450 [facility] Comment on above: Performed By: #### L 100.0500 ####[facility] [address] [place], [address] RBC (Bld) [#/Vol] 4.19 10*6/uL Low 4.2-5.4 [facility] Comment on above: Performed By: #### L 100.0500 ####[facility] [address] [place], [address] RDW SD 42.3 fl Normal 35.1-43.9 [facility] Comment on above: Performed By: #### L 100.0500 ####[facility] [address] [place], [address] WBC (Bld) [#/Vol] 7.5 10*3/uL Normal 4.4-11.0 [facility] Comment on above: Performed By: #### L 100.0500 ####[facility] [address] [place], [address] Discharge Instructionon Discharge Instruction Normal [facility] Erythrocyte distribution wid th ratioOrdered By: Zuleyka Corral on 05-25-2024 Erythrocyte distribution width (RBC) [Ratio] 13.0 % 11.6-14.6 [facility] Erythrocyte distribution wid th standard deviationOrdered By: Zuleyka Corral on 05-25-2024 Erythrocyte distribution width (RBC) [Entitic vol] 42.3 fL 35.1-43.9 [facility] Hematocrit Auto (Bld) [Volum e fraction]Ordered By: Zuleyka Corral on 05-25-2024 Hematocrit (Bld) [Volume fraction] 37.8 % 37-47 [facility] Hemoglobin measurementOrdere d By: Zuleyka Corral on 05-25-2024 Hemoglobin (Bld) [Mass/Vol] 12.8 g/dL 12.0-15.0 [facility] MCV (mean corpuscular volume ) determinationOrdered By: Zuleyka Corral on 05-25-2024 MCV (RBC) [Entitic vol] 90.2 fL 81-99 [facility] MR/POSTOP.ANEon 05-25-2024 MR/POSTOP.ANE Normal [facility] MR/[id number] 05-25-2024 MR/POSTOPAN2 Normal [facility] Mean corpuscular hemoglobin (MCH) determinationOrdered By: Zuleyka Corral on 05-25-2024 MCH (RBC) [Entitic mass] 30.5 pg 27.0-32.0 [facility] Mean corpuscular hemoglobin concentration (MCHC) determinationOrdered By: Zuleyka Corral on 05-25-2024 MCHC (RBC) [Mass/Vol] 33.9 g/dL 32-36 [facility] Mean platelet volume determi nationOrdered By: Zuleyka Corral on 05-25-2024 Platelet mean volume (Bld) [Entitic vol] 10.8 fL 6.2-12.0 [facility] Operative Reporton Operative Report Normal [facility] Platelet countOrdered By: Onesimo Corral on 05-25-2024 Platelets (Bld) [#/Vol] 278 10*3/uL 150-450 [facility] RBC Auto (Bld) [#/Vol]Ordere d By: Zuleyka Corral on 05-25-2024 RBC (Bld) [#/Vol] 4.19 10*6/uL Low 4.2-5.4 [facility] Surgery Specimen Level Richar 05-25-2024 Surgery Specimen Level IV Normal [facility] Comment on above: Performed By: #### P SUIV ####[facility] [address] [place], [place], [id number] Type AND Screenon 05-25-2024 Ab SCREEN GEL Negative Normal [facility] Comment on above: Order Comment: S Performed By: #### B TS ####[facility] [address] [place], [place], [id number] ABO and Rh group Nom (Bld) Blood group A Rh(D) positive Normal [facility] Comment on above: Order Comment: S Performed By: #### B TS ####[facility] [address] [place], [place], [id number] Urine cultureOrdered By: oPornima Corral on 05-25-2024 Bacteria identified Cx Nom (U) Culture exhibits no growth. [facility] White blood cell (WBC) count Ordered By: Zuleyka Corral on 05-25-2024 WBC (Bld) [#/Vol] 7.5 10*3/uL 4.4-11.0 [facility] Absolute neutrophil countOrd ered By: James Kerr on 05-23-2024 Neutrophils (Bld) [#/Vol] 8.9 10*3/uL High 2.0-7.7 [facility] [id number] 05-23-2024 ABO and Rh group Nom (Bld) Blood group A Rh(D) positive [facility] Comment on above: Performed By: #### L 100.0100, L700.8000, L500.2500, B882-1 ####[facility] [address] [place], [address] Basic Metabolic Profile (BMP )on 05-23-2024 BUN/CRE 8.8 RATIO Low 10-20 [facility] Comment on above: Performed By: #### L 100.0100, L700.8000, L500.2500, B882-1 ####[facility] [address] [place], [address] CA,Total 9.4 mg/dL Normal 8.5-10.1 [facility] Comment on above: Performed By: #### L 100.0100, L700.8000, L500.2500, B882-1 ####[facility] [address] [place], [address] Chloride [Moles/Vol] 106 mmol/L Normal 98-107 [facility] Comment on above: Performed By: #### L 100.0100, L700.8000, L500.2500, B882-1 ####[facility] [address] [place], [address] CO2 [Moles/Vol] 25.0 mmol/L Normal 21.0-32.0 [facility] Comment on above: Performed By: #### L 100.0100, L700.8000, L500.2500, B882-1 ####[facility] [address] [place], [address] Creatinine [Mass/Vol] 0.57 mg/dL Normal 0.55-1.02 [facility] Comment on above: Result Comment: The validity of the calculated GFR GFRAA in patients over70 years has not been determined. Clinical correlation isessential. Performed By: #### L 100.0100, L700.8000, L500.2500, B882-1 ####[facility] [address] [place], [address] ECRCL 133.68 ml/min Normal [facility] Comment on above: Performed By: #### L 100.0100, L700.8000, L500.2500, B882-1 ####[facility] [address] [place], [address] EST GFR - AA 171 mL/min Normal >60 [facility] Comment on above: Result Comment: Afri can [place] GFR Calc Performed By: #### L 100.0100, L700.8000, L500.2500, B882-1 ####[facility] [address] [place], [address] GAP 7 Normal 5-15 [facility] Comment on above: Performed By: #### L 100.0100, L700.8000, L500.2500, B882-1 ####[facility] [address] [place], [address] GFR/1.73 sq M.predicted among non-blacks MDRD (S/P/Bld) [Vol rate/Area] 141 mL/min/{1.73_m2} Normal >60 [facility] Comment on above: Result Comment: Non- GFR Calc Performed By: #### L 100.0100, L700.8000, L500.2500, B882-1 ####[facility] [address] [place], [address] Glucose [Mass/Vol] 86 mg/dL Normal 74-106 [facility] Comment on above: Performed By: #### L 100.0100, L700.8000, L500.2500, B882-1 ####[facility] [address] [place], [address] Potassium [Moles/Vol] 3.7 mmol/L Normal 3.5-5.1 [facility] Comment on above: Performed By: #### L 100.0100, L700.8000, L500.2500, B882-1 ####[facility] [address] [place], [address] Sodium [Moles/Vol] 138 mmol/L Normal 136-145 [facility] Comment on above: Performed By: #### L 100.0100, L700.8000, L500.2500, B882-1 ####[facility] [address] [place], [address] Urea nitrogen [Mass/Vol] 5 mg/dL Low 7-18 [facility] Comment on above: Performed By: #### L 100.0100, L700.8000, L500.2500, B882-1 ####[facility] [address] [place], [address] Basophil percentageOrdered B y: James Kerr on 05-23-2024 Basophils/100 WBC (Bld) 0.4 % 0-1 [facility] Bilirubin Test strip Ql (U)O rdered By: James Kerr on 05-23-2024 Bilirubin Ql (U) Negative Negative [facility] Blood urea nitrogen (BUN)/cr eatinine ratioOrdered By: James Kerr on 05-23-2024 Urea nitrogen/Creatinine [Mass ratio] 8.8 mg/mg Low 10-20 [facility] CBC W/Diff, Automatedon 12- Absolute Lymph 1.41 X10 3/uL Normal 0.83-4.51 [facility] Comment on above: Performed By: #### L 100.0100, L700.8000, L500.2500, B882-1 ####[facility] [address] [place], [address] Absolute Neut 8.9 X10 3/uL High 2.0-7.7 [facility] Comment on above: Performed By: #### L 100.0100, L700.8000, L500.2500, B882-1 ####[facility] [address] [place], [address] Basophils/100 WBC (Bld) 0.4 % Normal 0-1 [facility] Comment on above: Performed By: #### L 100.0100, L700.8000, L500.2500, B882-1 ####[facility] [address] [place], [address] Eosinophils/100 WBC (Bld) 0.7 % Normal 0-5 [facility] Comment on above: Performed By: #### L 100.0100, L700.8000, L500.2500, B882-1 ####[facility] [address] [place], [address] Erythrocyte distribution width (RBC) [Ratio] 12.9 % Normal 11.6-14.6 [facility] Comment on above: Performed By: #### L 100.0100, L700.8000, L500.2500, B882-1 ####[facility] [address] [place], [address] Hematocrit (Bld) [Volume fraction] 39.3 % Normal 37-47 [facility] Comment on above: Performed By: #### L 100.0100, L700.8000, L500.2500, B882-1 ####[facility] [address] [place], [address] Hemoglobin (Bld) [Mass/Vol] 13.4 g/dL Normal 12.0-15.0 [facility] Comment on above: Performed By: #### L 100.0100, L700.8000, L500.2500, B882-1 ####[facility] [address] [place], [address] IG% 0.800 Normal 0.0-0.9 [facility] Comment on above: Result Comment: IG% - Immature Granulocytes (promyelocytes, myelocytes andmetamyelocytes) > 1% indicates that a LEFT SHIFT is Present. Performed By: #### L 100.0100, L700.8000, L500.2500, B882-1 ####[facility] [address] [place], [address] Lymphocytes/100 WBC (Bld) 12.4 % Low 19-41 [facility] Comment on above: Performed By: #### L 100.0100, L700.8000, L500.2500, B882-1 ####[facility] [address] [place], [address] MCH (RBC) [Entitic mass] 30.3 pg Normal 27.0-32.0 [facility] Comment on above: Performed By: #### L 100.0100, L700.8000, L500.2500, B882-1 ####[facility] [address] [place], [address] MCHC (RBC) [Mass/Vol] 34.1 g/dL Normal 32-36 [facility] Comment on above: Performed By: #### L 100.0100, L700.8000, L500.2500, B882-1 ####[facility] [address] [place], [address] MCV (RBC) [Entitic vol] 88.9 fL Normal 81-99 [facility] Comment on above: Performed By: #### L 100.0100, L700.8000, L500.2500, B882-1 ####[facility] [address] [place], [address] Monocytes/100 WBC (Bld) 7.7 % Normal 0-10 [facility] Comment on above: Performed By: #### L 100.0100, L700.8000, L500.2500, B882-1 ####[facility] [address] [place], [address] Neutrophils/100 WBC (Bld) 78.0 % High 47-70 [facility] Comment on above: Performed By: #### L 100.0100, L700.8000, L500.2500, B882-1 ####[facility] [address] [place], [address] Nucleated RBC (Bld) [#/Vol] 0 10*3/uL Normal 0-5 [facility] Comment on above: Performed By: #### L 100.0100, L700.8000, L500.2500, B882-1 ####[facility] [address] [place], [address] Platelet mean volume (Bld) [Entitic vol] 10.6 fL Normal 6.2-12.0 [facility] Comment on above: Performed By: #### L 100.0100, L700.8000, L500.2500, B882-1 ####[facility] [address] [place], [address] Platelets (Bld) [#/Vol] 315 10*3/uL Normal 150-450 [facility] Comment on above: Performed By: #### L 100.0100, L700.8000, L500.2500, B882-1 ####[facility] [address] [place], [address] RBC (Bld) [#/Vol] 4.42 10*6/uL Normal 4.2-5.4 [facility] Comment on above: Performed By: #### L 100.0100, L700.8000, L500.2500, B882-1 ####[facility] [address] [place], [address] RDW SD 41.9 fl Normal 35.1-43.9 [facility] Comment on above: Performed By: #### L 100.0100, L700.8000, L500.2500, B882-1 ####[facility] [address] [place], [address] WBC (Bld) [#/Vol] 11.4 10*3/uL High 4.4-11.0 [facility] Comment on above: Performed By: #### L 100.0100, L700.8000, L500.2500, B882-1 ####[facility] [address] [place], [place], [address] Carbon dioxide measurementOr dered By: James Kerr on 05-23-2024 CO2 [Moles/Vol] 25.0 mmol/L 21.0-32.0 [facility] Chloride measurementOrdered By: James Kerr on 05-23-2024 Chloride [Moles/Vol] 106 mmol/L 98-107 [facility] Emergency Department Summary on 05-23-[address] [facility] Eosinophil percentageOrdered By: James Kerr on 05-23-2024 Eosinophils/100 WBC (Bld) 0.7 % 0-5 [facility] Epithelial cells.squamous LM Ql (Urine sed)Ordered By: James Kerr on 05-23-2024 Epithelial cells.squamous LM.HPF (Urine sed) [#/Area] 0 /[HPF] 5-10 [facility] Erythrocyte distribution wid th ratioOrdered By: James Kerr on 05-23-2024 Erythrocyte distribution width (RBC) [Ratio] 12.9 % 11.6-14.6 [facility] Erythrocyte distribution wid th standard deviationOrdered By: James Kerr on 05-23-2024 Erythrocyte distribution width (RBC) [Entitic vol] 41.9 fL 35.1-43.9 [facility] Estimated glomerular filtrat ion rate (GFR) AmericanOrdered By: James Kerr on 05-23-2024 Estimated GFR (MDRD) Amer 171 mL/min >60 [facility] Comment on above: GFR Calc Estimation of creatinine jessica aranceOrdered By: James Kerr on 05-23-2024 Estimated Creatinine Clearance Calc 133.68 ml/min [facility] Glomerular filtration rate ( GFR) estimationOrdered By: James Kerr on 05-23-2024 Estimated GFR (MDRD) Non-Af Amer 141 mL/min >60 [facility] Comment on above: Non- GFR Calc Glucose Ql (U)Ordered By: Lucas Kerr on 05-23-2024 Urine Glucose (UA) Normal mg/dl Normal [facility] Glucose measurementOrdered B y: James Kerr on 05-23-2024 Glucose [Mass/Vol] 86 mg/dL 74-106 [facility] HCG ( test) QlOrder ed By: James Kerr on 05-23-2024 Human Chorionic Gonadotropin, Quant 83514 mIU/mL High <4 [facility] Comment on above: hCG levels with Gest ational AgeGestational Age hCG mIU/mL (IU/L)0.2 - 1 week 5 - 501-2 weeks 50 - 5002-3 weeks 100 - 66007-4 weeks 500 - 109659-7 weeks 1000 - 244597-9 weeks 01582 - 100,0006-8 weeks 40805 - 200,0002-3 months 609[address] - 100,000 Hematocrit Auto (Bld) [Volum e fraction]Ordered By: James Kerr on 05-23-2024 Hematocrit (Bld) [Volume fraction] 39.3 % 37-47 [facility] Hemoglobin measurementOrdere d By: James Kerr on 05-23-2024 Hemoglobin (Bld) [Mass/Vol] 13.4 g/dL 12.0-15.0 [facility] Immature granulocytes/100 WB C Auto (Bld)Ordered By: James Kerr on 05-23-2024 Immature granulocytes/100 WBC (Bld) 0.800 % 0.0-0.9 [facility] Comment on above: IG% - Immature Granu locytes (promyelocytes, myelocytes and metamyelocytes) > 1% indicates that a LEFT SHIFT is Present. Ketones Test strip Ql (U)Ord ered By: James Kerr on 05-23-2024 Ketones Ql (U) 5 mg/dl High Negative [facility] Lymphocytes Auto (Unsp spec) [#/Vol]Ordered By: James Kerr on 05-23-2024 Lymphocytes (Bld) [#/Vol] 1.41 10*3/uL 0.83-4.[address] [facility] Lymphocytes/100 WBC Auto (Un sp spec)Ordered By: James Kerr on 05-23-2024 Lymphocytes/100 WBC (Bld) 12.4 % Low 19-41 [facility] MCV (mean corpuscular volume ) determinationOrdered By: James Kerr on 05-23-2024 MCV (RBC) [Entitic vol] 88.9 fL 81-99 [facility] Mean corpuscular hemoglobin (MCH) determinationOrdered By: James Kerr on 05-23-2024 MCH (RBC) [Entitic mass] 30.3 pg 27.0-32.0 [facility] Mean corpuscular hemoglobin concentration (MCHC) determinationOrdered By: James Kerr on 05-23-2024 MCHC (RBC) [Mass/Vol] 34.1 g/dL 32-36 [facility] Mean platelet volume determi nationOrdered By: James Kerr on 05-23-2024 Platelet mean volume (Bld) [Entitic vol] 10.6 fL 6.2-12.0 [facility] Microscopic analysis of urin e for red blood cells (RBC)Ordered By: James Kerr on 05-23-2024 Urine RBC 0-5 SEEN /hpf 0-5 [facility] Monocyte percentageOrdered B y: James Kerr on 05-23-2024 Monocytes/100 WBC (Bld) 7.7 % 0-10 [facility] Mucus LM Ql (Urine sed)Order ed By: James Kerr on 05-23-2024 Mucus Ql (Urine sed) 0 SEEN /hpf [facility] Neutrophil percentageOrdered By: James Kerr on 05-23-2024 Neutrophils/100 WBC (Bld) 78.0 % High 47-70 [facility] Nitrite Test strip Ql (U)Ord ered By: James Kerr on 05-23-2024 Nitrite Ql (U) Negative Negative [facility] Nucleated red blood cell per centageOrdered By: James Kerr on 05-23-2024 Nucleated RBC/100 WBC (Bld) [Ratio] 0 % 0-5 [facility] Platelet countOrdered By: Lucas Kerr on 05-23-2024 Platelets (Bld) [#/Vol] 315 10*3/uL 150-450 [facility] Potassium measurementOrdered By: James Kerr on 05-23-2024 Potassium [Moles/Vol] 3.7 mmol/L 3.5-5.1 [facility] Protein Test strip Ql (U)Ord ered By: James Kerr on 05-23-2024 Protein Ql (U) Negative Negative [facility] RBC Auto (Bld) [#/Vol]Ordere d By: James Kerr on 05-23-2024 RBC (Bld) [#/Vol] 4.42 10*6/uL 4.2-5.4 [facility] Serum anion gap measurementO rdered By: James Kerr on 05-23-2024 Anion gap [Moles/Vol] 7 mmol/L 5-15 [facility] Serum or plasma calcium roseanne urement (mass/volume)Ordered By: James Kerr on 05-23-2024 Calcium [Mass/Vol] 9.4 mg/dL 8.5-10.1 [facility] Serum or plasma creatinine m easurement (mass/volume)Ordered By: James Kerr on 05-23-2024 Creatinine [Mass/Vol] 0.57 mg/dL 0.55-1.02 [facility] Comment on above: The validity of the calculated GFR & GFRAA in patients over 70 years has not been determined. Clinical correlation is essential. Serum or plasma urea nitroge n measurement (mass/volume)Ordered By: James Kerr on 05-23-2024 Urea nitrogen [Mass/Vol] 5 mg/dL Low 7-18 [facility] Sodium levelOrdered By: James Kerr on 05-23-2024 Sodium [Moles/Vol] 138 mmol/L 136-145 [facility] Transvaginal w/Preg USon Transvaginal w/Preg US Normal [facility] Urinalysis, Completeon 05-23 WBC 0-5 SEEN Normal 0-5 [facility] Comment on above: Order Comment: COLLE CTOR TO SPECIFY Performed By: #### L 400.0001 ####[facility] [address] [place], [address] EPI,SQUAMOUS 0-5 SEEN Normal 5-10 [facility] Comment on above: Order Comment: PAMELA CTOR TO SPECIFY Performed By: #### L 400.0001 ####[facility] [address] [place], [address] RBC 0-5 SEEN Normal 0-5 [facility] Comment on above: Order Comment: PAMELA CTOR TO SPECIFY Performed By: #### L 400.0001 ####[facility] [address] [place], [address] BACTERIA 0 SEEN Normal None Seen [facility] Comment on above: Order Comment: PAMELA CTOR TO SPECIFY Performed By: #### L 400.0001 ####[facility] [address] [place], [address] Mucus Ql (Urine sed) 0 SEEN Normal [facility] Comment on above: Order Comment: PAMELA CTOR TO SPECIFY Performed By: #### L 400.0001 ####[facility] [address] [place], [address] Urine blood detectionOrdered By: James Kerr on 05-23-2024 Urine Occult Blood 10 /ul High Negative [facility] Urine clarityOrdered By: Leslie Kerr on 05-23-2024 Clarity (U) Clear Clear [facility] Urine color determinationOrd ered By: James Kerr on 05-23-2024 Color (U) Yellow Yellow [facility] Urine leukocyte esterase det ection by dipstickOrdered By: James Kerr on 05-23-2024 Leukocyte esterase Test strip Ql (U) 100 /ul High Negative [facility] Urine pHOrdered By: James carter on 05-23-2024 pH (U) 8.0 [pH] 5.0 - 8.0 [facility] Urine sediment bacteria coun t by microscopy (number/high power field)Ordered By: James Kerr on 05-23-2024 Bacteria LM.HPF (Urine sed) [#/Area] 0 /[HPF] None Seen [facility] Urine specific gravity measu rementOrdered By: James Kerr on 05-23-2024 Specific gravity (U) [Rel density] 1.010 1.002-1.030 [facility] Urobilinogen Ql (U)Ordered B y: James Kerr on 05-23-2024 Urine Urobilinogen Normal mg/dl Normal [facility] White blood cell (WBC) count Ordered By: James Kerr on 05-23-2024 WBC (Bld) [#/Vol] 11.4 10*3/uL High 4.4-11.0 [facility] White blood cell countOrdere d By: James Kerr on 05-23-2024 Urine WBC 0-5 SEEN /hpf 0-5 [facility] hCG Titer Quant., Serumon HCG QUANT. 93679 mIU/mL High 1-3 [facility] Comment on above: Result Comment: hCG levels with Gestational AgeGestational Age hCG mIU/mL (IU/L)0.2 - 1 week 5 - 501-2 weeks 50 - 5002-3 weeks 100 - 24178-1 weeks 500 - 391090-4 weeks 1000 - 046630-0 weeks 36565 - 100,0006-8 weeks 10446 - 200,0002-3 months 72648 - 100,000 Performed By: #### L 100.0100, L700.8000, L500.2500, B882-1 ####[facility] [id number] [place], [address] Laboratory - Chemistry and C hemistry - challengeon 05-22-2024 Glucose Ql (U) Negative [facility] Laboratory - Urinalysison Protein Ql (U) Negative [facility] Assessor Office Visit Reporton 05-22-2024 Assessor Office Visit Report Normal [facility] [facility] PAP I-G w/rfx hrHPV-Aptimaon 05-15-2024 ADEQ Comment Normal . [facility] Comment on above: Order Comment: Speci men Comment: [id number] Comment: Source.............CervixSpecimen Comment: LMP / Prev Treat...[id number] Comment: Other..............Specimen Comment: No. of containers..01 ThinPrep Vial Result Comment: Sati sfactory for evaluation. Endocervical and/or squamous metaplasticcells (endocervical component) are present. Performed By: #### M 100.2200, L7000.1800, L7400.0353 ####[facility] [address] [place], [place], [id number] COMM . Normal . [facility] Comment on above: Order Comment: Speci men Comment: [id number] Comment: Source.............CervixSpecimen Comment: LMP / Prev Treat...[id number] Comment: Other..............Specimen Comment: No. of containers..01 ThinPrep Vial Performed By: #### M 100.2200, L7000.1800, L7400.0353 ####[facility] [address] [place], [place], [id number] COMMENT Comment Normal . [facility] Comment on above: Order Comment: Speci men Comment: [id number] Comment: Source.............CervixSpecimen Comment: LMP / Prev Treat...[id number] Comment: Other..............Specimen Comment: No. of containers..01 ThinPrep Vial Result Comment: This liquid based ThinPrep(R) pap test was screened withthe use of an image guided system. Performed By: #### M 100.2200, L7000.1800, L7400.0353 ####[facility] [address] [place], [place], [address] DIAG Comment Normal . [facility] Comment on above: Order Comment: Speci men Comment: [id number] Comment: Source.............CervixSpecimen Comment: LMP / Prev Treat...[id number] Comment: Other..............Specimen Comment: No. of containers..01 ThinPrep Vial Result Comment: NEGA TIVE FOR INTRAEPITHELIAL LESION OR MALIGNANCY. Performed By: #### M 100.2200, L7000.1800, L7400.0353 ####[facility] [address] [place], [place], [address] HPV RFLX Comment Normal . [facility] Comment on above: Order Comment: Speci men Comment: [id number] Comment: Source.............CervixSpecimen Comment: LMP / Prev Treat...[id number] Comment: Other..............Specimen Comment: No. of containers..01 ThinPrep Vial Result Comment: The HPV DNA reflex criteria were not met with this specimenresult therefore, no HPV testing was performed.Performed at: [facility] [address] [place], [place] [id number] Director: Juan Miguel Mata MD, Phone: [phone] at: [facility] [address] [id number] Director: Camilla Cordero MD, Phone: [phone] Performed By: #### M 100.2200, L7000.1800, L7400.0353 ####[facility] [address] [place], [place], [address] PAPSMR Comment Normal . [facility] Comment on above: Order Comment: Speci men Comment: [id number] Comment: Source.............CervixSpecimen Comment: LMP / Prev Treat...[id number] Comment: Other..............Specimen Comment: No. of containers..01 ThinPrep Vial Result Comment: The Pap smear is a screening test designed to aid in thedetection of premalignant and malignant conditions of theuterine cervix. It is not a diagnostic procedure andshould not be used as the sole means of detecting cervicalcancer. Both false-positive and false-negative reports dooccur. Performed By: #### M 100.2200, L7000.1800, L7400.0353 ####[facility] [address] [place], [address] PERFORM Comment Normal . [facility] Comment on above: Order Comment: Speci men Comment: [id number] Comment: Source.............CervixSpecimen Comment: LMP / Prev Treat...[id number] Comment: Other..............Specimen Comment: No. of containers..01 ThinPrep Vial Result Comment: Leandra Raymond, Assistant City Attorney (ASCP) Performed By: #### M 100.2200, L7000.1800, L7400.0353 ####[facility] [address] [place], [address] Chlamydia/GC JIMBO aptimaon CHLAMY,NUC ACID Negative Normal Negative [facility] Comment on above: Performed By: #### M 100.2200, L7000.1800, L7400.0353 ####[facility] [address] [place], [address] GC BY NUC ACID Negative Normal Negative [facility] Comment on above: Result Comment: Perf ormed at: =G - [facility] [address] [place] [id number] Director: Camilla Cordero MD, Phone: [phone] Performed By: #### M 100.2200, L7000.1800, L7400.0353 ####[facility] [address] [place], [address] Urine Cultureon 05-09-2024 URC Culture exhibits no growth. Normal [facility] Comment on above: Performed By: #### M 100.2200, L7000.1800, L7400.0353 ####[facility] [address] [place], [address] C. trachomatis rRNA JIMBO+prob e Ql (Unsp spec)Ordered By: Santa Daniels on 05-08-2024 Chlamydia DNA (JIMBO) Negative Negative [facility] Information And Referral Director Cyto stain Nom (C vx/Vag) [ID]Ordered By: Santa Daniels on 05-08-2024 Pap Smear Performed By Comment . [facility] Comment on above: Rosalva Riverate chnologist (ASCP) Cytology report Cyto stain D oc (Cvx/Vag)Ordered By: Santa Daniels on 05-08-2024 Thin Prep Pap Smear Comment . [facility] Comment on above: The Pap smear is a s creening test designed to aid in thedetection of premalignant and malignant conditions of theuterine cervix. It is not a diagnostic procedure andshould not be used as the sole means of detecting cervicalcancer. Both false-positive and false-negative reports dooccur. Image-guided ThinPrep PapOrd ered By: Santa Daniels on 05-08-2024 Pap Smear Note Comment . [facility] Comment on above: This liquid based Th inPrep(R) pap test was screened withthe use of an image guided system. Image-guided liquid-based Pa pOrdered By: Santa Daniels on 05-08-2024 Pap Smear Diagnosis Comment . [facility] Comment on above: NEGATIVE FOR INTRAEP ITHELIAL LESION OR MALIGNANCY. Image-guided liquid-based ce rvical Pap w high-risk HPV+reflex to HPV 16+18Ordered By: Santa Daniels on 05-08-2024 Human Papillomavirus Screen Comment . [facility] Comment on above: The HPV DNA reflex c shashank were not met with this specimenresult therefore, no HPV testing was performed.Performed at: [facility] [address] [place], [place] [id number] Director: Juan Miguel Mata MD, Phone: [phone] at: [facility] - [facility] [address] [id number] Director: Camilla Cordero MD, Phone: [phone] Neisseria gonorrhoeae nuclei c acid detection by amplified probe techniqueOrdered By: Santa Daniels on 05-08-2024 N. gonorrhoeae DNA JIMBO+probe Ql (Unsp spec) Negative Negative [facility] Comment on above: Performed at: =G - [facility] [address] [id number] Director: Camilla Cordero MD, Phone: [phone] Assessor Office Visit Reporton 05-08-2024 Assessor Office Visit Report Normal [facility] Service comment (Unsp spec) [Interp]Ordered By: Santa Daniels on 05-08-2024 Pap Smear Comment (3) . . [facility] Urine cultureOrdered By: Myles Daniels on 05-08-2024 Bacteria identified Cx Nom (U) Culture exhibits no growth. [facility] CNOVon 04-19-2024 CNOV Office Visit (UCWSTR ) SMITA HUIZAR ([id number]) 2 F Date Time Provider Department 04/19/24 9:45 AM MONTY SALAZAR WSTR During your visit today, we recorded the following information about you: Temperature Pulse Respiration Blood pressure 98.4 degrees 98/minute 16/minute 106/60 Weight 62.7 kg Monty Salazar MD 04/19/2024 10:48 AM Signed Patient presents with: Swollen Glands: right side x 2-3 days, denies sore throat HPI: Feeling tender neck lymph nodes for 3 days. Initially left was worse, now the right. Positive symptoms: Fever, sweats, Body Aches, tender lymph nodes, Negative symptoms: Cough, Sore throat, Nasal Congestion, Rhinorrhea, Nausea, Vomiting, Diarrhea, Earache, Sinus pressure, Headache, OTC: Ibuprofen, Tylenol. Stopped OCP last month. Her fiance is not ill. MEDICATIONS: No current outpatient medications on file. No current facility-administered medications for this visit. ALLERGIES: ALLERGIES No Known Allergies VITALS: BP 106/60 Pulse 98 Temp 36.9 ?C (98.4 ?F) Resp 16 Wt 62.7 kg (138 lb 3.7 oz) SpO2 99% PHYSICAL EXAM: GEN: alert, pleasant, has sweats HEENT: PERRL, EOMI, conjunctiva clear Ears: canals clear. TMs without erythema, bulge, or effusion Sinuses: non-tender frontal sinus, non-tender maxillary sinuses Throat: moist mucous membranes; tonsillar erythema, edema, and large exudate Neck: supple, no thyromegaly, tender anterior lymphadenopathy HEART: regular rate and rhythm, no murmurs LUNGS: clear to auscultation, no wheezes or crackles, no increased WOB ASSESSMENT/PLAN: 1. Tonsillitis - ICD9: 463, ICD10: J03.90 - STREP A MOLECULAR (POC) - negative. - suspect viral pharyngitis. Possible mononucleosis. - Discussed supportive care treatment with rest, cold medicine, and analgesia. Mononucleosis discussed. [place] is viral illness without curative treatment. Treatment is supportive care with rest, adequate hydration, and symptom relief. Symptoms may last for several weeks. Testing for mono is not sensitive early in the illness. She may follow up for re-evaluation and possible testing if symptoms are worsening or not improving. Monty Salazar MD Allergies As of Date: 04/19/2024 (No Known Allergies) Date Reviewed: 04/19/2024 Reviewed by: Rosa Wei MA - Fully Assessed Reason for Visit: Swollen Glands [458] Cmt: right side x 2-3 days, denies sore throat Primary Visit Diagnosis:Tonsillitis [J03.90] Order(s):STREP A MOLECULAR (POC) [0514298] Order #: [id number]. #:[id number] Problem List As Of Date: 04/19/2024 (None) LOS History for Encounter --- Level of Service: OFFICE/OUTPATIENT NEW LOW MDM 30 MINUTES[[id number]] Date AND Time: 04-19-2024 10:47 AM Recorded by User: MONTY SALAZAR Encounter Status:Closed by MARTIN MONTY on 04/19/24 Normal [facility] STREP A MOLECULAR (POC)on Procedural Control Valid [facility] Strep A (POCT) Negative Negative [facility] LYME DISEASE BY PCR [CCL]on 07-10-2023 B. burgdorferi PCR Not detected Normal [facility] Comment on above: Result Comment: NOT DETECTED - A negative result does not rule out the presence of PCR inhibitors in the patient specimen or assay specific nucleic acid in concentrations below the level of detection by the assay. Blood and CSF specimens have poor clinical sensitivity for detection of Borrelia burgdorferi by PCR. INTERPRETIVE INFORMATION: Borrelia Species DNA Detection by PCR This test was developed and its performance characteristics determined by [facility] [facility]. It has not been cleared or approved by the [place] Food and Drug Administration. This test was performed in a CLIA certified laboratory and is intended for clinical purposes. Performed By: [facility] [address] [place] [address] Line Service Supervisor: Jayesh Christensen MD, PhD IA Number: [id number] [place] [address] Lonnie Dobbins III, M.D. [id number] Performed By: #### 2 [address] #### [facility],[address] [place] [address] LYME DISEASE BY PCRon 2023 BORRELIA SP. PCR Not detected Normal [facility] Comment on above: Order Comment: Speci men Type: BLOOD SPECIMEN [facility] Address: [address] [place] [address] Result Comment: NOT DETECTED - A negative result does not rule out the presence of PCR inhibitors in the patient specimen or assay specific nucleic acid in concentrations below the level of detection by the assay. Blood and CSF specimens have poor clinical sensitivity for detection of Borrelia burgdorferi by PCR. INTERPRETIVE INFORMATION: Borrelia Species DNA Detection by PCR This test was developed and its performance characteristics determined by [facility] [facility]. It has not been cleared or approved by the US Food and Drug Administration. This test was performed in a CLIA certified laboratory and is intended for clinical purposes. Performed By: [facility] [address] [place] [address] Line Service Supervisor: Jayesh Christensen MD, PhD CLIA Number: [id number] Performed By: #### L YPCR #### [facility] CLIA [id number] [address] [place] [address] Specimen source Nom (Unsp spec) Venous - Serum Normal [facility] Comment on above: Order Comment: Speci men Type: BLOOD SPECIMEN Ordering Facility[facility] Address: [address] [place] [address] Performed By: #### L YPCR #### [facility] CLIA [id number] [address] [place] [address] No Panel InformationOrdered By: Margarita Camejo on 06-23-2022 Dehydroepiandrosterone Sulfate 385.0 ug/dL 110.0-431.7 [facility] Thyroid Stimulating Hormone (TSH) 1.58 uIU/mL 0.358-3.74 [facility] Serum or plasma testosterone free measurement (mass/volume)Ordered By: Margarita Camejo on 06-23-2022 Testosterone Free [Mass/Vol] 2.9 pg/mL 0.0-4.2 [facility] Comment on above: Performed at: [address] [id number] Director: Judd Coronado PhD, Phone: [phone] at: [address] [id number] Director: Pete Zelaya MD, Phone: [phone] Basophil percentageon 2021 C. trachomatis DNA JIMBO+probe Ql (Unsp spec) Negative Negative [facility] Work Phone: Neisseria gonorrhoeae detect ion by PCRon 08-13-2021 N. gonorrhoeae DNA JIMBO+probe Ql (Cervical mucus) Negative Negative [facility] Work Phone: HepB SurfaceAb,Quanton 06-06 HepB SurfaceAb,Quant 156.88 mIU/mL High <8.00 C [facility] Comment on above: Performed By: #### A HBSQ, MEASLG, RUBIGG, MUMPSG #### [facility] Routine Lab [address] [address] Measles IgG Antibodyon 06-06 Measles IgG Ab, Qual Abnormal Negative [facility] Comment on above: Result Comment: Posi tive Presence of detectable measles virus IgG antibodies. A positive result generally indicates exposure to measles virus or previous vaccination. Performed By: #### A HBSQ, MEASLG, RUBIGG, MUMPSG #### [facility] Routine Lab [address] [address] Measles IgG Antibody Normal [facility] Comment on above: Result Comment: >300 .0 AU/mL Negative Specimens <13.5 Equivocal Specimens >=13.5 to <16.5 Positive Specimens >=16.5 The magnitude of the measured result, above the cutoff, is not indicative of the amount of antibody present. Value Negative Specimens <13.5 Equivocal Specimens >=13.5 to <16.5 Positive Specimens >=16.5 The magnitude of the measured result, above the cutoff, is not indicative of the amount of antibody present. interpreted as Negative Specimens <13.5 Equivocal Specimens >=13.5 to <16.5 Positive Specimens >=16.5 The magnitude of the measured result, above the cutoff, is not indicative of the amount of antibody present. follows: Negative Specimens <13.5 Equivocal Specimens >=13.5 to <16.5 Positive Specimens >=16.5 The magnitude of the measured result, above the cutoff, is not indicative of the amount of antibody present. Performed By: #### A HBSQ, MEASLG, RUBIGG, MUMPSG #### [facility] Routine Lab [address] [address] Mumps IgG Abon 06-06-2020 Mumps IgG Ab >300.0 Normal [facility] Reference Lab Comment on above: Performed By: #### A HBSQ, MEASLG, RUBIGG, MUMPSG #### [facility] Routine Lab [address] [place], [place] [address] Mumps IgG, Qual Positive Abnormal Negative [facility] Comment on above: Performed By: #### A HBSQ, MEASLG, RUBIGG, MUMPSG #### [facility] Routine Lab [address] [address] Rubella IgG Antibodyon 06-06 Rubella IgG Ab 12.10 Index Value Normal [facility] Reference Lab Comment on above: Performed By: #### A HBSQ, MEASLG, RUBIGG, MUMPSG #### [facility] Routine Lab [address] [address] Rubella IgG Ab, Qual Positive Abnormal Negative [facility] Comment on above: Performed By: #### A HBSQ, MEASLG, RUBIGG, MUMPSG #### [facility] Routine Lab [address] [address] CNOVon 08-16-2017 CNOV Office Visit (UCWSTR) SMITA HUIZAR ([id number]) 2 FDate Time Provider Department08/16/17 9:45 AM ENOCH ARREDONDO (GIRISH) [facility] During your visit today, we recorded the following information about you: Temperature Pulse Respiration Blood pressure 98.7 degrees 70/minute 16/minute 102/60 Weight Height 57.8 kg 1.689 mInchris Arredondo APRN.CNP, APRN.CNP 08/16/2017 1:32 PM SignedSubjectiveHPI Patient is a 16 year old female here today for sports physical. OHSAA formreviewed. Denies family history of congenital heart defects or cardiac eventsat a young age.Review of SystemsConstitutional: Negative.HENT: Negative.Eyes: Negative.Respiratory: Negative.Cardiovascula r: Negative.Gastrointesti nal: Negative.Genitourinary : Negative.Musculoskelet al: Negative.Skin: Negative.Neurological: Negative.Endo/Heme/All ergies: Negative.All other systems reviewed and are negative.ObjectivePhys ical ExamConstitutional: She is oriented to person, place, and time and well-developed,well-no urished, and in no distress.HENT:Head: Normocephalic and atraumatic.Neck: Neck supple.Cardiovascular: Normal rate, regular rhythm, normal heart sounds and intactdistal pulses. Exam reveals no gallop and no friction rub.No murmur heard.Pulmonary/Chest: Effort normal and breath sounds normal.Abdominal: Soft. Bowel sounds are normal.Neurological: She is alert and oriented to person, place, and time.Skin: Skin is warm and dry.Psychiatric: Affect normal.Nursing note and vitals reviewed. See [facility] physical formASSESSMENT/PLAN:1. Sports physical - ICD9: V70.3, ICD10: Z02.5- cleared for sports without restriction.Enoch Arredondo APRN.CNPReferring Provider: SELF [200]Allergies As of Date: 08/16/2017(No Known Allergies)Date Reviewed: 08/16/2017Reviewed by: Rosa Wei Ma - Fully AssessedReason for Visit: Sports Physical [101]Primary Visit Diagnosis:Sports physical [Z02.5]Prescriptions as of 08/16/2017 Sig: CHEWABLE MULTI VITAMIN TABLET once daily APOLONIA-DAC 1 MG CHEWABLE TABLET once dailyProblem List As Of Date: 08/16/2017(None)Encoun ter Number: [id number] Status:Closed by ENOCH ARREDONDO CNP on 08/16/17 Normal [facility] PROGRESSon 08-16-2017 PROGRESS HNO ID: [id number]: Enoch (Girish) FOX Arredondo.CNPService: (none)Author Type: Nurse PractitionerType: Progress NotesFiled: 08/16/2017 1:32 PMNote Text:SubjectiveHPI Patient is a 16 year old female here today for sports physical. OHSAAform reviewed. Denies family history of congenital heart defects orcardiac events at a young age.Review of SystemsConstitutional: Negative.HENT: Negative.Eyes: Negative.Respiratory: Negative.Cardiovascula r: Negative.Gastrointesti nal: Negative.Genitourinary : Negative.Musculoskelet al: Negative.Skin: Negative.Neurological: Negative.Endo/Heme/All ergies: Negative.All other systems reviewed and are negative.ObjectivePhys ical ExamConstitutional: She is oriented to person, place, and time andwell-developed, well-nourished, and in no distress.HENT:Head: Normocephalic and atraumatic.Neck: Neck supple.Cardiovascular: Normal rate, regular rhythm, normal heart sounds andintact distal pulses. Exam reveals no gallop and no friction rub.No murmur heard.Pulmonary/Chest: Effort normal and breath sounds normal.Abdominal: Soft. Bowel sounds are normal.Neurological: She is alert and oriented to person, place, and time.Skin: Skin is warm and dry.Psychiatric: Affect normal.Nursing note and vitals reviewed. See [employer] physical formASSESSMENT/PLAN:1. Sports physical - ICD9: V70.3, ICD10: Z02.5- cleared for sports without restriction.Enoch Arredondo APRN.GIRISH Normal [facility] Vital Signs Date Time Vital Sign Value Performing Clinician Flex tavarez 11-26-2024 01:00-0400 Body temperature 98.2 [degF] Dr. Juan Pete MD Work Phone: [facility] 11-26-2024 01:00-0400 Diastolic blood pressure 72 mm[Hg] Dr. Juan Pete MD Work Phone: [facility] 11-26-2024 01:00-0400 Heart rate 86 /min Dr. Juan Pete MD Work Phone: 6(295)891-316226 [place] [address] 11-26-2024 01:00-0400 Respiratory rate 18 /min Dr. Juan Pete MD Work Phone: 5(806)110-393637 [place] [address] 11-26-2024 01:00-0400 SaO2% (BldA) [Mass fraction] 99 % Dr. Juan Pete MD Work Phone: 7(931)732-003900 [place] [address] 11-26-2024 01:00-0400 Systolic blood pressure 104 mm[Hg] Dr. Juan Pete MD Work Phone: 9(210)793-562500 [place] [address] 11-25-2024 22:44-0400 Body height 162.[address] Juan Pete MD Work Phone: 0(621)514-732300 [place] [address] 11-25-2024 22:44-0400 Body mass index (BMI) [Ratio] 21.3 kg/m2 Dr. Juan Pete MD Work Phone: 1(701)927-531300 [place] [address] 11-25-2024 22:44-0400 Body weight 56.[address] Juan Pete MD Work Phone: 7(953)759-122900 [place] [address] 11-22-2024 14:23-0400 Body height 162.[address] Juan Pete MD Work Phone: 8(182)915-401500 [place] [address] 11-22-2024 14:22-0400 Body mass index (BMI) [Ratio] 21.8 kg/m2 Dr. Juan Pete MD Work Phone: 5(492)520-555500 [place] [address] 11-22-2024 14:22-0400 Body weight 57.[address] Juan Pete MD Work Phone: 9(353)742-279800 [place] [address] 11-22-2024 14:22-0400 Diastolic blood pressure 75 mm[Hg] Dr. Juan Pete MD Work Phone: 6(209)780-937200 [place] [address] 11-22-2024 14:22-0400 Systolic blood pressure 111 mm[Hg] Dr. Juan Pete MD Work Phone: 6(846)636-439200 [place] [address] 08-16-2024 17:31-0400 Body temperature 98.4 [degF] Dr. Juan Pete MD Work Phone: [facility] 08-16-2024 17:31-0400 Diastolic blood pressure 69 mm[Hg] Dr. Juan Pete MD Work Phone: 1(535)861-317700 [place] [address] 08-16-2024 17:31-0400 Heart rate 100 /min Dr. Juan Pete MD Work Phone: 4(431)165-160800 [place] [address] 08-16-2024 17:31-0400 Respiratory rate 18 /min Dr. Juan Pete MD Work Phone: 6(341)299-55[address] [place] [address] 08-16-2024 17:31-0400 SaO2% (BldA) [Mass fraction] 99 % Dr. Juan Pete MD Work Phone: 7(349)047-526800 [place] [address] 08-16-2024 17:31-0400 Systolic blood pressure 101 mm[Hg] Dr. Juan Pete MD Work Phone: 3(203)851-745100 [place] [address] 08-16-2024 14:51-0400 Body mass index (BMI) [Ratio] 24 kg/m2 Dr. Juan Pete MD Work Phone: 6(012)089-871700 [place] [address] 08-16-2024 14:51-0400 Body weight 63.[address] Juan Pete MD Work Phone: 7(764)736-201000 [place] [address] 08-16-2024 14:49-0400 Body height 162.[address] Juan Pete MD Work Phone: 6(686)599-066937 [place] [address] 08-14-2024 18:43-0400 Body temperature 100.5 [degF] Dr. Juan Pete MD Work Phone: 2(216)205-759000 [place] [address] 08-14-2024 18:43-0400 Diastolic blood pressure 69 mm[Hg] Dr. Juan Pete MD Work Phone: 6(803)170-556700 [place] [address] 08-14-2024 18:43-0400 Heart rate 110 /min Dr. Juan Pete MD Work Phone: 4(069)578-493737 [place] [address] 08-14-2024 18:43-0400 Respiratory rate 18 /min Dr. Juan Pete MD Work Phone: [facility] 08-14-2024 18:43-0400 SaO2% (BldA) [Mass fraction] 100 % Dr. Juan Pete MD Work Phone: 3(084)839-163737 [place] [address] 08-14-2024 18:43-0400 Systolic blood pressure 103 mm[Hg] Dr. uJan Pete MD Work Phone: 7(443)984-968937 [place] [address] 08-14-2024 12:53-0400 Body height [address] Juan Pete MD Work Phone: 5(943)441-283300 [place] [address] 08-14-2024 12:53-0400 Body mass index (BMI) [Ratio] 23.7 kg/m2 Dr. Juan Pete MD Work Phone: 4(558)882-017900 [place] [address] 08-14-2024 12:53-0400 Body weight 62.[address] Juan Pete MD Work Phone: 9(501)327-422637 [place] [address] 08-08-2024 19:20-0400 Body temperature 97.3 [degF] Dr. Juan Pete MD Work Phone: 2(021)707-983800 [place] [address] 08-08-2024 19:20-0400 Diastolic blood pressure 62 mm[Hg] Dr. Juan Pete MD Work Phone: 5(585)906-144237 [place] [address] 08-08-2024 19:20-0400 Heart rate 83 /min Dr. Juan Pete MD Work Phone: 8(195)417-767137 [place] [address] 08-08-2024 19:20-0400 Respiratory rate 16 /min Dr. Juan Pete MD Work Phone: 8(599)212-406737 [place] [address] 08-08-2024 19:20-0400 SaO2% (BldA) [Mass fraction] 100 % Dr. Juan Pete MD Work Phone: 0(820)201-675637 [place] [address] 08-08-2024 19:20-0400 Systolic blood pressure 98 mm[Hg] Dr. Juan ePte MD Work Phone: [facility] 08-08-2024 13:45-0400 Body height 162.[address] Juan Pete MD Work Phone: [facility] 08-08-2024 13:45-0400 Body mass index (BMI) [Ratio] 23.1 kg/m2 Dr. Juan Pete MD Work Phone: [facility] 08-08-2024 13:45-0400 Body weight 61.[address] Juan Pete MD Work Phone: 7(221)922-961737 [place] [address] 07-19-2024 10:49-0500 Body height 162.[address] Juna Pete MD Work Phone: 6(720)439-603800 [place] [address] 07-19-2024 10:49-0500 Body mass index (BMI) [Ratio] 23.7 kg/m2 Dr. Juan Pete MD Work Phone: 8(886)237-698762 [address] 07-19-2024 10:49-0500 Body weight 62.[address] Juan Pete MD Work Phone: 6(122)643-835262 [address] 07-19-2024 10:49-0500 Diastolic blood pressure 77 mm[Hg] Dr. Juan Pete MD Work Phone: 8(303)772-957462 [address] 07-19-2024 10:49-0500 Systolic blood pressure 122 mm[Hg] Dr. Juan Pete MD Work Phone: 1(295)765-631237 [place] [address] 07-17-2024 14:23-0500 Body mass index (BMI) [Ratio] 23.3 kg/m2 Dr. Juan Pete MD Work Phone: 6(309)701-948437 [place] [address] 07-17-2024 14:23-0500 Body weight 61.[address] Juan Pete MD Work Phone: 0(017)183-056937 [place] [address] 07-17-2024 14:23-0500 Diastolic blood pressure 80 mm[Hg] Dr. Juan Pete MD Work Phone: 4(606)180-400237 [place] [address] 07-17-2024 14:23-0500 Systolic blood pressure 124 mm[Hg] Dr. Juan Pete MD Work Phone: 8(651)920-508837 [place] [address] 07-14-2024 22:54-0500 Body temperature 98.4 [degF] Dr. Juan Pete MD Work Phone: 8(201)117-921200 [place] [address] 07-14-2024 22:54-0500 Diastolic blood pressure 78 mm[Hg] Dr. Juan Pete MD Work Phone: 8(473)256-571700 [place] [address] 07-14-2024 22:54-0500 Heart rate 88 /min Dr. Juan Pete MD Work Phone: 6(297)134-887800 [place] [address] 07-14-2024 22:54-0500 Respiratory rate 18 /min Dr. Juan Pete MD Work Phone: 1(658)654-647100 [place] [address] 07-14-2024 22:54-0500 SaO2% (BldA) [Mass fraction] 98 % Dr. Juan Pete MD Work Phone: 1(012)826-382037 [place] [address] 07-14-2024 22:54-0500 Systolic blood pressure 109 mm[Hg] Dr. Juan Pete MD Work Phone: 3(122)929-954300 [place] [address] 07-14-2024 17:57-0500 Body mass index (BMI) [Ratio] 24 kg/m2 Dr. Juan Pete MD Work Phone: 6(354)861-631037 [place] [address] 07-14-2024 17:57-0500 Body weight 63.[address] Juan Pete MD Work Phone: 9(604)901-326700 [place] [address] 06-07-2024 08:41-0500 Body mass index (BMI) [Ratio] 24.7 kg/m2 Dr. Juan Pete MD Work Phone: 2(644)979-088700 [place] [address] 06-07-2024 08:41-0500 Body weight 65.[address] Juan Pete MD Work Phone: 3(194)860-489862 [address] 06-07-2024 08:41-0500 Diastolic blood pressure 68 mm[Hg] Dr. Juan Pete MD Work Phone: [facility] 06-07-2024 08:41-0500 Systolic blood pressure 111 mm[Hg] Dr. Juan ePte MD Work Phone: [facility] 06-05-2024 13:56-0500 Body temperature 99 [degF] Krislyn Aberegg PA Work Phone: [facility] 06-05-2024 13:56-0500 Body weight 65.5 kg Krislyn Aberegg PA Work Phone: [facility] 06-05-2024 13:56-0500 Diastolic blood pressure 78 mm[Hg] Krislyn Aberegg PA Work Phone: [facility] 06-05-2024 13:56-0500 Heart rate 99 /min Krislyn Aberegg PA Work Phone: [facility] 06-05-2024 13:56-0500 Respiratory rate 18 /min Krislyn Aberegg PA Work Phone: [facility] 06-05-2024 13:56-0500 SaO2% (BldA) [Mass fraction] 100 % Krislyn Aberegg PA Work Phone: [facility] 06-05-2024 13:56-0500 Systolic blood pressure 118 mm[Hg] Krislyn Aberegg PA Work Phone: [facility] 06-01-2024 10:54-0500 Body mass index (BMI) [Ratio] 24.3 kg/m2 Dr. Juan Pete MD Work Phone: [facility] 06-01-2024 10:54-0500 Body weight 64.[address] Juan Pete MD Work Phone: [facility] 06-01-2024 10:54-0500 Diastolic blood pressure 69 mm[Hg] Dr. Juan Pete MD Work Phone: [facility] 06-01-2024 10:54-0500 Systolic blood pressure 131 mm[Hg] Dr. Juan Pete MD Work Phone: [facility] 05-25-2024 14:05-0500 Body temperature 97.3 [degF] Dr. Juan Pete MD Work Phone: [facility] 05-25-2024 14:05-0500 Diastolic blood pressure 65 mm[Hg] Dr. Juan Pete MD Work Phone: [facility] 05-25-2024 14:05-0500 Heart rate 81 /min Dr. Juan Pete MD Work Phone: 8(339)434-912137 [place] [address] 05-25-2024 14:05-0500 Respiratory rate 16 /min Dr. Juan Pete MD Work Phone: 4(687)642-139062 [address] 05-25-2024 14:05-0500 SaO2% (BldA) [Mass fraction] 100 % Dr. Juan Pete MD Work Phone: [facility] 05-25-2024 14:05-0500 Systolic blood pressure 101 mm[Hg] Dr. Juan Pete MD Work Phone: [facility] 05-25-2024 11:32-0500 Body mass index (BMI) [Ratio] 24.8 kg/m2 Dr. Juan Pete MD Work Phone: [facility] 05-25-2024 11:32-0500 Body weight 65.[address] Juan Pete MD Work Phone: [facility] 05-23-2024 14:00-0500 Diastolic blood pressure 64 mm[Hg] Dr. Juan Pete MD Work Phone: [facility] 05-23-2024 14:00-0500 Heart rate 83 /min Dr. Juan Pete MD Work Phone: [facility] 05-23-2024 14:00-0500 Respiratory rate 16 /min Dr. Juan Pete MD Work Phone: [facility] 05-23-2024 14:00-0500 SaO2% (BldA) [Mass fraction] 98 % Dr. Juan Pete MD Work Phone: [facility] 05-23-2024 14:00-0500 Systolic blood pressure 101 mm[Hg] Dr. Juan Pete MD Work Phone: 0(883)661-503362 [address] 05-23-2024 10:49-0500 Body mass index (BMI) [Ratio] 24.7 kg/m2 Dr. Juan Pete MD Work Phone: 2(019)019-313662 [address] 05-23-2024 10:49-0500 Body temperature 97.2 [degF] Dr. Juan Pete MD Work Phone: 8(810)044-672300 [place] [address] 05-23-2024 10:49-0500 Body weight 65.[address] Juan Pete MD Work Phone: 7(301)307-638162 [address] 05-22-2024 11:44-0500 Body mass index (BMI) [Ratio] 24.5 kg/m2 Dr. Juan Pete MD Work Phone: 4(570)039-895262 [address] 05-22-2024 11:44-0500 Body weight 64.[address] Juan Pete MD Work Phone: 1(560)463-452262 [address] 05-22-2024 11:44-0500 Diastolic blood pressure 76 mm[Hg] Dr. Juan Pete MD Work Phone: 9(927)465-192162 [address] 05-22-2024 11:44-0500 Systolic blood pressure 117 mm[Hg] Dr. Juan Pete MD Work Phone: 8(858)417-696262 [address] 05-08-2024 08:28-0500 Body mass index (BMI) [Ratio] 24.5 kg/m2 Dr. Juan Pete MD Work Phone: 7(874)260-379062 [address] 05-08-2024 08:28-0500 Body weight 64.[address] Juan Pete MD Work Phone: 4(676)244-230237 [place] [address] 05-08-2024 08:28-0500 Diastolic blood pressure 78 mm[Hg] Dr. Juan Pete MD Work Phone: [facility] 05-08-2024 08:28-0500 Systolic blood pressure 118 mm[Hg] Dr. Juan Pete MD Work Phone: [facility] 04-19-2024 10:08-0500 Body temperature 98.4 [degF] Monty Salazar MD Work Phone: [facility] 04-19-2024 10:08-0500 Body weight 62.7 kg Monty Salazar MD Work Phone: [facility] 04-19-2024 10:08-0500 Diastolic blood pressure 60 mm[Hg] Monty Salazar MD Work Phone: [facility] 04-19-2024 10:08-0500 Heart rate 98 /min Monty Salazar MD Work Phone: [facility] 04-19-2024 10:08-0500 Respiratory rate 16 /min Monty Salazar MD Work Phone: [facility] 04-19-2024 10:08-0500 SaO2% (BldA) [Mass fraction] 99 % Monty Salazar MD Work Phone: [facility] 04-19-2024 10:08-0500 Systolic blood pressure 106 mm[Hg] Monty Salazar MD Work Phone: [facility] 06-23-2022 10:14-0500 Body height 162.[address] Amrit Pete Work Phone: [facility] 06-23-2022 10:04-0500 Body mass index (BMI) [Ratio] 23 kg/m2 Dr. Amrit Pete Work Phone: [facility] 06-23-2022 10:04-0500 Body weight 60.[address] Amrit Pete Work Phone: [facility] 06-23-2022 10:04-0500 Diastolic blood pressure 68 mm[Hg] Dr. Amrit Pete Work Phone: [facility] 06-23-2022 10:04-0500 Systolic blood pressure 100 mm[Hg] Dr. Amrit Pete Work Phone: [facility] 08-13-2021 10:00-0400 Body height 162.[address] Amrit Pete Work Phone: [facility] Work Phone: 08-13-2021 10:00-0400 Body mass index (BMI) [Ratio] 23.3 kg/m2 Dr. Amrit Pete Work Phone: [facility] Work Phone: 08-13-2021 10:00-0400 Body weight 61.[address] Amrit Pete Work Phone: [facility] Work Phone: 08-13-2021 10:00-0400 Diastolic blood pressure 76 mm[Hg] Dr. Amrit Pete Work Phone: [facility] Work Phone: 08-13-2021 10:00-0400 Systolic blood pressure 110 mm[Hg] Dr. Amrit Pete Work Phone: [facility] Work Phone: Encounters Encounter Date Encounter Type Care Provider Facility Start: 12-04-2024 End: 12-04-[address] Juan Pete MD Work Phone: -[facility] Start: 12-04-2024 End: 12-04-2024 Patient encounter procedure Joanna LEWIS -[facility] Start: 12-04-2024 End: 12-04-2024 ambulatory Juan Pete Facility:[facility] Start: 11-25-2024 End: 11-26-2024 Emergency department patient visit Dr. Juan Pete MD Work Phone: -Emergency Department Work Phone: Start: 11-22-2024 End: 11-22-2024 Patient encounter procedure Joanna LEWIS -[facility] Work Phone: Start: 11-22-2024 End: 11-22-[address] Juan Pete MD Work Phone: -[facility] Start: 08-23-2024 End: 08-23-[address] Santa Dainels MD -[facility] Work Phone: Start: 08-23-2024 End: 08-23-2024 ambulatory Juan Pete Facility:[facility] Start: 08-16-2024 End: 08-16-2024 Emergency department patient visit Dr. Juan Pete MD Work Phone: -Emergency Department Work Phone: Start: 08-16-2024 Encounter for other preprocedural examination Santa Daniels [facility] Start: 08-14-2024 ambulatory Juan Mccord lity:[facility] Start: 08-14-2024 Non-patient / Non-visit Dr. Onesimo Delgadillo DO -[facility] Start: 08-14-2024 End: 08-14-2024 Emergency department patient visit Dr. Juan Pete MD Work Phone: -Emergency Department Work Phone: Start: 08-14-2024 ambulatory Juan Mccord lity:[facility] Start: 08-08-2024 End: 08-08-2024 Admission to same day surgery center Dr. Santa Daniels MD -[facility] Start: 08-08-2024 End: 08-08-[address] Juan Pete MD Work Phone: [facility] Work Phone: Start: 08-08-2024 ambulatory Juan Mccord lity:[facility] Start: 08-08-2024 Non-patient / Non-visit Dr. Dima Daniels MD -[facility] Start: 08-02-2024 ambulatory Juan Pete Faci lity:[facility] Start: 07-19-2024 End: 07-19-[address] Santa Daniels MD -[facility] Work Phone: Start: 07-19-2024 End: 07-19-2024 ambulatory Juan Pete Facility:[facility] Start: 07-18-2024 End: 07-18-[address] Juan Pete MD Work Phone: [facility] Work Phone: Start: 07-18-2024 End: 07-18-[address] Santa Daniels MD -[facility] [place], [facility] Work Phone: Start: 07-18-2024 End: 07-18-[address] Juan Pete MD Work Phone: [facility] Work Phone: Start: 07-18-2024 End: 07-18-[address] Santa Daniels MD -Laboratory Work Phone: Start: 07-17-2024 End: 07-17-[address] Zuleyka Delgadillo DO -[facility] Work Phone: Start: 07-17-2024 End: 07-18-2024 ambulatory Juan Pete Facility:[facility] Start: 07-14-2024 End: 07-14-2024 Emergency department patient visit Dr. Agustín Viramontes MD -Emergency Department Work Phone: Start: 07-05-2024 End: 07-05-2024 Patient encounter procedure Margarita Camejo [employer] -Laboratory Work Phone: Start: 07-05-2024 End: 07-05-2024 ambulatory Margarita Camejo [employer] TE[employer]ER Facility:[facility] Start: 06-29-2024 End: 06-29-2024 Patient encounter procedure Margarita Camejo [employer] TE[employer] -Laboratory Work Phone: Start: 06-29-2024 End: 06-29-2024 ambulatory Margarita Camejo [employer] TE[employer]ER Facility:[facility] Start: 06-22-2024 Registered [employer] -Employee Health Start: 06-22-2024 Registered Referred [employer] RISK ASSE [employer] -Employee Health Start: 06-22-2024 ambulatory Health Risk Assessment Facility:[facility] Start: 06-22-2024 End: 06-22-[address] Zuleyka Jackson Work Phone: Start: 06-22-2024 End: 06-22-2024 ambulatory [facility] Facility:[facility] Start: 06-15-2024 End: 06-15-[address] Zuleyka Cooley, [facility] Start: 06-15-2024 End: 06-15-2024 ambulatory [facility] Facility:[facility] Start: 06-07-2024 End: 06-07-[address] Zuleyka Delgadillo DO -[facility] Work Phone: Start: 06-07-2024 End: 06-07-2024 ambulatory [facility] Facility:[facility] Start: 06-05-2024 End: 06-05-2024 Patient encounter procedure Brenda MCCALL Work Phone: [facility] Comment on above: Sore throat (Primary Dx); Lymphadenopathy, cervical Start: 06-05-2024 End: 06-05-2024 ambulatory JUAN PETE Facility:[facility] Start: 06-01-2024 End: 06-01-[address] Zuleyka Delgadillo DO [facility] Work Phone: Start: 06-01-2024 End: 06-01-2024 ambulatory Juan Pete Facility:[facility] Start: 05-25-2024 ambulatory [place] Yanci Faci lity:[facility] Start: 05-25-2024 Non-patient / Non-visit Dr. Onesimo Delgadillo DO [facility] Start: 05-25-2024 End: 05-25-2024 Admission to same day surgery center Dr. Zuleyka Delgadillo DO -[facility] Start: 05-25-2024 End: 05-25-2024 ambulatory Zuleyka Delgadillo Facility:[facility] Start: 05-23-2024 End: 05-23-2024 Emergency department patient visit Dr. James Kerr DO -Emergency Department Work Phone: Start: 05-22-2024 End: 05-22-[address] Zuleyka Delgadillo DO -[facility] Work Phone: Start: 05-22-2024 End: 05-22-2024 ambulatory Juan Pete Facility:[facility] Start: 05-08-2024 End: 05-08-[address] Santa Daniels MD -[facility] Start: 05-08-2024 End: 05-08-[address] Santa Daniels MD -[facility] Work Phone: Start: 05-08-2024 End: 05-08-2024 ambulatory Juan Pete Facility:[facility] Start: 05-08-2024 End: 05-08-2024 ambulatory Juan Pete Facility:[facility] Start: 04-19-2024 End: 04-19-2024 ambulatory JUAN PETE Facility:[facility] Start: 04-19-2024 End: 04-19-2024 Patient encounter procedure Monty Salazar MD Work Phone: [facility] Comment on above: Tonsillitis (Primary Dx) Start: 07-07-2023 End: 07-07-2023 Emergency department patient visit DAVIS REBOLLEDO [facility] Start: 06-23-2022 End: 06-23-[address] Amrit Pete Work Phone: [facility] Work Phone: Start: 06-23-2022 End: 06-23-[address] Amrit Pete Work Phone: [facility] Start: 08-13-2021 End: 08-13-[address] Amrit Pete Work Phone: [facility] Start: 08-13-2021 End: 08-13-[address] Amrit Pete Work Phone: [facility]-Laboratory, Specimen Start: 08-16-2017 End: 08-17-2017 Ambulatory [facility] [place] Procedures Date Procedure Procedure Detail Performing Clinician Start: 11-26-2024 Urnls dip stick/tablet reagent auto microscopy Dr. Juan Pete MD Work Phone: Start: 11-25-[address] Juan Pete MD Work Phone: Start: 08-16-2024 Computed tomography of abdomen and pelvis with intravenous contrast Dr. Juan Pete MD Work Phone: Start: 08-16-2024 CT of soft tissues of neck with contrast Dr. Juan Pete MD Work Phone: Start: 08-16-2024 Methadone measurement, urine Dr. Juan Pete MD Work Phone: Start: 08-16-2024 Urnls dip stick/tablet reagent auto microscopy Dr. Juan Pete MD Work Phone: Start: 08-16-[address] Juan Pete MD Work Phone: Start: 08-16-2024 X-ray of chest, PA and lateral views Dr. Juan Pete MD Work Phone: Start: 08-16-[address] Juan nichole MD Work Phone: Start: 08-16-[address] Juan nichole MD Work Phone: Start: 08-16-[address] Juan nichole MD Work Phone: Start: 08-14-2024 Urnls dip stick/tablet reagent auto microscopy Dr. Juan Pete MD Work Phone: Start: 08-14-2024 SARS-CoV-2, Influenza & RSV (PCR) Dr. Juan Pete MD Work Phone: Start: 08-14-2024 Streptococcus pyogenes rRNA assay Dr. Juan Pete MD Work Phone: Start: 08-14-[address] Juan Pete MD Work Phone: Start: 08-14-[address] Juan Pete MD Work Phone: Start: 08-08-[address] Juan nichole MD Work Phone: Start: 07-18-[address] Juan nichole MD Work Phone: Start: 06-05-2024 STREP A MOLECULAR (POC) Aliya RIDDLE RN.FRAME SAMPLE AND PATTERN SUPERVISOR Work Phone: Start: 05-25-[address] Juan nichole MD Work Phone: Start: 05-23-[address] Juan Pete MD Work Phone: Start: 05-08-[address] Juan nichole MD Work Phone: Start: 04-19-2024 STREP A MOLECULAR (POC) Monty Salazar MD Work Phone: H/O: surgery Status post dila tion and curettage Dr. Juan Pete MD Work Phone: H/O: surgery Status post dila tion and curettage Dr. Zuleyka Delgadillo DO H/O: surgery Status post dila tion and curettage Dr. Zuleyka Delgadillo DO H/O: surgery Status post dila tion and curettage Joanna Rodriguez [employer]ER[employer] Plan of Treatment Date Care Activity Detail Author Start: 11-26-2024 [facility] Start: 08-16-2024 End: 08-16-2024 [facility] Start: 08-16-2024 Taking nasal swab [facility] Start: 08-16-2024 End: 08-16-2024 [facility] Start: 08-16-2024 Bacteria identified in Blood by Culture Blood Culture [facility] Start: 08-16-2024 Bacteria identified in Urine by Culture Urine Culture [facility] Start: 08-16-2024 Respiratory Panel (PCR) Respiratory Panel (PCR) [facility] Start: 08-14-2024 End: 08-14-2024 [facility] Start: 08-14-2024 SARS-CoV-2, Influenz a & RSV (PCR) SARS-CoV-2, Influenza & RSV (PCR) [facility] Start: 08-08-[address] [facility] Start: 08-08-2024 Medical regimen orde rs management [facility] Start: 08-08-2024 Medication education [facility] Start: 08-08-2024 Patient discharge [facility] Start: 08-08-[address] [facility] Start: 08-08-2024 Taking patient vital signs [facility] Start: 08-08-[address] [facility] Start: 08-08-2024 [facility] Start: 08-08-2024 Anes hysteroscopy&/hysterosal pingography w/bx ANESTH HYSTEROSCOPE/GRAPH [facility] Start: 08-08-2024 Hysteroscopy bx endometrium&/polypc w/wo d&c HYSTEROSCOPY BIOPSY [facility] Start: 07-14-2024 [facility] Start: 06-05-2024 End: 09-04-2024 Heterophile Ab [Presence] in Serum by Latex agglutination MONOTEST, INFECTIOUS MONO Lab Routine Sore throat Lymphadenopathy, cervical Expected: 06/05/2024, Expires: 09/04/2024 [facility] Work Phone: Comment on above: Expected: 06/05/2024 , Expires: 09/04/2024 Start: 05-25-2024 Anesthesia incomplete/missed ANES INCOMPL/MISSED AB PX [facility] Start: 05-25-2024 Tx incomplete aborti on any trimester surgical TREATMENT OF MISCARRIAGE [facility] Start: 05-25-[address] [facility] Start: 05-25-2024 Medical regimen orde rs management [facility] Start: 05-25-2024 Medication education [facility] Start: 05-25-2024 Patient discharge [facility] Start: 05-25-[address] [facility] Start: 05-25-[address] vital signs [facility] Start: 05-25-[address] [facility] Start: 05-25-2024 [facility] Start: 05-23-2024 [facility] Start: 01-23-2024 Covid-19 Vaccine ( season) Covid-19 Vaccine () [facility] Start: 01-23-2024 Influenza vaccination Influenza Vacc ine (#1) [facility] Start: 2022 Screening for malign ant neoplasm of cervix Cervical Cancer Screening [facility] Start: 2020 Hepatitis B Vaccine (1 of 3 - 19+ 3-dose series) Hepatitis B Vaccine (1 of 3 - 19+ 3-dose series) [facility] Start: 2020 Urine microalbumin profile DTaP,Tdap,Td Vaccine (1 - Tdap) [facility] Start: 09-08-2019 Anxiety Screening Anxiety Screening [facility] Start: 09-08-2019 Depression Screening Depression Scre ening [facility] Start: 09-08-2019 GC (Gonorrhea) Scree skye (18-24) GC (Gonorrhea) Screening (18-) [facility] Start: 09-08-2019 Screening for Chlamy april trachomatis Chlamydia Screening (18) [facility] Start: 2017 Meningococcal B Vacc ine: Consider Based On Risk (1 of 2 - Patient Seeks Protection) Meningococcal B Vaccine: Consider Based On Risk (1 of 2 - Patient Seeks Protection) [facility] Start: 2016 HPV Vaccine (1 - 3-d ose series) HPV Vaccine (1 - 3-dose series) [facility] Start: 09-08-2015 Peds To Adult Transi tion Annual Assessment Peds To Adult Transition Annual Assessment [facility] Start: 2013 Peds To Adult Transi tion Initial Discussion Peds To Adult Transition Initial Discussion [facility] Patient Education [facility] Work Phone: Patient referral [facility] Work Phone: Respiratory pathogen s DNA and RNA panel - Respiratory specimen by JIMBO with probe detection [facility] Serum progesterone measurement [facility] Troponin T.cardiac [Mass/volume] in Serum or Plasma by High sensitivity method [facility] Urine culture [facility] Immunizations Immunization Date Immunization Notes Care Provider Fa cility 06-22-2024 influenza, seasonal, injectable, preservative free Dr. Juan Pete MD Work Phone: [facility] 01-11-2014 tetanus toxoid, reduced diphtheria toxoid, and acellular pertussis vaccine, adsorbed Dr. Juan Pete MD Work Phone: [facility] 01-11-[address] Juan Pete MD Work Phone: [facility] 12-20-2006 hepatitis B vaccine, pediatric or pediatric/adolescent dosage Dr. Juan Pete MD Work Phone: [facility] 12-20-2006 measles, mumps and rubella virus vaccine Dr. Juan Pete MD Work Phone: [facility] 11-07-2002 measles, mumps and rubella virus vaccine Dr. Juan Pete MD Work Phone: [facility] 11-07-[address] Juan Pete MD Work Phone: [facility] 03-16-2002 hepatitis B vaccine, pediatric or pediatric/adolescent dosage Dr. Juan Pete MD Work Phone: [facility] 2001 hepatitis B vaccine, pediatric or pediatric/adolescent dosage Dr. Juan Pete MD Work Phone: [facility] 2001 hepatitis B vaccine, pediatric or pediatric/adolescent dosage Dr. Juan Pete MD Work Phone: [facility] Payers Date Payer Category Payer Unknown [id number] 2024 Self-pay [id number] 2024 Unknown [employer] PPO [id number] 2024-Present [phone] [address] [place] [address] PPO [id number] 2024 Unknown [id number] 2011 Unknown [id number] 2001 Unknown [id number] 2.16.840.1.247945.3.579.2.651 Unknown [id number] Unknown [id number] Unknown [id number] 2.16.840.1.184973.3.579.2.462 Unknown [id number] 2.16.840.1.233337.3.579.2.462 Unknown [id number] 2.16.840.1.783707.3.579.2.462 Unknown [id number] 2.16.840.1.901211.3.579.2.462 Unknown [id number] 2.16.840.1.160353.3.579.2.462 Unknown [id number] 2.16.840.1.563907.3.579.2.462 Unknown [id number] 2.16.840.1.554840.3.579.2.462 Unknown [id number] 2.16.840.1.168150.3.579.2.462 Unknown [id number] 2.16.840.1.699721.3.579.2.462 Unknown [id number] 2.16.840.1.844941.3.579.2.462 Unknown [id number] 2.16.840.1.914128.3.579.2.462 Unknown [id number] 2.16.840.1.029219.3.579.2.462 Unknown [id number] 2.16.840.1.429343.3.579.2.462 Unknown [id number] 2.16.840.1.940035.3.579.2.462 Unknown [id number] 2.16.840.1.522400.3.579.2.462 Unknown [id number] 2.16840.1.370491.3.579.2.462 Unknown [id number] 2.840.1.620877.3.579.2.462 Unknown [id number] 2.16.840.1.269726.3.579.2.462 Unknown [id number] 2.840.1.975029.3.579.2.462 Unknown [id number] 2.16840.1.347794.3.579.2.462 Unknown [id number] 2.840.1.101107.3.579.2.462 Unknown [id number] 2.16.840.1.096362.3.579.2.462 Unknown [id number] 2.16.840.1.891649.3.579.2.462 Unknown [id number] 2.16.840.1.381949.3.579.2.462 Unknown [id number] 2.16.840.1.605870.3.579.2.462 Unknown [id number] 2.16.840.1.240780.3.579.2.462 Unknown [id number] 2.16.840.1.905942.3.579.2.462 Unknown [id number] 2.16.840.1.518481.3.579.2.462 Unknown [id number] 2.16.840.1.011563.3.579.2.462 Unknown [id number] 2.16.840.1.588584.3.579.2.462 Unknown [id number] 2.840.1.108913.3.579.2.462 Social History Date Type Detail Facility Start: 08-13-2021 End: 06-23-2022 Tobacco smoking status SCIS Unknown if ever smoked [facility] Start: 2001 Sex Assigned At Female [facility] Start: 2001 Sex assigned at Not on file [facility] Start: 06-05-2024 Gender identity Not on file [facility] Start: 06-05-2024 End: 11-25-2024 Tobacco smoking status NHIS Never smoked tobacco [facility] Start: 06-05-2024 Tobacco use and exposure Smokeless tobacco non-user [facility] Start: 06-05-2024 History of Social function [facility] Start: 07-30-2024 End: 08-16-2024 Sex Female (finding) [facility] NEGATED: Highlighted row Not [facility] Goals Date Patient Goal Desired Activity /State Functional Status Date Assessment Result Facility 05-25-2024 Functional status Patient Activity Ambula lang [facility] Work Phone: Mental Status Date Assessment Result Facility 08-14-2024 Cognitive function Level Of Cons ciousness Awake;Alert;Appropriate;Follow s Commands [facility] Work Phone: 08-08-2024 Cognitive function Level Of Cons ciousness Follows Commands;Drowsy [facility] Work Phone: 08-08-2024 Cognitive function Voice/Name [facility] Work Phone: 05-25-2024 Cognitive function Level Of Cons ciousness Awake;Alert;Appropriate [facility] Work Phone: 05-25-2024 Cognitive function Voice/Name [facility] Work Phone: Clinical Notes 04-19-2024 to 11-26-2024 Note Date & Type Note Facility 11-26-[address] [facility] 11-25-2024 Discharge summary Note Date/Time November 26, 2024 1:36am [facility] Medical Records Department [address] [place] [address] Emergency Department Summary 11/25/24 MR#: [id number] Acct: [id number] Name: SMITA SRINIVASAN Rep #:[id number] : 2000 24 From: Marck Soria PCP: Dr. Juan Pete MD Status :REG ER Location: ED HPI History of Present Illness Chief Complaint: Nausea/Vomiting PFSH PFSH Medical History Anemia Seasonal allergies Menorrhagia with regular cycle Anxiety Home Medications ?Medication ?Instructions ?Recorded ?Last Taken ?Type multivitamin no.47-iron fum 27 1 cap PO DAILY 05/02/24 08/15/24 History mg-folate no.1 1 mg-dha 300 mg capsule (PNV-DHA) ondansetron 4 mg disintegrating 4 mg PO Q8H PRN PRN Na usea #10 tabs 11/26/24 Unknown Rx tablet Allergy/AdvReac Type Severity Reaction Status Date / Time No Known Allergies Allergy Verified 11/25/24 22:46 Family History Grandfather Heart disease Leukemia Father Heart disease Grandmother Cancer, Onset Age: 62 Maternal- Skin cancer Mother Breast cancer, Onset Age: 46 genetic Surgical History H/O dilation and curettage History of oral surgery Social History adopted: No household members: significant other current occupational status: employed 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 pets and animals: Yes (Avoid litterbox) pets and animals: cat(s) history of recent travel: No sexually active: Yes Smoking Status: Never smoker alcohol intake: never substance use type: does not use diet: gluten free well-balanced diet: daily or most days caffeine: No eating out: rarely or never during the past year weight has: remained stable what type of physical activity do you participate in: walking frequency: 1-2 times per week duration: 30-45 minutes/day maryanne/zoroastrian: None seatbelt use: always do you feel safe at home: Yes additional social history: Jennifer- Chris Srinivasan- tufter hand EXAM Physical Exam Const Vital Signs: 11/25/24 22:44 11/26/24 01:00 11/26/24 01:00 Temperature 98 F 98.2 F Temperature Source Oral Pulse Rate 115 H 86 86 Respiratory Rate 20 H 18 18 Blood Pressure 113/77 104/72 104/72 Blood Pressure Mean 89 82 82 Pulse Ox 100 99 99 Oxygen Delivery Method Room Air Room Air [facility] Narrative Medical decision making narrative: HISTORY OF PRESENT ILLNESS: Chief complaint: Nausea vomiting 24-year-old female presents with 24 hours of nausea vomiting. She thinks it could be from the flu or potentially from a piece of moldy Congolese bread that she ate. REVIEW OF SYSTEMS: Pertinent positives: Nausea, vomiting, dysuria, diarrhea Pertinent negatives: Melena, hematochezia, abdominal pain, palpitations PHYSICAL EXAM: Nursing triage notes reviewed, Vital signs reviewed Constitutional: please see [facility] HENT: MMM Eyes: Pupils equal round and reactive to light, Extraocular muscles intact Neck: No stridor, no JVD, full neck ROM Lungs: Clear to auscultation, No wheezing or rales. No increased work of breathing, no conversational dyspnea, no accessory muscle use, no nasal flaring. No respiratory distress noted Heart: Regular rate and rhythm, No murmurs, No rubs and No gallops, 2+ distal pulses (radial, femoral, posterior tibial) in all extremities Abdomen: Soft, there is no tenderness, rigidity, rebound or guarding, no obviousperitoneal signs, no palpable pulsatile abdominal masses, no auscultated abdominal bruit : No CVAT Extremities: No edema Neuro: No new focal neurological deficits, cranial nerves II through XII intact,5/5 strength in all present extremities. Intact sensation to light touch in all present extremities, 2+ reflexes bilateral patella tendons. Skin: No rash or lesions noted MEDICAL DECISION MAKING: Chief Complaint: please see [facility] External records reviewed: Reviewed prior imaging studies: Reviewed CT scan abdomen pelvis from 2024 which showed no acute process Factors affecting care: Fever of unknown origin Social determinants of health: n denies drug use History obtained from others: Consults: none [facility] Narrative: The patient was initially tachycardic with heart rate 115 otherwise afebrile andnontoxic-appearing. Abdominal exam was benign. I considered the following differential diagnosis: [Foodborne illness, dehydration, electrolyte disturbance, acute kidney injury I obtained a broad lab evaluation to further determine if the patient was suffering from a life-threatening etiology. Initially resuscitated patient with 1 L normal saline and Zofran. ALL IMAGES (IF OBTAINED) HAVE BEEN PERSONALLY REVIEWED AND INTERPRETED BY MYSELF. CBC with no leukocytosis, mild anemia, no thrombocytopenia CMP with no significant Orla abnormalities, there is noted to be mild decrease in bicarb consistent metabolic acidosis likely secondary to NAGMA from nausea and vomiting. No anion gap to suggest endorgan hypoperfusion LFTs show no evidence of hepatobiliary pathology. Lipase is wnl indicating no pancreatic inflammation. Urine shows signs of dehydration and poor glucose equalization with ketonuria but no UTI Urine test Patient was tolerating p.o. Vital signs improved heart rate improved to 86. She is appropriate discharge home with Zofran likely foodborne illness. Strict return precautions discussed. The patient and/or family, caregivers express understanding. The patient and/or family, caregivers agrees with the plan. Shared decision making: I will have a discussion with the patient and or visitors regarding risk/benefits of further testing or admission. They will be made aware of of the risk/benefits inherent in this decision they will be given the opportunity to voice understanding. Total critical care time today provided was at least 0 minutes. This excludes separately billable procedures. Critical care time (if documented) is secondary to the patient having high probability of clinically significant/life threatening deterioration in the patient's condition which required my urgent intervention. Impression: 1. Nausea vomiting 2. Dehydration Dispo: Discharge home This note was generated with Stealth[employer] software. It may contain incorrect words, spelling, and punctuation that were not noted in review of the chart prior to signing. Lab Data Labs: Laboratory Results - last 24 hr 11/25/24 11/26/24 23:26 00:00 WBC 6.3 RBC 3.91 L Hgb 10.4 L Hct 32.4 L MCV 82.9 MCH 26.6 L MCHC 32.1 RDW Std Deviation 42.7 RDW Coeff of Lisandro 14.3 Plt Count 312 MPV 11.1 Immature Gran % (Auto) 0.500 Neut % (Auto) 83.0 H Lymph % (Auto) 8.3 L [place] % (Auto) 7.8 Eos % (Auto) 0.2 Baso % (Auto) 0.2 Absolute Neuts (auto) 5.2 Absolute Lymphs (auto) 0.52 L Nucleated RBC % 0 Sodium 137 Potassium 3.8 Chloride 104 Carbon Dioxide 19.7 L Anion Gap 13 BUN 12 Creatinine 0.72 Estim Creat Clear Calc 104.94 Est GFR (MDRD) Non-Af 121 BUN/Creatinine Ratio 16.6 Glucose 82 Calcium 8.7 Total Bilirubin 0.64 AST 19 ALT 10 Alkaline Phosphatase 47 Total Protein 6.5 Albumin 4.2 Globulin 2.3 Albumin/Globulin Ratio 1.8 Lipase 11 L Urine Color Yellow Urine Clarity Clear Urine pH 6.0 Ur Specific [place] 1.025 Urine Protein 30 H Urine Glucose (UA) Normal Urine Ketones 150 A* Urine Occult Blood Negative Urine Nitrite Negative Urine Bilirubin Negative Urine Urobilinogen Normal Ur Leukocyte Esterase 25 H Urine RBC 0 SEEN Urine WBC 0-5 SEEN Ur Squamous Epith Cells 5-10 SEEN Urine Bacteria 1+ Urine Mucus 1+ Urine Test Negative Discharge Plan Triage Chief Complaint: Nausea/Vomiting ED Provider: Marck Galeana Dx/Rx/DC Orders Instructions: ED Vomiting (Adult) Prescriptions: New ondansetron 4 mg tablet,disintegrating 4 mg PO Q8H PRN PRN (Reason: Nausea) Qty: 10 0RF No Action PNV-DHA 27 mg iron-1 mg -300 mg capsule 1 cap PO DAILY Primary Care Provider: Juan Pete Referrals: Juan Pete MD [Primary Care Provider] - Activity Restrictions/Additional Instructions: Thank you for trusting us with your care today! Your presentation is consistent with likely foodborne illness. Your labs are reassuring. Please take Tylenol (2 pills, 650 mg), ibuprofen (2 pills, 400 mg) every 6 hoursas needed for pain and fever control. Please take Zofran as needed for nausea vomiting control. Please return to the emergency department if your symptoms change or worsen. Please follow with your primary care physician for further outpatient evaluationand management. Print Language: Wallisian Disposition Disposition: Home, Self Care What to do if you have Problems For any increased pain, shortness of breath, bleeding, nausea or vomiting, chestpain, or any unexpected problems, contact your Primary Care Provider. Call [facility] ([phone]) or report to the closest Emergency Room. Call 911 if necessary. 11/26/24 0136 <Electronically signed by Marck Galeana DO> Cosigner Signature (if applicable): CC: Dr. Juan Pete MD ~ Signed [facility] Work Phone: 1(383) 306-286904-02-2025 Evaluation note* Diagnosis Onset Date Resolution Status Admit Date Dysfunctional uterine bleeding acute August 23, 2024 8:56am Infertility management acute 2024 1:58pm Status post dilation and curettage acute November 22, 2024 1 :58pm [facility] Work Phone: 1(217) 610-521603-26-2025 Discharge summary [facility] Medical Records Department [address] [place] [address] Emergency Department Summary 08/16/24 MR#: [id number] Acct: [id number] Name: SMITA SRINIVASAN Rep #:[id number] : 2000 23 From: Rashad Collier DO PCP: Dr. Juan Pete MD Status :REG ER Location: ED HPI History of Present Illness Chief Complaint: Fever Narrative Narrative: Patient is a 23-year-old female with past medical history anxiety, anemia who presents to the emergency department the chief complaint of high fevers. Patient states that back in May she had a D&C for a miscarriage and then again recently she had been taken back to the operating room for a another D&C. She states that she was placed on doxycycline recently and has been taking that as w ell for concern of white spots on the back of her throat. She states that despite rotating Tylenol and ibuprofen [id number] she is still running high fevers. Patient overall has no other complaints at this point time. Patient denies any sick contacts. Patient denies any history of smoking, alcohol use, drug use. [facility] Medical History Anemia Seasonal allergies Menorrhagia with regular cycle Anxiety Home Medications ?Medication ?Instructions ?Recorded ?Last Taken ?Type multivitamin no.47-iron fum 27 1 cap PO DAILY 05/02/24 08/15/24 History mg-folate no.1 1 mg-dha 300 mg capsule (PNV-DHA) acetaminophen 500 mg tablet 1,000 mg PO Q6H PRN fever or pain 08/14/24 08/16/24 History (Acetaminophen Extra Strength) doxycycline monohydrate 100 mg 100 mg PO BID 7 days #1 4 caps 08/14/24 08/16/24 Rx capsule ibuprofen 200 mg tablet 600 mg PO Q6H PRN fever or p ain 08/14/24 08/16/24 History Allergy/AdvReac Type Severity Reaction Status Date / Time No Known Allergies Allergy Verified 08/14/24 12:53 Family History Grandfather Heart disease Leukemia Father Heart disease Grandmother Cancer, Onset Age: 62 Maternal- Skin cancer Mother Breast cancer, Onset Age: 46 genetic Surgical History H/O dilation and curettage History of oral surgery Social History adopted: No household members: significant other current occupational status: employed 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 pets and animals: Yes (Avoid litterbox) pets and animals: cat(s) history of recent travel: No sexually active: Yes Smoking Status: Never smoker alcohol intake: never substance use type: does not use diet: gluten free well-balanced diet: daily or most days caffeine: No eating out: rarely or never during the past year weight has: remained stable what type of physical activity do you participate in: walking frequency: 1-2 times per week duration: 30-45 minutes/day maryanne/zoroastrian: None seatbelt use: always do you feel safe at home: Yes additional social history: Jennifer- Chris Sextonan- tufter hand ROS ROS ED ROS Narrative Constitutional: Complains of fever as noted above denies headache, lightness, dizziness Eyes: She has resolved blurry vision Cardiovascular: Chest pain or palpitations Respiratory: Denies coughing wheezing shortness of breath Abdomen: Denies abdominal pain nausea vomit diarrhea : Denies urinary symptoms denies vaginal discharge denies any possibility of retained tampons Neurological: Denies numbness, weakness, tingling Skin: Denies rashes or lesions EXAM Physical Exam Narrative Exam Narrative: General: Patient is a 23-year-old female who presented to the emerged part with chief complaint of elevated fever despite rotating Tylenol and I Profen [id number] as well as on doxycycline Head: Atraumatic, normocephalic Eyes, ears, nose, throat: PERRL bilateral, EOMI bilateral, no conjunctival injection noted, uvula midline, patient does have some white dots on her tonsilsposteriorly however no concern for peritonsillar abscess Neck: Soft, supple, trachea midline Cardiovascular: Regular rate and rhythm no murmurs gallops rubs noted Respiratory: Clear to auscultation bilaterally Abdomen: Soft, nondistended, nontender to palpation Musculoskeletal: No tenderness palpation the midline of the cervical, thoracolumbar spines Extremities: +5/5 strength noted the bilateral upper and lower extremities Neurological: Patient follow commands and that she was at [facility] year is 2024. Sensation grossly intact NIH of 0 GCS 15 Skin: Warm, dry, intact no rashes or lesions noted no petechia no purpura noted Const Vital Signs: 08/16/24 14:49 08/16/24 14:49 08/16/24 14:49 Temperature 100.8 F H Temperature Source Oral Pulse Rate 131 H 120 H Respiratory Rate 20 H Respiratory Effort Normal Non-Labored Respiratory Pattern Normal Blood Pressure 116/76 Blood Pressure Mean 89 Pulse Ox 98 Oxygen Delivery Method Room Air 08/16/24 15:37 08/16/24 15:37 08/16/24 16:00 Temperature 99.3 F H 98.7 F Temperature Source Oral Oral Pulse Rate 100 100 Respiratory Rate 19 H 19 H Respiratory Effort Respiratory Pattern Blood Pressure 107/71 107/67 Blood Pressure Mean 83 80 Pulse Ox 100 100 Oxygen Delivery Method Room Air Room Air Room Air 08/16/24 17:00 Temperature 98.3 F Temperature Source Oral Pulse Rate 91 Respiratory Rate 20 H Respiratory Effort Respiratory Pattern Blood Pressure 103/72 Blood Pressure Mean 82 Pulse Ox 100 Oxygen Delivery Method Room Air MDM MDM MDM Narrative Medical decision making narrative: Patient is a 23-year-old female who presented to the emerged part with chief complaint of being febrile despite rotating Tylenol and ibuprofen [id number] every 3 hours while on doxycycline withrecent repeat D&C. On the differential diagnose includes but not limited to retained foreign body in the vagina however she denies any tampon use since her original D&C just using pads, peritonsillar abscess, retropharyngeal abscess although clinically have low suspicion for these, intra-abdominal abscess. Once workup is obtained reviewed she will be reevaluated. Patient be given 30 cc/kgbolus of IV fluids these were ordered at 1510. Patient CBC was reviewed and showed no evidence leukocytosis white blood count 4.7, hemoglobin 10.1, platelet count was noted be 277. Patient's INR 1.1, PT of14.4. Patient sodium normal 137, potassium 3.5, creatinine normal at 0.57. Patient lactic acid was normal at 1.1, AST and ALT were 31 and 13 respectively. Patient's troponin was noted to be less than 6, EKG reviewed and showed sinus tachycardia the rate of 101 bpm with a MI interval of 126. Patient's urinalysisshowed 150 occult blood, negative nitrites negative leukocyte esterase 0-5 whitecells with 1+ bacteria drug screen is pending. Patient's chest x-ray today reviewed by myself by radiology showed no acute cardiopulmonary processes. Patient's CT soft tissue neck showed acute pharyngitis involving the lingual tonsils with mild narrowing of the oropharyngeal airway. No significant adenopathy noted. Patient's CT abdomen pelvis IV contrast showed no acute processes in the abdomen or pelvis findings consistent with pelvic congestion syndrome. I did add on a full respiratory panel at this point in time. Patient is nontoxic in appearance. I called and spoke with on-call COMPUTER NET[employer] SYSTEM[employer] ENGINEER Dr. Church who states that from her standpoint she does not believe that this is related to her D&C and I agree as she has no abdominal pain whatsoever on exam. Her vital signs after treating her fever have normalized her heart rate improved to a rate of 91 bpm 100% on room air. Discussed results with the patient and mother at bedside. Mother now notes thatparish has presented 2 times in the past with very similar symptoms with viral pharyngitis and they state they have not followed up with the ears nose and throat. I advised them that I have low suspicion that her blood cultures will be positive however I notified them that if this is the case they will be calledto return for IV antibiotics at this point time. At this point, I have very lowsuspicion for pulmonary embolism as she has no shortness of breath with exertionno history of blood clots either. She was encouraged to follow-up with her primary care physician in the outpatient setting as well as the ears nose and throat team. She is advised to continue supportive care with rotating Tylenol and ibuprofen [id number] and notified her that hopefully in approximately the next 3 to 4 days her symptoms will resolve. I notified her that sometimes viruses cause high fevers for a significant amount of time. She is agreeable this plan as well as mother at bedside all question concerns answered she was discharged home in stable condition. Lab Data Labs: Laboratory Results - last 24 hr 08/16/24 08/16/24 08/16/24 15:22 15:23 15:49 WBC 4.7 RBC 3.40 L Hgb 10.1 L Hct 30.1 L MCV 88.5 MCH 29.7 MCHC 33.6 RDW Std Deviation 39.3 RDW Coeff of Lisandro 12.2 Plt Count 277 MPV 10.4 Immature Gran % (Auto) 0.600 Neut % (Auto) 76.3 H Lymph % (Auto) 10.1 L [place] % (Auto) 12.4 H Eos % (Auto) 0.2 Baso % (Auto) 0.4 Absolute Neuts (auto) 3.6 Absolute Lymphs (auto) 0.47 L Nucleated RBC % 0 PT 14.4 INR 1.1 APTT 37.6 H Sodium 137 Potassium 3.5 Chloride 105 Carbon Dioxide 20.2 L Anion Gap 12 BUN 6 Creatinine 0.57 L Estim Creat Clear Calc 133.68 Est GFR (MDRD) Non-Af 132 BUN/Creatinine Ratio 10.1 Glucose 98 Lactic Acid 1.1 Calcium 8.9 Total Bilirubin 0.30 AST 31 ALT 13 Alkaline Phosphatase 58 Troponin T High Sens < 6 Total Protein 6.8 Albumin 3.8 Globulin 3.0 Albumin/Globulin Ratio 1.2 Urine Color Yellow Urine Clarity Clear Urine pH 7.0 Ur Specific [place] 1.010 Urine Protein 15 H Urine Glucose (UA) Normal Urine Ketones 15 H Urine Occult Blood 150 H Urine Nitrite Negative Urine Bilirubin Negative Urine Urobilinogen Normal Ur Leukocyte Esterase Negative Urine RBC 5-10 SEEN Urine WBC 0-5 SEEN Ur Squamous Epith Cells 0-5 SEEN Urine Bacteria 1+ Urine Mucus 0 SEEN Radiography Diagnostic Testing: Clinical Impression(s) from Imaging Studies Chest X-Ray 08/16/24 15:08 IMPRESSION: NO ACUTE FINDINGS. Reading Location: [facility] Abdomen/Pelvis CT 08/16/24 15:50 IMPRESSION: No acute process in the abdomen or pelvis. Findings concerning for pelvic congestion syndrome. Reading Location: [facility] Soft Tissue Neck CT 08/16/24 15:50 IMPRESSION: Acute pharyngitis involving the lingual tonsils with mild narrowing of the oropharyngeal airway. No significant adenopathy. Reading Location: [facility] Discharge Plan Triage Chief Complaint: Fever ED Provider: Rashad Collier Dx/Rx/DC Orders Clinical Impression: Fever, Acute viral pharyngitis Prescriptions: No Action PNV-DHA 27 mg iron-1 mg -300 mg capsule 1 cap PO DAILY acetaminophen [Acetaminophen Extra Strength] 500 mg tablet 1,000 mg PO Q6H PRN (Reason: fever or pain) Patient Comments: PT STATES SHE TAKES EVERY 3 HOURS. doxycycline monohydrate 100 mg capsule 100 mg PO BID 7 Days Qty: 14 0RF ibuprofen 200 mg tablet 600 mg PO Q6H PRN (Reason: fever or pain) Patient Comments: PT STATES SHE TAKES EVERY 3 HOURS. Primary Care Provider: Juan Pete Referrals: Juan Pete MD [Primary Care Provider] - Activity Restrictions/Additional Instructions: Follow-up on your respiratory panel with your family doctor. If your blood cultures are positive you will be called to return to the hospital for IV antibiotics however at this point time once again I have low suspicion for this as your blood work is normal here in the emergency department with normal CAT scans. Continue to rotate Tylenol and ibuprofen [id number] for fever control and continue supportive care. Return with any other concerns. Print Language: Wallisian Disposition Disposition: Home, Self Care What to do if you have Problems For any increased pain, shortness of breath, bleeding, nausea or vomiting, chestpain, or any unexpected problems, contact your Primary Care Provider. Call [facility] ([phone]) or report tothe closest Emergency Room. Call 911 if necessary. 08/16/24 1718 Cosigner Signature (if applicable): CC: Dr. Juan Pete MD ~ Signed [facility]03-26-2025 Radiology Diagnostic study note [facility] Imaging Services [address] [place] [address] Abdomen/Pelvis W IV Cont ONLY MR#: [id number] Acct: [id number] Name: SMITA SRINIVASAN Rep #: [id number] : 2000 F 23 From: Ashleigh Mueller MD PCP: Dr. Juan Pete MD Status: REG ER Study:Abdomen/Pelvis W IV Cont ONLY Date of E xam: 08/16/24 Exam# [id number] Ordering Dr: Glo Collier DO EXAM: ABDOMEN/PELVIS W IV CONT ONLY CLINICAL HISTORY: HIGH FEVER, UNKNOWN ETIOLOGY COMPARISON: None. TECHNIQUE: Helical CT images of the abdomen and pelvis were performed utilizing routine protocol with IV contrastintravenous contrast material. Multiplanar reformations were obtained. IV Isovue 370 was administered. Dose reduction techniques were used including intermediate exposure control (AEC),iterative reconstruction technique, and/or mA and/or KV dose adjustments based on patient's size. FINDINGS: Lung bases: Liver: within normal limits. Bile ducts: No intrahepatic or extrahepatic bile duct dilation. Gallbladder: No calcified gallstones. No gallbladder wall thickening or pericholecystic fluid. Spleen: Within normal limits. Pancreas: Within normal limits Adrenal glands: Within normal limits Kidneys/Ureters: Symmetric bilateral renal enhancement. No hydronephrosis or renal calculi. No hydroureter. Bladder: Within normal limits Reproductive: Multiple dilated serpiginous vascular structures in the periuterine region. There is also variceal dilatation of the left ovarian vein. Findings concerning for pelvic congestion syndrome. Lymph nodes: No enlarged lymph nodes Bowel: Stomach is unremarkable. No bowel dilation or wall thickening. Moderatecolonic stool. Appendix is not visualized. Peritoneum: No free air, ascites, or fluid collection. Retroperitoneum: Within normal limits. Abdominal wall: Within normal limits. Bones: No significant multilevel spondylosis. Maintained vertebral body heights. CT/Abdomen/Pelvis W IV Cont ONLY IMPRESSION: No acute process in the abdomen or pelvis. Findings concerning for pelvic congestion syndrome. Reading Location: [facility] CC: Dr. Juan Pete MD; Dr. Rashad Collier DO ~ [employer]: Signed [facility]03-26-2025 Radiology Diagnostic study note [facility] Imaging Services [address], [place] [id number] Soft Tissue Neck WITH Contrast MR#: [id number] Acct: [id number] Name: SMITA SRINIVASAN Rep #: [id number] : 2000 F 23 From: Ashleigh Mueller MD PCP: Dr. Juan Pete MD Status: REG ER Study:Soft Tissue Neck WITH Contrast Date of Exam: 08/16/24 Exam# [id number] Ordering Dr: Glo Collier DO EXAM: CT soft tissue neck with IV contrast CLINICAL HISTORY: Fever COMPARISON: None TECHNIQUE: CT soft tissue of the neck with contrast. Sagittal and coronal reformats were completed. 100 cc IV Isovue 370 was administered. FINDINGS: Lymph nodes: No cervical lymphadenopathy by size, number or morphologic criteria. Small nonspecificlymph nodes are scattered throughout the neck. Aerodigestive tract: Edematous enlargement and striated enhancement of lingual tonsils, concerning for acute pharyngitis. No evidence of a tonsillar or peritonsillar abscess. There is mild narrowing of the oropharyngeal airway. Otherwise, the oral cavity is partially obscured by artifact from dental amalgam. The nasal cavities, naso-oropharynx, pharyngeal mucosal space, laryngeal structures and infraglottic trachea are within normal limits. Major salivary glands: Within normal limits. Thyroid gland: Within normal limits. Carotid space: Patent bilateral extracranial carotid and jugular systems. Intracranial contents: Imaged portions within normal limits. Paranasal sinuses, middle ears, mastoids: Clear. Orbits: Within normal limits. Bones: No suspicious osseous lesions in the imaged calvarium, skull base and spine. Normal cervicothoracic alignment. No significant spondylotic changes. Temporomandibular joints are maintained. Lungs: Imaged lungs are clear. CT/Soft Tissue Neck WITH Contrast IMPRESSION: Acute pharyngitis involving the lingual tonsils with mild narrowing of the oropharyngeal airway. No significant adenopathy. Reading Location: [facility] CC: Dr. Juan Pete MD; Dr. Rashad Collier DO ~ [employer]: Signed [facility]03-26-2025 Radiology Diagnostic study note [facility] Imaging Services [address] [place] [address] Chest PA and Lateral MR#: [id number] Acct: [id number] Name: SMITA SRINIVASAN Rep #: [id number] : 2000 F 23 From: Ashleigh Mueller MD PCP: Dr. Juan Pete MD Status: REG ER Study:Chest PA and Lateral Date of Exam: 08/16/24 Exam# [id number] Ordering Dr: Glo Collier DO PROCEDURE: CHEST PA AND LATERAL 08/16/2024 REASON FOR EXAM: FEVER TECHNIQUE: Frontal and lateral views of the chest. COMPARISON: None FINDINGS: Hardware: None Heart: The heart size is normal. Mediastinum: The mediastinal contour is unremarkable. Lungs: No focal consolidation. No pneumothorax. No pleural effusion. Bones: The bones are unremarkable. RAD/Chest PA and Lateral IMPRESSION: NO ACUTE FINDINGS. Reading Location: [facility] CC: Dr. Juan Pete MD; Dr. Rashad Collier DO ~ [employer]: Signed [facility]03-26-2025 Discharge summary Author Rashad Collier [facility] Note Date/Time August 16, 2024 5:1 8pm [facility] Medical Records Department [address] [place] [address] Emergency Department Summary 08/16/24 MR#: [id number] Acct: [id number] Name: SMITA SRINIVASAN Rep #:[id number] : 2000 From: Rashad Collier DO PCP: Dr. Juan Pete MD Status :REG ER Location: ED HPI History of Present Illness Chief Complaint: Fever Narrative Narrative: Patient is a 23-year-old female with past medical history anxiety, anemia who presents to the emergency department the chief complaint of high fevers. Patient states that back in May she had a D&C for a miscarriage and then again recently she had been taken back to the operating room for a another D&C. She states that she was placed on doxycycline recently and has been taking that as well for concern of white spots on the back of her throat. She states that despite rotating Tylenol and ibuprofen [id number] she is still running high fevers. Patient overall has no other complaints at this point time. Patient denies any sick contacts. Patient denies any history of smoking, alcohol use, drug use. PFSH PFSH Medical History Anemia Seasonal allergies Menorrhagia with regular cycle Anxiety Home Medications ?Medication ?Instructions ?Recorded ?Last Taken ?Type multivitamin no.47-iron fum 27 1 cap PO DAILY 05/02/24 08/15/24 History mg-folate no.1 1 mg-dha 300 mg capsule (PNV-DHA) acetaminophen 500 mg tablet 1,000 mg PO Q6H PRN fever or pain 08/14/24 08/16/24 History (Acetaminophen Extra Strength) doxycycline monohydrate 100 mg 100 mg PO BID 7 days #1 4 caps 08/14/24 08/16/24 Rx capsule ibuprofen 200 mg tablet 600 mg PO Q6H PRN fever or p ain 08/14/24 08/16/24 History Allergy/AdvReac Type Severity Reaction Status Date / Time No Known Allergies Allergy Verified 08/14/24 12:53 Family History Grandfather Heart disease Leukemia Father Heart disease Grandmother Cancer, Onset Age: 62 Maternal- Skin cancer Mother Breast cancer, Onset Age: 46 genetic Surgical History H/O dilation and curettage History of oral surgery Social History adopted: No household members: significant other current occupational status: employed 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 pets and animals: Yes (Avoid litterbox) pets and animals: cat(s) history of recent travel: No sexually active: Yes Smoking Status: Never smoker alcohol intake: never substance use type: does not use diet: gluten free well-balanced diet: daily or most days caffeine: No eating out: rarely or never during the past year weight has: remained stable what type of physical activity do you participate in: walking frequency: 1-2 times per week duration: 30-45 minutes/day maryanne/zoroastrian: None seatbelt use: always do you feel safe at home: Yes additional social history: Erick Sextonan- tufter hand ROS ROS ED ROS Narrative Constitutional: Complains of fever as noted above denies headache, lightness, dizziness Eyes: She has resolved blurry vision Cardiovascular: Chest pain or palpitations Respiratory: Denies coughing wheezing shortness of breath Abdomen: Denies abdominal pain nausea vomit diarrhea : Denies urinary symptoms denies vaginal discharge denies any possibility of retained tampons Neurological: Denies numbness, weakness, tingling Skin: Denies rashes or lesions EXAM Physical Exam Narrative Exam Narrative: General: Patient is a 23-year-old female who presented to the emerged part with chief complaint of elevated fever despite rotating Tylenol and I Profen vxlttm-gse-bspot as well as on doxycycline Head: Atraumatic, normocephalic Eyes, ears, nose, throat: PERRL bilateral, EOMI bilateral, no conjunctival injection noted, uvula midline, patient does have some white dots on her tonsilsposteriorly however no concern for peritonsillar abscess Neck: Soft, supple, trachea midline Cardiovascular: Regular rate and rhythm no murmurs gallops rubs noted Respiratory: Clear to auscultation bilaterally Abdomen: Soft, nondistended, nontender to palpation Musculoskeletal: No tenderness palpation the midline of the cervical, thoracolumbar spines Extremities: +5/5 strength noted the bilateral upper and lower extremities Neurological: Patient follow commands and that she was at [facility] year is 2024. Sensation grossly intact NIH of 0 GCS 15 Skin: Warm, dry, intact no rashes or lesions noted no petechia no purpura noted Const Vital Signs: 08/16/24 14:49 08/16/24 14:49 08/16/24 14:49 Temperature 100.8 F H Temperature Source Oral Pulse Rate 131 H 120 H Respiratory Rate 20 H Respiratory Effort Normal Non-Labored Respiratory Pattern Normal Blood Pressure 116/76 Blood Pressure Mean 89 Pulse Ox 98 Oxygen Delivery Method Room Air 08/16/24 15:37 08/16/24 15:37 08/16/24 16:00 Temperature 99.3 F H 98.7 F Temperature Source Oral Oral Pulse Rate 100 100 Respiratory Rate 19 H 19 H Respiratory Effort Respiratory Pattern Blood Pressure 107/71 107/67 Blood Pressure Mean 83 80 Pulse Ox 100 100 Oxygen Delivery Method Room Air Room Air Room Air 08/16/24 17:00 Temperature 98.3 F Temperature Source Oral Pulse Rate 91 Respiratory Rate 20 H Respiratory Effort Respiratory Pattern Blood Pressure 103/72 Blood Pressure Mean 82 Pulse Ox 100 Oxygen Delivery Method Room Air MDM MDM MDM Narrative Medical decision making narrative: Patient is a 23-year-old female who presented to the emerged part with chief complaint of being febrile despite rotating Tylenol and ibuprofen itjntt-vny-tgqim every 3 hours while on doxycycline with recent repeat D&C. On the differential diagnose includes but not limited to retained foreign body in the vagina however she denies any tampon use since her original D&C just using pads, peritonsillar abscess, retropharyngeal abscess although clinically have low suspicion for these, intra-abdominal abscess. Once workup is obtained reviewed she will be reevaluated. Patient be given 30 cc/kg bolus of IV fluids these were ordered at 1510. Patient CBC was reviewed and showed no evidence leukocytosis white blood count 4.7, hemoglobin 10.1, platelet count was noted be 277. Patient's INR 1.1, PT of14.4. Patient sodium normal 137, potassium 3.5, creatinine normal at 0.57. Patient lactic acid was normal at 1.1, AST and ALT were 31 and 13 respectively. Patient's troponin was noted to be less than 6, EKG reviewed and showed sinus tachycardia the rate of 101 bpm with a MI interval of 126. Patient's urinalysisshowed 150 occult blood, negative nitrites negative leukocyte esterase 0-5 whitecells with 1+ bacteria drug screen is pending. Patient's chest x-ray today reviewed by myself by radiology showed no acute cardiopulmonary processes. Patient's CT soft tissue neck showed acute pharyngitis involving the lingual tonsils with mild narrowing of the oropharyngeal airway. No significant adenopathy noted. Patient's CT abdomen pelvis IV contrast showed no acute processes in the abdomen or pelvis findings consistent with pelvic congestion syndrome. I did add on a full respiratory panel at this point in time. Patient is nontoxic in appearance. I called and spoke with on-call COMPUTER NETWORK AND SYSTEMS ENGINEER Dr. Church who states that from her standpoint she does not believe that this is related to her D&C and I agree as she has no abdominal pain whatsoever on exam. Her vital signs after treating her fever have normalized her heart rate improved to a rate of 91 bpm 100% on room air. Discussed results with the patient and mother at bedside. Mother now notes thatparish has presented 2 times in the past with very similar symptoms with viral pharyngitis and they state they have not followed up with the ears nose and throat. I advised them that I have low suspicion that her blood cultures will be positive however I notified them that if this is the case they will be calledto return for IV antibiotics at this point time. At this point, I have very lowsuspicion for pulmonary embolism as she has no shortness of breath with exertionno history of blood clots either. She was encouraged to follow-up with her primary care physician in the outpatient setting as well as the ears nose and throat team. She is advised to continue supportive care with rotating Tylenol and ibuprofen qbpffs-srd-hewah and notified her that hopefully in approximately the next 3 to 4 days her symptoms will resolve. I notified her that sometimes viruses cause high fevers for a significant amount of time. She is agreeable this plan as well as mother at bedside all question concerns answered she was discharged home in stable condition. Lab Data Labs: Laboratory Results - last 24 hr 08/16/24 08/16/24 08/16/24 15:22 15:23 15:49 WBC 4.7 RBC 3.40 L Hgb 10.1 L Hct 30.1 L MCV 88.5 MCH 29.7 MCHC 33.6 RDW Std Deviation 39.3 RDW Coeff of Lisandro 12.2 Plt Count 277 MPV 10.4 Immature Gran % (Auto) 0.600 Neut % (Auto) 76.3 H Lymph % (Auto) 10.1 L [place] % (Auto) 12.4 H Eos % (Auto) 0.2 Baso % (Auto) 0.4 Absolute Neuts (auto) 3.6 Absolute Lymphs (auto) 0.47 L Nucleated RBC % 0 PT 14.4 INR 1.1 APTT 37.6 H Sodium 137 Potassium 3.5 Chloride 105 Carbon Dioxide 20.2 L Anion Gap 12 BUN 6 Creatinine 0.57 L Estim Creat Clear Calc 133.68 Est GFR (MDRD) Non-Af 132 BUN/Creatinine Ratio 10.1 Glucose 98 Lactic Acid 1.1 Calcium 8.9 Total Bilirubin 0.30 AST 31 ALT 13 Alkaline Phosphatase 58 Troponin T High Sens < 6 Total Protein 6.8 Albumin 3.8 Globulin 3.0 Albumin/Globulin Ratio 1.2 Urine Color Yellow Urine Clarity Clear Urine pH 7.0 Ur Specific [place] 1.010 Urine Protein 15 H Urine Glucose (UA) Normal Urine Ketones 15 H Urine Occult Blood 150 H Urine Nitrite Negative Urine Bilirubin Negative Urine Urobilinogen Normal Ur Leukocyte Esterase Negative Urine RBC 5-10 SEEN Urine WBC 0-5 SEEN Ur Squamous Epith Cells 0-5 SEEN Urine Bacteria 1+ Urine Mucus 0 SEEN Radiography Diagnostic Testing: Clinical Impression(s) from Imaging Studies Chest X-Ray 08/16/24 15:08 IMPRESSION: NO ACUTE FINDINGS. Reading Location: [facility] Abdomen/Pelvis CT 08/16/24 15:50 IMPRESSION: No acute process in the abdomen or pelvis. Findings concerning for pelvic congestion syndrome. Reading Location: [facility] Soft Tissue Neck CT 08/16/24 15:50 IMPRESSION: Acute pharyngitis involving the lingual tonsils with mild narrowing of the oropharyngeal airway. No significant adenopathy. Reading Location: [facility] Discharge Plan Triage Chief Complaint: Fever ED Provider: Rashad Collier Dx/Rx/DC Orders Clinical Impression: Fever, Acute viral pharyngitis Prescriptions: No Action PNV-DHA 27 mg iron-1 mg -300 mg capsule 1 cap PO DAILY acetaminophen [Acetaminophen Extra Strength] 500 mg tablet 1,000 mg PO Q6H PRN (Reason: fever or pain) Patient Comments: PT STATES SHE TAKES EVERY 3 HOURS. doxycycline monohydrate 100 mg capsule 100 mg PO BID 7 Days Qty: 14 0RF ibuprofen 200 mg tablet 600 mg PO Q6H PRN (Reason: fever or pain) Patient Comments: PT STATES SHE TAKES EVERY 3 HOURS. Primary Care Provider: Juan Pete Referrals: Juan Pete MD [Primary Care Provider] - Activity Restrictions/Additional Instructions: Follow-up on your respiratory panel with your family doctor. If your blood cultures are positive you will be called to return to the hospital for IV antibiotics however at this point time once again I have low suspicion for this as your blood work is normal here in the emergency department with normal CAT scans. Continue to rotate Tylenol and ibuprofen jeukuw-qfh-wqbkz for fever control and continue supportive care. Return with any other concerns. Print Language: Wallisian Disposition Disposition: Home, Self Care What to do if you have Problems For any increased pain, shortness of breath, bleeding, nausea or vomiting, chestpain, or any unexpected problems, contact your Primary Care Provider. Call [facility] ([phone]) or report to the closest Emergency Room. Call 911 if necessary. 08/16/24 1718 <Electronically signed by Rashad Collier DO> Cosigner Signature (if applicable): CC: Dr. Juan Pete MD ~ Signed [facility] Work Phone: [phone] Consult note [facility] Medical Records Department [address] [place] [address] Consultation - COMPUTER NETWORK AND SYSTEMS ENGINEER 08/14/24 1818 MR#: [id number] Acct: [id number] Name: SMITA SRINIVASAN Rep #:[id number] : 2000 23 From: Zuleyka Delgadillo DO PCP: Dr. Juan Pete MD Status :REG ER Location: ED Assessment & Plan (1) Status post dilation and curettage: (2) Fever of unknown origin: PLAN: Plan no signs of PIH or uterine perforation. Suspect possible endometritis, however with sore throat andfever and sick contacts (mom in room was sick with temps upwards of 103 late last week) viral illness should be considered fever now 101 and pulse is improved. OK to dc with doxycycline and follow up in office in a week. HPI Consult Data Date of Consult: 08/14/24 HPI Narrative HPI Narrative: SMITA SRINIVASAN, is a 23 y/o who presents to [facility] with low back pain and fever. She is 6 days status post a dilation and curettage with Dr. daniels for abnormal uterine bleeding. In april she also had a D&C for a miscarriage.She was found to have a temperature of 103 and tachycardia.She was given 2 liters of fluids, tylenol, and was found to be negative for flu, covid, and strep. She denies heavy vaginal bleeding or vaginal odor since her D&C. Ultrasound shows some thickenedendometrial tissue and pelvic congestion syndrome. The report reads retained producs of conceptioncan not be ruled outhowever she was not at the time of her D&C. [facility] Medical History Anemia Seasonal allergies Menorrhagia with regular cycle Anxiety Home Medications ?Medication ?Instructions ?Recorded ?Last Taken ?Type multivitamin no.47-iron fum 27 1 cap PO DAILY 05/02/24 08/06/24 History mg-folate no.1 1 mg-dha 300 mg capsule (PNV-DHA) acetaminophen 500 mg tablet 1,000 mg PO Q8H PRN PRN fe payal or 08/14/24 Unknown History (Acetaminophen Extra Strength) pain ibuprofen 200 mg tablet 600 mg PO Q6H PRN fever or p ain 08/14/24 Unknown History Allergy/AdvReac Type Severity Reaction Status Date / Time No Known Allergies Allergy Verified 08/14/24 12:53 Family History Grandfather Heart disease Leukemia Father Heart disease Grandmother Cancer, Onset Age: 62 Maternal- Skin cancer Mother Breast cancer, Onset Age: 46 genetic Surgical History H/O dilation and curettage History of oral surgery Social History adopted: No household members: significant other current occupational status: employed 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[employer] pets and animals: Yes (Avoid litterbox) pets and animals: cat(s) history of recent travel: No sexually active: Yes Smoking Status: Never smoker alcohol intake: never substance use type: does not use diet: gluten free well-balanced diet: daily or most days caffeine: No eating out: rarely or never during the past year weight has: remained stable what type of physical activity do you participate in: walking frequency: 1-2 times per week duration: 30-45 minutes/day maryanne/zoroastrian: None seatbelt use: always do you feel safe at home: Yes additional social history: Erick Sextonan- tufter hand Vital Signs Vital Signs Vital Signs: 08/14/24 12:53 08/14/24 12:59 08/14/24 14:05 Temperature 98.1 F 98.1 F 98 F Temperature Source Oral Temporal Oral Pulse Rate 99 99 103 H Respiratory Rate 18 18 18 Respiratory Effort Respiratory Pattern Blood Pressure 116/75 116/75 116/74 Blood Pressure Mean 88 88 88 Pulse Ox 100 100 99 Oxygen Delivery Method Room Air Room Air Room Air 08/14/24 14:20 08/14/24 15:00 08/14/24 16:00 Temperature 98.1 F 100.2 F H Temperature Source Oral Oral Pulse Rate 118 H 122 H Respiratory Rate 29 H 18 Respiratory Effort Normal Non-Labored Respiratory Pattern Normal Blood Pressure 119/80 122/71 H Blood Pressure Mean 93 88 Pulse Ox 98 99 Oxygen Delivery Method Room Air Room Air 08/14/24 16:02 08/14/24 16:56 08/14/24 17:34 Temperature 102.1 F H 103.2 F H 103 F H Temperature Source Axillary Oral Oral Pulse Rate 125 H Respiratory Rate 18 Respiratory Effort Respiratory Pattern Blood Pressure 109/74 Blood Pressure Mean 85 Pulse Ox 100 Oxygen Delivery Method Room Air 08/14/24 17:55 08/14/24 18:06 Temperature 101.6 F H 101.6 F H Temperature Source Oral Temporal Pulse Rate 113 H Respiratory Rate 18 Respiratory Effort Respiratory Pattern Blood Pressure 106/69 Blood Pressure Mean 81 Pulse Ox 99 Oxygen Delivery Method Room Air Weight Weight: 138 lb 4.8 oz Body Mass Index (BMI) 23.7 ROS Constitutional Constitutional: Reports as per HPI, fatigue, fever(s) and malaise; Denies weakness Eyes Eyes: Denies change in vision ENT HEENT: Reports headache(s), neck pain and sore throat; Denies dizziness, loss taste/smell, nasal congestion or nasal discharge Cardiovascular Cardiovascular: Denies chest pain, dyspnea, lightheadedness, palpitations or syncope Respiratory/Chest Respiratory/Chest: Denies chest congestion, cough, dyspnea, hemoptysis, wheezing, breast mass, breast pain or nipple discharge Gastrointestinal Gastrointestinal: Denies abdominal pain, anorexia, bloating, constipation, cramping, diarrhea, heartburn, nausea or vomiting Genitourinary Genitourinary: Denies dysuria, flank pain, genital lesions, hematuria, urinary frequency, urinary hesitancy, urinary incontinence or urinary urgency Musculoskeletal Musculoskeletal: Reports back pain; Denies difficulty walking Integumentary Integumentary: Denies rash Neurologic Neurologic: Denies dizziness Physical Exam Const alert, oriented x3 and no apparent distress HEENT normocephalic Eyes PERRL Neck full ROM General: trachea midline and lymphadenopathy anterior cervical Resp normal respiratory effort and no retractions GI normal to inspection, nondistended, normoactive bowel sounds, soft to palpation,non-tender, non-distended and no masses Narrative: no external uterine tenderness on exam. pelvic exam deferred due to lack of symptoms Extremity normal to inspection Psych affect normal Lab / Micro Data 08/14/24 13:19 08/14/24 13:19 Labs: Laboratory Results - last 24 hr 08/14/24 13:19: WBC 6.5, RBC 3.76 L, Hgb 11.2 L, Hct 33.5 L, MCV 89.1, MCH 29.8,MCHC 33.4, RDW Std Deviation 39.6, RDW Coeff of Lisandro 12.2, Plt Count 268, MPV 10.4, Immature Gran % (Auto) 0.300, Neut %(Auto) 80.5 H, Lymph % (Auto) 8.3 L, [place] % (Auto) 10.6 H, Eos % (Auto) 0.0, Baso % (Auto) 0.3, Absolute Neuts (auto)5.3, Absolute Lymphs (auto) 0.54 L, Nucleated RBC % 0, Sodium 139, Potassium 4.1, Chloride 105, Carbon Dioxide 23.3, Anion Gap 11, BUN 7, Creatinine 0.64 L, Estim Creat Clear Calc 119.06, Est GFR (MDRD) Non-Af 128, BUN/Creatinine Ratio 11.2, Glucose 113 H, Calcium 9.5, Total Bilirubin 0.37, AST 21, ALT 10, AlkalinePhosphatase 50, Total Protein 6.9, Albumin 4.2, Globulin 2.7, Albumin/Globulin Ratio 1.5, Lipase 15 08/14/24 13:19: Lipase 15, Serum , Qual NEGATIVE 08/14/24 14:01: Lactic Acid 1.2 08/14/24 14:23: Urine Color Yellow, Urine Clarity Clear, Urine pH 6.5, Ur Specific [place] 1.010, Urine Protein 30 H, Urine Glucose (UA) Normal, Urine Ketones 15 H, Urine Occult Blood 150 H, Urine Nitrite Negative, Urine Bilirubin Negative, Urine Urobilinogen Normal, Ur Leukocyte Esterase Negative,Urine RBC 0SEEN, Urine WBC 0 SEEN, Ur Squamous Epith Cells 0 SEEN, Urine Bacteria 0 SEEN, Urine Mucus 0 SEEN 08/14/24 14:55: Monoscreen Negative Micro: Microbiology 08/14/24 14:55 Mucosa - Throat Streptococcus pyogenes (PCR) - Final Imaging Radiology Impression Transvaginal US 08/14/24 13:42 IMPRESSION: 1. Apparent hyperechoic complex endometrium. Retained product of conception can not be excluded. 2. 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 Clinical correlationis recommended. Reading Location: [facility] Charges/Coding Multi Select Codes Visit Charges Office Visit/Consults: 14405 ED Visit; Low/Mod Severity 08/14/24 1829 Cosigner Signature (if applicable): CC: Dr. Juan Pete MD~ Signed [facility]03-24-2025 Radiology Diagnostic study note [facility] Imaging Services [address] [place] [address] Transvaginal Non- MR#: [id number] Acct: [id number] Name: SMITA SRINIVASAN Rep #: [id number] : 2000 F 23 From: Tammy Garcia MD PCP: Dr. Juan Pete MD Status: REG ER Study:Transvaginal Non- Date of Exam: 08/14/24 Exam# [id number] Ordering Dr: Milton Angulo DO EXAM: US Pelvis Transabdominal and Transvaginal, Complete CLINICAL INDICATION: PAIN, RECENT D C TECHNIQUE: Real-time complete transabdominal and transvaginal pelvic ultrasoundwith image documentation. Transvaginal imaging was used for better evaluation of the endometrium and adnexa. COMPARISON: No relevant prior studies available. FINDINGS: UTERUS/CERVIX: Apparent hyperechoic complex endometrium. Retained product of conception can not be excluded. No myometrial mass. The uterus measures 7.6 x 6.1 x 4.1 cm. RIGHT OVARY: Unremarkable. Normal blood flow. The right ovary measures 2.7 x 2.6 x 1.5 cm. LEFT OVARY: Unremarkable. Normal blood flow. The left ovary measures 4.0 x 2.4 x 1.6 cm. FREE FLUID: No free fluid. BLADDER: Unremarkable as visualized. Wall is normal thickness for degree of distention. VASCULATURE: Apparent increased vascularities concerning for pelvic congestion syndrome. Clinical correlation is recommended. US/Transvaginal Non- IMPRESSION: 1. Apparent hyperechoic complex endometrium. Retained product of conception can not be excluded. 2. 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 Clinical correlationis recommended. Reading Location: [facility] CC: Dr. Milton Mariscal DO; Dr. Juan Pete MD ~ [employer]: Signed [facility]03-18-2025 Discharge summary [facility] Medical Records Department [address] [place] [address] Instructions for Home/Discharge Instructions 08/08/24 1856 MR#: [id number] Acct: [id number] Name: SMITA SRINIVASAN Rep #:[id number] : 2000 23 From: Santa steinberg MD PCP: Dr. Juan Pete MD Status :[place] [facility] [place]charge Instructions Diet Discharge Diet: No restrictions DC O2, CPAP, BIPAP needs Home O2 Discharge instructions: No Dressing / Incision Discharge Activity: Return to Normal Activity, May Shower and May Take a Tub Bath (after 1 week) May resume sexual activity in: 1-2 weeks Weight Bearing Status: Weight bearing as tolerated Lifting Restrictions: none Dressing / Incision Call your doctor if you observe: Fever of 101 or Higher, Using more than 1 pad per hour, Shortness of breath and Uncontrolled pain Follow Up Care Please Follow Up With: Santa Daniels MD When: Call [phone] to schedule appointment. Test Results: Test results from this visit will be discussed in further detail at your follow- up appointment, if applicable. Discharge Plan Admission Attending Provider: Santa Daniels Primary Care Provider: Juan Pete Instructions Print Language: Wallisian Discharge Orders/Prescriptions Prescriptions: No Action PNV-DHA 27 mg iron-1 mg -300 mg capsule 1 cap PO DAILY Referrals / Follow Up: Juan Pete MD [Primary Care Provider] - Disposition Disposition (needs filled in before D/C Order can be placed): Home, Self Care 08/08/24 1856Santa Daniels MD CC: Dr. Juan Pete MD ~ Signed [facility]03-18-2025 Procedure note [facility] Medical Records Department [address] [place] [address] Operative Report 08/08/24 1854 MR#: [id number] Acct: [id number] Name: SMITA SRINIVASAN Rep #:[id number] : 2000 23 From: Santa steinberg MD PCP: Dr. Juan Pete MD Status :[facility] Location: [place] [address] Problems Associated Problem List Diagnoses (1) Dysfunctional uterine bleeding: Multi Select Codes Urinary/Genital Urinary/Genital CPT Codes: 44484 Hysteroscopy,EMC, Polypectomy Operative Report (Standard) Operative Information Date of Procedure: 08/08/24 Pre-Operative Diagnosis: see problem list comments Post-Operative Diagnosis: same Surgery/Procedure Performed: dilation and curettage hysteroscopy sheeter waxer operator: No Type of Anesthesia: IV Sedation and Local RN Documented Start/Stop Times: Operation Date: 08/08/24 14:25 Case Time Into Pre-Op 08/08/24 13:02 Anesthesia Start 08/08/24 18:08 Into Room 08/08/24 18:08 Procedure Start 08/08/24 18:22 Procedure End 08/08/24 18:42 Anesthesia End 08/08/24 18:51 Out of Room 08/08/24 18:51 Procedure Start Time: 18:22 Procedure Stop Time: 18:42 Select all DRAINS/GRAFTS/IMPLANTS that apply: None Estimated Blood Loss: 25 Specimen collected: Yes Description of specimen(s) removed: endometrial curretings Description of surgery: Patient was prepped and draped in a normal sterile fashion under MAC anesthesia. A weighted speculum was placed in the vagina and the anterior lip of the cervixwas grasped with a single-tooth tenaculum. A paracervical block was placed with1% lidocaine. Cervix was progressively dilated to allow passage of a 7 mm hysteroscope. The lining was fully visualized and noted to have a thickened polypoid lining . Uterine sounded to 9 cm. Curettage was performed and significant amount of tissue removed , sent to pathology. All instruments were removed from the vagina and excellent hemostasis was noted. Patient was awoken and taken to recovery in stable condition. Surgical Findings: thickened polypoid endometrial lining Complications Complications: No 08/08/24 1856 Cosigner Signature (if applicable): CC: Dr. Juan Pete MD; Dr. Santa Daniels MD~ Signed [facility]03-18-[address] [facility] Medical Records Department [address] [place] [address] Anesthesia Postop Eval I 08/08/24 1853 MR#: [id number] Acct: [id number] Name: SMITA SRINIVASAN Rep #:[id number] : 2000 23 From: Sheri Rosario PCP: Dr. Juan Pete MD Status :REG SDC Y Race: C Location: [place] [address] Anesthesia: Postop Eval I Current Vital Signs Temperature: 97 F Pulse Rate: 87 Blood Pressure: 112/69 Respiratory Rate: 20 Pulse Ox: 100 Assessment Airway patent: Yes Spontaneous unlabored respirations: Yes nausea: No Vomiting: No Anesthesia Complication: No Fluid Hydration Crystalloid volume administer (ml): 10 Total IV fluid infused: 10 Progress Note Anesthesia document: Postop Eval 1 completed: Yes 08/08/24 1855 a> Date _ Sheri Daniels Signature: Date CC: ~ Signed [facility]03-18-2025 History and physical note Author Santa Daniels [facility] Note Date/Time August 08, 2024 4:[address] [facility] Medical Records Department [address] [address] History & Physical Exam 08/08/24724 MR#: [id number] Acct: [id number] Name: SMITA SRINIVASAN Rep #:[id number] : 2000 23 From: Santa steinberg MD PCP: Dr. Juan Pete MD Status :[facility] Location: [place] [address] History and Physical Date of Admission: 08/08/24 Intake Vital Signs 07/17/2513:23 07/19/2509:49 Height 5 ft 4 in 5 ft 4 in Weight: 138 lb 4 oz BMI 23.7 BP 122/77 H Intake Visit Reasons: fu abnormal bleeding Fitness Director Required: No Is patient in pain?: Yes (increased cramping) Allergies No Known Allergies Allergy (Verified 07/19/24 10:52) Medications ?Medication ?Instructions ?Recorded ?Confirmed ?Type multivitamin no.47-iron fum 27 1 cap PO 05/02/24 07/19/24 History mg-folate no.1 1 mg-dha 300 mg capsule (PNV-DHA) medroxyprogesterone 10 mg tablet 10 mg PO UD #42 tabs 07/17/24 07/19/24 R x (Provera) tranexamic acid 650 mg tablet 1,300 mg (2 x 650 mg) PO TID 5 07/17/24 07/19/24 Rx days #30 tabs PFSH Medical History Seasonal allergies Menorrhagia with regular cycle Anxiety Surgical History H/O dilation and curettage History of oral surgery Family History Grandfather Heart disease LeukemiaFather Heart diseaseGrandmother Cancer, Onset Age: 62 Maternal- Skin cancerMother Breast cancer, Onset Age: 46 genetic Social History adopted: No household members: significant other current occupational status: employed 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 pets and animals: Yes (Avoid litterbox) pets and animals: cat(s) history of recent travel: No sexually active: Yes Smoking Status: Never smoker alcohol intake: never substance use type: does not use diet: gluten free well-balanced diet: daily or most days caffeine: No eating out: rarely or never during the past year weight has: remained stable what type of physical activity do you participate in: walking frequency: 1-2 times per week duration: 30-45 minutes/day maryanne/zoroastrian: None seatbelt use: always do you feel safe at home: Yes additional social history: Jennifer- Chris Sextonan- tufter hand HPI fu abnormal bleeding Details: 23 yo presents with persistent irregular bleeding since her d and c and miscarriage. she had the d and c the beginning of may and then had bleedingat the end of the month and then it restarted a few weeks later and hasn't stopped since. she was seen in the ER and did a trial of provera which initially slowed but then the bleeding persisted through. she is changing a pad3 times daily at this point. she had an ultrasound and bloodwork yesterday showing a negative hcg, nl tsh and fsh estradiol, persistent anemia and then suspicion of area of hypervacularity 1cm possible endomterial polyp. History 1 Elective abortions Hx Para 0 Spontaneous abortions 1 Hx # Term Pregnancies Ectopic pregnancies Hx # Pregnancies Multiple births # of living children Past Pregnancies Del. Date Name GA/Weeks Outcome Route Bth Weight Infant Gen Labor Lgth Anesthesia Del Locatn Provider FOB 05/25/24 9 spontaneous ROS Const Constitutional: Reports system reviewed and no additional complaints, except as documented GI GI: Reports system reviewed and no additional complaints, except as documented : Reports as per HPI Exam Const General: cooperative, healthy appearing, comfortable, no acute distress and welldeveloped Orientation: alert HENMT Head: normal to inspection and normocephalic Ears: hearing grossly normal bilaterally and external ears normal Nose: external nose normal and nares normal Face and sinus: normal facial exam Neck Neck: normal visual inspection, no lymphadenopathy and trachea midline Thyroid: thyroid normal Resp Effort & Inspection: normal respiratory effort Musc Other: gross motor intact no deficits, full bilateral strength Skin General: no rashes or lesions noted Neuro Motor: muscle tone normal throughout Coding Level of Care Code Off vis,est,level 4 Diagnoses Dysfunctional uterine bleeding N93.8 Anemia due to blood loss D50.0 Assessment and Plan Assessment and Plan (1) Dysfunctional uterine bleeding: Status: Acute Comment: suspect endoemtrial polyp, recommend d and c hysteroscopy symphion. tx and provera ordered in meantime (2) Anemia due to blood loss: Status: Acute Plan Problem list updated and treatment plans were reviewed with the patient and relevant educational handouts given. See problem list details for specific planinformation. After discussing the patient's diagnosis and treatment plan options, patient wishes to proceed with surgical management. I have discussed with the patient the risks, benefits, and alternatives of the procedure which include but are notlimited to risks of anesthesia, bleeding, infection, possible damage to bowel, bladder, or surrounding vasculature which could lead to additional surgery to evaluate any complications. Patient agrees to procedure and wishes to proceed. ACOG/uptodate references given for additional information regarding procedure. 08/08/24 0725 <Electronically signed by Santa Daniels MD> Cosigner Signature (if applicable): CC: Dr. Juan Pete MD; Dr. Santa Daniels MD~ Signed ADDENDUM by Dr. Santa Daniels MD on 08/08/24 at 1642 Addendum UPDATE- I have seen the patient and performed any clinically relevant updates to the history and physical exam. Santa Daniels MD 08/08/24 1642<Electronically signed by Santa Daniels MD> Cosigner Signature (if applicable): cc: Dr. Juan Pete MD; Dr. Santa Daniels MD ~* Signed [facility] Work Phone: [phone] 245-952503-18-2025 History and physical note [facility] Medical Records Department [address] [place] [address] History & Physical Exam 08/08/2425 MR#: [id number] Acct: [id number] Name: SMITA SRINIVASAN Rep #:[id number] : 2000 23 From: Santa steinberg MD PCP: Dr. Juan Pete MD Status :[place] [facility] [place] Location: [place] [address] History and Physical Date of Admission: 08/08/24 Intake Vital Signs 07/17/2513:23 07/19/2509:49 Height 5 ft 4 in 5 ft 4 in Weight: 138 lb 4 oz BMI 23.7 BP 122/77 H Intake Visit Reasons: fu abnormal bleeding Fitness Director Required: No Is patient in pain?: Yes (increased cramping) Allergies No Known Allergies Allergy (Verified 07/19/24 10:52) Medications ?Medication ?Instructions ?Recorded ?Confirmed ?Type multivitamin no.47-iron fum 27 1 cap PO 05/02/24 07/19/24 History mg-folate no.1 1 mg-dha 300 mg capsule (PNV-DHA) medroxyprogesterone 10 mg tablet 10 mg PO UD #42 tabs 07/17/24 07/19/24 R x (Provera) tranexamic acid 650 mg tablet 1,300 mg (2 x 650 mg) PO TID 5 07/17/24 07/19/24 Rx days #30 tabs PFSH Medical History Seasonal allergies Menorrhagia with regular cycle Anxiety Surgical History H/O dilation and curettage History of oral surgery Family History Grandfather Heart disease LeukemiaFather Heart diseaseGrandmother Cancer, Onset Age: 62 Maternal- Skin cancerMother Breast cancer, Onset Age: 46 genetic Social History adopted: No household members: significant other current occupational status: employed 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 pets and animals: Yes (Avoid litterbox) pets and animals: cat(s) history of recent travel: No sexually active: Yes Smoking Status: Never smoker alcohol intake: never substance use type: does not use diet: gluten free well-balanced diet: daily or most days caffeine: No eating out: rarely or never during the past year weight has: remained stable what type of physical activity do you participate in: walking frequency: 1-2 times per week duration: 30-45 minutes/day maryanne/zoroastrian: None seatbelt use: always do you feel safe at home: Yes additional social history: Jennifer- Chris Srinivasan- tufter hand HPI fu abnormal bleeding Details: 23 yo presents with persistent irregular bleeding since her d and c and miscarriage. she had the d and c the beginning of may and then had bleedingat the end of the month and then it restarted a few weeks later and hasn't stopped since. she was seen in the ER and did a trial of provera which initially slowed but then the bleeding persisted through. she is changing a pad3 times daily at this point. she had an ultrasound and bloodwork yesterday showing a negative hcg, nl tsh and fsh estradiol, persistent anemia and then suspicion of area of hypervacularity 1cm possible endomterial polyp. History 1 Elective abortions Hx Para 0 Spontaneous abortions 1 Hx # Term Pregnancies Ectopic pregnancies Hx # Pregnancies Multiple births # of living children Past Pregnancies Del. Date Name GA/Weeks Outcome Route Bth Weight Gen Labor Lgth Anesthesia Del [facility] Provider FOB 05/25/24 9 spontaneous ROS Const Constitutional: Reports system reviewed and no additional complaints, except as documented GI GI: Reports system reviewed and no additional complaints, except as documented : Reports as per HPI Exam Const General: cooperative, healthy appearing, comfortable, no acute distress and welldeveloped Orientation: alert HENAK Head: normal to inspection and normocephalic Ears: hearing grossly normal bilaterally and external ears normal Nose: external nose normal and nares normal Face and sinus: normal facial exam Neck Neck: normal visual inspection, no lymphadenopathy and trachea midline Thyroid: thyroid normal Resp Effort & Inspection: normal respiratory effort Musc Other: gross motor intact no deficits, full bilateral strength Skin General: no rashes or lesions noted Neuro Motor: muscle tone normal throughout Coding Level of Care Code Off vis,est,level 4 Diagnoses Dysfunctional uterine bleeding N93.8 Anemia due to blood loss D50.0 Assessment and Plan Assessment and Plan (1) Dysfunctional uterine bleeding: Status: Acute Comment: suspect endoemtrial polyp, recommend d and c hysteroscopy symphion. tx and provera ordered in meantime (2) Anemia due to blood loss: Status: Acute Plan Problem list updated and treatment plans were reviewed with the patient and relevant educational handouts given. See problem list details for specific planinformation. After discussing the patient's diagnosis and treatment plan options, patient wishes to proceed withsurgical management. I have discussed with the patient the risks, benefits, and alternatives of theprocedure which include but are notlimited to risks of anesthesia, bleeding, infection, possible damage to bowel, bladder, or surrounding vasculature which could lead to additional surgery to evaluate any complications. Patient agrees to procedure and wishes to proceed. ACOG/uptodate references given for additional information regarding procedure. 08/08/24 0725 Cosigner Signature (if applicable): CC: Dr. Juan Pete MD; Dr. Santa Daniels MD~ Signed ADDENDUM by Dr. Santa Daniels MD on 08/08/24 at 1642 Addendum UPDATE- I have seen the patient and performed any clinically relevant updates to the history and physical exam. Santa Daniels MD 08/08/24 1642 Cosigner Signature (if applicable): cc: Dr. Juan Pete MD; Dr. Santa Daniels MD ~* Signed [facility]03-18-2025 Consult note Author Jaret Perla [facility] Note Date/Time August 08, 2024 2:[address] [facility] Medical Records Department [address] [place] [address] Pre-Anesthesia Evaluation 08/08/24 1400 MR#: [id number] Acct: [id number] Name: SMITA SRINIVASAN Rep #:[id number] : 2000 23 From: Jaret Perla MD PCP: Dr. Juan Pete MD Status :REG SDC Y Race: C Location: [facility]19-1 ASA Classification* ASA Classification ASA Classification: 1 Assessment & Plan Anesthesia* Anesthesia Assessment Anesthesia Assessment: Discussed sedation and/or anesthesia options, risks, benefits, and alternatives with patient/parents/legal guardian/POA. Questions invited. The patient/parents/legal guardian/POA seems to understand and agrees to proceedwith anesthesia plan. Reviewed the physical assessment, medical history, allergy history and patient home medications list prior to surgery/procedure/anesthetic and documented any changes. Performed airway and anesthesia risk assessments. Anesthesia Type Anesthesia Type: MAC History Source History Obtained from:: Patient and Chart Anesthesia Focused Assessment* Temperature: 97.8 F Pulse Rate: 85 Blood Pressure: 101/63 Respiratory Rate: 16 Pulse Ox: 100 Oxygen Delivery Method: Room Air Airway Assessment Mouth opens: >3 cm Mallampati Score: I Teeth Condition: Intact Neck Range of motion (ROM): Full ROM Focused Labs Anesthesia Preop lab: CBC WBC 6.4 K/mm3 (4.4-11.0) 08/08/24 13:35 08/08/24 RBC 3.97 M/mm3 (4.2-5.4) L 08/08/24 13:35 08/08/24 Hgb 11.8 g/dL (12.0-15.0) L 08/08/24 13:35 5 Hct 35.3 % (37-47) L 08/08/24 13:35 08/08/24 Plt Count 296 K/mm3 (150-450) 08/08/24 13:35 08/08/24 CHEMISTRY Potassium 3.6 mmol/L (3.5-5.1) 07/14/24 18:30 07/14/24 Sodium 139 mmol/L (136-145) 07/14/24 18:30 07/14/24 Phosphorus 3.7 mg/dL (2.5-4.9) 06/22/24 09:32 06/22/24 BUN 7 mg/dL (7-18) 07/14/24 18:30 07/14/24 Creatinine 0.70 mg/dL (0.55-1.02) 07/14/24 18:07/14/24 Glucose 90 mg/dL (74-106) 07/14/24 18:07/14/24 TSH 1.490 uIU/mL (0.300-4.200) 07/18/24 13:47 02/10/15 COAG PT 14.5 SECONDS (11.7-14.9) 04/07/19 13:23 HCG, Quant 1 mIU/mL (<9 non-preg) 07/18/24 13:47 07/18/24 Urine Test Negative Negative 08/08/24 13:15 08/08/24 Tst Clinic Negative 07/17/24 14:44 07/17/24 Pre-Assessment Diagnosis/Proposed Procedure Planned Operative Procedure(s): Hysteroscopy,D&C Symphion Anesthesia History 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 When Was Last Pacemaker Check QUESTION #4 FULL TEXT: You/Your Family Experience fever (hyperthermia) with Anesthesia Last Oral Intake Last Oral intake: Last Oral Intake NPO since 16:00 08/08/24 13:45 Meds taken in AM with sips of No 08/08/24 13:45 water? 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 Female Yes 07/27/24 10:12 HX of Motion Sickness No 07/27/24 10:12 HX of N/V After Surgery No 07/27/24 10:12 Non-Smoker Yes 07/27/24 10:12 Duration of Surgery greater No 07/27/24 10:12 than 60 minutes Number of Risk Factors 2 07/27/24 10:12 PONV Score Moderate Risk 07/27/24 10:12 Height & Weight Height & Weight: Anesthesia: Height & Weight Height 5 ft 4 in 08/08/24 13:45 Weight: 61.2 kg 08/08/24 13:45 Body Mass Index (BMI) 23.1 08/08/24 13:45 Respiratory Assessment Respiratory Assessment - multi operation machine operator: Respiratory Tract Infection Hx - multi operation machine operator Hx Respiratory Tract Infection No 07/27/24 10:12 STOP Sleep Apnea STOP Sleep Apnea - multi operation machine operator: STOP Sleep Apnea - multi operation machine operator Hx Hypertension No 07/27/24 10:12 Hx Sleep Apnea No 07/27/24 10:12 CPAP BIPAP Do you snore loudly (louder No 07/27/24 10:12 than talking or can be heard Do you often feel tired/ No 07/27/24 10:12 fatigued/ sleepy during daytime? Has anyone observed you stop No 07/27/24 10:12 breathing during sleep? STOP Results Negative 07/27/24 10:12 QUESTION #5 FULL TEXT : Do you snore loudly (louder than talking or can be heard through closed doors)? Tobacco Use History Tobacco Use History - multi operation machine operator: Tobacco Use History - multi operation machine operator Tobacco Use Smoking Status Never smoker 07/27/24 10:12 Hx Tobacco Use No 07/27/24 10:12 Years Smoking Packs Smoked per Day Smoking Cessation Date was within the last 15 years Hx Smoking Cessation Date Hx Smoking Cessation Counseling Hematologic Medial History Hematologic Hx - multi operation machine operator: Hematologic Medical Hx - director cost Hx of Blood Transfusion No 07/27/24 10:12 Hx of Transfusion in last 3 No 07/27/24 10:12 Months Date of Last Transfusion (if within last 3 months) Ever experience any problems No 07/27/24 10:12 with transfusion(s)? Specify any problems Hx of Preganancy in last 3 Yes 07/27/24 10:12 Months Nurse Filling Out Transfusion VCHRISTIN 07/27/24 10:12 & Questions: Date: 07/27/24 07/27/24 10:12 Time: 10:13 07/27/24 10:12 Patient unable to answer at this time (ie. confused, unrespo /Reproduction History /Reproductive History - multi operation machine operator: /Reproductive Hx- multi operation machine operator Hx Now No 07/27/24 10:12 Gestational Age (in weeks): EDC: Hx Hx Para Hx Section SAB No 07/27/24 10:12 [facility] Medical History (Updated 07/27/24 @ 10:12 by Faith Roberson) Anemia Seasonal allergies Menorrhagia with regular cycle Anxiety Home Medications ?Medication ?Instructions ?Recorded ?Last Taken ?Type multivitamin no.47-iron fum 27 1 cap PO DAILY 05/02/24 08/06/24 History mg-folate no.1 1 mg-dha 300 mg capsule (PNV-DHA) Allergy/AdvReac Type Severity Reaction Status Date / Time No Known Allergies Allergy Verified 08/08/24 13:44 Family History Grandfather Heart disease Leukemia Father Heart disease Grandmother Cancer, Onset Age: 62 Maternal- Skin cancer Mother Breast cancer, Onset Age: 46 genetic Surgical History (Updated 07/27/24 @ 10:12 by Faith Roberson) H/O dilation and curettage History of oral surgery Social History adopted: No household members: significant other current occupational status: employed 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 pets and animals: Yes (Avoid litterbox) pets and animals: cat(s) history of recent travel: No sexually active: Yes Smoking Status: Never smoker alcohol intake: never substance use type: does not use diet: gluten free well-balanced diet: daily or most days caffeine: No eating out: rarely or never during the past year weight has: remained stable what type of physical activity do you participate in: walking frequency: 1-2 times per week duration: 30-45 minutes/day maryanne/zoroastrian: None seatbelt use: always do you feel safe at home: Yes additional social history: Erick Srinivasan- tufter hand Review of Systems (Anesthesia) ROS Narrative System reviewed and no additional complaints, except as documented. Physical Exam Const alert, oriented x3 and average body habitus Resp normal respiratory effort, normal air movement and clear to auscultation bilaterally Cardio regular rate, regular rhythm, no murmurs and diaphoretic 08/08/24 1405 <Electronically signed by Jaret Perla MD> Date _ Jaret Perla MD Cosigner Signature: Date CC: ~ Signed [facility] Work Phone: 1(767) 411-437003-18-2025 Evaluation note* Diagnosis Onset Date Resolution Status Admit Date Dysfunctional uterine bleeding acute August 08, 2024 12:54pm Dysfunctional uterine bleeding acute August 23, 2024 8:56am Infertility management acute Ju 2024 1:58pm Status post dilation and curettage acute November 22, 2024 1 :58pm [facility] Work Phone: 1(290) 133-296303-18-[address] [facility] Medical Records Department [address] [place] [address] Pre-Anesthesia Evaluation 08/08/24 1400 MR#: [id number] Acct: [id number] Name: SMITA SRINIVASAN Rep #:[id number] : 2000 23 From: Jaret Perla MD PCP: Dr. Juan Pete MD Status :REG SDC Y Race: C Location: [place] [address] ASA Classification* ASA Classification ASA Classification: 1 Assessment & Plan Anesthesia* Anesthesia Assessment Anesthesia Assessment: Discussed sedation and/or anesthesia options, risks, benefits, and alternatives with patient/parents/legal guardian/POA. Questions invited. The patient/parents/legal guardian/POA seems to understand and agrees to proceedwith anesthesia plan. Reviewed the physical assessment, medical history, allergy history and patient home medications list prior to surgery/procedure/anesthetic and documented any changes. Performed airway and anesthesia risk assessments. Anesthesia Type Anesthesia Type: MAC History Source History Obtained from:: Patient and Chart Anesthesia Focused Assessment* Temperature: 97.8 F Pulse Rate: 85 Blood Pressure: 101/63 Respiratory Rate: 16 Pulse Ox: 100 Oxygen Delivery Method: Room Air Airway Assessment Mouth opens: >3 cm Mallampati Score: I Teeth Condition: Intact Neck Range of motion (ROM): Full ROM Focused Labs Anesthesia Preop lab: CBC WBC 6.4 K/mm3 (4.4-11.0) 08/08/24 13:35 08/08/24 RBC 3.97 M/mm3 (4.2-5.4) L 08/08/24 13:35 08/08/24 Hgb 11.8 g/dL (12.0-15.0) L 08/08/24 13:35 5 Hct 35.3 % (37-47) L 08/08/24 13:35 08/08/24 Plt Count 296 K/mm3 (150-450) 08/08/24 13:35 08/08/24 CHEMISTRY Potassium 3.6 mmol/L (3.5-5.1) 07/14/24 18:30 07/14/24 Sodium 139 mmol/L (136-145) 07/14/24 18:07/14/24 Phosphorus 3.7 mg/dL (2.5-4.9) 06/22/24 09:32 06/22/24 BUN 7 mg/dL (7-18) 07/14/24 18:30 07/14/24 Creatinine 0.70 mg/dL (0.55-1.02) 07/14/24 18:30 07/14/24 Glucose 90 mg/dL (74-106) 07/14/24 18:30 07/14/24 TSH 1.490 uIU/mL (0.300-4.200) 07/18/24 13:47 06/25 10/15 COAG PT 14.5 SECONDS (11.7-14.9) 04/07/19 13:23 HCG, Quant 1 mIU/mL (<9 non-preg) 07/18/24 13:47 07/18/24 Urine Test Negative Negative 08/08/24 13:15 08/08/24 Tst Clinic Negative 07/17/24 14:44 07/17/24 Pre-Assessment Diagnosis/Proposed Procedure Planned Operative Procedure(s): Hysteroscopy,D&C Symphion Anesthesia History 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 When Was Last Pacemaker Check QUESTION #4 FULL TEXT: You/Your Family Experience fever (hyperthermia) with Anesthesia Last Oral Intake Last Oral intake: Last Oral Intake NPO since 16:00 08/08/24 13:45 Meds taken in AM with sips of No 08/08/24 13:45 water? 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 Female Yes 07/27/24 10:12 HX of Motion Sickness No 07/27/24 10:12 HX of N/V After Surgery No 07/27/24 10:12 Non-Smoker Yes 07/27/24 10:12 Duration of Surgery greater No 07/27/24 10:12 than 60 minutes Number of Risk Factors 2 07/27/24 10:12 PONV Score Moderate Risk 07/27/24 10:12 Height & Weight Height & Weight: Anesthesia: Height & Weight Height 5 ft 4 in 08/08/24 13:45 Weight: 61.2 kg 08/08/24 13:45 Body Mass Index (BMI) 23.1 08/08/24 13:45 Respiratory Assessment Respiratory Assessment - multi operation machine operator: Respiratory Tract Infection Hx - multi operation machine operator Hx Respiratory Tract Infection No 07/27/24 10:12 STOP Sleep Apnea STOP Sleep Apnea - multi operation machine operator: STOP Sleep Apnea - multi operation machine operator Hx Hypertension No 07/27/24 10:12 Hx Sleep Apnea No 07/27/24 10:12 CPAP BIPAP Do you snore loudly (louder No 07/27/24 10:12 than talking or can be heard Do you often feel tired/ No 07/27/24 10:12 fatigued/ sleepy during daytime? Has anyone observed you stop No 07/27/24 10:12 breathing during sleep? STOP Results Negative 07/27/24 10:12 QUESTION #5 FULL TEXT : Do you snore loudly (louder than talking or can be heard through closeddoors)? Tobacco Use History Tobacco Use History - multi operation machine operator: Tobacco Use History - multi operation machine operator Tobacco Use Smoking Status Never smoker 07/27/24 10:12 Hx Tobacco Use No 07/27/24 10:12 Years Smoking Packs Smoked per Day Smoking Cessation Date was within the last 15 years Hx Smoking Cessation Date Hx Smoking Cessation Counseling Hematologic Medial History Hematologic Hx - multi operation machine operator: Hematologic Medical Hx - director cost Hx of Blood Transfusion No 07/27/24 10:12 Hx of Transfusion in last 3 No 07/27/24 10:12 Months Date of Last Transfusion (if within last 3 months) Ever experience any problems No 07/27/24 10:12 with transfusion(s)? Specify any problems Hx of Preganancy in last 3 Yes 07/27/24 10:12 Months Nurse Filling Out Transfusion VCHRISTIN 07/27/24 10:12 & Questions: Date: 07/27/24 07/27/24 10:12 Time: 10:13 07/27/24 10:12 Patient unable to answer at this time (ie. confused, unrespo /Reproduction History /Reproductive History - multi operation machine operator: /Reproductive Hx- multi operation machine operator Hx Now No 07/27/24 10:12 Gestational Age (in weeks): EDC: Hx Hx Para Hx Section SAB No 07/27/24 10:12 PFSH Medical History (Updated 07/27/24 @ 10:12 by Faith Roberson) Anemia Seasonal allergies Menorrhagia with regular cycle Anxiety Home Medications ?Medication ?Instructions ?Recorded ?Last Taken ?Type multivitamin no.47-iron fum 27 1 cap PO DAILY 05/02/24 08/06/24 History mg-folate no.1 1 mg-dha 300 mg capsule (PNV-DHA) Allergy/AdvReac Type Severity Reaction Status Date / Time No Known Allergies Allergy Verified 08/08/24 13:44 Family History Grandfather Heart disease Leukemia Father Heart disease Grandmother Cancer, Onset Age: 62 Maternal- Skin cancer Mother Breast cancer, Onset Age: 46 genetic Surgical History (Updated 07/27/24 @ 10:12 by Faith Roberson) H/O dilation and curettage History of oral surgery Social History adopted: No household members: significant other current occupational status: employed 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 pets and animals: Yes (Avoid litterbox) pets and animals: cat(s) history of recent travel: No sexually active: Yes Smoking Status: Never smoker alcohol intake: never substance use type: does not use diet: gluten free well-balanced diet: daily or most days caffeine: No eating out: rarely or never during the past year weight has: remained stable what type of physical activity do you participate in: walking frequency: 1-2 times per week duration: 30-45 minutes/day maryanne/zoroastrian: None seatbelt use: always do you feel safe at home: Yes additional social history: Erick Srinivasan- tufter hand Review of Systems (Anesthesia) ROS Narrative System reviewed and no additional complaints, except as documented. Physical Exam Const alert, oriented x3 and average body habitus Resp normal respiratory effort, normal air movement and clear to auscultation bilaterally Cardio regular rate, regular rhythm, no murmurs and diaphoretic 08/08/24 1405 MD> Date _ Jaret Perla MD [facility] Signature: Date CC: ~ Signed [facility]03-18-2025 [facility]02-25-2025 Radiology Diagnostic study note [facility] Imaging Services [address], [place] [id number] Pelvic w/ Transvaginal MR#: [id number] Acct: [id number] Name: SMITA SRINIVASAN Rep #: [id number] : 2000 F 23 From: Genet Scales MD PCP: Dr. Juan Pete MD Status: REG CLI Study:Pelvic w/ Transvaginal Date of Exam: 07/18/24 Exam# [id number] Ordering Dr: Santa Sampson MD PROCEDURE: PELVIC W/ TRANSVAGINAL REASON FOR EXAM: 23-year-old female, dysfunctional uterine bleeding. History of D and C approximately 1 month ago, persistent heavy bleeding. TECHNIQUE: Transvaginal pelvic ultrasound COMPARISON: None. FINDINGS: Measurements: Uterus: 7.9 x 5.7 x 4.1 cm with a volume of 97.5 mL Endometrial Thickness: 0.7 cm Right Ovary: 3.0 x 1.6 x 1.7 cm with a volume of 4.2 mL. Left Ovary: 3.6 x 1.7 x 1.5 cm with a volume of 4.7 mL. Uterus: Retroverted. Normal contour and myometrial echotexture. Endometrium: Heterogeneous, with scattered anechoic areas. Additional tiny hyperechoic focus measuring 1.3 x 0.9 x 0.3 cm demonstrating hypervascularity is visualized within the endometrium. Right ovary: Normal size and echotexture. Left ovary: Normal size and echotexture. Other adnexal findings: None. Cul-de-sac: No free intraperitoneal fluid identified. No tenderness. US/Pelvic w/ Transvaginal IMPRESSION: Normal transvaginal pelvic ultrasound. Low index of suspicion for retained products of conception. Reading Location: PSYCHIATRIC CC: Dr. Juan Pete MD; Dr. 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01-13-2025 NoteHNO ID: [id number] Author: BRENDA PAULINO PA Service: ? Author Type: Physician Inweaver Type: Progress Notes Filed: 06/05/2024 14:13 Note Text: This note was created using NoteWriter. Subjective Smita Huizar is a 23 year old female. HPI 23-year-old female presents for sore throat, fever since yesterday. Patient states she started getting sore throat yesterday. Her tonsils are swollen. She had a fever yesterday. She took Tylenol which did not really help with symptoms. No cough or congestion. Still able to eat and drink, but painful to swallow. No known exposure to strep. Not or breast-feeding. History reviewed. No pertinent past medical history. No past surgical history on file. ALLERGIES Patient has no known allergies. MEDICATIONS No prescriptions on file. No family history on file. Social History Tobacco Use Smoking status: Never Smokeless tobacco: Never Review of Systems Constitutional: Positive for fever. Negative for chills. HENT: Positive for sore throat. Negative for congestion and ear pain. Respiratory: Negative for cough and shortness of breath. Cardiovascular: Negative for chest pain. Gastrointestinal: Negative for diarrhea and vomiting. Objective BP 118/78 Pulse 99 Temp 37.2 ?C (99 ?F) (Tympanic) Resp 18 Wt 65.5 kg (144 lb 6.4 oz) SpO2 100% Physical Exam Vitals and nursing note reviewed. Constitutional: General: She is not in acute distress. Appearance: Normal appearance. She is not toxic-appearing. HENT: Right Ear: Tympanic membrane and ear canal normal. Left Ear: Tympanic membrane and ear canal normal. Nose: Nose normal. Mouth/Throat: Mouth: Mucous membranes are moist. Pharynx: Uvula midline. Posterior oropharyngeal erythema present. Tonsils: Tonsillar exudate present. 2+ on the right. 2+ on the left. Eyes: Conjunctiva/sclera: Conjunctivae normal. Cardiovascular: Rate and Rhythm: Normal rate and regular rhythm. Pulmonary: Effort: Pulmonary effort is normal. Breath sounds: Normal breath sounds. Lymphadenopathy: Cervical: Cervical adenopathy present. Right cervical: Superficial cervical adenopathy present. Left cervical: Superficial cervical adenopathy present. Skin: General: Skin is warm and dry. Neurological: Mental Status: She is alert. Assessment and Plan ASSESSMENT/PLAN: 1. Sore throat - ICD9: 462, ICD10: J02.9 (primary diagnosis) - suspect viral - Group A strep molecular testing negative - Discussed supportive care treatment with fluids, rest and analgesia. - The patient may also use warm salt water gargles, throat lozenges and/or OTC throat spray as needed. - STREP A MOLECULAR (POC) - MONOTEST, INFECTIOUS MONO-to be completed in 1 week if symptoms persistent -Rx for prednisone to help with throat inflammation/pain 2. Lymphadenopathy, cervical - ICD9: 785.6, ICD10: R59.0 - MONOTEST, INFECTIOUS MONO Diagnosis and treatment plan were discussed and questions were answered to the patient's satisfaction. Pt acknowledged understanding of concepts and follow up plan. Specific signs and symptoms that would indicate the need for higher level of care were discussed in detail warranting prompt ER evaluation. Brenda Paulino [facility]01-13-2025 History of Present illness Narrative* Brenda aPulino PA - 06/05/2024 2:04 PM EST This note was created using dondeEsta™riter. Subjective Smita Huizar is a 23 year old female. HPI 23-year-old female presents for sore throat, fever since yesterday. Patient states she started getting sore throat yesterday. Her tonsils are swollen. She had a fever yesterday. She took Tylenol which did not really help with symptoms. No cough or congestion. Still able to eat and drink, but painful to swallow. No known exposure to strep. Not or breast-feeding. History reviewed. No pertinent past medical history. No past surgical history on file. ALLERGIES Patient has no known allergies. MEDICATIONS No prescriptions on file. No family history on file. Social History Tobacco Use Smoking status: Never Smokeless tobacco: Never Review of Systems Constitutional: Positive for fever. Negative for chills. HENT: Positive for sore throat. Negative for congestion and ear pain. Respiratory: Negative for cough and shortness of breath. Cardiovascular: Negative for chest pain. Gastrointestinal: Negative for diarrhea and vomiting. Objective BP 118/78 Pulse 99 Temp 37.2 C (99 F) (Tympanic) Resp 18 Wt 65.5 kg (144 lb 6.4 oz) SpO2 100% Physical Exam Vitals and nursing note reviewed. Constitutional: General: She is not in acute distress. Appearance: Normal appearance. She is not toxic-appearing. HENT: Right Ear: Tympanic membrane and ear canal normal. Left Ear: Tympanic membrane and ear canal normal. Nose: Nose normal. Mouth/Throat: Mouth: Mucous membranes are moist. Pharynx: Uvula midline. Posterior oropharyngeal erythema present. Tonsils: Tonsillar exudate present. 2+ on the right. 2+ on the left. Eyes: Conjunctiva/sclera: Conjunctivae normal. Cardiovascular: Rate and Rhythm: Normal rate and regular rhythm. Pulmonary: Effort: Pulmonary effort is normal. Breath sounds: Normal breath sounds. Lymphadenopathy: Cervical: Cervical adenopathy present. Right cervical: Superficial cervical adenopathy present. Left cervical: Superficial cervical adenopathy present. Skin: General: Skin is warm and dry. Neurological: Mental Status: She is alert. Assessment and Plan ASSESSMENT/PLAN: 1. Sore throat - ICD9: 462, ICD10: J02.9 (primary diagnosis) - suspect viral - Group A strep molecular testing negative - Discussed supportive care treatment with fluids, rest and analgesia. - The patient may also use warm salt water gargles, throat lozenges and/or OTC throat spray as needed. - STREP A MOLECULAR (POC) - MONOTEST, INFECTIOUS MONO-to be completed in 1 week if symptoms persistent -Rx for prednisone to help with throat inflammation/pain 2. Lymphadenopathy, cervical - ICD9: 785.6, ICD10: R59.0 - MONOTEST, INFECTIOUS MONO Diagnosis and treatment plan were discussed and questions were answered to the patient's satisfaction. Pt acknowledged understanding of concepts and follow up plan. Specific signs and symptoms that would indicate the need for higher level of care were discussed in detail warranting prompt ER evaluation. STEFANY Malave [facility]12-16-2024 NotePap Smear Specimen AdequacyDecember 2023 11:39am Comment.Satisfactory for evaluation. Endocervical and/or squamous metaplasticcells (endocervical component)are present.[facility] INTER[facility]ACED A#[id number]. Mary'S Medical CenterComment on above:Satisfactory for evaluation. Endocervical and/or squamous metaplasticcells (endocervical component)are present.05-08-2024 NotePap Smear Specimen AdequacyDecember 2023 11:39amComment.Satisfactory for evaluation. Endocervical and/or squamous metaplasticcells (endocervical component)are present.[facility] INTER[facility]ACED A#[id number]. Mary'S Medical CenterComment on above:Satisfactory for evaluation. Endocervical and/or squamous metaplasticcells (endocervical component)are present.05-08-2024 NotePap Smear Specimen AdequacyDecember 2023 11:39amComment.Satisfactory for evaluation. Endocervical and/or squamous metaplasticcells (endocervical component)are present.[facility] INTER[facility]ACED A#[id number]. Mary'S Medical CenterComment on above:Satisfactory for evaluation. Endocervical and/or squamous metaplasticcells (endocervical component)are present.05-08-2024 NotePap Smear Specimen AdequacyDecember 2023 11:39amComment.Satisfactory for evaluation. Endocervical and/or squamous metaplasticcells (endocervical component)are present.[facility] INTERFACED A#[id number]. Mary'S Medical CenterComment on above:Satisfactory for evaluation. Endocervical and/or squamous metaplasticcells (endocervical component)are present.05-08-2024 NotePap Smear Specimen AdequacyDecember 2023 11:39amComment.Satisfactory for evaluation. Endocervical and/or squamous metaplasticcells (endocervical component)are present.[facility] INTERFACED A#[id number]. Mary'S Medical CenterComment on above:Satisfactory for evaluation. Endocervical and/or squamous metaplasticcells (endocervical component)are present.05-08-2024 Evaluation note* Diagnosis Onset Date Resolution Status Admit Date FH: breast cancer in first degree relative acute May 08 8:04am inactive May 08, 2024 8:04am Supervision of normal first inactive May 08 8:04am Family history of neural tub e defect acute May 22 11:42am FH: breast cancer in first degree relative acute May 22 11:42am inactive May 22, 2024 11:42am Supervision of normal first inactive May 22 11:42am Incomplete miscarriage inactive [facility] 2024 10:31am Status post dilation and curettage acute June 01 10:51am Status post dilation and curettage acute June 07 8:40am Dysfunctional uterine bleeding acute July 17, 2024 2:12pm Dysfunctional uterine bleeding acute July 19, 2024 10:42am Anemia due to blood loss inactive July 19, 2024 10:42am [facility] Work Phone: 1(309) 478-821812-16-2024 Evaluation note* Diagnosis Onset Date Resolution Status Admit Date FH: breast cancer in first degree relative acute May 08 8:04am inactive May 08, 2024 8:04am Supervision of normal first inactive May 08 8:04am Family history of neural tub e defect acute May 22 11:42am FH: breast cancer in first degree relative acute May 22 11:42am inactive May 22, 2024 11:42am Supervision of normal first inactive May 22 11:42am Incomplete miscarriage inactive [facility] 2024 10:31am Status post dilation and curettage acute June 01 10:51am Status post dilation and curettage acute June 07 8:40am Dysfunctional uterine bleeding acute July 17, 2024 2:12pm Dysfunctional uterine bleeding acute July 19, 2024 10:42am Anemia due to blood loss inactive July 19, 2024 10:42am Dysfunctional uterine bleeding acute August 08, 2024 12:54pm [facility] Work Phone: 1(952) 963-870611-27-2024 NoteHNO ID: [id number] Author: MONTY SALAZAR MD Service: ? Author Type: Physician Type: Progress Notes Filed: 04/19/2024 10:48 Note Text: Patient presents with: Swollen Glands: right side x 2-3 days, denies sore throat HPI: Feeling tender neck lymph nodes for 3 days. Initially left was worse, now the right. Positive symptoms: Fever, sweats, Body Aches, tender lymph nodes, Negative symptoms: Cough, Sore throat, Nasal Congestion, Rhinorrhea, Nausea, Vomiting, Diarrhea, Earache, Sinus pressure, Headache, OTC: Ibuprofen, Tylenol. Stopped OCP last month. Her fiance is not ill. MEDICATIONS: No current outpatient medications on file. No current facility-administered medications for this visit. ALLERGIES: ALLERGIES No Known Allergies VITALS: BP 106/60 Pulse 98 Temp 36.9 ?C (98.4 ?F) Resp 16 Wt 62.7 kg (138 lb 3.7 oz) SpO2 99% PHYSICAL EXAM: GEN: alert, pleasant, has sweats HEENT: PERRL, EOMI, conjunctiva clear Ears: canals clear. TMs without erythema, bulge, or effusion Sinuses: non-tender frontal sinus, non-tender maxillary sinuses Throat: moist mucous membranes; tonsillar erythema, edema, and large exudate Neck: supple, no thyromegaly, tender anterior lymphadenopathy HEART: regular rate and rhythm, no murmurs LUNGS: clear to auscultation, no wheezes or crackles, no increased WOB ASSESSMENT/PLAN: 1. Tonsillitis - ICD9: 463, ICD10: J03.90 - STREP A MOLECULAR (POC) - negative. - suspect viral pharyngitis. Possible mononucleosis. - Discussed supportive care treatment with rest, cold medicine, and analgesia. Mononucleosis discussed. [place] is viral illness without curative treatment. Treatment is supportive care with rest, adequate hydration, and symptom relief. Symptoms may last for several weeks. Testing for mono is not sensitive early in the illness. She may follow up for re-evaluation and possible testing if symptoms are worsening or not improving. Monty Salazar, [facility]11-27-2024 History of Present illness Narrative* Monty Salazar MD - 04/19/2024 10:13 AM EST Patient presents with: Swollen Glands: right side x 2-3 days, denies sore throat HPI: Feeling tender neck lymph nodes for 3 days. Initially left was worse, now the right. Positive symptoms: Fever, sweats, Body Aches, tender lymph nodes, Negative symptoms: Cough, Sore throat, Nasal Congestion, Rhinorrhea, Nausea, Vomiting, Diarrhea, Earache, Sinus pressure, Headache, OTC: Ibuprofen, Tylenol. Stopped OCP last month. Her fiance is not ill. MEDICATIONS: No current outpatient medications on file. No current facility-administered medications for this visit. ALLERGIES: ALLERGIES No Known Allergies VITALS: BP 106/60 Pulse 98 Temp 36.9 C (98.4 F) Resp 16 Wt 62.7 kg (138 lb 3.7 oz) SpO2 99% PHYSICAL EXAM: GEN: alert, pleasant, has sweats HEENT: PERRL, EOMI, conjunctiva clear Ears: canals clear. TMs without erythema, bulge, or effusion Sinuses: non-tender frontal sinus, non-tender maxillary sinuses Throat: moist mucous membranes; tonsillar erythema, edema, and large exudate Neck: supple, no thyromegaly, tender anterior lymphadenopathy HEART: regular rate and rhythm, no murmurs LUNGS: clear to auscultation, no wheezes or crackles, no increased WOB ASSESSMENT/PLAN: 1. Tonsillitis - ICD9: 463, ICD10: J03.90 - STREP A MOLECULAR (POC) - negative. - suspect viral pharyngitis. Possible mononucleosis. - Discussed supportive care treatment with rest, cold medicine, and analgesia. Mononucleosis discussed. [place] is viral illness without curative treatment. Treatment is supportive care with rest, adequate hydration, and symptom relief. Symptoms may last for several weeks. Testingfor mono is not sensitive early in the illness. She may follow up for re-evaluation and possible testing if symptoms are worsening or not improving. Monty Salazar MD [facility] Author Sheri Rosario [facility] Note Date/Time August 08, 2024 6:[address] [facility] Medical Records Department [address] [place] [address] Anesthesia Postop Eval I 08/08/241852 MR#: [id number] Acct: [id number] Name: SMITA SRINIVASAN Rep #:[id number] : 2000 23 From: Sheri Rosario PCP: Dr. Juan Pete MD Status :[place] [facility] [place] [place] Race: C Location: [place] [address] Anesthesia: Postop Eval I Current Vital Signs Temperature: 97 F Pulse Rate: 87 Blood Pressure: 112/69 Respiratory Rate: 20 Pulse Ox: 100 Assessment Airway patent: Yes Spontaneous unlabored respirations: Yes nausea: No Vomiting: No Anesthesia Complication: No Fluid Hydration Crystalloid volume administer (ml): 10 Total IV fluid infused: 10 Progress Note Anesthesia document: Postop Eval 1 completed: Yes 08/08/241854 <Electronically signed by Sheri jeffers> Date _ Sheri Rosario Cosigner Signature: Date CC: ~ Signed [facility] Work Phone: Consult note Author Zuleyka Corral 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 Juan Pete MD Status :REG ER Location: ED Assessment & Plan (1) Status post dilation and curettage: (2) Fever of unknown origin: PLAN: Plan no signs of PIH or uterine perforation. Suspect possible endometritis, however with sore throat and fever and sick contacts (mom in room was sick with temps upwards of 103 late last week) viral illness should be considered fever now 101 and pulse is improved. OK to dc with doxycycline and follow up in office in a week. HPI Consult Data Date of Consult: 08/14/24 HPI Narrative HPI Narrative: SMITA SRINIVASAN, is a 23 y/o who presents to [facility] with low back pain and fever. She is 6 days status post a dilation and curettage with Dr. daniels for abnormal uterine bleeding. In april she also had a D&C for a miscarriage.She was found to have a temperature of 103 and tachycardia. She was given 2 liters of fluids, tylenol, and was found to be negative for flu, covid, and strep. She denies heavy vaginal bleeding or vaginal odor since her D&C. Ultrasound shows some thickened endometrial tissue and pelvic congestion syndrome. The report reads retained producs of conception can not be ruled outhowever she was not at the time of her D&C. [facility] Medical History Anemia Seasonal allergies Menorrhagia with regular cycle Anxiety Home Medications ?Medication ?Instructions ?Recorded ?Last Taken ?Type multivitamin no.47-iron fum 27 1 cap PO DAILY 05/02/24 08/06/24 History mg-folate no.1 1 mg-dha 300 mg capsule (PNV-DHA) acetaminophen 500 mg tablet 1,000 mg PO Q8H PRN PRN fe payal or 08/14/24 Unknown History (Acetaminophen Extra Strength) pain ibuprofen 200 mg tablet 600 mg PO Q6H PRN fever or p ain 08/14/24 Unknown History Allergy/AdvReac Type Severity Reaction Status Date / Time No Known Allergies Allergy Verified 08/14/24 12:53 Family History Grandfather Heart disease Leukemia Father Heart disease Grandmother Cancer, Onset Age: 62 Maternal- Skin cancer Mother Breast cancer, Onset Age: 46 genetic Surgical History H/O dilation and curettage History of oral surgery Social History adopted: No household members: significant other current occupational status: employed 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 pets and animals: Yes (Avoid litterbox) pets and animals: cat(s) history of recent travel: No sexually active: Yes Smoking Status: Never smoker alcohol intake: never substance use type: does not use diet: gluten free well-balanced diet: daily or most days caffeine: No eating out: rarely or never during the past year weight has: remained stable what type of physical activity do you participate in: walking frequency: 1-2 times per week duration: 30-45 minutes/day maryanne/zoroastrian: None seatbelt use: always do you feel safe at home: Yes additional social history: Jennifer- Chris Sextonan- tufter hand Vital Signs Vital Signs Vital Signs: 08/14/24 12:53 08/14/24 12:59 08/14/24 14:05 Temperature 98.1 F 98.1 F 98 F Temperature Source Oral Temporal Oral Pulse Rate 99 99 103 H Respiratory Rate 18 18 18 Respiratory Effort Respiratory Pattern Blood Pressure 116/75 116/75 116/74 Blood Pressure Mean 88 88 88 Pulse Ox 100 100 99 Oxygen Delivery Method Room Air Room Air Room Air 08/14/24 14:20 08/14/24 15:00 08/14/24 16:00 Temperature 98.1 F 100.2 F H Temperature Source Oral Oral Pulse Rate 118 H 122 H Respiratory Rate 29 H 18 Respiratory Effort Normal Non-Labored Respiratory Pattern Normal Blood Pressure 119/80 122/71 H Blood Pressure Mean 93 88 Pulse Ox 98 99 Oxygen Delivery Method Room Air Room Air 08/14/24 16:02 08/14/24 16:56 08/14/24 17:34 Temperature 102.1 F H 103.2 F H 103 F H Temperature Source Axillary Oral Oral Pulse Rate 125 H Respiratory Rate 18 Respiratory Effort Respiratory Pattern Blood Pressure 109/74 Blood Pressure Mean 85 Pulse Ox 100 Oxygen Delivery Method Room Air 08/14/24 17:55 08/14/24 18:06 Temperature 101.6 F H 101.6 F H Temperature Source Oral Temporal Pulse Rate 113 H Respiratory Rate 18 Respiratory Effort Respiratory Pattern Blood Pressure 106/69 Blood Pressure Mean 81 Pulse Ox 99 Oxygen Delivery Method Room Air Weight Weight: 138 lb 4.8 oz Body Mass Index (BMI) 23.7 ROS Constitutional Constitutional: Reports as per HPI, fatigue, fever(s) and malaise; Denies weakness Eyes Eyes: Denies change in vision ENT HEENT: Reports headache(s), neck pain and sore throat; Denies dizziness, loss taste/smell, nasal congestion or nasal discharge Cardiovascular Cardiovascular: Denies chest pain, dyspnea, lightheadedness, palpitations or syncope Respiratory/Chest Respiratory/Chest: Denies chest congestion, cough, dyspnea, hemoptysis, wheezing, breast mass, breast pain or nipple discharge Gastrointestinal Gastrointestinal: Denies abdominal pain, anorexia, bloating, constipation, cramping, diarrhea, heartburn, nausea or vomiting Genitourinary Genitourinary: Denies dysuria, flank pain, genital lesions, hematuria, urinary frequency, urinary hesitancy, urinary incontinence or urinary urgency Musculoskeletal Musculoskeletal: Reports back pain; Denies difficulty walking Integumentary Integumentary: Denies rash Neurologic Neurologic: Denies dizziness Physical Exam Const alert, oriented x3 and no apparent distress HEENT normocephalic Eyes PERRL Neck full ROM General: trachea midline and lymphadenopathy anterior cervical Resp normal respiratory effort and no retractions GI normal to inspection, nondistended, normoactive bowel sounds, soft to palpation,non-tender, non-distended and no masses Narrative: no external uterine tenderness on exam. pelvic exam deferred due to lack of symptoms Extremity normal to inspection Psych affect normal Lab / Micro Data 08/14/24 13:19 08/14/24 13:19 Labs: Laboratory Results - last 24 hr 08/14/24 13:19: WBC 6.5, RBC 3.76 L, Hgb 11.2 L, Hct 33.5 L, MCV 89.1, MCH 29.8,MCHC 33.4, RDW Std Deviation 39.6, RDW Coeff of Lisandro 12.2, Plt Count 268, MPV 10.4, Immature Gran % (Auto) 0.300, Neut % (Auto) 80.5 H, Lymph % (Auto) 8.3 L, [place] % (Auto) 10.6 H, Eos % (Auto) 0.0, Baso % (Auto) 0.3, Absolute Neuts (auto)5.3, Absolute Lymphs (auto) 0.54 L, Nucleated RBC % 0, Sodium 139, Potassium 4.1, Chloride 105, Carbon Dioxide 23.3, Anion Gap 11, BUN 7, Creatinine 0.64 L, Estim Creat Clear Calc 119.06, Est GFR (MDRD) Non-Af 128, BUN/Creatinine Ratio 11.2, Glucose 113 H, Calcium 9.5, Total Bilirubin 0.37, AST 21, ALT 10, AlkalinePhosphatase 50, Total Protein 6.9, Albumin 4.2, Globulin 2.7, Albumin/Globulin Ratio 1.5, Lipase 15 08/14/24 13:19: Lipase 15, Serum , Qual NEGATIVE 08/14/24 14:01: Lactic Acid 1.2 08/14/24 14:23: Urine Color Yellow, Urine Clarity Clear, Urine pH 6.5, Ur Specific [place] 1.010, Urine Protein 30 H, Urine Glucose (UA) Normal, Urine Ketones 15 H, Urine Occult Blood 150 H, Urine Nitrite Negative, Urine Bilirubin Negative, Urine Urobilinogen Normal, Ur Leukocyte Esterase Negative, Urine RBC 0SEEN, Urine WBC 0 SEEN, Ur Squamous Epith Cells 0 SEEN, Urine Bacteria 0 SEEN, Urine Mucus 0 SEEN 08/14/24 14:55: Monoscreen Negative Micro: Microbiology 08/14/24 14:55 Mucosa - Throat Streptococcus pyogenes (PCR) - Final Imaging Radiology Impression Transvaginal US 08/14/24 13:42 IMPRESSION: 1. Apparent hyperechoic complex endometrium. Retained product of conception can not be excluded. 2. 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 Clinical correlation is recommended. Reading Location: [facility] Charges/Coding Multi Select Codes Visit Charges Office Visit/Consults: 55812 ED Visit; Low/Mod Severity 08/14/24 1829 <Electronically signed by Zuleyka Delgadillo DO> Cosigner Signature (if applicable): CC: Dr. Juan Pete MD~ Signed [facility] Work Phone: Discharge summary Author Santa Daniels [facility] Note Date/Time August 08, 2024 8:[address] [facility] Medical Records Department [address] [place] [address] Instructions for Home/Discharge Instructions 08/08/24 1856 MR#: [id number] Acct: [id number] Name: SMITA SRINIVASAN Rep #:[id number] : 2000 23 From: Santa steinberg MD PCP: Dr. Juan Pete MD Status :[place] [facility] [place]charge Instructions Diet Discharge Diet: No restrictions DC O2, CPAP, BIPAP needs Home O2 Discharge instructions: No Dressing / Incision Discharge Activity: Return to Normal Activity, May Shower and May Take a Tub Bath (after 1 week) May resume sexual activity in: 1-2 weeks Weight Bearing Status: Weight bearing as tolerated Lifting Restrictions: none Dressing / Incision Call your doctor if you observe: Fever of 101 or Higher, Using more than 1 pad per hour, Shortness of breath and Uncontrolled pain Follow Up Care Please Follow Up With: Santa Daniels MD When: Call [phone] to schedule appointment. Test Results: Test results from this visit will be discussed in further detail at your follow- up appointment, if applicable. Discharge Plan Admission Attending Provider: Santa Daniels Primary Care Provider: Juan Pete Instructions Print Language: Wallisian Discharge Orders/Prescriptions Prescriptions: No Action PNV-DHA 27 mg iron-1 mg -300 mg capsule 1 cap PO DAILY Referrals / Follow Up: Juan Pete MD [Primary Care Provider] - Disposition Disposition (needs filled in before D/C Order can be placed): Home, Self Care 08/08/241855<Electronically signed by Santa Daniels MD>Santa Daniels MD CC: Dr. Juan Pete MD ~ Signed [facility] Work Phone: Evaluation note* Diagnosis Onset Date Resolution Status Anxiety acute [facility] Work Phone: Evaluation note* Diagnosis Onset Date Resolution Status Anxiety acute Dysmenorrhea acute Hirsutism acute Menorrhagia with regular cycle acute [facility] Work Phone: Evaluation note* Diagnosis Tonsillitis- Primary Acute tonsillitis [facility] Diagnosis Sore throat- Primary Acute pharyngitis Lymphadenopathy, cervical Enlargement of lymph nodes [facility] Additional Instructions Follow-up on your respiratory panel with your family doctor. If your blood cultures are positive you will be called to return to the hospital for IV antibiotics however at this point time once again I have low suspicion for this as your blood work is normal here in the emergency department with normal CAT scans. Continue to rotate Tylenol and ibuprofen [id number] for fever control and continue supportive care. Return with any other concerns. Ensure you complete the course of doxycycline that you are prescribed.[facility] Work Phone: Hospital Discharge instructionsAdditional Instructions Thank you for trusting us with your care today! Your presentation is consistent with likely foodborne illness. Your labs are reassuring. Please take Tylenol (2 pills, 650 mg), ibuprofen (2 pills, 400 mg) every 6 hours as needed for pain and fever control. Please take Zofran as needed for nausea vomiting control. Please return to the emergency department if your symptoms change or worsen. Please follow with your primary care physician for further outpatient evaluation and management.[facility] Work Phone: Reason for referral (narrative)No reason for referral information availableWooCleveland [facility] Work Phone: Summary Purpose Family History No Family History Records Found Relationship Condition Age at Onset Recorded Date/T nancy grandfather Cardiac disease Unknown Leukemia Unknown father Cardiac disease Unknown Relationship Condition Age at Onset Recorded Date/T nancy grandfather Cardiac disease Unknown Leukemia Unknown father Cardiac disease Unknown grandmother Malignant neoplasm 62 mother Malignant neoplasm of breast 46 Advance Directives No Advanced Directives Records Found Advance Directive Response Recorded Date/ Time Living Will No May 25 12:29pm Power of Hand Glass Cutter No May 25 2 025 12:29pm Living Will No July 14 025 9:53pm Power of Hand Glass Cutter No July 14, 2024 9:53pm Living Will No May 23 024 1:16pm Power of Hand Glass Cutter No May 23, 2024 1:16pm Advance Directive Response Recorded Date/ Time Living Will No May 25 12:29pm Power of Hand Glass Cutter No May 25 025 12:29pm Living Will No July 14 025 9:53pm Power of Hand Glass Cutter No July 14, 2024 9:53pm Living Will No July 27, 2024 11:12am Power of Hand Glass Cutter No July 27 11:12am Living Will No May 23 024 1:16pm Power of Hand Glass Cutter No May 23, 2024 1:16pm Advance Directive Response Recorded Date/ Time Living Will No May 25 12:29pm Do you have a Healthcare Power of Hand Glass Cutter? No May 25, 2024 12:29pm Living Will No July 14, 025 9:53pm Do you have a Healthcare Power of Hand Glass Cutter? No July 14, 2024 9:53pm Living Will No July 27, 2024 11:12am Do you have a Healthcare Power of Hand Glass Cutter? No July 27, 2024 11:12am Living Will No May 23 024 1:16pm Do you have a Healthcare Power of Hand Glass Cutter? No May 23, 2024 1:16pm Living Will No August 14, 2024 2:20pm Do you have a Healthcare Power of Hand Glass Cutter? No August 14, 2024 2:20pm Advance Directive Response Recorded Date/ Time Living Will No May 25 12:29pm Do you have a Healthcare Power of Hand Glass Cutter? No May 25, 2024 12:29pm Living Will No July 14 9:53pm Do you have a Healthcare Power of Hand Glass Cutter? No July 14, 2024 9:53pm Living Will No July 27, 2024 11:12am Do you have a Healthcare Power of Hand Glass Cutter? No July 27, 2024 11:12am Living Will No August 16, 2024 2:49pm Do you have a Healthcare Power of Hand Glass Cutter? No August 16, 2024 2:49pm Living Will No May 23 1:16pm Do you have a Healthcare Power of Hand Glass Cutter? No May 23, 2024 1:16pm Living Will No August 14, 2024 2:20pm Do you have a Healthcare Power of Hand Glass Cutter? No August 14, 2024 2:20pm Advance Directive Response Recorded Date/ Time Living Will No July 27, 2024 11:12am Do you have a Healthcare Power of Hand Glass Cutter? No July 27, 2024 11:12am Living Will No August 16, 2024 2:49pm Do you have a Healthcare Power of Hand Glass Cutter? No August 16, 2024 2:49pm Living Will No August 14, 2024 2:20pm Do you have a Healthcare Power of Hand Glass Cutter? No August 14, 2024 2:20pm Advance Directive Response Recorded Date/ Time Living Will No July 27, 2024 11:12am Do you have a Healthcare Power of Hand Glass Cutter? No July 27, 2024 11:12am Living Will No August 16, 2024 2:49pm Do you have a Healthcare Power of Hand Glass Cutter? No August 16, 2024 2:49pm Living Will No August 14, 2024 2:20pm Do you have a Healthcare Power of Hand Glass Cutter? No August 14, 2024 2:20pm Do you have a Healthcare Power of Hand Glass Cutter? No November 25, 2024 11:30pm Advance Directive Response Recorded Date/ Time Living Will No August 16, 2024 2:49pm Do you have a Healthcare Power of Hand Glass Cutter? No August 16, 2024 2:49pm Living Will No August 14, 2024 2:20pm Do you have a Healthcare Power of Hand Glass Cutter? No August 14, 2024 2:20pm Do you have a Healthcare Power of Hand Glass Cutter? No November 25, 2024 11:30pm Chief Complaint and Reason for Visit Chief Complaint No menses, negative upt Reason for Visit Anxiety Chief Complaint discuss hair growth/ heavy painful menses Reason for Visit Anxiety Dysmenorrhea Hirsutism Menorrhagia with regular cycle Chief Complaint Admit Date New OB, LMP 03/21, NICHOL 12/26/24 April 232023 8:04am 9 wk ob May 22, 2024 11:42am MISCARRIAGE May 23, 2024 10:49am 2 wk suction D&C June 01, 2024 10 :51am D&C June 07, 2024 8 :40am NEW EMPLOYEE [facility] June 22, 2024 9:25am E-ORDER July 05, 2024 9:34am vaginal bleeding July 14, 2024 5:57pm ER Follow UP/heavy bleeding June 2:12pm E-ORDER July 18, 2024 1:36pm AUB July 18, 2024 4:35pm fu abnormal bleeding July 19, 2024 10:42am Reason for Visit Admit Date FH: breast cancer in first degree relati ve May 08, 2024 8:04am May 08, 2024 8:04am Supervision of normal first 2023 8:04am Family history of neural tube defect Dec 2023 11:42am FH: breast cancer in first degree relati ve May 22, 2024 11:42am May 22, 2024 11:42am Supervision of normal first 2023 11:42am Incomplete miscarriage May 25, 2024 10:31am Status post dilation and curettage [place] 2024 10:51am Status post dilation and curettage [facility] 2024 8:40am Dysfunctional uterine bleeding July 17, 2024 2:12pm Dysfunctional uterine bleeding July 19, 2024 10:42am Anemia due to blood loss July 19, 2024 10:42am Chief Complaint Admit Date New OB, LMP 03/21, NICHOL 12/26/24 April 232023 8:04am 9 wk ob May 22, 2024 11:42am MISCARRIAGE May 23, 2024 10:49am 2 wk suction D&C June 01, 2024 10 :51am D&C June 07, 2024 8 :40am NEW EMPLOYEE [facility] June 22, 2024 9:25am E-ORDER July 05, 2024 9:34am vaginal bleeding July 14, 2024 5:57pm ER Follow UP/heavy bleeding June 2:12pm E-ORDER July 18, 2024 1:36pm AUB July 18, 2024 4:35pm fu abnormal bleeding July 19, 2024 10:42am Hysteroscopy,D&C Symphion August 08 7:25am Hysteroscopy,D&C Symphion August 08 12:54pm Reason for Visit Admit Date FH: breast cancer in first degree relati ve May 08, 2024 8:04am May 08, 2024 8:04am Supervision of normal first [email or web address] 8:04am Family history of neural tube defect Dec 2023 11:42am FH: breast cancer in first degree relati ve May 22, 2024 11:42am May 22, 2024 11:42am Supervision of normal first [facility] 2023 11:42am Incomplete miscarriage May 25, 2024 10:31am Status post dilation and curettage May 2024 10:51am Status post dilation and curettage [facility] 2024 8:40am Dysfunctional uterine bleeding July 17, 2024 2:12pm Dysfunctional uterine bleeding July 19, 2024 10:42am Anemia due to blood loss July 19, 2024 10:42am Dysfunctional uterine bleeding July 12:54pm Chief Complaint Admit Date New OB, LMP 03/21, NICHOL 12/26/24 April 232023 8:04am 9 wk ob May 22, 2024 11:42am MISCARRIAGE May 23, 2024 10:49am 2 wk suction D&C June 01, 2024 10 :51am D&C June 07, 2024 8 :40am NEW EMPLOYEE [facility] June 22, 2024 9:25am E-ORDER July 05, 2024 9:34am vaginal bleeding July 14, 2024 5:57pm ER Follow UP/heavy bleeding June 2:12pm E-ORDER July 18, 2024 1:36pm AUB July 18, 2024 4:35pm fu abnormal bleeding July 19, 2024 10:42am Hysteroscopy,D&C Symphion August 08 7:25am Hysteroscopy,D&C Symphion August 08 12:54pm general illness August 14, 2024 12: 52pm general illness August 14, 2024 6:1 8pm Chief Complaint Admit Date New OB, LMP 03/21, NICHOL 12/26/24 April 232023 8:04am 9 wk ob May 22, 2024 11:42am MISCARRIAGE May 23, 2024 10:49am 2 wk suction D&C June 01, 2024 10 :51am D&C June 07, 2024 8 :40am NEW EMPLOYEE [facility] June 22, 2024 9:25am E-ORDER July 05, 2024 9:34am vaginal bleeding July 14, 2024 5:57pm ER Follow UP/heavy bleeding June 2:12pm E-ORDER July 18, 2024 1:36pm AUB July 18, 2024 4:35pm fu abnormal bleeding July 19, 2024 10:42am Hysteroscopy,D&C Symphion August 08 7:25am Hysteroscopy,D&C Symphion August 08 12:54pm general illness August 14, 2024 12: 52pm general illness August 14, 2024 6:1 8pm FEVER August 16, 2024 2:4 9pm Chief Complaint Admit Date DYSFUNCTIONAL UTERINE BLEEDING July 7:00am Hysteroscopy,D&C Symphion August 08 7:25am Hysteroscopy,D&C Symphion August 08 12:54pm general illness August 14, 2024 12: 52pm general illness August 14, 2024 6:1 8pm FEVER August 16, 2024 2:4 9pm 2 wk D&C Symphion August 23, 2024 8:56 am Fertility Consult November 22, 2024 1:58p m Reason for Visit Admit Date Dysfunctional uterine bleeding July 12:54pm Dysfunctional uterine bleeding August 8:56am Infertility management November 22, 2024 1: 58pm Status post dilation and curettage November 22, 2024 1:58pm Chief Complaint Admit Date DYSFUNCTIONAL UTERINE BLEEDING July 7:00am Hysteroscopy,D&C Symphion August 08 7:25am Hysteroscopy,D&C Symphion August 08 12:54pm general illness August 14, 2024 12: 52pm general illness August 14, 2024 6:1 8pm FEVER August 16, 2024 2:4 9pm 2 wk D&C Symphion August 23, 2024 8:56 am Fertility Consult November 22, 2024 1:58p m n/v November 25, 2024 10:44 pm Chief Complaint Admit Date general illness August 14, 2024 12: 52pm general illness August 14, 2024 6:1 8pm FEVER August 16, 2024 2:4 9pm 2 wk D&C Symphion August 23, 2024 8:56 am Fertility Consult November 22, 2024 1:58p m n/v November 25, 2024 10:44 pm Reason for Visit Admit Date Dysfunctional uterine bleeding August 8:56am Infertility management November 22, 2024 1: 58pm Status post dilation and curettage November 22, 2024 1:58pm Additional Source Comments INFORMATION SOURCE (unrecogn ized section and content) DATE CREATED AUTHOR 11/25/2017 [facility] DATE CREATED AUTHOR AUTHOR'S ORGANIZ ATION 06/15/2020 [facility] DATE CREATED AUTHOR AUTHOR'S ORGANIZ ATION 07/11/2023 [facility] DATE CREATED AUTHOR AUTHOR'S ORGANIZ ATION 06/08/2024 [facility] DATE CREATED AUTHOR AUTHOR'S ORGANIZ ATION 12/11/2024 [facility] Goals (unrecognized section and content) Goals may be documented in a n alternate sectionGoals may be documented in an alternate sectionGoals may be documented in an alternate section Care Teams (unrecognized sec tion and content) Team Status: Active Member Role Status Dates Dr. Amrit Pete MD Family Provider Active Dr. Amrit Pete MD Primary Care Provider Activ e Team Status: Inactive Member Role Status Dates Dr. Amrit Pete MD Primary Care Provider, Refe ing Provider Active Margarita [facility] [employer], [facility] [employer] Attending Provider Active Team Status: Inactive Member Role Status Dates Dr. Amrit Pete MD Primary Care Provider Activ e Margarita [facility] [employer], [employer] Attending Provider, Referring Provider Active Folder Gluer Operator Relationship Specialty Start Date End Date Juan Pete MD [address] [facility] [address] PCP - [facility] 04/19/24 Folder Gluer Operator Relationship Specialty Start Date End Date Juan Pete MD [address] [facility] [place], [place] [address] PCP - [facility] 04/19/24 Team Status: Active Member Role Status Dates Dr. Juan Pete MD Primary Care Provider Acti ve Team Status: Inactive Member Role Status Dates Dr. Juan Pete MD Primary Care Provider Acti ve Start: May 08, 2024 End: May 08, 2024 Dr. Juan Pete MD Referring Provider Active Start: May 08, 2024 End: May 08, 2024 Dr. Santa Daniels MD Attending Provider Active Start: May 08, 2024 End: May 08, 2024 Team Status: Inactive Member Role Status Dates Dr. Juan Pete MD Primary Care Provider Acti ve Start: May 08, 2024 End: May 08, 2024 Dr. Santa Daniels MD Attending Provider Active Start: May 08, 2024 End: May 08, 2024 Dr. Santa Daniels MD Referring Provider Active Start: May 08, 2024 End: May 08, 2024 Team Status: Inactive Member Role Status Dates Dr. Juan Pete MD Primary Care Provider Acti ve Start: May 22, 2024 End: May 22, 2024 Dr. Juan Pete MD Referring Provider Active Start: May 22, 2024 End: May 22, 2024 Dr. Zuleyka Delgadillo DO Attending Provider Activ e Start: May 22, 2024 End: May 22, 2024 Team Status: Inactive Member Role Status Dates Dr. Juan Pete MD Primary Care Provider Acti ve Start: May 23, 2024 End: May 23, 2024 Dr. James Kerr , Attending Provider Active Start: May 23, 2024 End: May 23, 2024 Dr. James Kerr DO Emergency Provider Active Start: May 23, 2024 End: May 23, 2024 Team Status: Inactive Member Role Status Dates Dr. Juan Pete MD Primary Care Provider Acti ve Start: May 25, 2024 End: May 25, 2024 Dr. Zuleyka Delgadillo DO Attending Provider Activ e Start: May 25, 2024 End: May 25, 2024 Dr. Zuleyka Delgadillo DO Referring Provider Activ e Start: May 25, 2024 End: May 25, 2024 Team Status: Active Member Role Status Dates Dr. Juan Pete MD Primary Care Provider Acti ve Start: May 25, 2024 Dr. Zuleyka Delgadillo DO Attending Provider Activ e Start: May 25, 2024 Dr. Zuleyka Delgadillo DO Referring Provider Activ e Start: May 25, 2024 Dr. Zuleyka Delgadillo DO Other Provider Active Start: May 25, 2024 Team Status: Inactive Member Role Status Dates Dr. Juan Pete MD Primary Care Provider Acti ve Start: June 01, 2024 End: June 01, 2024 Dr. Juan Pete MD Referring Provider Active Start: June 01, 2024 End: June 01, 2024 Dr. Zuleyka Delgadillo DO Attending Provider Activ e Start: June 01, 2024 End: June 01, 2024 Team Status: Inactive Member Role Status Dates Dr. Juan Pete MD Primary Care Provider Acti ve Start: June 07, 2024 End: June 07, 2024 Dr. Juan Pete MD Referring Provider Active Start: June 07, 2024 End: June 07, 2024 Dr. Zuleyka Delgadillo DO Attending Provider Activ e Start: June 07, 2024 End: June 07, 2024 Team Status: Inactive Member Role Status Dates Dr. Juan Pete MD Primary Care Provider Acti ve Start: June 15, 2024 End: June 15, 2024 Dr. Zuleyka Delgadillo DO Attending Provider Activ e Start: June 15, 2024 End: June 15, 2024 Dr. Zuleyka Delgadillo DO Referring Provider Activ e Start: June 15, 2024 End: June 15, 2024 Team Status: Inactive Member Role Status Dates Dr. Juan Pete MD Primary Care Provider Acti ve Start: June 22, 2024 End: June 22, 2024 Dr. Zuleyka Delgadillo DO Attending Provider Activ e Start: June 22, 2024 End: June 22, 2024 Dr. Zuleyka Delgadillo DO Referring Provider Activ e Start: June 22, 2024 End: June 22, 2024 Team Status: Active Member Role Status Dates Dr. Juan Pete MD Primary Care Provider Acti ve Start: June 22, 2024 Health Risk Assessment Attending Provider Active Start: June 22, 2024 Health Risk Assessment Referring Provider Active Start: June 22, 2024 Team Status: Active Member Role Status Dates Employee Health Attending Provider Active Start: June 22, 2024 Team Status: Inactive Member Role Status Dates Dr. Juan Pete MD Primary Care Provider Acti ve Start: June 29, 2024 End: June 29, 2024 Margarita [facility] [employer], [employer]-C Attending Provider Active Start: June 29, 2024 End: June 29, 2024 Margarita Bashir [facility] [employer], [employer]-C Referring Provider Active Start: June 29, 2024 End: June 29, 2024 Team Status: Inactive Member Role Status Dates Dr. Juan Pete MD Primary Care Provider Acti ve Start: July 05, 2024 End: July 05, 2024 Margarita Camejo [facility] [employer], [employer] TE[employer]-C Attending Provider Active Start: July 05, 2024 End: July 05, 2024 Margaritaalicia Camejo [facility] [employer] TE[employer], [employer]-C Referring Provider Active Start: July 05, 2024 End: July 05, 2024 Team Status: Inactive Member Role Status Dates Dr. Juan Pete MD Primary Care Provider Acti ve Start: July 14, 2024 End: July 14, 2024 Dr. Agustín Viramontes MD Attending Provider Active Sta rt: July 14, 2024 End: July 14, 2024 Dr. Agustín Viramontes MD Emergency Provider Active Sta rt: July 14, 2024 End: July 14, 2024 Team Status: Inactive Member Role Status Dates Dr. Juan Pete MD Primary Care Provider Acti ve Start: July 17, 2024 End: July 17, 2024 Dr. Juan Pete MD Referring Provider Active Start: July 17, 2024 End: July 17, 2024 Dr. Zuleyka Delgadillo DO Attending Provider Activ e Start: July 17, 2024 End: July 17, 2024 Team Status: Inactive Member Role Status Dates Dr. Juan Pete MD Primary Care Provider Acti ve Start: July 18, 2024 End: July 18, 2024 Dr. Santa Daniels MD Attending Provider Active Start: July 18, 2024 End: July 18, 2024 Dr. Santa Daniels MD Referring Provider Active Start: July 18, 2024 End: July 18, 2024 Team Status: Active Member Role Status Dates Dr. Juan Pete MD Primary Care Provider Acti ve Start: July 18, 2024 Dr. Santa Daniels MD Attending Provider Active Start: July 18, 2024 Dr. Santa Daniels MD Referring Provider Active Start: July 18, 2024 Team Status: Inactive Member Role Status Dates Dr. Juan Pete MD Primary Care Provider Acti ve Start: July 19, 2024 End: July 19, 2024 Dr. Juan Pete MD Referring Provider Active Start: July 19, 2024 End: July 19, 2024 Dr. Santa Daniels MD Attending Provider Active Start: July 19, 2024 End: July 19, 2024 Team Status: Active Member Role Status Dates Dr. Juan Pete MD Primary Care Provider Acti ve Start: August 08, 2024 Dr. Santa Daniels MD Attending Provider Active Start: August 08, 2024 Dr. Santa Daniels MD Referring Provider Active Start: August 08, 2024 Dr. Santa Daniels MD Other Provider Active Start: August 08, 2024 Team Status: Inactive Member Role Status Dates Dr. Juan Pete MD Primary Care Provider Acti ve Start: August 08, 2024 End: August 08, 2024 Dr. Santa Daniels MD Attending Provider Active Start: August 08, 2024 End: August 08, 2024 Dr. Santa Daniels MD Referring Provider Active Start: August 08, 2024 End: August 08, 2024 Team Status: Inactive Member Role Status Dates Dr. Juan Pete MD Primary Care Provider Acti ve Start: August 14, 2024 End: August 14, 2024 Dr. Milton Mariscal , Emergency Provider Activ e Start: August 14, 2024 End: August 14, 2024 Team Status: Active Member Role Status Dates Dr. Juan Pete MD Primary Care Provider Acti ve Start: August 14, 2024 Dr. Milton Mariscal DO Emergency Provider Activ e Start: August 14, 2024 Dr. Zuleyka Delgadillo DO Attending Provider Activ e Start: August 14, 2024 Team Status: Inactive Member Role Status Dates Dr. Juan Pete MD Primary Care Provider Acti ve Start: August 16, 2024 End: August 16, 2024 Dr. Rashad Collier DO Referring Provider Active Start: August 16, 2024 End: August 16, 2024 Dr. Rashad Collier DO Emergency Provider Active Start: August 16, 2024 End: August 16, 2024 Team Status: Active Member Role/Relationship Status Dates Dr. Juan Pete MD Primary Care Provider Acti ve Team Status: Active Member Role/Relationship Status Dates Dr. Juan Pete MD Primary Care Provider Acti ve Start: August 08, 2024 Dr. Niko Clemente MD Attending Provider Active Start: August 08, 2024 Dr. Niko Clemente MD Referring Provider Active Start: August 08, 2024 Team Status: Active Member Role/Relationship Status Dates Dr. Juan Pete MD Primary Care Provider Acti ve Start: August 08, 2024 Dr. Santa Daniels MD Attending Provider Active Start: August 08, 2024 Dr. Santa Daniels MD Referring Provider Active Start: August 08, 2024 Dr. Santa Daniels MD Other Provider Active Start: August 08, 2024 Team Status: Inactive Member Role/Relationship Status Dates Dr. Juan Pete MD Primary Care Provider Acti ve Start: August 08, 2024 End: August 08, 2024 Dr. Santa Daniels MD Attending Provider Active Start: August 08, 2024 End: August 08, 2024 Dr. Santa Daniels MD Referring Provider Active Start: August 08, 2024 End: August 08, 2024 Team Status: Inactive Member Role/Relationship Status Dates Dr. Juan Pete MD Primary Care Provider Acti ve Start: August 14, 2024 End: August 14, 2024 Dr. Milton Mariscal DO Attending Provider Activ e Start: August 14, 2024 End: August 14, 2024 Dr. Milton Mariscal , DO Emergency Provider Activ e Start: August 14, 2024 End: August 14, 2024 Team Status: Active Member Role/Relationship Status Dates Dr. Juan Pete MD Primary Care Provider Acti ve Start: August 14, 2024 Dr. Milton Mariscal , DO Emergency Provider Activ e Start: August 14, 2024 Dr. Zuleyka eDlgadillo , DO Attending Provider Activ e Start: August 14, 2024 Team Status: Inactive Member Role/Relationship Status Dates Dr. Juan Pete MD Primary Care Provider Acti ve Start: August 16, 2024 End: August 16, 2024 Dr. Rashad Collier DO Attending Provider Active Start: August 16, 2024 End: August 16, 2024 Dr. Rashad Collier DO Referring Provider Active Start: August 16, 2024 End: August 16, 2024 Dr. Rashad Collier DO Emergency Provider Active Start: August 16, 2024 End: August 16, 2024 Team Status: Inactive Member Role/Relationship Status Dates Dr. Juan Pete MD Primary Care Provider Acti ve Start: August 23, 2024 End: August 23, 2024 Dr. Juan Pete MD Referring Provider Active Start: August 23, 2024 End: August 23, 2024 Dr. Santa Daniels MD Attending Provider Active Start: August 23, 2024 End: August 23, 2024 Team Status: Inactive Member Role/Relationship Status Dates Dr. Juan Pete MD Primary Care Provider Acti ve Start: November 22, 2024 End: November 22, 2024 Dr. Juan Pete MD Referring Provider Active Start: November 22, 2024 End: November 22, 2024 DEBBIE Frye Attending Provider Active Start: November 22, 2024 End: November 22, 2024 Team Status: Inactive Member Role/Relationship Status Dates Dr. Juan Pete MD Primary Care Provider Acti ve Start: November 25, 2024 End: November 26, 2024 Dr. Marck Galeana , Emergency Provider Active Start: November 25, 2024 End: November 26, 2024 Team Status: Inactive Member Role/Relationship Status Dates Dr. Juan Pete MD Primary Care Provider Acti ve Start: August 14, 2024 End: August 14, 2024 Dr. Milton Mariscal DO Attending Provider Activ e Start: August 14, 2024 End: August 14, 2024 Dr. Milton Mariscal , Emergency Provider Activ e Start: August 14, 2024 End: August 14, 2024 Team Status: Active Member Role/Relationship Status Dates Dr. Juan Pete MD Primary Care Provider Acti ve Start: August 14, 2024 Dr. Milton Mariscal DO Emergency Provider Activ e Start: August 14, 2024 Dr. Zuleyka Delgadillo DO Attending Provider Activ e Start: August 14, 2024 Team Status: Inactive Member Role/Relationship Status Dates Dr. Juan Pete MD Primary Care Provider Acti ve Start: August 16, 2024 End: August 16, 2024 Dr. Rashad Collier DO Attending Provider Active Start: August 16, 2024 End: August 16, 2024 Dr. Rashad Collier DO Referring Provider Active Start: August 16, 2024 End: August 16, 2024 Dr. Rashad Collier DO Emergency Provider Active Start: August 16, 2024 End: August 16, 2024 Team Status: Inactive Member Role/Relationship Status Dates Dr. Juan Pete MD Primary Care Provider Acti ve Start: August 23, 2024 End: August 23, 2024 Dr. Juan Pete MD Referring Provider Active Start: August 23, 2024 End: August 23, 2024 Dr. Santa Daniels MD Attending Provider Active Start: August 23, 2024 End: August 23, 2024 Team Status: Inactive Member Role/Relationship Status Dates Dr. Juan Pete MD Primary Care Provider Acti ve Start: November 22, 2024 End: November 22, 2024 Dr. Juan Pete MD Referring Provider Active Start: November 22, 2024 End: November 22, 2024 DEBBIE Frye Attending Provider Active Start: November 22, 2024 End: November 22, 2024 Team Status: Inactive Member Role/Relationship Status Dates Dr. Juan Pete MD Primary Care Provider Acti ve Start: November 25, 2024 End: November 26, 2024 Dr. Marck Galeana DO Attending Provider Active Start: November 25, 2024 End: November 26, 2024 Dr. Marck Galeana DO Emergency Provider Active Start: November 25, 2024 End: November 26, 2024 Team Status: Inactive Member Role/Relationship Status Dates Dr. Juan Pete MD Primary Care Provider Acti ve Start: December 04, 2024 End: December 04, 2024 DEBBIE Frye Attending Provider Active Start: December 04, 2024 End: December 04, 2024 DEBBIE Frye Referring Provider Active Start: December 04, 2024 End: December 04, 2024 Source Comments (unrecognize d section and content) In the event this informatio n is protected by the Federal Confidentiality of Alcohol and Drug Abuse Patient Records regulations: The Federal rules restrict any use of the information to criminally investigate or prosecute any alcohol or drug abuse patient.[facility] the event this information is protected by the Federal Confidentiality of Alcohol and Drug Abuse Patient Records regulations: The Federal rules restrict any use of the information to criminally investigate or prosecute any alcohol or drug abuse patient.[facility] Reason for Visit (unrecogniz ed section and content) Reason Comments Swollen Glands right side x 2-3 day s, denies sore throat Reason Comments Sore Throat ST, swollen tonsils and fever x 1 day FOR RECORDS PERTAINING TO PATIENTS WHO ARE OR HAVE BEEN ENROLLED IN A CHEMICAL DEPENDENCY/SUBSTANCEABUSE PROGRAM, SOME INFORMATION MAY BE OMITTED. This clinical summary was aggregated from multiple sources. Caution should be exercised in using it in the provision of clinical care. This summary normalizes information from multiple sources, and as a consequence, information in this document may materially change the coding, format and clinical context of patient data. In addition, data may be omitted in some cases. CLINICAL DECISIONS SHOULD BE BASED ON THE PRIMARY CLINICAL RECORDS. [facility]. provides no warranty or guarantee of the accuracy or completeness of information in this document.
[2024-12-23 04:07] LABS: PROGESTERONE 8.8 ng/mL (.)
== END | disposition home or self-care (01) ==
PROVIDERS: PCP Family Medicine; Referring Provider Nurse Practitioner Family; Visit Provider Nurse Practitioner Family
DX: Z31.9 Encounter for procreative management, unspecified (principal)
CPT/HCPCS: 36415; 84144

== ENCOUNTER → 2025-01-17 | Outpatient (CLI) | payer OTHER, SELFPAY | END | disposition home or self-care (01) | PROVIDERS: PCP Family Medicine; Referring Provider Nurse Practitioner Family; Visit Provider Nurse Practitioner Family | DX: R53.83 Other fatigue (principal) | CPT/HCPCS: 36415; 84439; 84443 ==

== ENCOUNTER → 2025-01-29 | Outpatient (CLI) | payer OTHER, SELFPAY ==
--- NOTE | 2025-01-29 08:53 | US_ITS ---
PROCEDURE: PELVIC W/ TRANSVAGINAL 01/29/2025 REASON FOR EXAM: INFERTILITY 1st day of last menstrual period was 01/29/2025. Patient started menstrual cycle this morning. TECHNIQUE: Procedure Code: [id number] Modality: US Procedure: PELVIC W/ TRANSVAGINAL COMPARISON: Pelvic ultrasound dated 08/14/2024 and 07/18/2024 FINDINGS: Measurements: Uterus: 8.8 x 5.6 x 4.9 with a volume of 127 mL Endometrial Thickness: 12.5 Right Ovary: 2.4 x 1.8 x 1.6 with a volume of 3.6 mL. Left Ovary: 4.4 x 2.7 x 2.0 with a volume of 12.9 mL. Uterus: The uterus is anteverted. Endometrium: The endometrial thickness measures 12.5 cm. The patient has started her menstrual cycle today. The endometrium has a hyperechoic heterogeneous appearance and fluid within the canal. The cervix appears unremarkable. Right ovary: Size, contour, and echogenicity are within normal limits. There are no masses seen. There is flow within the ovary. Left ovary: Size, contour, and echogenicity are within normal limits. There are no masses seen. There is flow within the ovary. Other: The urinary bladder measures 10.1 x 8.2 x 6.2 cm. The urinary bladder volume measures 271.6 mL. Contour is within normal limits. The lining is thin and smooth. There is no free fluid in the cul-de-sac. US/Pelvic w/ Transvaginal IMPRESSION: Endometrial stripe thickness measures 12.5 cm. The endometrium has a hyperecho ic heterogeneous appearance. This is similar when compared to the prior exam. The patient started her menstrual cycle today. The uterus is anteverted. Reading Location: [id number]
== END | disposition home or self-care (01) ==
PROVIDERS: PCP Family Medicine; Referring Provider Nurse Practitioner Family; Visit Provider Nurse Practitioner Family
DX: N97.9 Female infertility, unspecified (principal)
CPT/HCPCS: 76830; 76856

== ENCOUNTER → 2025-03-19 | Outpatient (CLI) | payer OTHER, SELFPAY ==
[2025-03-20 04:07] LABS: PROGESTERONE 13.6 ng/mL (.)
== END | disposition home or self-care (01) ==
PROVIDERS: Nurse Practitioner Women's Health; PCP Family Medicine; Visit Provider Obstetrics & Gynecology
DX: N93.8 Other specified abnormal uterine and vaginal bleeding (principal)
CPT/HCPCS: 36415; 84144